=== PATIENT | female | born 1955 | race Caucasian/White ===

== ENCOUNTER 2019-05-24 22:44 | Emergency (ER) | payer MEDICARE, MEDICAID, SELFPAY ==
[2019-05-24 22:47] VITALS: BP 138/68; PULSE 66; RESP 20; TEMP 36.8; O2SAT 96
--- NOTE | 2019-05-24 23:45 | ED.WOUNDLAC ---
HPI - Wound/Laceration General Chief Complaint: Wound/Laceration Stated Complaint: tounge lac Time Seen by Provider: 05/24/19 23:35 Source: patient and RN notes reviewed Mode of arrival: EMS Limitations: no limitations History of Present Illness HPI narrative: Pt is a 64 y/o female who presents to the ED, via EMS, with c/o a laceration to the left side of her tongue. She states she was taking a bite of celery, when she accidentally bit the left side of her tongue. She reports the bleeding has not subsided since onset, even after trying to ice the laceration and other remedies. She reports she is currently on Xarelto and ASA which could be the cause of the constant bleeding. Pt states she has been bleeding for the past 6 hours. Pt denies pain anywhere else in her body. Onset (ago): hour(s) (6 hours ago) Location: other (left side of tongue) Place: home Context: accidental Associated symptoms: none Related Data Allergies Allergy/AdvReac Type Severity Reaction Status Date / Time green pepper Allergy Unknown Unknown Verified 05/24/19 22:50 Review of Systems Review of Systems: All systems reviewed & are unremarkable except as noted in HPI and below Constitutional: Constitutional: Denies other (pain anywhere else in her body) ENT: Reports other (laceration to the left side of her tongue) [facility] Past Medical History Medical History (Updated 05/25/19 @ 00:20 by Tommie Bettencourt MD) Anemia Angina at rest Anxiety Arthritis Asthma Atrial fibrillation Cataract CHF (congestive heart failure) Colitis COPD (chronic obstructive pulmonary disease) CVA (cerebral vascular accident) Degenerative disk disease Depression Diabetes DVT (deep venous thrombosis) Eczema Emphysema of lung Epistaxis Fibromyalgia Gall bladder disease GERD (gastroesophageal reflux disease) Hyperlipidemia Hypertension Mitral valve prolapse Osteoporosis Parkinson disease Peripheral neuropathy Peripheral vascular disease Pneumonia Psoriasis Pulmonary embolism Renal disease Restless leg syndrome Seizures Sleep apnea TIA (transient ischemic attack) UTI (urinary tract infection) Surgical History Surgical History (Updated 05/24/19 @ 23:59 by Nikky Fofana) H/O cardiac catheterization H/O dilation and curettage History of cholecystectomy History of right knee joint replacement History of tubal ligation Hx of tonsillectomy Family History Family History (Updated 11/18/15 @ 23:19 by DOCTOR UNKNOWN) Grandparent Family history of malignant neoplasm of breast, Onset Age: 72 Diabetes mellitus Father Family history of renal failure, Onset Age: 70 Cerebrovascular accident, Onset Age: 71 Family history of thoracic aortic aneurysm, Onset Age: 46 Patient's father is Sibling Family history of type 2 diabetes mellitus Mother Patient's mother is Other Family history of alcoholism Family history of arthritis Family history of blood dyscrasia Family history of seizure disorder Hypertension Social History Social History Smoking status: Never smoker Second hand tobacco smoke exposure: No Alcohol intake: never Gender identity (if verbalized by the patient): Female Exam Narrative: Exam Narrative: Constitutional: Elderly, obese, well-appearing. HENMT: Lips normal, moist mucous membranes. 1 cm laceration to the left side of her tongue with a small act of hemorrhage. Eyes: Conjunctive normal, PERRL Resp: Normal respiratory effect, clear to auscultation bilaterally. Cardio: Regular rate, rhythm, no murmurs. GI: Soft, non-tender, normal bowel sounds. Back/Spine/Pelvis: Full ROM Skin: Normal color, dry skin, warm Neuro: Oriented x 3, alert, normal speech Extremities: Full ROM Psych: Mental status grossly normal, normal affect. Course Vital Signs Vital signs: Vital Signs Temperature 36.8 C 05/24/19 22:47 Pulse Rate 66 05/24/19 22:47 Respiratory Rate 20 05/24/19 22:4
[2019-05-24 23:58] VITALS: BP 128/35; PULSE 69; RESP 18; O2SAT 99
[2019-05-25 00:34] VITALS: BP 135/85; PULSE 72; RESP 16; TEMP 36.6; O2SAT 98
[2019-05-25 02:07] VITALS: BP 120/89; PULSE 60; RESP 18; O2SAT 99
--- NOTE | 2019-05-25 02:59 | PC.NURSE ---
0034 - Called [facility] to transport patient. ETA [id number] - [facility] here.
== END 2019-05-25 03:03 ==
PROVIDERS: Emergency Provider Emergency Medicine; PCP Internal Medicine
DX: S01.512A Laceration without foreign body of oral cavity, initial encounter (principal); Z79.01 Long term (current) use of anticoagulants; Z79.82 Long term (current) use of aspirin; M19.90 Unspecified osteoarthritis, unspecified site; Z86.2 Personal history of diseases of the blood and blood-forming organs and certain disorders involving the immune mechanism; I48.91 Unspecified atrial fibrillation; I50.9 Heart failure, unspecified; J43.9 Emphysema, unspecified; Z86.73 Personal history of transient ischemic attack (TIA), and cerebral infarction without residual deficits; E11.9 Type 2 diabetes mellitus without complications; Z86.718 Personal history of other venous thrombosis and embolism; M79.7 Fibromyalgia; K21.9 Gastro-esophageal reflux disease without esophagitis; E78.5 Hyperlipidemia, unspecified; I11.0 Hypertensive heart disease with heart failure; I34.1 Nonrheumatic mitral (valve) prolapse; M81.0 Age-related osteoporosis without current pathological fracture; G20 Parkinson's disease; G62.9 Polyneuropathy, unspecified; I73.9 Peripheral vascular disease, unspecified; Z86.711 Personal history of pulmonary embolism; G25.81 Restless legs syndrome; N28.9 Disorder of kidney and ureter, unspecified; G47.30 Sleep apnea, unspecified; Z87.440 Personal history of urinary (tract) infections; X58.XXXA Exposure to other specified factors, initial encounter
CPT/HCPCS: 12011; 99282

== ENCOUNTER 2019-11-11 00:50 | Emergency (ER) | payer MEDICARE, MEDICAID, SELFPAY ==
[2019-11-11 00:52] VITALS: BP 152/64; PULSE 61; RESP 17; TEMP 36.2; O2SAT 98
--- NOTE | 2019-11-11 00:59 | ECG_ITS ---
Measurements Intervals [place] Rate: 55 P: -33 GA: 201 QRS: -34 QRSD: 149 T: 42 QT: 470 QTc: 451 Interpretive Statements SINUS BRADYCARDIA LEFT AXIS DEVIATION BORDERLINE AV CONDUCTION DELAY INTRAVENTRICULAR CONDUCTION DELAY DELAYED PRECORDIAL R/S TRANSITION LEFT VENTRICULAR HYPERTROPHY WITH ST-T CHANGE BASELINE ARTIFACT- I, II, III, AVR, AVL, AVF, V6 BORDERLINE ECG Electronically Signed On 11-11-2019 7:39:14 CDT by Ken Gonzalez D.O.
--- NOTE | 2019-11-11 01:01 | ED.DIZZY ---
HPI - Dizziness General Chief Complaint: Dizziness Stated Complaint: dizziness Time Seen by Provider: 11/11/19 00:59 History of Present Illness HPI Narrative: Intermittent dizziness since yesterday. She has had about 5 episodes and each one has lasted about 1 minute. Worse with laying on her right side. Seems to improve with being upright. No ear pain, tinnitus, muffled hearing. She says that she had vertigo years ago and this is different. Additionally she believes that she has a uti. Urinary frequency and pungent smell. Related Data Home Medications Medication Instructions Recorded Confirmed alprazolam 0.5 mg PO BID 11/11/19 aripiprazole 15 mg PO DAILY 11/11/19 aspirin 81 mg PO DAILY 11/11/19 budesonide-formoterol [Symbicort] 2 puff INHALATION Q12H 11/11/19 bumetanide 1 mg PO BID 11/11/19 buspirone 10 mg PO TID 11/11/19 calcium carbonate-vitamin D3 tablet PO 11/11/19 [Calcium 600 with Vitamin D3] carbidopa-levodopa 1 tablet PO TID 11/11/19 carvedilol 3.125 mg PO BID 11/11/19 cetirizine 10 mg PO DAILY 11/11/19 escitalopram oxalate 20 mg PO DAILY 11/11/19 fluticasone propionate [Allergy 1 spray INTRANASAL DAILY 11/11/19 Relief (fluticasone)] insulin glargine [Lantus Solostar 40 unit SUBCUT BID 11/11/19 U-100 Insulin] lovastatin 10 mg PO QPM 11/11/19 magnesium oxide 400 mg PO BID 11/11/19 metolazone 2.5 mg PO TID 11/11/19 nitrofurantoin monohyd/m-cryst 100 mg PO HS 11/11/19 [Macrobid] oxcarbazepine 600 mg PO BID 11/11/19 oxybutynin chloride 10 mg PO DAILY 11/11/19 spironolactone 25 mg PO DAILY 11/11/19 Allergies Allergy/AdvReac Type Severity Reaction Status Date / Time green pepper Allergy Unknown Unknown Verified 11/11/19 01:40 Review of Systems Review of Systems: All systems reviewed & are unremarkable except as noted in HPI and below Constitutional: Constitutional: Denies fever(s) Eyes: Eyes: Denies change in vision ENT: Reports dizziness and Denies sore throat Cardiovascular: Cardiovascular: Denies chest pain Respiratory: Respiratory: Denies dyspnea Gastrointestinal: Gastrointestinal: Denies abdominal pain and Denies nausea Genitourinary: Genitourinary: Denies hematuria, Reports nocturia and Denies dysuria Neurologic: Denies syncope [facility] Past Medical History Medical History Anemia Angina at rest Anxiety Arthritis Asthma Atrial fibrillation Cataract CHF (congestive heart failure) Colitis COPD (chronic obstructive pulmonary disease) CVA (cerebral vascular accident) Degenerative disk disease Depression Diabetes DVT (deep venous thrombosis) Eczema Emphysema of lung Epistaxis Fibromyalgia Gall bladder disease GERD (gastroesophageal reflux disease) Hyperlipidemia Hypertension Mitral valve prolapse Osteoporosis Parkinson disease Peripheral neuropathy Peripheral vascular disease Pneumonia Psoriasis Pulmonary embolism Renal disease Restless leg syndrome Seizures Sleep apnea TIA (transient ischemic attack) UTI (urinary tract infection) Surgical History Surgical History H/O cardiac catheterization H/O dilation and curettage History of cholecystectomy History of right knee joint replacement History of tubal ligation Hx of tonsillectomy Family History Family History Grandparent Family history of malignant neoplasm of breast, Onset Age: 72 Diabetes mellitus Father Family history of renal failure, Onset Age: 70 Cerebrovascular accident, Onset Age: 71 Family history of thoracic aortic aneurysm, Onset Age: 46 Patient's father is Sibling Family history of type 2 diabetes mellitus Mother Patient's mother is Other Family history of alcoholism Family history of arthritis Family history of blood dyscrasia Family history of seizure di
[2019-11-11 01:26] LABS: Blood Urea Nitrogen 37 mg/dL (7-17); Calcium 8.9 mg/dL (8.4-10.2); Carbon Dioxide 30 mmol/L (22-30); Chloride 88 mmol/L (98-107); Estimated Glomerular Filt Rate 45; Glucose 171 mg/dL (65-105); Potassium 4.1 mmol/L (3.4-5.0); Sodium 125 mmol/L (137-145)
[2019-11-11 01:35] LABS: Lactic Acid Reflex 0.7 mmol/L (0.7-2.1)
[2019-11-11] MEDS: MECLIZINE HCL 25 MG TABLET PO (01:35)
[2019-11-11 01:40] LABS: Add Urine Microscopic? YES; Appearance Urine Cloudy (Clear); Bacteria Urine Trace /hpf; Bilirubin Urine Negative (Negative); Blood Urine 1+ (Negative); Color Urine Yellow (Yellow); Glucose Urine UA Negative (Negative); Ketones Urine Negative (Negative); Leukocyte Esterase Ur 3+ LEU/UL (Negative); Nitrate Urine Positive (Negative); Protein Urine Negative (Negative); Specific Grav Ur 1.013 (1.001-1.035); Urobilinogen Urine Negative mg/dL (<2.0); WBC Urine 51-75 /hpf
[2019-11-11] MEDS: CEFDINIR 300 MG CAPSULE PO (02:18)
--- NOTE | 2019-11-11 02:40 | PC.NURSE ---
attempted to call [facility] twice to give updated on pt, unable to get ahold of nurse.
--- NOTE | 2019-11-11 02:44 | PC.NURSE ---
called [facility] to transport patient. ETA [phone] called [facility] to request transport. [facility] declined.
[2019-11-11 02:59] LABS: Basophils Absolute Auto 0.1 K/mm3 (0.0-0.1); Basophils Percent Auto 0.8 % (0.2-1.2); Eosinophils Absolute Auto 0.2 K/mm3 (0-0.3); Hematocrit 31.9 % (37.0-47.0); Hemoglobin 10.7 g/dL (12.0-15.0); Immature Granulocyte Absolute 0.06 K/mm3 (0.00-0.031); Immature Granulocyte Percent A 0.8 % (0-0.5); Lymphocytes Percent Auto 27.5 % (18.3-44.2); Mean Corpuscular HGB Conc 33.5 g/dl (32-36); Mean Corpuscular Hemoglobin 29.8 pg (26-34); Mean Corpuscular Volume 88.9 fl (80-100); Mean Platelet Volume 10.2 fl (7.4-10.4); Monocytes Absolute Auto 0.9 K/mm3 (0.1-0.6); Monocytes Percent Auto 12.6 % (2.6-8.5); Neutrophils Percent Auto 55.3 % (45.5-73.1); Platelet Count Result 232 k/mm3 (150-375); Red Blood Count 3.59 M/mm3 (4.2-5.4); Red Cell Distribution Width 14.1 % (11.5-14.5); White Blood Count 7.3 K/mm3 (4.5-10.0)
[2019-11-11 03:04] VITALS: BP 139/67; PULSE 57; RESP 16; O2SAT 98
--- NOTE | 2019-11-11 03:04 | PC.NURSE ---
updated pt and pt's on poc at this time. pt continues to rest on stretcher-denies any needs/concerns.
[2019-11-11 05:05] VITALS: BP 142/73; PULSE 49; RESP 18; O2SAT 99
--- NOTE | 2019-11-11 05:06 | PC.NURSE ---
pt continues to sleep on stretcher at this time, awaiting EMS.
--- NOTE | 2019-11-11 05:10 | PC.NURSE ---
called [facility] for ETA update. ETA [phone]
--- NOTE | 2019-11-11 05:57 | PC.NURSE ---
[facility] called to update ETA to [phone]
--- NOTE | 2019-11-11 06:39 | PC.NURSE ---
called [facility] for ETA update. ETA [phone]
[2019-11-11 06:52] VITALS: BP 128/66; PULSE 53; RESP 18; O2SAT 100
--- NOTE | 2019-11-11 06:55 | PC.NURSE ---
pt continues to sleep on stretcher at this time. awaiting transport, VS stable, RR even and unlabored.
--- NOTE | 2019-11-11 06:55 | PC.NURSE ---
called [facility] to request transport. [facility] declined.
--- NOTE | 2019-11-11 07:01 | PC.NURSE ---
called [facility] to request transport. [facility] declined
--- NOTE | 2019-11-11 07:08 | PC.NURSE ---
called [facility] to request transport. Declined. can try at 10am when second truck comes on.
[2019-11-11 09:39] VITALS: BP 128/72; PULSE 68; RESP 16; O2SAT 96
[2019-11-11 09:41] LABS: Glucose Point of Care 74 (65-105)
== END 2019-11-11 09:42 ==
PROVIDERS: Emergency Medicine; Emergency Provider Emergency Medicine; PCP Internal Medicine
DX: N30.00 Acute cystitis without hematuria (principal); D64.9 Anemia, unspecified; F41.9 Anxiety disorder, unspecified; M19.90 Unspecified osteoarthritis, unspecified site; J45.909 Unspecified asthma, uncomplicated; I48.91 Unspecified atrial fibrillation; I13.0 Hypertensive heart and chronic kidney disease with heart failure and stage 1 through stage 4 chronic kidney disease, or unspecified chronic kidney disease; E11.22 Type 2 diabetes mellitus with diabetic chronic kidney disease; N18.9 Chronic kidney disease, unspecified; I50.9 Heart failure, unspecified; Z79.4 Long term (current) use of insulin; J44.9 Chronic obstructive pulmonary disease, unspecified; Z86.73 Personal history of transient ischemic attack (TIA), and cerebral infarction without residual deficits; F32.9 Major depressive disorder, single episode, unspecified; M79.7 Fibromyalgia; K21.9 Gastro-esophageal reflux disease without esophagitis; E78.5 Hyperlipidemia, unspecified; G20 Parkinson's disease; G40.909 Epilepsy, unspecified, not intractable, without status epilepticus
CPT/HCPCS: 36415; 51701; 80048; 81001; 83605; 85025; 87077; 87086; 87088; 87186; 93005; 99283; A9270

== ENCOUNTER 2019-11-17 01:20 | Emergency (ER) | payer MEDICARE, MEDICAID, SELFPAY ==
--- NOTE | ~2019-11-17 | XR_ITS ---
XR chest 1V portable DATE: 11/17/2019 01:46 INDICATION: Shortness of breath TECHNIQUE: Portable AP chest on 11/17/2019 at 0141 hours COMPARISON: 11/18/2018 AP and lateral chest FINDINGS: Cardiomegaly. Mild pulmonary vascular congestion and redistribution are suggested. There is new asymmetric soft tissue density overlying the left suprahilar area; pulmonary mass lesion is not excluded. PA and lateral chest radiograph since recommended, with follow-up CT thorax if nece ssary. There is moderate elevation of the right leaf of the diaphragm and mild atelectasis at the right lung base. No pleural effusion. No pneumothorax. Surgical clips overlie the left and right upper quadrants of the abdomen. Diffuse osteopenia. Degenerative change and mild scoliosis of the thoracic spine. IMPRESSION: New asymmetric soft tissue density overlying left suprahilar area; recommend PA and later al chest radiographs, subsequent CT thorax if necessary Cardiomegaly, mild pulmonary vascular congestion suggesting mild congestive changes Chronic elevation of right leaf of the diaphragm and right mild basilar atelectasis Postoperative changes of left and right upper quadrants of the abdomen Dr. Rodriguez notified ER physician Dr. Bettencourt of the findings and recommendation for follow up chest radiograph and subsequent CT thorax if necessary on 11/17/2019 at 0650 hours. Reviewed, dictated and finalized at location [facility]. IMPRESSION: New asymmetric soft tissue density overlying left suprahilar area; recommend PA and lateral chest radiographs, subsequent CT thorax if necessary Cardiomegaly, mild pulmonary vascular congestion suggesting mild congestive carmelo nges Chronic elevation of right leaf of the diaphragm and right mild basilar atelect asis Postoperative changes of left and right upper quadrants of the abdomen Dr. Rodriguez notified ER physician Dr. Bettencourt of the findings and recommendatio n for follow up chest radiograph and subsequent CT thorax if necessary on 11/16 at 0650 hours.
--- NOTE | ~2019-11-17 | CT_ITS ---
EXAMINATION: CT chest wo con EXAM DATE: 11/17/2019 07:12 INDICATION: Abnormal chest x-ray. TECHNIQUE: Spiral CT of the chest without contrast. Axial, coronal and sagittal images were reviewe d. Coronal maximum intensity pixel images of chest reviewed. The dose-length product (DLP) for this examination was 905.09 mGy-cm. The exposure was tailored according to patient size (auto mA exposur e control), and iterative reconstruction (ASIR) was used as additional dose reduction technique. Comp arison is made to prior examination from 05/15/2013. Correlation was made with chest x-ray earlier [facility] e date. FINDINGS: There is pleural-based right middle lobe nodular opacity measuring about 1.3 cm, appearance most consistent with region of post infectious residua. There is additional pleural-based right midd le lobe 5 mm nodule. The main, central pulmonary arteries are dilated which can indicate elevated pulmonary arterial press ure, pulmonary arterial hypertension. This likely accounts for the left suprahilar density on x-ray. Some dense mitral annular calcifications. Heart is upper limits of normal in size. There are no pleural or pericardial effusions. Tracheobronchial tree is patent. There is no media stinal, hilar or axillary lymphadenopathy. There is no pneumothorax. There is mild coronary arter ial calcification, arterial sclerosis. Surgical changes at the gastroesophageal junction. Probable c holecystectomy. There is mild to moderate thoracic spondylosis without osteoblastic or osteolytic le sions identified. IMPRESSION: 1. Two right middle lobe nodules suspected most likely postinfectious; recommend 3 month follow-up l ow-dose chest CT. 2. Pulmonary arterial hypertension. Reviewed, dictated and finalized at location [facility]. IMPRESSION: 1. Two right middle lobe nodules suspected most likely postinfectious; recomme nd 3 month follow-up low-dose chest CT. 2. Pulmonary arterial hypertension.
[2019-11-17 01:21] VITALS: BP 140/65; PULSE 55; RESP 18; TEMP 37; O2SAT 95
--- NOTE | 2019-11-17 01:27 | ED.GENADULT ---
HPI - General Adult General Chief complaint: Headache Stated complaint: h/a, Time Seen by Provider: 11/17/19 01:21 History of Present Illness HPI narrative: She reports that she has had a migraine for the past week. This is associated with nausea. She tried acetaminophen and motrin without relief. Today they gave her a dose of imitrex, which help some. She also says that she has been feeling a bit more short of breath for the past several days. Related Data Home Medications Medication Instructions Recorded Confirmed alprazolam 0.5 mg PO BID 11/11/19 aripiprazole 15 mg PO DAILY 11/11/19 aspirin 81 mg PO DAILY 11/11/19 budesonide-formoterol [Symbicort] 2 puff INHALATION Q12H 11/11/19 bumetanide 1 mg PO BID 11/11/19 buspirone 10 mg PO TID 11/11/19 calcium carbonate-vitamin D3 tablet PO 11/11/19 [Calcium 600 with Vitamin D3] carbidopa-levodopa 1 tablet PO TID 11/11/19 carvedilol 3.125 mg PO BID 11/11/19 cetirizine 10 mg PO DAILY 11/11/19 escitalopram oxalate 20 mg PO DAILY 11/11/19 fluticasone propionate [Allergy 1 spray INTRANASAL DAILY 11/11/19 Relief (fluticasone)] insulin glargine [Lantus Solostar 40 unit SUBCUT BID 11/11/19 U-100 Insulin] lovastatin 10 mg PO QPM 11/11/19 magnesium oxide 400 mg PO BID 11/11/19 metolazone 2.5 mg PO TID 11/11/19 nitrofurantoin monohyd/m-cryst 100 mg PO HS 11/11/19 [Macrobid] oxcarbazepine 600 mg PO BID 11/11/19 oxybutynin chloride 10 mg PO DAILY 11/11/19 spironolactone 25 mg PO DAILY 11/11/19 Allergies Allergy/AdvReac Type Severity Reaction Status Date / Time green pepper Allergy Unknown Unknown Verified 11/11/19 01:40 Review of Systems Review of Systems: All systems reviewed & are unremarkable except as noted in HPI and below Constitutional: Constitutional: Denies fever(s) Cardiovascular: Cardiovascular: Denies chest pain Respiratory: Respiratory: Reports cough and Reports dyspnea Gastrointestinal: Gastrointestinal: Denies abdominal pain and Reports nausea Genitourinary: Genitourinary: Reports dysuria [facility] Social History Social History Smoking status: Never smoker Second hand tobacco smoke exposure: No Alcohol intake: never Gender identity (if verbalized by the patient): Female Exam Const: General: no acute distress and alert Nutritional Appearance: obese Orientation/consciousness: patient oriented x3 HENMT: Head: normal to inspection Neck: Neck: normal visual inspection and no lymphadenopathy Chest: Chest palpation & inspection: no tenderness Resp: Effort & Inspection: normal respiratory effort Auscultation: clear to auscultation bilaterally, no rales, no rhonchi and no wheezes Cardio: Jugular venous distension: no JVD Rate: regular rate Rhythm: regular rhythm Heart sounds: no murmurs GI: Inspection: non-distended GI Palp: Yes Soft to palpation and No Tenderness to palpation present (GI) Skin: General skin exam: normal color Neuro: General: patient oriented x3 and moves all extremities Speech: normal speech Psych: Appearance: well kempt Affect: normal affect Course Vital Signs Vital signs: Vital Signs Temperature 37.0 C 11/17/19 01:21 Pulse Rate 55 L 11/17/19 01:21 Respiratory Rate 18 11/17/19 01:21 Blood Pressure 140/65 11/17/19 01:21 Pulse Oximetry 95 11/17/19 01:21 Temperature 37.0 C 11/17/19 01:21 Pulse Rate 55 L 11/17/19 04:15 Respiratory Rate 18 11/17/19 04:15 Blood Pressure 130/46 L 11/17/19 04:15 Pulse Oximetry 97 11/17/19 04:15 Medical Decision Making Medical Records Medical records reviewed: Yes I reviewed the patient's medical records. Vital Signs Vital Signs: Vital Signs Temperature 37.0 C 11/17/19 01:21 Pulse Rate 55 L 11/17/19 01:21 Respiratory Rate 18 11/17/19 01:21 Blood Pressure 140/65 11/17/19 01:21 Pulse Oximetry 95 11/17/19 01:21 Temperature 37.0 C 11/17/19 0
--- NOTE | 2019-11-17 01:30 | ECG_ITS ---
Measurements Intervals [place] Rate: 50 P: 29 VT: 248 QRS: -33 QRSD: 144 T: 5 QT: 517 QTc: 472 Interpretive Statements SINUS BRADYCARDIA WITH FIRST DEGREE AV BLOCK LEFT AXIS DEVIATION INTRAVENTRICULAR CONDUCTION DELAY DELAYED PRECORDIAL R/S TRANSITION LEFT VENTRICULAR HYPERTROPHY WITH ST-T CHANGE BORDERLINE T WAVE ABNORMALITY- INFERIOR LEADS ABNORMAL ECG Electronically Signed On 11-17-2019 7:05:43 CDT by Ken Gonzalez D.O.
[2019-11-17] MEDS: SODIUM CHLORIDE 0.9% IV 1,000 ML 999 ML IV CONT (01:46)
[2019-11-17] MEDS: METOCLOPRAMIDE HCL INJ 10 MG/2 ML VIAL IV PUSH (01:47)
[2019-11-17] MEDS: KETOROLAC 30 MG/ML VIAL (*BKC) IV PUSH (01:47)
[2019-11-17] MEDS: diphenhydrAMINE HCl INJ 50 MG/ML VIAL 25 MG IV PUSH ×2 (01:47→04:37)
[2019-11-17 01:50] LABS: Basophils Absolute Auto 0.1 K/mm3 (0.0-0.1); Eosinophils Absolute Auto 0.2 K/mm3 (0-0.3); Eosinophils Percent Auto 3.4 % (0-4.4); Hematocrit 32.6 % (37.0-47.0); Hemoglobin 11.2 g/dL (12.0-15.0); Immature Granulocyte Absolute 0.04 K/mm3 (0.00-0.031); Immature Granulocyte Percent A 0.6 % (0-0.5); Lymphocytes Absolute Auto 1.79 K/mm3 (0.9-3.2); Lymphocytes Percent Auto 26.5 % (18.3-44.2); Mean Corpuscular HGB Conc 34.4 g/dl (32-36); Mean Corpuscular Hemoglobin 29.9 pg (26-34); Mean Corpuscular Volume 86.9 fl (80-100); Mean Platelet Volume 10.2 fl (7.4-10.4); Monocytes Absolute Auto 0.7 K/mm3 (0.1-0.6); Monocytes Percent Auto 10.4 % (2.6-8.5); Neutrophils Absolute Auto 3.9 K/mm3 (1.3-6.7); Neutrophils Percent Auto 58.1 % (45.5-73.1); Platelet Count Result 224 k/mm3 (150-375); Red Blood Count 3.75 M/mm3 (4.2-5.4); White Blood Count 6.8 K/mm3 (4.5-10.0)
[2019-11-17 02:11] LABS: Anion Gap 11.3 mmol/L (7-16); Blood Urea Nitrogen 37 mg/dL (7-17); Calcium 8.4 mg/dL (8.4-10.2); Carbon Dioxide 28 mmol/L (22-30); Chloride 87 mmol/L (98-107); Estimated Glomerular Filt Rate 41; Glucose 161 mg/dL (65-105); Potassium 4.3 mmol/L (3.4-5.0); Sodium 122 mmol/L (137-145)
[2019-11-17 04:15] VITALS: BP 130/46; PULSE 55; RESP 18; O2SAT 97
--- NOTE | 2019-11-17 04:23 | PC.NURSE ---
called [facility] to transport patient. ETA [phone]
--- NOTE | 2019-11-17 06:39 | PC.NURSE ---
called [facility] for ETA update. ETA [id number]
[2019-11-17 06:41] VITALS: BP 132/55; PULSE 51; RESP 16; O2SAT 98
[2019-11-17 09:16] VITALS: BP 136/78; PULSE 56; RESP 18; O2SAT 98
== END 2019-11-17 09:17 ==
PROVIDERS: Emergency Provider Emergency Medicine; PCP General Practice
DX: G43.909 Migraine, unspecified, not intractable, without status migrainosus (principal); R91.8 Other nonspecific abnormal finding of lung field; R00.1 Bradycardia, unspecified; I45.9 Conduction disorder, unspecified; I51.7 Cardiomegaly; R94.31 Abnormal electrocardiogram [ECG] [EKG]
CPT/HCPCS: 36415; 71045; 71250; 80048; 85025; 93005; 96361; 96365; 96375; 96376; 99284; J0131; J1200; J1885; J2765; J7030

== ENCOUNTER 2019-12-01 15:18 | Emergency (ER) | payer MEDICARE, MEDICAID, SELFPAY ==
--- NOTE | ~2019-12-01 | CT_ITS ---
EXAMINATION: CT brain wo con DATE: 12/01/2019 16:49 INDICATION: Headache TECHNIQUE: Computed tomography (CT) of the head was performed without intravenous contrast. The mA wa s adjusted according to patient size. Iterative reconstruction technique was employed. Exam dose: 68 1.00 mGy-cm total exam DLP. COMPARISON: None FINDINGS: No intracranial mass lesion or hemorrhage or intracranial mass lesion. No midline shift or mass effect. Bilateral carotid siphon internal carotid artery calcifications. There is nonspecific diminished att enuation of the cerebral white matter, likely due to chronic small vessel ischemic disease. There is moderate central and cortical cerebral atrophy. There is severe relatively high density likely chronic soft tissue opacification of the right maxilla ry sinus. The remaining paranasal sinuses and mastoid air cells are normally developed and aerated. No fracture or bone destruction of the cranial vault. IMPRESSION: Cerebral atherosclerosis and chronic small vessel ischemic changes of the cerebral white matter Chronic right maxillary prominent soft tissue thickening Reviewed, dictated and finalized at [facility]. Reviewed, dictated and finalized at location [facility].
[2019-12-01 15:24] VITALS: BP 140/61; PULSE 56; RESP 17; TEMP 36.5; O2SAT 96
--- NOTE | 2019-12-01 15:41 | ED.RECABL ---
HPI - Recheck/Abnormal Lab/Rx General Chief Complaint: Recheck/Abnormal Lab/Rx Stated Complaint: ABNORMAL LABS/PUGA Time Seen by Provider: 12/01/19 15:41 Source: patient Mode of arrival: wheelchair Limitations: no limitations History of Present Illness HPI narrative: Patient is a 64-year-old female well-known to our facility with a history of bipolar disorder, robina, obstructive sleep apnea, hypertension who presents for evaluation of headache pain and low sodium levels. Per EMS report, patient had low sodium levels drawn on outpatient lab testing and was sent here for assessment. Patient is currently only reporting a migraine headache which she has a history of. Pain is over the forehead without radiation to the neck, no eye pain. No vision changes, nausea or vomiting. Mild light photosensitivity. No thunderclap sensation to the headache. Patient with gradual onset a couple of days ago. No extremity weakness or numbness. Patient has been on Imitrex at her living facility without any improvement in her symptoms. Related Data Home Medications Medication Instructions Recorded Confirmed alprazolam 0.5 mg PO BID 11/11/19 aripiprazole 15 mg PO DAILY 11/11/19 aspirin 81 mg PO DAILY 11/11/19 budesonide-formoterol [Symbicort] 2 puff INHALATION Q12H 11/11/19 bumetanide 1 mg PO BID 11/11/19 buspirone 10 mg PO TID 11/11/19 calcium carbonate-vitamin D3 tablet PO 11/11/19 [Calcium 600 with Vitamin D3] carbidopa-levodopa 1 tablet PO TID 11/11/19 carvedilol 3.125 mg PO BID 11/11/19 cetirizine 10 mg PO DAILY 11/11/19 escitalopram oxalate 20 mg PO DAILY 11/11/19 fluticasone propionate [Allergy 1 spray INTRANASAL DAILY 11/11/19 Relief (fluticasone)] insulin glargine [Lantus Solostar 40 unit SUBCUT BID 11/11/19 U-100 Insulin] lovastatin 10 mg PO QPM 11/11/19 magnesium oxide 400 mg PO BID 11/11/19 metolazone 2.5 mg PO TID 11/11/19 nitrofurantoin monohyd/m-cryst 100 mg PO HS 11/11/19 [Macrobid] oxcarbazepine 600 mg PO BID 11/11/19 oxybutynin chloride 10 mg PO DAILY 11/11/19 spironolactone 25 mg PO DAILY 11/11/19 acetaminophen 325 mg PO ONCE PRN 12/01/19 albuterol sulfate 12/01/19 12/01/19 albuterol sulfate 1 inh INHALATION QID 12/01/19 bisacodyl 10 mg OK DAILY PRN 12/01/19 budesonide-formoterol [Symbicort] 2 puff INHALATION Q12H 12/01/19 cranberry 200 mg PO DAILY 12/01/19 ergocalciferol (vitamin D2) 1,250 mcg PO WEEKLY 12/01/19 [Vitamin D2] glucagon (human recombinant) 1 mg SUBCUT Q20M PRN 12/01/19 [GlucaGen HypoKit] hydrocodone-acetaminophen 1 tablet PO HS PRN 12/01/19 insulin lispro 12 unit SUBCUT DAILY 12/01/19 menthol [[place] Cough Drops] 7.6 mg MUCOUS MEMBRANE Q2-4H PRN 12/01/19 multivitamin 1 tablet PO DAILY 12/01/19 oxycodone-acetaminophen 1 tablet PO Q6H PRN 12/01/19 polyethylene glycol 3350 17 g PO DAILY 12/01/19 rivaroxaban [Xarelto] 20 mg PO DAILY 12/01/19 sennosides [senna] 8.6 mg PO BID 12/01/19 zolpidem mg 12/01/19 12/01/19 Allergies Allergy/AdvReac Type Severity Reaction Status Date / Time green pepper Allergy Unknown Unknown Verified 11/11/19 01:40 Review of Systems Review of Systems: Narrative: CONSTITUTIONAL: Denies fever CARDIOVASCULAR: Denies chest pain RESPIRATORY: Denies cough or dyspnea. GASTROINTESTINAL: Denies abdominal pain SKIN: Denies rash MUSCULOSKELETAL: Denies back pain NEUROLOGIC: Reports headache Psych: Reports current bipolar episode and manic episode, denies homicidal or suicidal ideation PMFSH Past Medical History Medical History Anemia Angina at rest Anxiety Arthritis Asthma Atrial fibrillation Cataract CHF (congestive heart failure) Colitis COPD (chronic obstructive pulmonary disease) CVA (cerebral vascular accident) Degenerative disk disease Depression Diabetes DVT (deep venous thrombosis) Eczema Emphysema of lung Epistaxis Fibromyalgia Gall bladder disease GERD (gastroesophage
[2019-12-01 16:14] LABS: Basophils Absolute Auto 0.1 K/mm3 (0.0-0.1); Basophils Percent Auto 1.3 % (0.2-1.2); Eosinophils Absolute Auto 0.2 K/mm3 (0-0.3); Eosinophils Percent Auto 2.6 % (0-4.4); Hematocrit 33.1 % (37.0-47.0); Hemoglobin 11.2 g/dL (12.0-15.0); Immature Granulocyte Absolute 0.05 K/mm3 (0.00-0.031); Immature Granulocyte Percent A 0.7 % (0-0.5); Lymphocytes Absolute Auto 1.64 K/mm3 (0.9-3.2); Lymphocytes Percent Auto 24.1 % (18.3-44.2); Mean Corpuscular HGB Conc 33.8 g/dl (32-36); Mean Corpuscular Hemoglobin 29.6 pg (26-34); Mean Corpuscular Volume 87.3 fl (80-100); Monocytes Absolute Auto 0.8 K/mm3 (0.1-0.6); Neutrophils Absolute Auto 4.1 K/mm3 (1.3-6.7); Neutrophils Percent Auto 60.3 % (45.5-73.1); Platelet Count Result 252 k/mm3 (150-375); Red Blood Count 3.79 M/mm3 (4.2-5.4); Red Cell Distribution Width 13.7 % (11.5-14.5); White Blood Count 6.8 K/mm3 (4.5-10.0)
[2019-12-01 16:24] LABS: Anion Gap 7 mmol/L (8-16); Blood Urea Nitrogen 40 mg/dL (7-17); Calcium 8.9 mg/dL (8.4-10.2); Carbon Dioxide 30 mmol/L (22-30); Chloride 84 mmol/L (98-107); Estimated CRCL calculation 61 ml/min; Estimated Glomerular Filt Rate 41; Glucose 104 mg/dL (65-105); Potassium 4.2 mmol/L (3.4-5.0); Sodium 121 mmol/L (137-145)
[2019-12-01] MEDS: SODIUM CHLORIDE 0.9% IV 500 ML 999 ML IV CONT (16:46)
[2019-12-01] MEDS: diphenhydrAMINE HCl INJ 50 MG/ML VIAL 25 MG IV PUSH (16:47)
[2019-12-01] MEDS: MAGNESIUM SULF 2 GM/WATER 50ML 2 GM/50 ML BAG IVPB (16:47)
[2019-12-01] MEDS: METOCLOPRAMIDE HCL INJ 10 MG/2 ML VIAL IV PUSH ×2 (16:48→21:01)
[2019-12-01 17:11] VITALS: BP 133/89; PULSE 61; RESP 18; O2SAT 97
[2019-12-01 18:41] VITALS: BP 112/95; PULSE 88; RESP 18; O2SAT 100
--- NOTE | 2019-12-01 18:47 | PC.NURSE ---
[facility] took report on patient, Maribel MONAE. Waiting on transport at this time. patient made aware.
[2019-12-01 20:14] VITALS: BP 149/86; PULSE 65; RESP 19; O2SAT 100
[2019-12-01 21:02] VITALS: BP 134/89; PULSE 66; RESP 19; TEMP 36.8; O2SAT 100
== END 2019-12-01 21:05 | disposition home or self-care (01) ==
PROVIDERS: Emergency Provider Emergency Medicine; PCP General Practice
DX: R51 Headache (principal); E87.1 Hypo-osmolality and hyponatremia; F31.9 Bipolar disorder, unspecified; G47.33 Obstructive sleep apnea (adult) (pediatric); Z79.82 Long term (current) use of aspirin; Z79.01 Long term (current) use of anticoagulants; Z79.4 Long term (current) use of insulin; D64.9 Anemia, unspecified; F41.9 Anxiety disorder, unspecified; M19.90 Unspecified osteoarthritis, unspecified site; I48.91 Unspecified atrial fibrillation; I11.0 Hypertensive heart disease with heart failure; I50.9 Heart failure, unspecified; E11.51 Type 2 diabetes mellitus with diabetic peripheral angiopathy without gangrene; J43.9 Emphysema, unspecified; M79.7 Fibromyalgia; K21.9 Gastro-esophageal reflux disease without esophagitis; E78.5 Hyperlipidemia, unspecified; G20 Parkinson's disease; I34.1 Nonrheumatic mitral (valve) prolapse; M81.0 Age-related osteoporosis without current pathological fracture; G25.81 Restless legs syndrome; N28.9 Disorder of kidney and ureter, unspecified; G47.30 Sleep apnea, unspecified; Z86.73 Personal history of transient ischemic attack (TIA), and cerebral infarction without residual deficits; Z86.711 Personal history of pulmonary embolism; Z87.440 Personal history of urinary (tract) infections; Z96.651 Presence of right artificial knee joint; I67.2 Cerebral atherosclerosis
CPT/HCPCS: 36415; 70450; 80048; 85025; 96365; 96375; 96376; 99284; J0131; J1100; J1200; J2765; J3475; J7040

== ENCOUNTER 2020-07-05 13:48 | Emergency (ER) | payer MEDICARE, MEDICAID, SELFPAY ==
--- NOTE | ~2020-07-05 | XR_ITS ---
EXAMINATION: XR chest 2V EXAM DATE: 07/05/2020 14:24 INDICATION: Acute onset midsternal chest pain. History high blood pressure. TECHNIQUE: Frontal and lateral projections of the chest obtained and reviewed. Comparison is made to prior examination from 11/17/2019. FINDINGS: The lungs are clear. There are no pleural effusions. Cardiac silhouette is prominent but magnified on this AP technique. There is no pneumothorax suspected. The bones and soft tissues are unremarkable. IMPRESSION: No acute cardiopulmonary findings. Reviewed, dictated and finalized at location [facility].
[2020-07-05 13:51] VITALS: BP 151/78; PULSE 62; RESP 19; TEMP 36.6; O2SAT 95
--- NOTE | 2020-07-05 13:51 | ECG_ITS ---
Measurements Intervals [place] Rate: 60 P: 22 WA: 210 QRS: -38 QRSD: 147 T: 66 QT: 441 QTc: 443 Interpretive Statements SINUS RHYTHM WITH FIRST DEGREE AV BLOCK LEFT AXIS DEVIATION INTRAVENTRICULAR CONDUCTION DELAY LEFT VENTRICULAR HYPERTROPHY WITH ST-T CHANGE POOR R WAVE PROGRESSION, ANTERIOR LEADS BASELINE ARTIFACT- I, II, III, AVR, AVL, AVF, V4-V6 ABNORMAL ECG Electronically Signed On 07-05-2020 15:28:36 CDT by Ken Gonzalez D.O.
--- NOTE | 2020-07-05 13:52 | ED.GENADULT ---
HPI - General Adult General Chief complaint: Chest Pain Stated complaint: chest pain/sob Time Seen by Provider: 07/05/20 13:52 Source: patient History of Present Illness HPI narrative: Patient is a 65 y/o female complaining of left sided chest pain starting 2 hours ago. She states that her pain is under left breast and sharp. She rates her pain as 8/10 initially, but 6/10 currently. Her pain radiates to her left shoulder. She was given Aspirin and Nitro by EMS, which help with her pain. She also has some SOB. Related Data Home Medications Medication Instructions Recorded Confirmed Calcium 600 with Vitamin D3 1 tablet PO BID 11/11/19 07/06/20 Lantus Solostar U-100 Insulin 40 unit SUBCUT BID 11/11/19 07/06/20 aripiprazole 15 mg PO DAILY 11/11/19 07/06/20 aspirin 81 mg PO DAILY 11/11/19 07/06/20 budesonide-formoterol [Symbicort] 2 puff INHALATION Q12H 11/11/19 07/06/20 bumetanide 1 mg PO BID 11/11/19 07/06/20 buspirone 10 mg PO TID 11/11/19 07/06/20 carbidopa-levodopa 1 tablet PO TID 11/11/19 07/06/20 carvedilol 3.125 mg PO BID 11/11/19 07/06/20 cetirizine 10 mg PO DAILY 11/11/19 07/06/20 escitalopram oxalate 20 mg PO DAILY 11/11/19 07/06/20 fluticasone propionate [Allergy 1 spray INTRANASAL DAILY 11/11/19 07/06/20 Relief (fluticasone)] lovastatin 10 mg PO QPM 11/11/19 07/06/20 magnesium oxide 400 mg PO BID 11/11/19 07/06/20 oxcarbazepine 600 mg PO BID 11/11/19 07/06/20 oxybutynin chloride 10 mg PO HS 11/11/19 07/06/20 spironolactone 25 mg PO DAILY 11/11/19 07/06/20 GlucaGen HypoKit 1 mg SUBCUT Q20M PRN 12/01/19 07/06/20 Jackson Cough Drops 9.1 mg MUCOUS MEMBRANE Q2-4H PRN 12/01/19 07/06/20 Xarelto 20 mg PO DAILY 12/01/19 07/06/20 acetaminophen 650 mg PO Q4H PRN 12/01/19 07/06/20 albuterol sulfate 2 puff INHALATION QID PRN 12/01/19 07/06/20 cranberry 400 mg PO BID 12/01/19 07/06/20 ergocalciferol (vitamin D2) 1,250 mcg PO WEEKLY 12/01/19 07/06/20 [Vitamin D2] multivitamin 1 tablet PO DAILY 12/01/19 07/06/20 polyethylene glycol 3350 17 g PO DAILY 12/01/19 07/06/20 senna 17.2 mg PO BID 12/01/19 07/06/20 Linzess 72 mcg PO DAILY 07/06/20 07/06/20 amitriptyline 25 mg PO HS 07/06/20 07/06/20 guaifenesin 600 mg PO BID 07/06/20 07/06/20 zolpidem 10 mg PO HS 07/06/20 07/06/20 Allergies Allergy/AdvReac Type Severity Reaction Status Date / Time green pepper Allergy Severe Stopped Verified 07/06/20 15:28 Breathing Review of Systems Constitutional: Constitutional: Denies chills, Denies fever(s), Denies headache(s) and Denies weakness Eyes: Eyes: Denies blurry vision ENT: Denies headache(s) and Denies neck pain Cardiovascular: Cardiovascular: Reports chest pain and Reports dyspnea Respiratory: Respiratory: Denies cough and Reports dyspnea Gastrointestinal: Gastrointestinal: Denies abdominal pain, Denies diarrhea, Denies nausea and Denies vomiting Genitourinary: Genitourinary: Denies hematuria and Denies dysuria Musculoskeletal: Musculoskeletal: Denies back pain and Denies neck pain Neurologic: Denies headache(s) and Denies weakness PMFSH Past Medical History Medical History Anemia Angina at rest Anxiety Arthritis Asthma Atrial fibrillation Cataract CHF (congestive heart failure) Colitis COPD (chronic obstructive pulmonary disease) CVA (cerebral vascular accident) Degenerative disk disease Depression Diabetes DVT (deep venous thrombosis) Eczema Emphysema of lung Epistaxis Fibromyalgia Gall bladder disease GERD (gastroesophageal reflux disease) Hyperlipidemia Hypertension Mitral valve prolapse Osteoporosis Parkinson disease Peripheral neuropathy Peripheral vascular disease Pneumonia Psoriasis Pulmonary embolism Renal disease Restless leg syndrome Seizures Sleep apnea TIA (transient ischemic attack) UTI (urinary tract infection) Surgical History Surgical History H/O cardiac catheterizati
[2020-07-05 13:55] VITALS: PULSE 61; O2SAT 95
[2020-07-05 14:27] LABS: Basophils Percent Auto 0.3 % (0.2-1.2); Eosinophils Absolute Auto 0.1 K/mm3 (0-0.3); Eosinophils Percent Auto 1.5 % (0-4.4); Hematocrit 37.9 % (37.0-47.0); Hemoglobin 12.5 g/dL (12.0-15.0); Immature Granulocyte Absolute 0.09 K/mm3 (0.00-0.031); Lymphocytes Absolute Auto 1.71 K/mm3 (0.9-3.2); Lymphocytes Percent Auto 18.2 % (18.3-44.2); Mean Corpuscular Hemoglobin 30.4 pg (26-34); Mean Corpuscular Volume 92.2 fl (80-100); Mean Platelet Volume 10.6 fl (7.4-10.4); Monocytes Absolute Auto 0.8 K/mm3 (0.1-0.6); Neutrophils Absolute Auto 6.6 K/mm3 (1.3-6.7); Platelet Count Result 225 k/mm3 (150-375); Red Blood Count 4.11 M/mm3 (4.2-5.4); Red Cell Distribution Width 12.8 % (11.5-14.5); White Blood Count 9.4 K/mm3 (4.5-10.0)
[2020-07-05 14:38] LABS: INR 1.2; Prothrombin Time 15.8 Seconds (11.1-14.7)
[2020-07-05 14:39] LABS: Partial Thromboplastin Time 37.1 SECONDS (22.3-36.8)
[2020-07-05 14:43] LABS: Potassium 4.6 mmol/L (3.4-5.0)
[2020-07-05 14:45] LABS: Anion Gap 4 mmol/L (8-16); Blood Urea Nitrogen 30 mg/dL (7-17); Calcium 9.6 mg/dL (8.4-10.2); Carbon Dioxide 32 mmol/L (22-30); Chloride 91 mmol/L (98-107); Estimated CRCL calculation 72 ml/min; Estimated Glomerular Filt Rate 50; Glucose 125 mg/dL (65-105); Sodium 127 mmol/L (137-145)
[2020-07-05 14:52] LABS: Troponin I < 0.012 ng/mL (0.000-0.034)
[2020-07-05 15:24] VITALS: BP 150/100; PULSE 60; RESP 20; O2SAT 98
[2020-07-05] MEDS: ONDANSETRON INJ 4 MG/2 ML VIAL (16:26)
[2020-07-05 16:27] LABS: Glucose Point of Care 112 (65-105)
--- NOTE | 2020-07-05 16:27 | PC.NURSE ---
medicated with zofran per md verbal order for med
[2020-07-05 17:37] LABS: Troponin I < 0.012 ng/mL (0.000-0.034)
[2020-07-05 18:16] LABS: D Dimer 0.44 ug/mL (<0.48)
[2020-07-05 18:23] VITALS: BP 150/80; PULSE 59; RESP 20; O2SAT 96
[2020-07-05 19:22] VITALS: BP 150/80; PULSE 59; RESP 20; O2SAT 96
--- NOTE | 2020-07-05 19:29 | PC.NURSE ---
phone report to [facility] home nurse yin
== END 2020-07-05 20:16 | disposition home or self-care (01) ==
PROVIDERS: Emergency Provider Emergency Medicine
DX: R07.9 Chest pain, unspecified (principal); I50.9 Heart failure, unspecified; E11.42 Type 2 diabetes mellitus with diabetic polyneuropathy; I48.91 Unspecified atrial fibrillation; Z86.73 Personal history of transient ischemic attack (TIA), and cerebral infarction without residual deficits; J43.9 Emphysema, unspecified; E78.5 Hyperlipidemia, unspecified; I11.0 Hypertensive heart disease with heart failure; M79.7 Fibromyalgia; K21.9 Gastro-esophageal reflux disease without esophagitis; I34.1 Nonrheumatic mitral (valve) prolapse; M81.0 Age-related osteoporosis without current pathological fracture; G20 Parkinson's disease; E11.51 Type 2 diabetes mellitus with diabetic peripheral angiopathy without gangrene; N28.9 Disorder of kidney and ureter, unspecified; G25.81 Restless legs syndrome; Z87.440 Personal history of urinary (tract) infections; Z86.711 Personal history of pulmonary embolism; Z86.718 Personal history of other venous thrombosis and embolism; Z79.4 Long term (current) use of insulin; Z79.01 Long term (current) use of anticoagulants; Z79.82 Long term (current) use of aspirin; Z96.651 Presence of right artificial knee joint; I44.0 Atrioventricular block, first degree; I45.9 Conduction disorder, unspecified; I51.7 Cardiomegaly
CPT/HCPCS: 36415; 71046; 80048; 82948; 84484; 85025; 85380; 85610; 85730; 93005; 96374; 99284; J2405

== ENCOUNTER 2020-07-06 10:26 | Observation (INO) | payer MEDICARE, MEDICAID, SELFPAY ==
[2020-07-06] VITALS (28 sets, daily range): BP systolic 127–181; BP diastolic 55–70; PULSE 56–68; RESP 12–20; TEMP 36.6–36.9; O2SAT 94–100
--- NOTE | ~2020-07-06 | CT_ITS ---
EXAMINATION: CTA chest PE protocol DATE: 07/06/2020 16:53 INDICATION: Chest pain, dyspnea. Lung nodule follow-up. TECHNIQUE: Computed tomography angiography (CTA) of the chest was performed with 100 mL Omnipaque-350 intravenous contrast timed to evaluate the pulmonary arteries. Coronal maximum intensity projection 3D-reconstructions were created by the technologist. Automated exposure control and iterative reconst ruction technique were employed. Exam dose: 912.81 mGy-cm total exam DLP. COMPARISON: 07/06/2020 AP and lateral chest 11/17/2019 CT chest FINDINGS: There is diagnostic contrast enhancement of the pulmonary arteries and no evidence of pulmo nary embolism. No thoracic aortic aneurysm of dissection. Mild nonspecific bilateral hilar and mediastinal, particularly subcarinal, lymph node prominence. Normal heart size. No pericardial or pleural effusion. Bilateral calcified pulmonary granulomas consistent with old pulmonary granulomatous disease. Calcifi cations of the subcarinal lymph nodes. Resolution of one of 2 middle lobe nodules described on 11/17/2019 CT examination. No pulmonary infiltrate or consolidation Small sliding hiatal hernia. Postoperative change of the stomach. Status post cholecystectomy. Normal morphology of the adrenal glands. Scoliosis and degenerative change of the thoracic spine. IMPRESSION: No evidence of pulmonary embolism Stable or resolved pulmonary nodule since 11/17/2019 Reviewed, dictated and finalized at [facility]. Reviewed, dictated and finalized at location A.
--- NOTE | ~2020-07-06 | CT_ITS ---
EXAMINATION: CT brain wo con DATE: 07/07/2020 17:14 INDICATION: Headache. Right sided paresis. TECHNIQUE: Computed tomography (CT) of the head was performed without intravenous contrast. The mA wa s adjusted according to patient size. Iterative reconstruction technique was employed. Exam dose: 68 1.00 mGy-cm total exam DLP. COMPARISON: 12/01/2019 CT brain FINDINGS: Bilateral internal carotid artery calcifications. There is nonspecific diminished attenuati on cerebral white matter, likely due to chronic small vessel ischemic changes. No intracranial mass lesion or hemorrhage or recent cerebrovascular accident is evident. No midline s hift or mass effect effect. No subdural or epidural hematoma. No fracture or bone destruction of the cranial vault. There is very prominent soft tissue thickening of the right maxillary sinus. The included paranasal s inuses are otherwise unremarkable. Normal development and aeration of the mastoid air cells. IMPRESSION: Cerebral atherosclerosis and chronic small vessel ischemic changes of the cerebral white matter Prominent soft tissue thickening of the right maxillary sinus Reviewed, dictated and finalized at [facility]. Reviewed, dictated and finalized at location A.
--- NOTE | ~2020-07-06 | US_ITS ---
EXAMINATION: US venous doppler [facility] EXAM DATE: 07/06/2020 14:00 INDICATION: Left leg pain. TECHNIQUE: Multiple grayscale, color flow and Doppler images of the left lower extremity deep venous system were obtained and reviewed. Comparison is made to prior examination from 12/09/2014. FINDINGS: The left common femoral, femoral and profunda veins demonstrate normal color flow, respirat ory variation, augmentation and compressibility. Compressibility, color flow confirmed within the le ft popliteal, posterior tibial, peroneal, and greater saphenous veins. IMPRESSION: 1. No left lower extremity deep venous thrombosis. Reviewed, dictated and finalized at location A.
--- NOTE | ~2020-07-06 | XR_ITS ---
EXAMINATION: XR chest 2V DATE: 07/06/2020 10:49 INDICATION: Midline chest pain. TECHNIQUE: Frontal and lateral views of the chest were obtained. COMPARISON: Chest 2 views 07/05/2020, chest CT 11/17/2019 FINDINGS: Sensitivity is decreased by obesity. There are mild airspace opacities in right lower lung zone and left mid and lower lung zones. No pleural effusion or pneumothorax. The heart size is normal . There are surgical clips in the abdomen. IMPRESSION: 1. Mild airspace opacities in right lower lung zone and left mid and lower lung zones, consistent wit h atelectasis versus pneumonia. Reviewed, dictated and finalized at location A. IMPRESSION: 1. Mild airspace opacities in right lower lung zone and left mid and lower lung zones, consistent with atelectasis versus pneumonia.
--- NOTE | 2020-07-06 10:26 | ECG_ITS ---
Measurements Intervals [place] Rate: 58 P: 94 [place]: 247 QRS: -40 QRSD: 141 T: 60 QT: 479 QTc: 471 Interpretive Statements SINUS BRADYCARDIA WITH FIRST DEGREE AV BLOCK LEFT AXIS DEVIATION INTRAVENTRICULAR CONDUCTION DELAY POOR R WAVE PROGRESSION, ANTERIOR LEADS MINIMAL Q WAVES- HIGH LATERAL LEADS ABNORMAL ECG Electronically Signed On 07-06-2020 10:56:58 CDT by Ken Gonzalez D.O.
[2020-07-06 11:42] LABS: Basophils Percent Auto 0.5 % (0.2-1.2); Eosinophils Absolute Auto 0.2 K/mm3 (0-0.3); Eosinophils Percent Auto 2.1 % (0-4.4); Hematocrit 36.6 % (37.0-47.0); Hemoglobin 12.1 g/dL (12.0-15.0); Immature Granulocyte Absolute 0.05 K/mm3 (0.00-0.031); Immature Granulocyte Percent A 0.7 % (0-0.5); Lymphocytes Absolute Auto 1.48 K/mm3 (0.9-3.2); Lymphocytes Percent Auto 19.3 % (18.3-44.2); Mean Corpuscular HGB Conc 33.1 g/dl (32-36); Mean Corpuscular Hemoglobin 30.8 pg (26-34); Mean Corpuscular Volume 93.1 fl (80-100); Mean Platelet Volume 10.6 fl (7.4-10.4); Monocytes Absolute Auto 0.6 K/mm3 (0.1-0.6); Neutrophils Absolute Auto 5.3 K/mm3 (1.3-6.7); Neutrophils Percent Auto 69.4 % (45.5-73.1); Platelet Count Result 208 k/mm3 (150-375); Red Blood Count 3.93 M/mm3 (4.2-5.4); Red Cell Distribution Width 12.8 % (11.5-14.5); White Blood Count 7.7 K/mm3 (4.5-10.0)
[2020-07-06 11:52] LABS: INR 1.4; Prothrombin Time 17.6 Seconds (11.1-14.7)
[2020-07-06 11:54] LABS: Anion Gap 2 mmol/L (8-16); Blood Urea Nitrogen 31 mg/dL (7-17); Calcium 9.1 mg/dL (8.4-10.2); Carbon Dioxide 35 mmol/L (22-30); Chloride 91 mmol/L (98-107); Estimated CRCL calculation 62 ml/min; Estimated Glomerular Filt Rate 41; Glucose 138 mg/dL (65-105); Potassium 4.8 mmol/L (3.4-5.0); Sodium 128 mmol/L (137-145)
[2020-07-06 12:06] LABS: Troponin I < 0.012 ng/mL (0.000-0.034)
--- NOTE | 2020-07-06 15:03 | PC.NURSE ---
This patient, Maribel Alvarez, was admitted to IMU Room 207-01. Patient/family oriented to hospital policies and general routines including ID bracelet, bed and alarms, visiting hours, pain management, procedures, bathroom and other care routines, personal items, smoking policy, room service/diet, and visiting hours. Information on how to activate the Rapid Response Team has been discussed. Patient/Family are encouraged to report perceived risks to care and to ask questions if they do not understand what they are told or what they should do.
--- NOTE | 2020-07-06 15:17 | PM.IMHP ---
H&P: HPI History of Present Illness Date/Time: 07/06/20 15:17 Maribel is a 65 y/o female complaining of left sided chest pain starting this morning at her half-way. She stated that her pain is under left breast and sharp. She felt like the pain was stabbing and radiated down her left arm. She rated her pain as 8/10 initially, but 6/10 upon ED arrival. Her pain radiated to her left shoulder. She was given Aspirin and Nitro by EMS, which help with her pain. She also has some SOB. This is the 2nd recent occurrence where her left-sided chest pain was resolved with nitro and aspirin. Cellar Pumper Dr. Gonzalez was called by the ER provider and consulted. The patient has seen binder and wrapper packer Dr. Do in the past. The patient has history of a right leg amputation. The patient had an episode of cramping to her left calf, so the ER provider ordered DVT Dopplers of the left lower extremity, there was no evidence of DVTs with that ultrasound. At the time of my exam just now, the patient denies any pain to her left lower extremity. There is no redness or swelling noted to the left lower extremity. She has been receiving physical therapy sessions at her half-way. She denies nausea, vomiting, diarrhea, but states she does have chronic constipation issues. At the time of my exam just now, she denies any chest pain, arm pain or radiating pain, denies shortness of breath or dyspnea, denies any jaw or neck pain. She states that she is feeling much better. She states that she does not quite feel like herself yet, and feels that she should be breathing easier. She wants to leave her mask off as she feels like her COPD is acting up. I offered to give her nebulizer treatments which she refused, and stated that she would continue using her inhalers. We will keep the patient overnight for 24 hour cardiac monitoring, continue the telemetry monitoring and vital sign checks. Chief Complaint: Chest Pain, Dyspnea Review of Systems Review of Systems: All systems reviewed & are unremarkable except as noted in HPI and below Constitutional: Constitutional: Reports as per HPI, Denies chills, Denies excessive sweating, Reports fatigue, Denies headache(s), Denies increased appetite, Denies snoring and Denies weight gain Eyes: Eyes: Reports as per HPI, Denies exophthalmos, Denies diplopia, Denies floaters and Denies loss of peripheral vision ENT: Reports as per HPI, Reports Normal hearing present, Denies facial pain, Denies headache(s), Denies odynophagia and Denies tinnitus Cardiovascular: Cardiovascular: Reports as per HPI, Reports chest pain (Resolved at this time), Reports chest pain at rest, Denies syncope, Denies pedal edema, Reports claudication (Resolved at this time), Denies leg ulcers, Denies leg edema and Reports dyspnea (Improved and resolved) Comments: Reviewed the patient's threat monitoring analyst waveform, found to be in sinus with a regular rate and rhythm, heart rate in the 60s. Respiratory: Respiratory: Reports as per HPI, Denies chest congestion, Denies cough, Denies pain on inspiration, Denies pain with cough, Denies dyspnea, Denies snoring and Denies wheezing Gastrointestinal: Gastrointestinal: Reports as per HPI, Denies abdominal pain, Denies bloating, Denies change in bowel habits, Reports constipation (Chronic per patient), Denies fecal incontinence, Denies diarrhea, Denies nausea, Denies odynophagia and Denies vomiting Genitourinary: Genitourinary: Reports as per HPI Musculoskeletal: Musculoskeletal: Reports as per HPI Comments: Right lower extremity history of amputation Integumentary/Breasts: Skin/Breast: Reports as per HPI, Denies non-healing lesions and Denies erythema Neurologic: Reports as per HPI, Reports Normal hearing present and Denies headache(s) Psychiatric: Psychiatric: Reports as per HPI, Denies anxiety, Denies confusion and Denies irritability Endocrine: Endocrine: Reports as per HPI, Denies excessive sweating and Reports fatigue Hematol
[2020-07-06 15:31] LABS: Troponin I < 0.012 ng/mL (0.000-0.034)
[2020-07-06 16:33] LABS: Glucose Point of Care 114 (65-105)
--- NOTE | 2020-07-06 16:36 | PM.CNCAR ---
Assessment and Plan Assessment and plan (1) Atypical chest pain: Code(s): R07.89 - Other chest pain Status: Acute Assessment and Plan: atypical chest pain occurring at rest, worse with deep breathing, highly reproducible constant for greater than 24 hours with negative serial troponin, unchanged EKG without evidence of myocardial infarction not resolved with nitroglycerin as previously reported. Symptoms most likely musculoskeletal. However, patient has multiple risk factors for atherosclerotic disease. Given patient's body habitus 2 Day protocol would be advised if Lexiscan stress test were to be pursued but is not performed on an inpatient basis at this hospital. Therefore, I do not feel that a one-day protocol would provide enough sensitivity and specificity for adequate diagnostic purposes. Furthermore, given the absence of acute myocardial event and the unlikely cardiac nature of her symptoms continue with medical management per primary service. Continue troponin serial evaluations. Continue statin. Repeat CT chest per primary service. Furthermore, even if coronary angiography were to be pursued she would need to be off anticoagulation for least 48 hours. Continue telemetry. Discussed at length with the patient verbalized understanding and agreed with plan of care. Patient also describes symptoms highly suggestive of esophageal inflammation with globus sensation and acid reflux symptoms. PPI advised. discussed with primary service. Will monitor symptoms and if any further regression, new concerns further determination with regards to ischemic testing and or echocardiogram will be made at that time. For now continue observation and symptomatic management. Plan of care discussed with the patient and with the primary service. They verbalized understanding and agreed. (2) Uncontrolled hypertension: Code(s): I10 - Essential (primary) hypertension Status: Acute Assessment and Plan: Optimize medical therapy for adequate BP control. Monitor renal function. (3) History of CHF (congestive heart failure): Code(s): Z86.79 - Personal history of other diseases of the circulatory system Status: Acute Assessment and Plan: Patient appears to be compensated at this time. Continue home medical therapy in this regard. (4) Pulmonary nodule: Code(s): R91.1 - Solitary pulmonary nodule Status: Acute Assessment and Plan: repeat CT chest is recommended for follow-up. (5) COPD (chronic obstructive pulmonary disease): Code(s): J44.9 - Chronic obstructive pulmonary disease, unspecified Status: Acute Assessment and Plan: Management per primary service. (6) History of pulmonary embolism: Code(s): Z86.711 - Personal history of pulmonary embolism Status: Acute Assessment and Plan: Continue systemic anticoagulation. (7) Chronic anticoagulation: Code(s): Z79.01 - bed bug exterminator (current) use of anticoagulants Status: Acute Assessment and Plan: Continue Xarelto. (8) Diabetes: Code(s): E11.9 - Type 2 diabetes mellitus without complications Status: Acute Assessment and Plan: Per primary service. (9) Morbid obesity with BMI of 50.0-59.9, adult: Code(s): E66.01 - Morbid (severe) obesity due to excess calories; Z68.43 - Body mass index [BMI] 50.0-59.9, adult Status: Acute Assessment and Plan: Patient is essentially immobile. History of Present Illness History of Present Illness Consult date/time: Date of service:07/06/20 16:36 Cardiology consultation at the request of [facility] regarding complaints of chest pain. Requesting physician: Corrine Phelps NP Consult reason: chest pain Reason For Visit: chest pain Narrative: Patient is a pleasant yet morbidly obese 65-year-old female with a complicated pas
--- NOTE | 2020-07-06 17:31 | ED.CHESTPAIN ---
HPI - Chest Pain General Chief Complaint: Chest Pain Stated Complaint: CP Time Seen by Provider: 07/06/20 10:43 Source: patient Mode of arrival: EMS Limitations: no limitations History of Present Illness HPI narrative: Patient presents to the emergency department with chief complaint of left-sided chest pain that is under her breast and is sharp in nature. Patient was in the emergency department yesterday for the same pain however yesterday it radiated down her left arm she denies it doing so today. Patient states that her precision dyer is Dr. Do however she has not seen him in over a year and a half. Patient states she was given nitro and aspirin and it relieved her chest pain. She reports her only symptom now is a headache from the nitroglycerin. Patient states that she is concerned that she is having any problem with her heart. Patient denies being short of breath. Patient denies pain worsening with inspiration. Patient denies fever, chills, nausea, vomiting, diarrhea. Patient is a right [id number] amputate. Patient denies any pain to her left leg. Yesterday's patient's troponins were negative and she was discharged back to custodial facility. Patient states today when she experienced the chest pain she was also very drowsy according to staff. Patient is now not drowsy. Related Data Home Medications Medication Instructions Recorded Confirmed aripiprazole 15 mg PO DAILY 11/11/19 07/06/20 aspirin 81 mg PO DAILY 11/11/19 07/06/20 budesonide-formoterol [Symbicort] 2 puff INHALATION Q12H 11/11/19 07/06/20 bumetanide 1 mg PO BID 11/11/19 07/06/20 buspirone 10 mg PO TID 11/11/19 07/06/20 calcium carbonate-vitamin D3 1 tablet PO BID 11/11/19 07/06/20 [Calcium 600 with Vitamin D3] carbidopa-levodopa 1 tablet PO TID 11/11/19 07/06/20 carvedilol 3.125 mg PO BID 11/11/19 07/06/20 cetirizine 10 mg PO DAILY 11/11/19 07/06/20 escitalopram oxalate 20 mg PO DAILY 11/11/19 07/06/20 fluticasone propionate [Allergy 1 spray INTRANASAL DAILY 11/11/19 07/06/20 Relief (fluticasone)] insulin glargine [Lantus Solostar 40 unit SUBCUT BID 11/11/19 07/06/20 U-100 Insulin] lovastatin 10 mg PO QPM 11/11/19 07/06/20 magnesium oxide 400 mg PO BID 11/11/19 07/06/20 oxcarbazepine 600 mg PO BID 11/11/19 07/06/20 oxybutynin chloride 10 mg PO HS 11/11/19 07/06/20 spironolactone 25 mg PO DAILY 11/11/19 07/06/20 acetaminophen 650 mg PO Q4H PRN 12/01/19 07/06/20 albuterol sulfate 2 puff INHALATION QID PRN 12/01/19 07/06/20 cranberry 400 mg PO BID 12/01/19 07/06/20 ergocalciferol (vitamin D2) 1,250 mcg PO WEEKLY 12/01/19 07/06/20 [Vitamin D2] glucagon (human recombinant) 1 mg SUBCUT Q20M PRN 12/01/19 07/06/20 [GlucaGen HypoKit] menthol [Bruner Cough Drops] 9.1 mg MUCOUS MEMBRANE Q2-4H PRN 12/01/19 07/06/20 multivitamin 1 tablet PO DAILY 12/01/19 07/06/20 polyethylene glycol 3350 17 g PO DAILY 12/01/19 07/06/20 rivaroxaban [Xarelto] 20 mg PO DAILY 12/01/19 07/06/20 sennosides [senna] 17.2 mg PO BID 12/01/19 07/06/20 amitriptyline 25 mg PO HS 07/06/20 07/06/20 guaifenesin 600 mg PO BID 07/06/20 07/06/20 linaclotide [Linzess] 72 mcg PO DAILY 07/06/20 07/06/20 zolpidem 10 mg PO HS 07/06/20 07/06/20 Allergies Allergy/AdvReac Type Severity Reaction Status Date / Time green pepper Allergy Severe Stopped Verified 07/06/20 15:28 Breathing Review of Systems Review of Systems: Narrative: CONSTITUTIONAL: Denies fever, chills, or sweats. EYES: Denies visual changes, redness, or discharge. ENT: Denies rhinorrhea, congestion, sore throat, or otalgia. CARDIOVASCULAR: Sharp left-sided chest pain, denies palpitations, or edema. RESPIRATORY: Denies cough or dyspnea. GASTROINTESTINAL: Denies abdominal pain, nausea, vomiting, or diarrhea. GENITOURINARY: Denies dysuria or hematuria. SKIN: Denies rash or itching. MUSCULOSKELETAL: Denies back pain, joint pain, or myalgia. NEUROLOGIC: Denies headache, numbness, dizziness, or weakness. PSYCHIATRIC: Denies an
[2020-07-06] MEDS: busPIRone HCL 10 MG TABLET PO (17:45)
[2020-07-06] MEDS: RIVAROXABAN 20 MG TABLET PO (17:45)
[2020-07-06] MEDS: carvediloL 3.125 MG TABLET PO (17:45)
[2020-07-06] MEDS: LOVASTATIN 10 MG TABLET PO (17:45)
[2020-07-06] MEDS: BUMETANIDE 1 MG TABLET PO (17:45)
[2020-07-06] MEDS: CARBIDOPA/LEVODOPA 25/100 MG TABLET 1 TABLET PO (17:45)
[2020-07-06] MEDS: MAGNESIUM OXIDE 400 MG TABLET PO (17:46)
[2020-07-06] MEDS: SENNOSIDES 8.6 MG TABLET 17.2 MG PO (17:46)
[2020-07-06] MEDS: OXcarbazepine 300 MG TABLET 600 MG PO (17:46)
[2020-07-06] MEDS: INSULIN GLARGINE (*BKC) 100 UNITS/ML 40 UNITS SUB-Q (17:46)
[2020-07-06 18:01] LABS: Troponin I 0.012 ng/mL (0.000-0.034)
[2020-07-06] MEDS: PANTOPRAZOLE 40 MG TABLET PO (20:36)
[2020-07-06] MEDS: ALBUTEROL SULFATE (*SP) AEROSOL 1 PUFF 2 PUFF INHALATION (20:36)
[2020-07-06] MEDS: ZOLPIDEM TARTRATE (*CRX) 5 MG TABLET 10 MG PO (20:36)
[2020-07-06] MEDS: AMITRIPTYLINE HCL 25 MG TABLET PO (20:37)
[2020-07-06] MEDS: guaiFENesin 12 HR 600 MG TABCR PO (20:37)
[2020-07-06 21:07] LABS: Glucose Point of Care 161 (65-105)
[2020-07-06] MEDS: TOLNAFTATE 1% POWDER 45 GM BTL 1 APPLIC TOPICAL (23:16)
[2020-07-07] VITALS (17 sets, daily range): BP systolic 94–167; BP diastolic 48–83; PULSE 60–85; RESP 12–22; TEMP 36.3–37.2; O2SAT 90–98
[2020-07-07] MEDS: ALPRAZolam (*CRX) 0.5 MG TABLET PO ×2 (00:05→14:08)
[2020-07-07 05:28] LABS: Basophils Percent Auto 0.5 % (0.2-1.2); Eosinophils Absolute Auto 0.2 K/mm3 (0-0.3); Hematocrit 34.6 % (37.0-47.0); Hemoglobin 11.7 g/dL (12.0-15.0); Immature Granulocyte Absolute 0.05 K/mm3 (0.00-0.031); Immature Granulocyte Percent A 0.6 % (0-0.5); Lymphocytes Absolute Auto 1.97 K/mm3 (0.9-3.2); Mean Corpuscular HGB Conc 33.8 g/dl (32-36); Mean Corpuscular Hemoglobin 30.5 pg (26-34); Mean Corpuscular Volume 90.1 fl (80-100); Monocytes Absolute Auto 0.8 K/mm3 (0.1-0.6); Neutrophils Absolute Auto 5.6 K/mm3 (1.3-6.7); Neutrophils Percent Auto 64.9 % (45.5-73.1); Platelet Count Result 215 k/mm3 (150-375); Red Blood Count 3.84 M/mm3 (4.2-5.4); Red Cell Distribution Width 12.7 % (11.5-14.5); White Blood Count 8.6 K/mm3 (4.5-10.0)
[2020-07-07 05:40] LABS: LDL Cholesterol Direct 58 mg/dL
[2020-07-07 05:52] LABS: Alanine Aminotransferase 8 U/L (4-35); Albumin Level 3.5 g/dL (3.5-5.1); Alkaline Phosphatase 189 U/L (38-126); Anion Gap 4 mmol/L (8-16); Aspartate Amino Transferase 30 U/L (14-36); Bilirubin,Total 0.5 mg/dL (0.2-1.3); Blood Urea Nitrogen 31 mg/dL (7-17); Calcium 9.2 mg/dL (8.4-10.2); Carbon Dioxide 32 mmol/L (22-30); Chloride 94 mmol/L (98-107); Cholesterol 116 mg/dL (0-200); Estimated CRCL calculation 66 ml/min; Estimated Glomerular Filt Rate 45; Glucose 78 mg/dL (65-105); HDL Direct 40 mg/dL; Magnesium 1.6 mg/dL (1.6-2.3); Phosphorus 3.2 mg/dL (2.5-4.5); Potassium 4.1 mmol/L (3.4-5.0); Sodium 130 mmol/L (137-145); Triglycerides 68 mg/dL (<150)
--- NOTE | 2020-07-07 07:00 | ECG_ITS ---
Measurements Intervals [place] Rate: 67 P: 27 [place]: 221 QRS: -31 QRSD: 138 T: 45 QT: 431 QTc: 456 Interpretive Statements SINUS RHYTHM WITH FIRST DEGREE AV BLOCK LEFT AXIS DEVIATION INTRAVENTRICULAR CONDUCTION DELAY LEFT VENTRICULAR HYPERTROPHY AND ST-T CHANGE BORDERLINE R WAVE PROGRESSION, ANTERIOR LEADS BASELINE ARTIFACT- I, AVR, AVL ABNORMAL ECG Electronically Signed On 07-07-2020 10:02:30 CDT by Ken Gonzalez D.O.
[2020-07-07 08:24] LABS: Glucose Point of Care 89 (65-105)
[2020-07-07] MEDS: busPIRone HCL 10 MG TABLET PO ×3 (08:43→17:51)
[2020-07-07] MEDS: guaiFENesin 12 HR 600 MG TABCR PO ×2 (08:43→21:37)
[2020-07-07] MEDS: MAGNESIUM OXIDE 400 MG TABLET PO ×2 (08:43→17:52)
[2020-07-07] MEDS: PANTOPRAZOLE 40 MG TABLET PO ×2 (08:43→21:37)
[2020-07-07] MEDS: ESCITALOPRAM OXALATE 10 MG TABLET 20 MG PO (08:43)
[2020-07-07] MEDS: carvediloL 3.125 MG TABLET PO ×2 (08:43→17:52)
[2020-07-07] MEDS: CARBIDOPA/LEVODOPA 25/100 MG TABLET 1 TABLET PO ×3 (08:43→17:51)
[2020-07-07] MEDS: MULTIVITAMINS THERAPEUTIC TAB (*BKC) 1 TABLET PO (08:43)
[2020-07-07] MEDS: ARIPiprazole 5 MG TABLET 15 MG PO (08:44)
[2020-07-07] MEDS: BUMETANIDE 1 MG TABLET PO ×2 (08:44→17:51)
[2020-07-07] MEDS: SENNOSIDES 8.6 MG TABLET 17.2 MG PO ×2 (08:44→17:54)
[2020-07-07] MEDS: SPIRONOLACTONE 25 MG TABLET PO (08:44)
[2020-07-07] MEDS: ALBUTEROL SULFATE (*SP) AEROSOL 1 PUFF 2 PUFF INHALATION ×4 (08:44→20:20)
[2020-07-07] MEDS: OXcarbazepine 300 MG TABLET 600 MG PO ×2 (08:44→17:53)
[2020-07-07] MEDS: LORATADINE 10 MG TABLET PO (08:44)
[2020-07-07] MEDS: polyethylene glycoL 3350 17 GM POWD.PACK PO (08:44)
[2020-07-07] MEDS: ERGOCALCIFEROL 50,000 UNIT CAPSULE 50000 UNITS PO (08:45)
[2020-07-07] MEDS: TOLNAFTATE 1% POWDER 45 GM BTL 1 APPLIC TOPICAL ×2 (08:45→20:20)
[2020-07-07] MEDS: FLUTICASONE PROPIONATE 0.05% NA SPR 16 GM BTL (*BKC) 1 SPRAY NASAL (08:45)
[2020-07-07] MEDS: ASPIRIN 81 MG CHEWABLE TABLET PO (08:47)
[2020-07-07] MEDS: INSULIN GLARGINE (*BKC) 100 UNITS/ML 40 UNITS SUB-Q (08:48)
[2020-07-07 11:59] LABS: Glucose Point of Care 233 (65-105)
[2020-07-07] MEDS: INSULIN ASPART (*BKC) 100 UNITS/ML SUB-Q (13:13)
--- NOTE | 2020-07-07 16:28 | PM.IMPN ---
Progress Note: A&P Assessment and Plan (1) Right sided weakness: Code(s): R53.1 - Weakness Status: Acute Assessment and Plan: Patient reporting some right-sided weakness, abnormal finger to nose during examination. Normal pronator drift. May have some slight tongue deviation to the right. Will get a stat CT brain to rule out any underlying hemorrhagic stroke. Then will order an MRI brain if CT is negative for further evaluation. Patient states her symptoms began around lunchtime, which is 5 hours from noon so we are most likely outside of the window for treatment with tPA if found to have an acute stroke. Neurochecks q.4 Consider neurology consultation with any concerns or abnormal imaging (2) Altered mental status: Code(s): R41.82 - Altered mental status, unspecified Status: Acute Assessment and Plan: Could be from over-sedation with benzodiazepine versus hypercapnia from decreased respiratory drive and hypoventilation syndrome from morbid obesity Will get stat ABG Will order CT brain stat If CT brain normal will check MRI due to some right-sided weakness Continue monitoring neuro checks q.4. Hold sedating medications like benzodiazepines and narcotics. (3) Chest pain of unknown etiology: Code(s): R07.9 - Chest pain, unspecified Status: Acute Assessment and Plan: Cardiology evaluated the patient and due to her negative serial troponins, unchanged EKG without any acute evidence of myocardial infarction and based on her examination with symptoms being substernal could be associated with GERD versus musculoskeletal in origin. Cardiology states she does have multiple risk factors for atherosclerotic disease given patient's body habitus and other underlying medical conditions. They recommend her following up as an outpatient for further ischemic workup. Telemetry shows sinus bradycardia with few PVCs and PACs. One episode of what appears to be junctional rhythm for 2 beats, then resolved. No acute arrhythmia noted. Appreciate cardiology's input and recommendations. She is on a PPI twice daily currently, will give medications as needed for musculoskeletal issues. Continue daily aspirin and Xarelto as well as Coreg for blood pressure control TSH is normal and lipid panel is within normal limits. Continue monitoring. (4) Dyspnea, paroxysmal nocturnal: Code(s): R06.00 - Dyspnea, unspecified Status: Acute Assessment and Plan: May be related to chest pain, COPD, CHF, rule out PE, pulmonary Nodule or infection related, or physical restrictions due to morbid obesity vs sleep apnea from hypoventilation syndrome Chest x-ray on arrival showed mild airspace opacity and right lower lung zone and left mid and lower lung zones consistent with atelectasis versus pneumonia. CTA chest showed no evidence of PE. Stable or resolving pulmonary nodule since 11/17/2019. No signs of acute consolidation or infiltration. Will continue her home inhalers for COPD, does not appear to have COPD exacerbation at this time. No wheezing. Does not appear to be in any CHF exacerbation at this time during examination or from chest x-ray on arrival. Patient reports having some shortness of breath at this time, she is also falling asleep during examination after having Xanax. Worried about over sedation causing hypoventilation. She most likely has underlying SUSAN or OPC hypoventilation syndrome. Will get a stat ABG at this time. Last set of vitals showed whole oxygenation 97% on room air. Respiratory rate of 12. Continue monitoring patient's oxygenation and respiratory status. (5) Diabetes: Code(s): E11.9 - Type 2 diabetes mellitus without complications Status: Acute Assessment and Plan:
[2020-07-07 16:56] LABS: Alveolar/Arterial O2 Gradient 12.3 mmHg; Carboxyhemoglobin 0.3 % THb (0-2.0); Fractional Inspired Oxygen 21 %; Methemoglobin ABG 0.5 %THb (0-1.5); Oxygen Content ABG 16.7 %vol (16.0-22.0); Oxygen Saturation ABG 96.4 % (95.0-100.0); Oxyhemoglobin 94.9 % THb (90.0-100.0); PCO2 ABG 45.6 mmHg (35.0-45.0); PO2 ABG 82.8 mmHg (80.0-100.0); PO2 FiO2 Ratio Arterial Blood 3.94 %; Reduced Hemoglobin 4.3 %THb (0-5.0); Total Hemoglobin 12.5 g/dL (12.0-18.0); pH ABG 7.436 (7.350-7.450)
[2020-07-07 16:57] LABS: Device ROOM AIR; Modified Allen's Test Pass; Site Drawn LEFT RADIAL
[2020-07-07 17:02] LABS: SARS-CoV-2 RNA PCR Positive
[2020-07-07 17:15] LABS: Glucose Point of Care 166 (65-105)
--- NOTE | 2020-07-07 17:33 | PC.NURSE ---
AMERICO Iverson notified of patient testing positive for Covid. Pt was swabbed for intermediate placement. Pt is asymptomatic. Americo Iverson will notify Dr. Manuel and inform the nurse on if the patient needs to be isolated or reswabbed, etc.
--- NOTE | 2020-07-07 17:46 | PC.NURSE ---
Rocio Iverson returned call to nurse. Per Dr. Manuel patient should be on isolation. No need for treatment or re-swab. Will initiate treatment if patient become symptomatic
[2020-07-07] MEDS: RIVAROXABAN 20 MG TABLET PO (17:53)
[2020-07-07] MEDS: INSULIN GLARGINE (*BKC) 100 UNITS/ML 30 UNITS SUB-Q (17:54)
[2020-07-07] MEDS: LOVASTATIN 10 MG TABLET PO (17:54)
[2020-07-07] MEDS: ZOLPIDEM TARTRATE (*CRX) 5 MG TABLET 10 MG PO (20:17)
[2020-07-07 20:33] LABS: Glucose Point of Care 304 (65-105)
[2020-07-07] MEDS: AMITRIPTYLINE HCL 25 MG TABLET PO (21:37)
[2020-07-07] MEDS: BUDESONIDE/FORMOTEROL (*SP) 160-4.5 MCG 6 GM INH 2 PUFF INHALATION (21:37)
[2020-07-08] VITALS (14 sets, daily range): BP systolic 159–199; BP diastolic 75–96; PULSE 59–75; RESP 20–22; TEMP 36.5–36.6; O2SAT 98–99
[2020-07-08 06:30] LABS: Basophils Absolute Auto 0.1 K/mm3 (0.0-0.1); Basophils Percent Auto 0.5 % (0.2-1.2); Eosinophils Absolute Auto 0.3 K/mm3 (0-0.3); Eosinophils Percent Auto 2.5 % (0-4.4); Immature Granulocyte Absolute 0.06 K/mm3 (0.00-0.031); Immature Granulocyte Percent A 0.6 % (0-0.5); Lymphocytes Absolute Auto 2.02 K/mm3 (0.9-3.2); Mean Corpuscular HGB Conc 34.3 g/dl (32-36); Mean Corpuscular Hemoglobin 30.8 pg (26-34); Mean Platelet Volume 10.7 fl (7.4-10.4); Monocytes Percent Auto 9.9 % (2.6-8.5); Neutrophils Absolute Auto 6.7 K/mm3 (1.3-6.7); Neutrophils Percent Auto 66.5 % (45.5-73.1); Platelet Count Result 215 k/mm3 (150-375); Red Blood Count 3.89 M/mm3 (4.2-5.4); Red Cell Distribution Width 12.7 % (11.5-14.5); White Blood Count 10.1 K/mm3 (4.5-10.0)
[2020-07-08 06:44] LABS: Anion Gap 2 mmol/L (8-16); Blood Urea Nitrogen 26 mg/dL (7-17); Calcium 9.2 mg/dL (8.4-10.2); Carbon Dioxide 31 mmol/L (22-30); Chloride 95 mmol/L (98-107); Estimated CRCL calculation 66 ml/min; Estimated Glomerular Filt Rate 45; Glucose 97 mg/dL (65-105); Magnesium 1.4 mg/dL (1.6-2.3); Sodium 128 mmol/L (137-145)
[2020-07-08 08:10] LABS: Glucose Point of Care 93 (65-105)
[2020-07-08] MEDS: BUDESONIDE/FORMOTEROL (*SP) 160-4.5 MCG 6 GM INH 2 PUFF INHALATION (08:41)
[2020-07-08] MEDS: ALBUTEROL SULFATE (*SP) INHALER 2 PUFF INHALATION ×3 (08:41→17:45)
[2020-07-08] MEDS: polyethylene glycoL 3350 17 GM POWD.PACK PO (08:43)
[2020-07-08] MEDS: FLUTICASONE PROPIONATE 0.05% NA SPR 16 GM BTL (*BKC) 1 SPRAY NASAL (08:43)
[2020-07-08] MEDS: OXcarbazepine 300 MG TABLET 600 MG PO ×2 (08:43→17:47)
[2020-07-08] MEDS: ARIPiprazole 5 MG TABLET 15 MG PO (08:43)
[2020-07-08] MEDS: guaiFENesin 12 HR 600 MG TABCR PO (08:44)
[2020-07-08] MEDS: CARBIDOPA/LEVODOPA 25/100 MG TABLET 1 TABLET PO ×3 (08:44→17:46)
[2020-07-08] MEDS: BUMETANIDE 1 MG TABLET PO ×2 (08:44→17:46)
[2020-07-08] MEDS: SPIRONOLACTONE 25 MG TABLET PO (08:44)
[2020-07-08] MEDS: LORATADINE 10 MG TABLET PO (08:44)
[2020-07-08] MEDS: busPIRone HCL 10 MG TABLET PO ×3 (08:44→17:46)
[2020-07-08] MEDS: MAGNESIUM OXIDE 400 MG TABLET PO ×2 (08:44→17:47)
[2020-07-08] MEDS: ESCITALOPRAM OXALATE 10 MG TABLET 20 MG PO (08:44)
[2020-07-08] MEDS: MULTIVITAMINS THERAPEUTIC TAB (*BKC) 1 TABLET PO (08:44)
[2020-07-08] MEDS: SENNOSIDES 8.6 MG TABLET 17.2 MG PO (08:45)
[2020-07-08] MEDS: INSULIN GLARGINE (*BKC) 100 UNITS/ML 30 UNITS SUB-Q ×2 (08:45→17:50)
[2020-07-08] MEDS: TOLNAFTATE 1% POWDER 45 GM BTL 1 APPLIC TOPICAL (08:45)
[2020-07-08] MEDS: carvediloL 3.125 MG TABLET PO ×2 (08:45→17:46)
[2020-07-08] MEDS: ASPIRIN 81 MG CHEWABLE TABLET PO (08:58)
[2020-07-08] MEDS: ACETAMINOPHEN 325 MG TABLET 650 MG PO ×3 (08:58→17:45)
[2020-07-08] MEDS: PANTOPRAZOLE 40 MG TABLET PO (09:01)
--- NOTE | 2020-07-08 10:07 | PM.PNCARD ---
Progress Note: A&P Additional Plan 65-year-old patient with: Atypical chest pain history no objective evidence of acute coronary syndrome. Because of the patient's morbid obesity and DNR status I do not recommend pursuing an ischemia evaluation since the results would highly unlikely be normal and we would not pursue them with angiography in this setting. Cardiology will sign off disposition per the primary team thank you Santana Baldwin MD [facility] Subjective Date/time seen: Date of service: 07/08/20 10:07 Interval history: 65-year-old woman with: Atypical chest pain history seen yesterday by my partner. Patient is morbidly obese and DNR. Exam Narrative: Exam Narrative: General: pleasant yet morbidly obese female sitting upright in bed, Well developed, alert and oriented x3 but seems confused at times about specific details. No apparent distress, comfortable, pleasant, and cooperative. Head: atraumatic, normocephalic Eyes: EOM intact, sclerae anicteric, conjunctivae unremarkable Ears/Nose: external inspection of ears and nose were grossly normal Mouth/Throat: oral mucosa pink and moist Neck: supple, normal range of motion, no jugular venous distention or carotid bruits, thyroid nonpalpable, trachea midline. Cardiac: Regular rate and rhythm, normal S1-S2, early II-III/ systolic murmur LUSB, clicks, gallops, or rubs. Lungs: diminished breath sounds diffusely no rales, wheezes, or rhonchi. Abdomen: morbidly obese, Soft, nontender, nondistended, positive bowel sounds throughout. unable to appreciate hepatosplenomegaly, no rebound guarding or rigidity noted. Abdominal aorta nonpalpable, no appreciable bruits. Extremities: right AKA 1+ edema left lower extremity, tenderness to palpation, noclubbing, and or cyanosis. Extremities warm and well perfused. Skin: Warm and dry without ecchymoses, rashes, and/or petechiae. Musculoskeletal: Muscle strength and tone intact throughout without obvious deformities with exception of right AKA. Highly reproducible point tenderness with guarding and withdrawal under left L breast at 5-6th rib just lateral to mid clavicular line; separate area of reproducible pain with guarding and slight withdrawal lower sternum mid line without obvious palpable deformities Vascular: Carotid upstrokes 2+ bilaterally, radial pulses 2+ bilaterally, DP on R absent due to amputation, 1+ L DP Neurologic: Cranial nerves 2-12 grossly intact, examination grossly nonfocal Pscyhiatric: Mood calm and appropriate. Const: General: confusion Orientation/consciousness: confusion Neuro: General: confusion Objective Data Vital Signs Vital Signs: Vital Signs - 24 hr 07/07/20 12:00 07/07/20 14:00 07/07/20 16:00 Temperature 36.7 C 37.2 C Pulse Rate 62 60 60 Respiratory Rate 12 12 Blood Pressure 150/48 H 161/83 H Pulse Oximetry 97 95 07/07/20 17:52 07/07/20 18:00 07/07/20 20:00 Temperature 37.1 C Pulse Rate 66 67 66 Respiratory Rate 22 H Blood Pressure 135/77 Pulse Oximetry 96 07/07/20 22:00 07/07/20 22:43 07/07/20 23:32 Temperature 36.3 C L Pulse Rate 65 65 69 Respiratory Rate 20 Blood Pressure 149/58 H Pulse Oximetry 90 97 07/08/20 00:00 07/08/20 02:00 07/08/20 04:00 Temperature Pulse Rate 69 75 69 Respiratory Rate Blood Pressure Pulse Oximetry 07/08/20 06:00 07/08/20 06:14 07/08/20 08:00 Temperature 36.6 C 36.6 C Pulse Rate 70 63 62 Respiratory Rate 20 22 H Blood Pressure 164/81 H 199/94 H Pulse Oximetry 99 98 07/08/20 08:45 07/08/20 08:52 Temperature Pulse Rate 60 Respiratory Rate Blood Pressure 159/75 H Pulse Oximetry Intake/Output Intake/Output: Intake & Output 07/05/20 07/06/20 07/07/20 07/08/20 23:59 23:59 23:59 23:59 Intake Total 580 1070 Balance 580 1070 Meds/Results Medications: Active Medications Generic Name Dose Route Start Last Admin
[2020-07-08] MEDS: MAGNESIUM SULFATE 3GM/D5W100ML 3 GM/100 ML BAG IVPB (10:24)
[2020-07-08 10:52] LABS: CRP 2.3 mg/dL (<1.0); Lactate Dehydrogenase 428 U/L (313-618)
--- NOTE | 2020-07-08 11:15 | P.PNIM_ITS ---
Progress Note: A&P Assessment and Plan (1) Right sided weakness: Code(s): R53.1 - Weakness Status: Acute Assessment and Plan: Patient reporting some right-sided weakness, abnormal finger to nose during examination. Normal pronator drift. May have some slight tongue deviation to the right. Will get a stat CT brain to rule out any underlying hemorrhagic stroke. Then will order an MRI brain if CT is negative for further evaluation. Patient states her symptoms began around lunchtime, which is 5 hours from noon so we are most likely outside of the window for treatment with tPA if found to have an acute stroke. * Neurochecks q.4 * Consider neurology consultation with any concerns or abnormal imaging (2) Altered mental status: Code(s): R41.82 - Altered mental status, unspecified Status: Acute Assessment and Plan: Could be from over-sedation with benzodiazepine versus hypercapnia from decreased respiratory drive and hypoventilation syndrome from morbid obesity * Will get stat ABG * Will order CT brain stat * If CT brain normal will check MRI due to some right-sided weakness Continue monitoring neuro checks q.4. Hold sedating medications like benzodiazepines and narcotics. (3) Chest pain of unknown etiology: Code(s): R07.9 - Chest pain, unspecified Status: Acute Assessment and Plan: Cardiology evaluated the patient and due to her negative serial troponins, unchanged EKG without any acute evidence of myocardial infarction and based on her examination with symptoms being substernal could be associated with GERD versus musculoskeletal in origin. Cardiology states she does have multiple risk factors for atherosclerotic disease given patient's body habitus and other underlying medical conditions. They recommend her following up as an outpatient for further ischemic workup. * Telemetry shows sinus bradycardia with few PVCs and PACs. One episode of what appears to be junctional rhythm for 2 beats, then resolved. No acute arrhythmia noted. * Appreciate cardiology's input and recommendations. * She is on a PPI twice daily currently, will give medications as needed for musculoskeletal issues. * Continue daily aspirin and Xarelto as well as Coreg for blood pressure control * TSH is normal and lipid panel is within normal limits. Continue monitoring. (4) Dyspnea, paroxysmal nocturnal: Code(s): R06.00 - Dyspnea, unspecified Status: Acute Assessment and Plan: May be related to chest pain, COPD, CHF, rule out PE, pulmonary Nodule or infection related, or physical restrictions due to morbid obesity vs sleep apnea from hypoventilation syndrome * Chest x-ray on arrival showed mild airspace opacity and right lower lung zone and left mid and lower lung zones consistent with atelectasis versus pneumonia. * CTA chest showed no evidence of PE. Stable or resolving pulmonary nodule since 11/17/2019. No signs of acute consolidation or infiltration. * Will continue her home inhalers for COPD, does not appear to have COPD exacerbation at this time. No wheezing. * Does not appear to be in any CHF exacerbation at this time during examination or from chest x-ray on arrival. * Patient reports having some shortness of breath at this time, she is also falling asleep during examination after having Xanax. Worried about over sedation causing hypoventilation. She most likely has underlying SUSAN or OPC hypoventilation syndrome. Will get a stat ABG at this time. * Last set of v
[2020-07-08 11:47] LABS: Glucose Point of Care 228 (65-105)
[2020-07-08] MEDS: INSULIN ASPART (*BKC) 100 UNITS/ML SUB-Q ×2 (12:40→17:50)
--- NOTE | 2020-07-08 15:59 | PM.DS ---
DS: Admitting Diagnosis Admitting Diagnosis Admitting Diagnosis: Chest pain DS: Discharge Diagnosis Discharge Diagnosis (1) Right sided weakness: Code(s): R53.1 - Weakness Status: Acute Assessment and Plan: 07/07/20: Patient reporting some right-sided weakness, abnormal finger to nose during examination. Normal pronator drift. May have some slight tongue deviation to the right. CT brain showed Cerebral atherosclerosis and chronic small vessel ischemic changes of the cerebral white matter. Prominent soft tissue thickening of the right maxillary sinus. MRI brain could not be ordered due to patient unable to stand up and ambulate to machine. 07/08/20: Patient is much more awake and alert today. She states she always takes a nap in the afternoon and is tired at this time. She does not have any weakness, memory issues, numbness, tingling, headache, trouble with speech or swallowing. She states she feels like she is at her baseline does not have any concerns at this time. Neuro examination was normal after having to wake and arouse the patient. She feels comfortable being discharged back to her retirement at this time to continue monitoring her symptoms and chest pain issues which is most likely due to some GERD. (2) Altered mental status: Code(s): R41.82 - Altered mental status, unspecified Status: Acute Assessment and Plan: Could be from over-sedation with benzodiazepine versus hypercapnia from decreased respiratory drive and hypoventilation syndrome from morbid obesity ABG showed slightly elevated pCO2 which could be chronic for her, elevated HC03. Normal pH and not hypoxic on room air. CT brain showed no acute abnormality. She reports feeling at her baseline at this time. I recommend monitoring her mental status at her retirement in the amount of benzos and narcotics she receives. (3) Chest pain of unknown etiology: Code(s): R07.9 - Chest pain, unspecified Status: Acute Assessment and Plan: Cardiology evaluated the patient and due to her negative serial troponins, unchanged EKG without any acute evidence of myocardial infarction and based on her examination with symptoms being substernal could be associated with GERD versus musculoskeletal in origin. Cardiology states she does have multiple risk factors for atherosclerotic disease given patient's body habitus and other underlying medical conditions. They recommend her following up as an outpatient for further ischemic workup. Telemetry shows sinus bradycardia with few PVCs and PACs. One episode of what appears to be junctional rhythm for 2 beats, then resolved. No acute arrhythmia noted. Appreciate cardiology's input and recommendations. She is on a PPI twice daily currently, will give medications as needed for musculoskeletal issues. Continue daily aspirin and Xarelto as well as Coreg for blood pressure control TSH is normal and lipid panel is within normal limits. Cardiology feels comfortable with her discharge at this time. (4) Dyspnea, paroxysmal nocturnal: Code(s): R06.00 - Dyspnea, unspecified Status: Acute Assessment and Plan: May be related to chest pain, COPD, CHF, rule out PE, pulmonary Nodule or infection related, or physical restrictions due to morbid obesity vs sleep apnea from hypoventilation syndrome Chest x-ray on arrival showed mild airspace opacity and right lower lung zone and left mid and lower lung zones consistent with atelectasis versus pneumonia. CTA chest showed no evidence of PE. Stable or resolving pulmonary nodule since 11/17/2019. No signs of acute consolidation or infiltration. Will continue her home inhalers for COPD, does not appear to have COPD exacerbation at this time. No wheezing. Does not appear to be in any CHF exacerbation at t
[2020-07-08 17:29] LABS: Glucose Point of Care 202 (65-105)
[2020-07-08] MEDS: LOVASTATIN 10 MG TABLET PO (17:47)
[2020-07-08] MEDS: RIVAROXABAN 20 MG TABLET PO (17:48)
--- NOTE | 2020-07-08 18:42 | PC.NURSE ---
Report called to LETHA Wise @ [facility] @ [phone]. Waiting ambulance for transfer
== END 2020-07-08 19:46 ==
LOC: ANHED 11:12 → ANHIMU 14:05
PROVIDERS: Nurse Practitioner; Admitting Provider Internal Medicine; Emergency Provider Emergency Medicine; PCP Family Medicine; Visit Provider Physician Assistant
DX: U07.1 COVID-19 (principal); R07.89 Other chest pain; I13.0 Hypertensive heart and chronic kidney disease with heart failure and stage 1 through stage 4 chronic kidney disease, or unspecified chronic kidney disease; I50.9 Heart failure, unspecified; E66.01 Morbid (severe) obesity due to excess calories; E11.22 Type 2 diabetes mellitus with diabetic chronic kidney disease; I48.91 Unspecified atrial fibrillation; J44.9 Chronic obstructive pulmonary disease, unspecified; M79.605 Pain in left leg; N18.9 Chronic kidney disease, unspecified; R53.1 Weakness; R06.00 Dyspnea, unspecified; R41.82 Altered mental status, unspecified; R91.8 Other nonspecific abnormal finding of lung field; Z86.73 Personal history of transient ischemic attack (TIA), and cerebral infarction without residual deficits; Z68.43 Body mass index [BMI] 50.0-59.9, adult; Z79.4 Long term (current) use of insulin; Z79.01 Long term (current) use of anticoagulants; Z89.611 Acquired absence of right leg above knee; Z66 Do not resuscitate
CPT/HCPCS: 36415; 36600; 70450; 71046; 71275; 80048; 80053; 80061; 82375; 82805; 82948; 83036; 83050; 83615; 83735; 84100; 84443; 84484; 85025; 85610; 85730; 86140; 93005; 93971; 94640; 94762; 96365; 97161; 97165; 99285; A9270; C9803; G0378; J1815; J3475; Q9967; U0003; U0005

== ENCOUNTER 2020-07-13 09:26 | Emergency (ER) | payer MEDICARE, MEDICAID, SELFPAY ==
--- NOTE | ~2020-07-13 | XR_ITS ---
EXAMINATION: XR chest 1V portable 07/13/2020 10:11 INDICATION: Weakness and dyspnea. PROCEDURE: AP portable chest COMPARISON: Comparison to multiple prior studies sequentially, with oldest reviewed study dated 11/18. FINDINGS: The lungs are clear. The cardiomediastinal silhouette is within normal limits. There are no pleural effusions. There is no pneumothorax suspected. IMPRESSION: 1: NO ACUTE CARDIOPULMONARY DISEASE. Reviewed, dictated and finalized at location A.
--- NOTE | 2020-07-13 09:39 | ECG_ITS ---
Measurements Intervals Gordon Rate: 58 P: -19 ME: 171 QRS: -26 QRSD: 142 T: 139 QT: 432 QTc: 426 Interpretive Statements SINUS BRADYCARDIA INTRAVENTRICULAR CONDUCTION DELAY LEFT VENTRICULAR HYPERTROPHY WITH ST-T CHANGE POOR R WAVE PROGRESSION, ANTERIOR LEADS CONSIDER HIGH LATERAL INFARCT, AGE INDETERMINATE BASELINE WANDER- V2, V4-V5 ABNORMAL ECG Electronically Signed On 07-13-2020 9:50:17 CDT by Ken Gonzalez D.O.
[2020-07-13 09:43] LABS: Glucose Point of Care 174 (65-105)
[2020-07-13 09:51] LABS: Basophils Absolute Auto 0.1 K/mm3 (0.0-0.1); Basophils Percent Auto 0.8 % (0.2-1.2); Eosinophils Absolute Auto 0.2 K/mm3 (0-0.3); Eosinophils Percent Auto 2.5 % (0-4.4); Hematocrit 38.6 % (37.0-47.0); Hemoglobin 12.9 g/dL (12.0-15.0); Immature Granulocyte Absolute 0.05 K/mm3 (0.00-0.031); Immature Granulocyte Percent A 0.6 % (0-0.5); Lymphocytes Absolute Auto 1.84 K/mm3 (0.9-3.2); Lymphocytes Percent Auto 20.3 % (18.3-44.2); Mean Corpuscular HGB Conc 33.4 g/dl (32-36); Mean Corpuscular Hemoglobin 30.4 pg (26-34); Mean Corpuscular Volume 90.8 fl (80-100); Mean Platelet Volume 10.6 fl (7.4-10.4); Monocytes Absolute Auto 0.8 K/mm3 (0.1-0.6); Monocytes Percent Auto 8.3 % (2.6-8.5); Neutrophils Absolute Auto 6.1 K/mm3 (1.3-6.7); Neutrophils Percent Auto 67.5 % (45.5-73.1); Platelet Count Result 264 k/mm3 (150-375); Red Blood Count 4.25 M/mm3 (4.2-5.4); Red Cell Distribution Width 12.7 % (11.5-14.5); White Blood Count 9.1 K/mm3 (4.5-10.0)
[2020-07-13 09:56] VITALS: BP 156/81; PULSE 66; RESP 19; TEMP 36.7; O2SAT 100
[2020-07-13 10:04] VITALS: PULSE 58
--- NOTE | 2020-07-13 10:05 | ED.GENADULT ---
HPI - General Adult General Chief complaint: Weakness Stated complaint: HEADACHE/COVID+ Time Seen by Provider: 07/13/20 09:52 History of Present Illness HPI narrative: Patient is a 65-year-old female with numerous medical conditions including CHF, COPD, hypertension, hyperlipidemia who [facility] with complaints of feeling lethargic and weak. Reports that she was diagnosed with the COVID-19 virus 1 week ago, her Covid symptom is a frontal headache that has been fairly constant since onset and says the Tylenol does help. When she woke up this morning she was feeling weak and lethargic prompting her to come to the emergency room for evaluation. She denies any shortness of breath to me, does admit to some nausea without any vomiting. Denies any other acute symptoms or concerns. Review of medical records shows the patient was admitted to the hospital 7 days ago for chest pain, work-up showed that she had pneumonia. Otherwise cardiac work-up was normal, CTA chest PE and lower extremity Doppler was normal. On 07/07/20 while in the hospital the patient had some right-sided weakness, head CT was unremarkable, symptoms resolved, MRI was unable to be done. Related Data Home Medications Medication Instructions Recorded Confirmed Calcium 600 with Vitamin D3 1 tablet PO BID 11/11/19 07/06/20 Lantus Solostar U-100 Insulin 40 unit SUBCUT BID 11/11/19 07/06/20 aripiprazole 15 mg PO DAILY 11/11/19 07/06/20 aspirin 81 mg PO DAILY 11/11/19 07/06/20 budesonide-formoterol [Symbicort] 2 puff INHALATION Q12H 11/11/19 07/06/20 bumetanide 1 mg PO BID 11/11/19 07/06/20 buspirone 10 mg PO TID 11/11/19 07/06/20 carbidopa-levodopa 1 tablet PO TID 11/11/19 07/06/20 carvedilol 3.125 mg PO BID 11/11/19 07/06/20 cetirizine 10 mg PO DAILY 11/11/19 07/06/20 escitalopram oxalate 20 mg PO DAILY 11/11/19 07/06/20 fluticasone propionate [Allergy 1 spray INTRANASAL DAILY 11/11/19 07/06/20 Relief (fluticasone)] lovastatin 10 mg PO QPM 11/11/19 07/06/20 magnesium oxide 400 mg PO BID 11/11/19 07/06/20 oxcarbazepine 600 mg PO BID 11/11/19 07/06/20 oxybutynin chloride 10 mg PO HS 11/11/19 07/06/20 spironolactone 25 mg PO DAILY 11/11/19 07/06/20 GlucaGen HypoKit 1 mg SUBCUT Q20M PRN 12/01/19 07/06/20 Westfir Cough Drops 9.1 mg MUCOUS MEMBRANE Q2-4H PRN 12/01/19 07/06/20 Xarelto 20 mg PO DAILY 12/01/19 07/06/20 acetaminophen 650 mg PO Q4H PRN 12/01/19 07/06/20 albuterol sulfate 2 puff INHALATION QID PRN 12/01/19 07/06/20 cranberry 400 mg PO BID 12/01/19 07/06/20 ergocalciferol (vitamin D2) 1,250 mcg PO WEEKLY 12/01/19 07/06/20 [Vitamin D2] multivitamin 1 tablet PO DAILY 12/01/19 07/06/20 polyethylene glycol 3350 17 g PO DAILY 12/01/19 07/06/20 senna 17.2 mg PO BID 12/01/19 07/06/20 Linzess 72 mcg PO DAILY 07/06/20 07/06/20 amitriptyline 25 mg PO HS 07/06/20 07/06/20 guaifenesin 600 mg PO BID 07/06/20 07/06/20 Allergies Allergy/AdvReac Type Severity Reaction Status Date / Time green pepper Allergy Severe Stopped Verified 07/06/20 15:28 Breathing Review of Systems Review of Systems: All systems reviewed & are unremarkable except as noted in HPI and below PMFSH Past Medical History Medical History Anemia Angina at rest Anxiety Arthritis Asthma Atrial fibrillation Cataract CHF (congestive heart failure) Colitis COPD (chronic obstructive pulmonary disease) CVA (cerebral vascular accident) Degenerative disk disease Depression Diabetes DVT (deep venous thrombosis) Eczema Emphysema of lung Epistaxis Fibromyalgia Gall bladder disease GERD (gastroesophageal reflux disease) Hyperlipidemia Hypertension Mitral valve prolapse Osteoporosis Parkinson disease Peripheral neuropathy Peripheral vascular disease Pneumonia Psoriasis Pulmonary embolism Renal disease Restless leg syndrome Seizures Sleep apnea TIA (transient ischemic attack) UTI (urinary tract infection) Surgi
[2020-07-13 10:06] LABS: Alanine Aminotransferase 12 U/L (4-35); Albumin Level 3.8 g/dL (3.5-5.1); Alkaline Phosphatase 196 U/L (38-126); Anion Gap 3 mmol/L (8-16); Aspartate Amino Transferase 29 U/L (14-36); Bilirubin,Total 0.4 mg/dL (0.2-1.3); Blood Urea Nitrogen 30 mg/dL (7-17); Calcium 9.1 mg/dL (8.4-10.2); Carbon Dioxide 33 mmol/L (22-30); Chloride 90 mmol/L (98-107); Estimated CRCL calculation 72 ml/min; Estimated Glomerular Filt Rate 50; Glucose 169 mg/dL (65-105); Sodium 126 mmol/L (137-145)
[2020-07-13 10:11] LABS: Add Urine Microscopic? YES; Appearance Urine Cloudy (Clear); Bacteria Urine Trace /hpf; Bilirubin Urine Negative (Negative); Blood Urine Negative (Negative); Color Urine Yellow (Yellow); Glucose Urine UA Negative (Negative); Ketones Urine Negative (Negative); Leukocyte Esterase Ur 2+ LEU/UL (Negative); Nitrate Urine Positive (Negative); Protein Urine 2+ mg/dL (Negative); Urobilinogen Urine Negative mg/dL (<2.0)
[2020-07-13 10:52] VITALS: BP 176/99; PULSE 59; RESP 20; O2SAT 98
[2020-07-13 11:15] VITALS: BP 144/82; PULSE 59; RESP 16; O2SAT 100
[2020-07-13] MEDS: ONDANSETRON INJ 4 MG/2 ML VIAL IV PUSH (11:15)
[2020-07-13] MEDS: ACETAMINOPHEN 500 MG TABLET 1000 MG PO (11:15)
[2020-07-13 12:55] VITALS: BP 168/66; PULSE 72; RESP 16; O2SAT 97
[2020-07-13 15:03] VITALS: BP 134/88; PULSE 64; RESP 16; O2SAT 95
--- NOTE | 2020-07-13 15:48 | PC.NURSE ---
Added for wrong pt.
== END 2020-07-13 16:01 ==
PROVIDERS: Emergency Provider Emergency Medicine; PCP Family Medicine
DX: U07.1 COVID-19 (principal); R53.1 Weakness; N30.00 Acute cystitis without hematuria
CPT/HCPCS: 36415; 51701; 71045; 80053; 81001; 82948; 85025; 87086; 93005; 96365; 96375; 99284; A9270; J0696; J2405

== ENCOUNTER 2020-08-05 15:32 | Emergency (ER) | payer MEDICARE, MEDICAID, SELFPAY ==
--- NOTE | ~2020-08-05 | CT_ITS ---
EXAMINATION: CT abdomen pelvis w con DATE: 08/05/2020 16:41 INDICATION: Pyelonephritis. TECHNIQUE: Computed tomography (CT) of the abdomen and pelvis was performed with 100 mL Omnipaque 350 intravenous contrast. Automated exposure control and iterative reconstruction technique were employe d. The dose-length product was 1708.47 mGy-cm. COMPARISON: CT abdomen and pelvis 11/18/2018 FINDINGS: The visualized portions of the lung bases demonstrate mild atelectasis and scarring. A calc ified right lung nodule and calcified right hilar and mediastinal lymph nodes are consistent with old granulomatous disease. There is a 5 mm nodule in left lower lobe without change, likely benign. No p leural effusion. The heart size is normal. No pericardial effusion. There are coronary artery calcifi cations. The liver is normal. There are changes of cholecystectomy. The spleen is normal. There are s urgical changes of the stomach. The pancreas and adrenal glands are normal. There is cortical thinnin g of the kidneys. There is a 1.5 cm cyst in left kidney. There are no dilated loops of bowel. The luis endix is normal. There are no pathologically enlarged lymph nodes. There is no free intraperitoneal f luid. There is moderate thoracic spondylosis and severe lumbar spondylosis. There are chronic bilater al L5 pars defects. There is 3 mm anterolisthesis of L5 on S1. IMPRESSION: 1. Mild atrophy of the kidneys. Reviewed, dictated and finalized at location A.
[2020-08-05 15:04] VITALS: BP 169/99; PULSE 65; RESP 14; TEMP 36.8; O2SAT 95
--- NOTE | 2020-08-05 15:12 | ED.BACK ---
HPI - Back Pain/Injury General Chief Complaint: Back Pain/Injury Stated Complaint: Lower back pain History of Present Illness HPI Narrative: 65 yo female w/ h/o of low back pain, recurrent UTI, MRSA presents to the ED for MRSA kidney infection. It is unclear why she believes that she has this. She reports that she had urine collected a few dyas ago and was told that she had a kidney infection. She does report increased low back pain. No fever, nausea, vomiting. I discussed the patient with Dr. Angel. He believes that she is only here because he declined to increase her chronic pain medication dose. He is not aware of any recent MRSA positive cultures or any reason to believe that she has pyelonephritis. Related Data Home Medications Medication Instructions Recorded Confirmed Calcium 600 with Vitamin D3 1 tablet PO BID 11/11/19 07/06/20 Lantus Solostar U-100 Insulin 40 unit SUBCUT BID 11/11/19 07/06/20 aripiprazole 15 mg PO DAILY 11/11/19 07/06/20 aspirin 81 mg PO DAILY 11/11/19 07/06/20 budesonide-formoterol [Symbicort] 2 puff INHALATION Q12H 11/11/19 07/06/20 bumetanide 1 mg PO BID 11/11/19 07/06/20 buspirone 10 mg PO TID 11/11/19 07/06/20 carbidopa-levodopa 1 tablet PO TID 11/11/19 07/06/20 carvedilol 3.125 mg PO BID 11/11/19 07/06/20 cetirizine 10 mg PO DAILY 11/11/19 07/06/20 escitalopram oxalate 20 mg PO DAILY 11/11/19 07/06/20 fluticasone propionate [Allergy 1 spray INTRANASAL DAILY 11/11/19 07/06/20 Relief (fluticasone)] lovastatin 10 mg PO QPM 11/11/19 07/06/20 magnesium oxide 400 mg PO BID 11/11/19 07/06/20 oxcarbazepine 600 mg PO BID 11/11/19 07/06/20 oxybutynin chloride 10 mg PO HS 11/11/19 07/06/20 spironolactone 25 mg PO DAILY 11/11/19 07/06/20 GlucaGen HypoKit 1 mg SUBCUT Q20M PRN 12/01/19 07/06/20 [place] Cough Drops 9.1 mg MUCOUS MEMBRANE Q2-4H PRN 12/01/19 07/06/20 Xarelto 20 mg PO DAILY 12/01/19 07/06/20 acetaminophen 650 mg PO Q4H PRN 12/01/19 07/06/20 albuterol sulfate 2 puff INHALATION QID PRN 12/01/19 07/06/20 cranberry 400 mg PO BID 12/01/19 07/06/20 ergocalciferol (vitamin D2) 1,250 mcg PO WEEKLY 12/01/19 07/06/20 [Vitamin D2] multivitamin 1 tablet PO DAILY 12/01/19 07/06/20 polyethylene glycol 3350 17 g PO DAILY 12/01/19 07/06/20 senna 17.2 mg PO BID 12/01/19 07/06/20 Linzess 72 mcg PO DAILY 07/06/20 07/06/20 amitriptyline 25 mg PO HS 07/06/20 07/06/20 guaifenesin 600 mg PO BID 07/06/20 07/06/20 Allergies Allergy/AdvReac Type Severity Reaction Status Date / Time green pepper Allergy Severe Stopped Verified 07/06/20 15:28 Breathing Review of Systems Review of Systems: All systems reviewed & are unremarkable except as noted in HPI and below Constitutional: Constitutional: Denies chills and Denies fever(s) Eyes: Eyes: Reports no additional eye complaints ENT: Reports system reviewed and no additional complaints, except as documented Cardiovascular: Cardiovascular: Denies chest pain Respiratory: Respiratory: Denies dyspnea Gastrointestinal: Gastrointestinal: Reports nausea Genitourinary: Genitourinary: Reports nocturia and Reports dysuria Musculoskeletal: Musculoskeletal: Reports back pain Neurologic: Reports system reviewed and no additional complaints, except as documented [facility] Past Medical History Medical History Anemia Angina at rest Anxiety Arthritis Asthma Atrial fibrillation Cataract CHF (congestive heart failure) Colitis COPD (chronic obstructive pulmonary disease) CVA (cerebral vascular accident) Degenerative disk disease Depression Diabetes DVT (deep venous thrombosis) Eczema Emphysema of lung Epistaxis Fibromyalgia Gall bladder disease GERD (gastroesophageal reflux disease) Hyperlipidemia Hypertension Mitral valve prolapse Osteoporosis Parkinson disease Peripheral neuropathy Peripheral vascular disease Pneumonia Psoriasis Pulmonary embolism Renal disease Restless leg syndrome Seizures Sle
[2020-08-05 16:05] LABS: Basophils Absolute Auto 0.1 K/mm3 (0.0-0.1); Eosinophils Absolute Auto 0.3 K/mm3 (0-0.3); Eosinophils Percent Auto 3.4 % (0-4.4); Hematocrit 35.9 % (37.0-47.0); Hemoglobin 12.1 g/dL (12.0-15.0); Immature Granulocyte Absolute 0.04 K/mm3 (0.00-0.031); Immature Granulocyte Percent A 0.6 % (0-0.5); Lymphocytes Absolute Auto 2.01 K/mm3 (0.9-3.2); Lymphocytes Percent Auto 27.7 % (18.3-44.2); Mean Corpuscular HGB Conc 33.7 g/dl (32-36); Mean Corpuscular Hemoglobin 29.9 pg (26-34); Mean Corpuscular Volume 88.6 fl (80-100); Mean Platelet Volume 10.2 fl (7.4-10.4); Monocytes Absolute Auto 0.6 K/mm3 (0.1-0.6); Monocytes Percent Auto 8.7 % (2.6-8.5); Neutrophils Absolute Auto 4.3 K/mm3 (1.3-6.7); Neutrophils Percent Auto 58.6 % (45.5-73.1); Platelet Count Result 240 k/mm3 (150-375); Red Blood Count 4.05 M/mm3 (4.2-5.4); Red Cell Distribution Width 12.8 % (11.5-14.5); White Blood Count 7.3 K/mm3 (4.5-10.0)
[2020-08-05 16:11] LABS: Add Urine Microscopic? YES; Appearance Urine Cloudy (Clear); Bacteria Urine Trace /hpf; Bilirubin Urine Negative (Negative); Blood Urine 1+ (Negative); Color Urine Yellow (Yellow); Glucose Urine UA 1+ mg/dL (Negative); Ketones Urine Negative (Negative); Leukocyte Esterase Ur 3+ LEU/UL (Negative); Mucus Urine Rare /lpf; Nitrate Urine Negative (Negative); Protein Urine 2+ mg/dL (Negative); Specific Grav Ur 1.014 (1.001-1.035); Urobilinogen Urine Negative mg/dL (<2.0); WBC Clumps Urine Present /HPF; WBC Urine >75 /hpf
[2020-08-05 16:14] LABS: Alanine Aminotransferase 8 U/L (4-35); Albumin Level 3.6 g/dL (3.5-5.1); Alkaline Phosphatase 174 U/L (38-126); Anion Gap 5 mmol/L (8-16); Aspartate Amino Transferase 28 U/L (14-36); Bilirubin,Total 0.2 mg/dL (0.2-1.3); Blood Urea Nitrogen 22 mg/dL (7-17); Calcium 8.8 mg/dL (8.4-10.2); Carbon Dioxide 27 mmol/L (22-30); Chloride 90 mmol/L (98-107); Estimated CRCL calculation 67 ml/min; Estimated Glomerular Filt Rate 45; Glucose 237 mg/dL (65-105); Lipase 44 U/L (23-300); Potassium 4.5 mmol/L (3.4-5.0); Sodium 122 mmol/L (137-145)
[2020-08-05 16:15] LABS: INR 1.3; Lactic Acid Reflex 1.3 mmol/L (0.7-2.1); Prothrombin Time 16.8 Seconds (11.1-14.7)
[2020-08-05 16:16] LABS: Partial Thromboplastin Time 34.5 SECONDS (22.3-36.8)
[2020-08-05 17:11] VITALS: PULSE 65; RESP 18; O2SAT 95
--- NOTE | 2020-08-05 17:50 | PC.NURSE ---
Chelita at [facility] contacted regarding patient's medications per Chelita patient is currently on 500mg tetracycline started on 08/02 for next seven days.
[2020-08-05] MEDS: CIPROFLOXACIN 500 MG TAB PO (18:09)
[2020-08-05] MEDS: oxyCODONE/ACETAMINOPHEN (*CRX) 5-325 MG TABLET 1 TABLET PO (18:09)
--- NOTE | 2020-08-05 18:09 | PC.NURSE ---
Addendum entered by Tala Foster 08/05/20 20:58: [facility] ARRIVED AT 2045 FOR RETURN TRANSPORT. Original Note: [facility] accepted return to [facility] [id number] Trip #[id number]
--- NOTE | 2020-08-05 18:16 | PC.NURSE ---
Patient medicated and cleaned of incontinence.
--- NOTE | 2020-08-05 18:26 | PC.NURSE ---
patient placed on bed alarm at this time.
--- NOTE | 2020-08-05 19:12 | PC.NURSE ---
Report called to [facility] Ruben Miller regarding patients return.
[2020-08-05 20:19] LABS: Glucose Point of Care 180 (65-105)
[2020-08-05 20:20] VITALS: BP 158/81; PULSE 57; RESP 18; O2SAT 97
== END 2020-08-05 21:00 ==
PROVIDERS: Emergency Provider Emergency Medicine; PCP Family Medicine
DX: N30.01 Acute cystitis with hematuria (principal); M54.5 Low back pain; D64.9 Anemia, unspecified; I48.91 Unspecified atrial fibrillation; I50.9 Heart failure, unspecified; I11.0 Hypertensive heart disease with heart failure; J43.9 Emphysema, unspecified; E11.42 Type 2 diabetes mellitus with diabetic polyneuropathy; E11.51 Type 2 diabetes mellitus with diabetic peripheral angiopathy without gangrene; K21.9 Gastro-esophageal reflux disease without esophagitis; I34.1 Nonrheumatic mitral (valve) prolapse; G20 Parkinson's disease; E78.5 Hyperlipidemia, unspecified; M19.90 Unspecified osteoarthritis, unspecified site; M79.7 Fibromyalgia; M81.0 Age-related osteoporosis without current pathological fracture; G25.81 Restless legs syndrome; G47.30 Sleep apnea, unspecified; Z86.718 Personal history of other venous thrombosis and embolism; Z86.73 Personal history of transient ischemic attack (TIA), and cerebral infarction without residual deficits; Z79.82 Long term (current) use of aspirin; Z79.01 Long term (current) use of anticoagulants; Z86.711 Personal history of pulmonary embolism; Z87.440 Personal history of urinary (tract) infections; Z96.651 Presence of right artificial knee joint; N26.1 Atrophy of kidney (terminal); Z86.14 Personal history of Methicillin resistant Staphylococcus aureus infection
CPT/HCPCS: 36415; 51701; 74177; 80053; 81001; 82948; 83605; 83690; 85025; 85610; 85730; 87077; 87086; 87088; 87186; 99284; A9270; Q9967

== ENCOUNTER 2020-10-04 11:38 | Emergency (ER) | payer MEDICARE, MEDICAID, SELFPAY ==
[2020-10-04] VITALS (30 sets, daily range): BP systolic 122–172; BP diastolic 53–116; PULSE 47–59; RESP 12–24; TEMP 36.8; O2SAT 87–100
--- NOTE | ~2020-10-04 | CT_ITS ---
EXAMINATION: CT brain wo con EXAM DATE: 10/04/2020 13:05 INDICATION: Altered mental status. Lethargic. TECHNIQUE: Spiral CT of the head was performed without contrast. Axial, coronal and sagittal images were reviewed. The dose-length product (DLP) for this examination was 756.67 mGy-cm. The exposure w as tailored according to patient size, and iterative reconstruction (ASIR) was used as additional dos e reduction technique. Comparison is made to prior examination from 07/07/2020. FINDINGS: There is no acute intraparenchymal hemorrhage. No evidence of intraparenchymal brain mass lesion. No evidence of acute infarction. Please note that initial head CT has limited sensitivity f or small or acute infarctions. There is moderate periventricular and subcortical hypodensity, nonspec ific but probably related to small vessel ischemic disease. There is moderate prominence of the sul ci and ventricles related to cerebral atrophy. There is intracranial carotid arteriosclerosis. The re are no extra-axial collections. There is no mass effect or midline shift. The orbits are unremar kable. Completely opacified right maxillary sinus, and wall thickening indicating this is chronic. The visua lized sinuses and mastoid air cells are well aerated. IMPRESSION: 1. No acute intracranial findings. 2. Chronic age related findings. Reviewed, dictated and finalized at location B.
--- NOTE | 2020-10-04 11:50 | ECG_ITS ---
Measurements Intervals [place] Rate: 54 P: 45 MA: 255 QRS: -42 QRSD: 146 T: 56 QT: 477 QTc: 455 Interpretive Statements SINUS BRADYCARDIA WITH SINUS ARRHYTHMIA WITH FIRST DEGREE AV BLOCK LEFT AXIS DEVIATION INTRAVENTRICULAR CONDUCTION DELAY DELAYED PRECORDIAL R/S TRANSITION LEFT VENTRICULAR HYPERTROPHY WITH ST-T CHANGE MINIMAL Q WAVS- HIGH LATERAL LEADS BASELINE ARTIFACT- I, II, III, AVR, AVL, AVF, V1, V3-V6 ABNORMAL ECG Electronically Signed On 10-04-2020 17:04:28 CDT by Ken Gonzalez D.O.
--- NOTE | 2020-10-04 12:40 | ED.GENADULT ---
HPI - General Adult General Chief complaint: Weakness Stated complaint: Unspecified Time Seen by Provider: 10/04/20 11:46 Source: patient History of Present Illness HPI narrative: Patient is a 65 y/o female complaining of generalized weakness and feeling out of it. There is no known alleviating or exacerbating factor. Patient is a poor historian. She is not able to provide additional history. Related Data Home Medications Medication Instructions Recorded Confirmed Calcium 600 with Vitamin D3 1 tablet PO BID 11/11/19 07/06/20 Lantus Solostar U-100 Insulin 40 unit SUBCUT BID 11/11/19 07/06/20 aripiprazole 15 mg PO DAILY 11/11/19 07/06/20 aspirin 81 mg PO DAILY 11/11/19 07/06/20 buspirone 10 mg PO TID 11/11/19 07/06/20 carbidopa-levodopa 1 tablet PO TID 11/11/19 07/06/20 carvedilol 3.125 mg PO BID 11/11/19 07/06/20 cetirizine 10 mg PO DAILY 11/11/19 07/06/20 escitalopram oxalate 20 mg PO DAILY 11/11/19 07/06/20 fluticasone propionate [Allergy 1 spray INTRANASAL DAILY 11/11/19 07/06/20 Relief (fluticasone)] lovastatin 10 mg PO QPM 11/11/19 07/06/20 magnesium oxide 400 mg PO BID 11/11/19 07/06/20 oxcarbazepine 600 mg PO BID 11/11/19 07/06/20 oxybutynin chloride 10 mg PO HS 11/11/19 07/06/20 spironolactone 25 mg PO DAILY 11/11/19 07/06/20 GlucaGen HypoKit 1 mg SUBCUT Q20M PRN 12/01/19 07/06/20 [place] Cough Drops 9.1 mg MUCOUS MEMBRANE Q2-4H PRN 12/01/19 07/06/20 Xarelto 20 mg PO DAILY 12/01/19 07/06/20 acetaminophen 650 mg PO Q4H PRN 12/01/19 07/06/20 albuterol sulfate 2 puff INHALATION QID PRN 12/01/19 07/06/20 cranberry 400 mg PO BID 12/01/19 07/06/20 ergocalciferol (vitamin D2) 1,250 mcg PO WEEKLY 12/01/19 07/06/20 [Vitamin D2] multivitamin 1 tablet PO DAILY 12/01/19 07/06/20 senna 17.2 mg PO BID 12/01/19 07/06/20 Linzess 72 mcg PO DAILY 07/06/20 07/06/20 amitriptyline 25 mg PO HS 07/06/20 07/06/20 guaifenesin 600 mg PO BID 07/06/20 07/06/20 fluticasone furoate-vilanterol INHALATION 10/04/20 [Breo Ellipta] magnesium citrate [Citroma] 300 ml PO PRN PRN 10/04/20 nystatin [Nyamyc] TOPICAL 10/04/20 semaglutide [Ozempic] mg SUBCUT 10/04/20 Allergies Allergy/AdvReac Type Severity Reaction Status Date / Time green pepper Allergy Severe Stopped Verified 10/04/20 12:26 Breathing Review of Systems Review of Systems: ROS unobtainable: Yes unobtainable due to mental status [facility] Past Medical History Medical History Anemia Angina at rest Anxiety Arthritis Asthma Atrial fibrillation Cataract CHF (congestive heart failure) Colitis COPD (chronic obstructive pulmonary disease) CVA (cerebral vascular accident) Degenerative disk disease Depression Diabetes DVT (deep venous thrombosis) Eczema Emphysema of lung Epistaxis Fibromyalgia Gall bladder disease GERD (gastroesophageal reflux disease) Hyperlipidemia Hypertension Mitral valve prolapse Osteoporosis Parkinson disease Peripheral neuropathy Peripheral vascular disease Pneumonia Psoriasis Pulmonary embolism Renal disease Restless leg syndrome Seizures Sleep apnea TIA (transient ischemic attack) UTI (urinary tract infection) Surgical History Surgical History H/O cardiac catheterization H/O dilation and curettage History of cholecystectomy History of right knee joint replacement History of tubal ligation Hx of tonsillectomy Family History Family History Grandparent Family history of malignant neoplasm of breast, Onset Age: 72 Diabetes mellitus Father Family history of renal failure, Onset Age: 70 Cerebrovascular accident, Onset Age: 71 Family history of thoracic aortic aneurysm, Onset Age: 46 Patient's father is Sibling Family history of type 2 diabetes mellitus Mother Patient's mother is Other Family history of alcoholism Family history
[2020-10-04 12:54] LABS: Basophils Absolute Auto 0.1 K/mm3 (0.0-0.1); Basophils Percent Auto 0.6 % (0.2-1.2); Eosinophils Absolute Auto 0.2 K/mm3 (0-0.3); Eosinophils Percent Auto 2.7 % (0-4.4); Hematocrit 36.6 % (37.0-47.0); Hemoglobin 11.9 g/dL (12.0-15.0); Immature Granulocyte Absolute 0.05 K/mm3 (0.00-0.031); Immature Granulocyte Percent A 0.6 % (0-0.5); Lymphocytes Absolute Auto 1.71 K/mm3 (0.9-3.2); Mean Corpuscular HGB Conc 32.5 g/dl (32-36); Mean Corpuscular Hemoglobin 29.8 pg (26-34); Mean Corpuscular Volume 91.7 fl (80-100); Monocytes Absolute Auto 0.7 K/mm3 (0.1-0.6); Monocytes Percent Auto 9.3 % (2.6-8.5); Neutrophils Percent Auto 64.8 % (45.5-73.1); Platelet Count Result 248 k/mm3 (150-375); Red Blood Count 3.99 M/mm3 (4.2-5.4); Red Cell Distribution Width 13.5 % (11.5-14.5); White Blood Count 7.8 K/mm3 (4.5-10.0)
[2020-10-04 12:56] LABS: Add Urine Microscopic? YES; Appearance Urine Turbid (Clear); Bacteria Urine 3+ /hpf; Bilirubin Urine Negative (Negative); Blood Urine 1+ (Negative); Color Urine Yellow (Yellow); Glucose Urine UA Negative (Negative); Ketones Urine Negative (Negative); Leukocyte Esterase Ur 2+ LEU/UL (Negative); Mucus Urine Heavy /lpf; Nitrate Urine Negative (Negative); Protein Urine 3+ mg/dL (Negative); RBC Urine 21-50 /hpf (0-2); Specific Grav Ur 1.014 (1.001-1.035); Urobilinogen Urine Negative mg/dL (<2.0); WBC Clumps Urine Present /HPF; WBC Urine >75 /hpf
[2020-10-04 13:04] LABS: Albumin Level 3.3 g/dL (3.5-5.1); Alkaline Phosphatase 139 U/L (38-126); Anion Gap 5 mmol/L (8-16); Aspartate Amino Transferase 26 U/L (14-36); Bilirubin,Total 0.3 mg/dL (0.2-1.3); Blood Urea Nitrogen 17 mg/dL (7-17); Calcium 9.3 mg/dL (8.4-10.2); Carbon Dioxide 30 mmol/L (22-30); Chloride 96 mmol/L (98-107); Estimated Glomerular Filt Rate 45; Glucose 155 mg/dL (65-105); Potassium 4.4 mmol/L (3.4-5.0); Sodium 131 mmol/L (137-145)
[2020-10-04 13:41] LABS: Alanine Aminotransferase < 4 U/L (4-35)
--- NOTE | 2020-10-04 18:19 | PC.NURSE ---
This RN, ED charge nurse, and pt's primary RN have attempted to call nursing facility to give report. All calls eventually get disconnected and not able to reach facility staff to report that pt is returning by ambulance. [facility] approx. ETA 1830, and last hour has been spent attempting to contact staff at facility. Compliance department of [employer] called by this RN, and report filed notifying parent company that facility cannot be contacted by phone d/t wrong number listed on internet, yellow pages, and pt's face sheet from said facility. Compliance line manufacturer's service representative took this RN's complaint, and attempted to contact facility herself without success. Report # [id number]. Facility is currently named [facility] (ADDRESS: [address], [place], [place]) but used to be called [facility]. Phone number listed (DOES NOT WORK) [phone].
== END 2020-10-04 18:48 ==
PROVIDERS: Emergency Provider Emergency Medicine; PCP Family Medicine
DX: N39.0 Urinary tract infection, site not specified (principal); R53.1 Weakness; R41.82 Altered mental status, unspecified; I48.91 Unspecified atrial fibrillation; E78.5 Hyperlipidemia, unspecified; I10 Essential (primary) hypertension; J43.9 Emphysema, unspecified; M79.7 Fibromyalgia; K21.9 Gastro-esophageal reflux disease without esophagitis; M81.0 Age-related osteoporosis without current pathological fracture; G20 Parkinson's disease; E11.42 Type 2 diabetes mellitus with diabetic polyneuropathy; E11.51 Type 2 diabetes mellitus with diabetic peripheral angiopathy without gangrene; Z86.73 Personal history of transient ischemic attack (TIA), and cerebral infarction without residual deficits; Z79.01 Long term (current) use of anticoagulants; Z79.82 Long term (current) use of aspirin; Z79.4 Long term (current) use of insulin; G47.30 Sleep apnea, unspecified; G25.81 Restless legs syndrome; Z96.651 Presence of right artificial knee joint
CPT/HCPCS: 36415; 51701; 70450; 80053; 81001; 85025; 87077; 87086; 87088; 87186; 93005; 96365; 99284; J0696

== ENCOUNTER 2020-11-12 19:32 | Inpatient (IN) | payer MEDICARE, MEDICAID, SELFPAY ==
[2020-11-12] VITALS (20 sets, daily range): BP systolic 131–152; BP diastolic 71–105; PULSE 56–63; RESP 12–19; TEMP 36.7; O2SAT 94–98
--- NOTE | ~2020-11-12 | XR_ITS ---
EXAMINATION: XR chest 1V portable EXAM DATE: 11/12/2020 20:31 INDICATION: Confusion TECHNIQUE: Portable AP frontal chest x-ray was obtained. Comparison is made to prior examination from 07/13/2020. FINDINGS: Small amount of right basilar reticulonodular airspace disease, nonspecific pneumonitis. Po ssible developing pneumonia. No pneumothorax or pleural effusion. Cardiomediastinal silhouette is nor mal. Surgical clips over the upper abdomen. IMPRESSION: 1. Small amount of right basilar pneumonitis, possibly developing pneumonia. Reviewed, dictated and finalized at location A.
--- NOTE | ~2020-11-12 | CT_ITS ---
EXAMINATION: CT brain wo con EXAM DATE: 11/12/2020 20:21 INDICATION: Confusion. TECHNIQUE: Spiral CT of the head was performed without contrast. Axial, coronal and sagittal images were reviewed. The dose-length product (DLP) for this examination was 681.00 mGy-cm. The exposure w as tailored according to patient size, and iterative reconstruction (ASIR) was used as additional dos e reduction technique. Comparison is made to prior examination from 10/04/2020. FINDINGS: There is no acute intraparenchymal hemorrhage. No evidence of intraparenchymal brain mass lesion. No evidence of acute infarction. Please note that initial head CT has limited sensitivity f or small or acute infarctions. There is moderate periventricular and subcortical hypodensity, nonspe cific but probably related to small vessel ischemic disease. There is moderate prominence of the rader lci and ventricles related to cerebral atrophy. There is intracranial carotid arteriosclerosis. Th ere are no extra-axial collections. There is no mass effect or midline shift. The orbits are unrema rkable. Soft tissue is unremarkable. Chronic opacified right maxillary sinus. IMPRESSION: 1. No acute intracranial findings. 2. Chronic age related findings. Reviewed, dictated and finalized at location A.
--- NOTE | ~2020-11-12 | CT_ITS ---
EXAMINATION: CT abdomen pelvis wo con EXAM DATE: 11/12/2020 20:21 INDICATION: Abdominal pain. Confusion. TECHNIQUE: Spiral CT of the abdomen and pelvis was performed without contrast. Axial, coronal and sag ittal images were reviewed. The dose-length product (DLP) for this examination was 1404.09 mGy-cm. The exposure was tailored according to patient size (auto mA exposure control), and iterative reconst ruction (ASIR) was used as additional dose reduction technique. Comparison is made to prior examinati on from 08/05/2020. FINDINGS: There is some gas in the bladder. Has there been any recent instrumentation? Also tiny amou nt of gas anterior to the bladder, of uncertain etiology but probably not clinically significant. The re is no nephrolithiasis or hydronephrosis. The uterus is unremarkable. The liver, spleen, adrena l glands and pancreas are unremarkable. There are cholecystectomy clips. There is no retroperitonea l or pelvic lymphadenopathy. The appendix is normal. Surgical clips at the gastroesophageal junction. There is expected amount o f colonic stool. No free intraperitoneal gas. The heart is normal in size. There are no pericard ial or pleural effusions. Small amount of right middle lobe reticulonodular airspace disease, nonspe cific pneumonitis. There are no osteoblastic or osteolytic lesions identified. Dense mitral annular calcifications. Chronic bilateral L5 spondylolysis. IMPRESSION: 1. Bladder gas and small amount of gas just anterior to the bladder. Has been recent instrumentation ? Consider correlation with urinalysis. 2. Small amount of right middle lobe reticulonodular opacity, nonspecific pneumonitis. Reviewed, dictated and finalized at location A. IMPRESSION: 1. Bladder gas and small amount of gas just anterior to the bladder. Has been recent instrumentation? Consider correlation with urinalysis. 2. Small amount of right middle lobe reticulonodular opacity, nonspecific pneu monitis.
--- NOTE | 2020-11-12 19:39 | ECG_ITS ---
Measurements Intervals [place] Rate: 56 P: 33 ME: 227 QRS: -47 QRSD: 150 T: 85 QT: 450 QTc: 434 Interpretive Statements SINUS BRADYCARDIA WITH FIRST DEGREE AV BLOCK INTRAVENTRICULAR CONDUCTION DELAY POOR R WAVE PROGRESSION, ANTERIOR LEADS LEFT VENTRICULAR HYPERTROPHY WITH ST-T CHANGE BASELINE ARTIFACT- I, II, III, AVR, AVL, V3-V6 ABNORMAL ECG Electronically Signed On 11-13-2020 6:36:55 CDT by Ken Gonzalez D.O.
[2020-11-12 20:01] LABS: Basophils Absolute Auto 0.1 K/mm3 (0.0-0.1); Eosinophils Absolute Auto 0.3 K/mm3 (0-0.3); Eosinophils Percent Auto 4.4 % (0-4.4); Hematocrit 36.8 % (37.0-47.0); Hemoglobin 11.7 g/dL (12.0-15.0); Immature Granulocyte Absolute 0.03 K/mm3 (0.00-0.031); Immature Granulocyte Percent A 0.4 % (0-0.5); Lymphocytes Absolute Auto 2.33 K/mm3 (0.9-3.2); Lymphocytes Percent Auto 33.2 % (18.3-44.2); Mean Corpuscular HGB Conc 31.8 g/dl (32-36); Mean Corpuscular Hemoglobin 29.2 pg (26-34); Mean Corpuscular Volume 91.8 fl (80-100); Mean Platelet Volume 10.1 fl (7.4-10.4); Monocytes Absolute Auto 0.8 K/mm3 (0.1-0.6); Monocytes Percent Auto 11.7 % (2.6-8.5); Neutrophils Absolute Auto 3.5 K/mm3 (1.3-6.7); Neutrophils Percent Auto 49.3 % (45.5-73.1); Platelet Count Result 263 k/mm3 (150-375); Red Blood Count 4.01 M/mm3 (4.2-5.4); Red Cell Distribution Width 13.7 % (11.5-14.5)
--- NOTE | 2020-11-12 20:08 | ED.AMS ---
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 Patient normally oriented to her name and the place. Currently complaining of chest pain and abdominal pain. Patient telling me that she feels something wrong with her, driveS her crazy. Related Data Home Medications Medication Instructions Recorded Confirmed Calcium 600 with Vitamin D3 1 tablet PO BID 11/11/19 07/06/20 Lantus Solostar U-100 Insulin 40 unit SUBCUT BID 11/11/19 07/06/20 aripiprazole 15 mg PO DAILY 11/11/19 07/06/20 aspirin 81 mg PO DAILY 11/11/19 07/06/20 buspirone 10 mg PO TID 11/11/19 07/06/20 carbidopa-levodopa 1 tablet PO TID 11/11/19 07/06/20 carvedilol 3.125 mg PO BID 11/11/19 07/06/20 cetirizine 10 mg PO DAILY 11/11/19 07/06/20 escitalopram oxalate 20 mg PO DAILY 11/11/19 07/06/20 fluticasone propionate [Allergy 1 spray INTRANASAL DAILY 11/11/19 07/06/20 Relief (fluticasone)] lovastatin 10 mg PO QPM 11/11/19 07/06/20 magnesium oxide 400 mg PO BID 11/11/19 07/06/20 oxcarbazepine 600 mg PO BID 11/11/19 07/06/20 oxybutynin chloride 10 mg PO HS 11/11/19 07/06/20 spironolactone 25 mg PO DAILY 11/11/19 07/06/20 GlucaGen HypoKit 1 mg SUBCUT Q20M PRN 12/01/19 07/06/20 [place] Cough Drops 9.1 mg MUCOUS MEMBRANE Q2-4H PRN 12/01/19 07/06/20 Xarelto 20 mg PO DAILY 12/01/19 07/06/20 acetaminophen 650 mg PO Q4H PRN 12/01/19 07/06/20 albuterol sulfate 2 puff INHALATION QID PRN 12/01/19 07/06/20 cranberry 400 mg PO BID 12/01/19 07/06/20 ergocalciferol (vitamin D2) 1,250 mcg PO WEEKLY 12/01/19 07/06/20 [Vitamin D2] multivitamin 1 tablet PO DAILY 12/01/19 07/06/20 senna 17.2 mg PO BID 12/01/19 07/06/20 Linzess 72 mcg PO DAILY 07/06/20 07/06/20 amitriptyline 25 mg PO HS 07/06/20 07/06/20 guaifenesin 600 mg PO BID 07/06/20 07/06/20 fluticasone furoate-vilanterol INHALATION 10/04/20 [Breo Ellipta] magnesium citrate [Citroma] 300 ml PO PRN PRN 10/04/20 nystatin [Nyamyc] TOPICAL 10/04/20 semaglutide [Ozempic] mg SUBCUT 10/04/20 Allergies Allergy/AdvReac Type Severity Reaction Status Date / Time green pepper Allergy Severe Stopped Verified 10/04/20 12:26 Breathing Review of Systems Review of Systems: ROS unobtainable: Yes unobtainable due to medical condition PMF[facility] Past Medical History Medical History Anemia Angina at rest Anxiety Arthritis Asthma Atrial fibrillation Cataract CHF (congestive heart failure) Colitis COPD (chronic obstructive pulmonary disease) CVA (cerebral vascular accident) Degenerative disk disease Depression Diabetes DVT (deep venous thrombosis) Eczema Emphysema of lung Epistaxis Fibromyalgia Gall bladder disease GERD (gastroesophageal reflux disease) Hyperlipidemia Hypertension Mitral valve prolapse Osteoporosis Parkinson disease Peripheral neuropathy Peripheral vascular disease Pneumonia Psoriasis Pulmonary embolism Renal disease Restless leg syndrome Seizures Sleep apnea TIA (transient ischemic attack) UTI (urinary tract infection) Surgical History Surgical History H/O cardiac catheterization H/O dilation and curettage History of cholecystectomy History of right knee joint replacement History of tubal ligation Hx of tonsillectomy Family History Family History Grandparent Family history of malignant neoplasm of breast, Onset Age: 72 Diabetes mellitus Father Family history of renal failure, Onset Age: 70 Cerebrovascular accident, Onset Age: 71 Family history o
[2020-11-12 20:11] LABS: Alanine Aminotransferase 8 U/L (4-35); Albumin Level 3.3 g/dL (3.5-5.1); Alkaline Phosphatase 176 U/L (38-126); Anion Gap 7 mmol/L (8-16); Aspartate Amino Transferase 35 U/L (14-36); Bilirubin,Total 0.4 mg/dL (0.2-1.3); Blood Urea Nitrogen 26 mg/dL (7-17); Calcium 9.6 mg/dL (8.4-10.2); Carbon Dioxide 27 mmol/L (22-30); Chloride 97 mmol/L (98-107); Estimated Glomerular Filt Rate 38; Glucose 175 mg/dL (65-110); Potassium 4.6 mmol/L (3.4-5.0); Sodium 131 mmol/L (137-145)
[2020-11-12 20:20] LABS: Lipase 50 U/L (23-300)
[2020-11-12 20:27] LABS: INR 1.6; Prothrombin Time 19.1 Seconds (11.1-14.7)
[2020-11-12 20:28] LABS: Partial Thromboplastin Time 36.6 SECONDS (22.3-36.8)
[2020-11-12 20:38] LABS: Troponin I 0.044 ng/mL (0.000-0.034)
[2020-11-12 21:42] LABS: NT Pro B Type Natriuretic Pept 1180 pg/mL (5-100)
[2020-11-12 21:47] LABS: Add Urine Microscopic? YES; Appearance Urine Turbid (Clear); Bacteria Urine 4+ /hpf; Bilirubin Urine Negative (Negative); Blood Urine 3+ (Negative); Color Urine Red (Yellow); Glucose Urine UA Negative (Negative); Ketones Urine Trace mg/dL (Negative); Leukocyte Esterase Ur 2+ LEU/UL (Negative); Nitrate Urine Negative (Negative); Protein Urine 3+ mg/dL (Negative); RBC Urine >75 /hpf (0-2); Specific Grav Ur 1.019 (1.001-1.035); Urobilinogen Urine Negative mg/dL (<2.0); WBC Urine >75 /hpf
[2020-11-12 21:54] LABS: Barbiturate Screen Urine Negative (Negative); Benzodiazepines Screen Urine Positive (Negative)
[2020-11-12 22:01] LABS: Amphetamine Screen Urine Negative (Negative); Cannabinoid Screen Urine Negative (Negative); Cocaine Screen Urine Negative (Negative); Methadone Screen Urine Negative (Negative); Phencyclidine Screen Urine Negative (Negative)
[2020-11-12 22:18] LABS: Opiate Screen Urine Negative (Negative)
--- NOTE | 2020-11-12 22:44 | PC.NURSE ---
ct scan tech drawing blood cultures at this time.
--- NOTE | 2020-11-12 23:10 | ECG_ITS ---
Measurements Intervals [place] Rate: 61 P: 187 NM: 121 QRS: -43 QRSD: 149 T: 106 QT: 418 QTc: 421 Interpretive Statements SINUS OR ECTOPIC ATRIAL RHYTHM ATRIAL PREMATURE COMPLEX LEFT AXIS DEVIATION INTRAVENTRICULAR CONDUCTION DELAY LEFT VENTRICULAR HYPERTROPHY WITH ST-T CHANGE POOR R WAVE PROGRESSION, ANTERIOR LEADS BASELINE ARTIFACT- I, II, III, AVR, AVL, AVF, V3 ABNORMAL ECG Electronically Signed On 11-16-2020 8:30:40 CDT by Ken Gonzalez D.O.
[2020-11-12 23:25] LABS: Troponin I 0.041 ng/mL (0.000-0.034)
[2020-11-13] VITALS (21 sets, daily range): BP systolic 132–176; BP diastolic 63–95; PULSE 59–93; RESP 13–20; TEMP 36.1–37; O2SAT 91–100; BMI 54.3
--- NOTE | 2020-11-13 02:16 | PC.NURSE ---
This patient, Maribel Alvarez, was admitted to IMU Room 206-02. Patient oriented to hospital policies and general routines including ID bracelet, bed and alarms, visiting hours, pain management, procedures, bathroom and other care routines, personal items, smoking policy, room service/diet, and visiting hours. Patient/Family are encouraged to report perceived risks to care and to ask questions if they do not understand what they are told or what they should do.
[2020-11-13 02:48] LABS: Troponin I 0.043 ng/mL (0.000-0.034)
[2020-11-13 05:06] LABS: Anion Gap 5 mmol/L (8-16); Blood Urea Nitrogen 26 mg/dL (7-17); Calcium 9.6 mg/dL (8.4-10.2); Carbon Dioxide 27 mmol/L (22-30); Chloride 101 mmol/L (98-107); Estimated Glomerular Filt Rate 41; Glucose 181 mg/dL (65-110); Potassium 4.7 mmol/L (3.4-5.0); Sodium 133 mmol/L (137-145)
[2020-11-13] MEDS: SODIUM CHLORIDE 0.9% IV 1,000 ML 125 ML IV CONT ×2 (05:49→15:43)
--- NOTE | 2020-11-13 06:00 | ECG_ITS ---
Measurements Intervals [place] [address] Rate: 60 P: -18 [place]: 175 QRS: -38 QRSD: 137 T: 108 QT: 404 QTc: 404 Interpretive Statements SINUS RHYTHM LEFT AXIS DEVIATION INTRAVENTRICULAR CONDUCTION DELAY LEFT VENTRICULAR HYPERTROPHY AND ST-T CHANGE POOR R WAVE PROGRESSION, ANTERIOR LEADS BORDERLINE T WAVE ABNORMALITY- ANTERIOR LEADS BASELINE ARTIFACT- I, II, III, AVR, AVL, AVF, V1-V2 BORDERLINE ECG Electronically Signed On 11-13-2020 16:16:17 CDT by Ken Gonzalez D.O.
--- NOTE | 2020-11-13 08:15 | PM.IMHP ---
H&P: HPI History of Present Illness Date/Time: 11/13/20 08:15 Chief Complaint: ALTERED MENTAL STATUS Narrative: THIS IS A 65-YEAR-OLD FEMALE WITH PAST MEDICAL HISTORY SIGNIFICANT FOR MORBID OBESITY, RIGHT AKA, TYPE 2 DIABETES MELLITUS, PARKINSON'S, PERIPHERAL DIABETIC NEUROPATHY. PATIENT RESIDES AT NURSING SHE WAS BROUGHT TO THE EMERGENCY ROOM DUE TO STAFF CONCERNS FOR PATIENT BEEN CONFUSED. PATIENT IS UNABLE TO GIVE ANY HISTORY SHE KNOWS THAT SHE IS IN THE HOSPITAL BUT DOES NOT KNOW WHY SHE IS IN THE HOSPITAL CAN'T GIVE ANY HISTORY. PRELIMINARY WORKUP IS SIGNIFICANT FOR URINALYSIS WITH SIGNIFICANT WBCS. TROPONINS WERE SLIGHTLY ELEVATED BASIC METABOLIC PROFILE SIGNIFICANT FOR MILD HYPONATREMIA AND CREATININE SLIGHTLY ELEVATED WELL. CHEST X-RAY WITH BIBASAL INFILTRATES. Review of Systems Review of Systems: Narrative: I GUESS, I DO NOT KNOW WHY AM HERE, I CAN'T TELL, I AM CONFUSED ROS unobtainable: Yes unobtainable due to mental status ( CONFUSED) [facility] Past Medical History Medical History Anemia Angina at rest Anxiety Arthritis Asthma Atrial fibrillation Cataract CHF (congestive heart failure) Colitis COPD (chronic obstructive pulmonary disease) CVA (cerebral vascular accident) Degenerative disk disease Depression Diabetes DVT (deep venous thrombosis) Eczema Emphysema of lung Epistaxis Fibromyalgia Gall bladder disease GERD (gastroesophageal reflux disease) Hyperlipidemia Hypertension Mitral valve prolapse Osteoporosis Parkinson disease Peripheral neuropathy Peripheral vascular disease Pneumonia Psoriasis Pulmonary embolism Renal disease Restless leg syndrome Seizures Sleep apnea TIA (transient ischemic attack) UTI (urinary tract infection) Surgical History Surgical History H/O cardiac catheterization H/O dilation and curettage History of cholecystectomy History of right knee joint replacement History of tubal ligation Hx of tonsillectomy Family History Family History Grandparent Family history of malignant neoplasm of breast, Onset Age: 72 Diabetes mellitus Father Family history of renal failure, Onset Age: 70 Cerebrovascular accident, Onset Age: 71 Family history of thoracic aortic aneurysm, Onset Age: 46 Patient's father is Sibling Family history of type 2 diabetes mellitus Mother Patient's mother is Other Family history of alcoholism Family history of arthritis Family history of blood dyscrasia Family history of seizure disorder Hypertension Social History Social History Smoking status: Unknown if ever smoked Second hand tobacco smoke exposure: No Alcohol intake: unknown Substance use: unknown Gender identity (if verbalized by the patient): Female Spiritual care concerns: No Meds Home Medications and Allergies Home Medications Medication Instructions Recorded Confirmed Type Calcium 600 with Vitamin D3 1 tablet PO BID 11/11/19 11/13/20 History Lantus Solostar U-100 Insulin 30 unit SUBCUT BID 11/11/19 11/13/20 History aripiprazole 15 mg PO DAILY 11/11/19 11/13/20 History aspirin 81 mg PO DAILY 11/11/19 11/13/20 History buspirone 10 mg PO TID 11/11/19 11/13/20 History carbidopa-levodopa 1 tablet PO TID 11/11/19 11/13/20 History carvedilol 3.125 mg PO BID 11/11/19 11/13/20 History cetirizine 10 mg PO DAILY 11/11/19 11/13/20 History escitalopram oxalate 20 mg PO DAILY 11/11/19 11/13/20 History fluticasone propionate [Allergy 1 spray INTRANASAL DAILY 11/11/19 11/13/20 History Relief (fluticasone)] lovastatin 10 mg PO QPM 11/11/19 11/13/20 History magnesium oxide 400 mg PO BID 11/11/19 11/13/20 History oxcarbazepine 600 mg PO BID 11/11/19 11/13/20 History oxybutynin chloride 10 mg PO HS 11/11/19 11/13/20 History
[2020-11-13] MEDS: ASPIRIN 81 MG CHEWABLE TABLET PO (09:41)
[2020-11-13] MEDS: ARIPiprazole 5 MG TABLET 15 MG PO (09:41)
[2020-11-13] MEDS: CARBIDOPA/LEVODOPA 25/100 MG TABLET 1 TABLET PO ×3 (09:42→16:24)
[2020-11-13] MEDS: busPIRone HCL 10 MG TABLET PO ×3 (09:42→16:25)
[2020-11-13] MEDS: guaiFENesin 12 HR 600 MG TABCR PO ×2 (09:43→21:35)
[2020-11-13] MEDS: ESCITALOPRAM OXALATE 10 MG TABLET 20 MG PO (09:43)
[2020-11-13] MEDS: carvediloL 3.125 MG TABLET PO ×2 (09:43→16:27)
[2020-11-13] MEDS: FLUTICASONE PROPIONATE 0.05% NA SPR 16 GM BTL (*BKC) 1 SPRAY NASAL (09:44)
[2020-11-13] MEDS: MAGNESIUM OXIDE 400 MG TABLET PO ×2 (09:45→16:26)
[2020-11-13] MEDS: LORATADINE 10 MG TABLET PO (09:45)
[2020-11-13] MEDS: MULTIVITAMINS THERAPEUTIC TAB (*BKC) 1 TABLET PO (09:45)
[2020-11-13] MEDS: SPIRONOLACTONE 25 MG TABLET PO (09:46)
[2020-11-13] MEDS: PANTOPRAZOLE 40 MG TABLET PO (09:46)
[2020-11-13] MEDS: polyethylene glycoL 3350 17 GM POWD.PACK PO (09:46)
[2020-11-13] MEDS: OXcarbazepine 300 MG TABLET 600 MG PO ×2 (09:46→21:34)
[2020-11-13] MEDS: SENNOSIDES 8.6 MG TABLET 17.2 MG PO ×2 (09:46→16:25)
[2020-11-13] MEDS: TOLNAFTATE 1% POWDER 45 GM BTL 1 APPLIC TOPICAL ×2 (09:47→21:35)
[2020-11-13] MEDS: INSULIN GLARGINE (*BKC) 100 UNITS/ML 30 UNITS SUB-Q ×2 (09:49→21:36)
[2020-11-13 09:52] LABS: Glucose Point of Care 228 mg/dl (65-105)
[2020-11-13 12:23] LABS: Glucose Point of Care 184 mg/dl (65-105)
[2020-11-13] MEDS: LOVASTATIN 10 MG TABLET PO (16:26)
[2020-11-13] MEDS: RIVAROXABAN 20 MG TABLET PO (16:26)
[2020-11-13 16:45] LABS: Glucose Point of Care 172 mg/dl (65-105)
[2020-11-13 20:11] LABS: Glucose Point of Care 151 mg/dl (65-105)
[2020-11-13] MEDS: AMITRIPTYLINE HCL 25 MG TABLET PO (21:35)
[2020-11-14] VITALS (18 sets, daily range): BP systolic 110–153; BP diastolic 67–98; PULSE 58–110; RESP 15–19; TEMP 36.4–36.8; O2SAT 95–100; BMI 54.1
--- NOTE | 2020-11-14 | ECHO_ITS ---
Patient Info Name: Maribel Alvarez Age: 65 years : 1955 Gender: Female Ht: 66 in Wt: 335 lbs BSA: 2.75 m2 HR: 61 bpm BP: 110 / 68 mmHg Heart Rhythm: Sinus Rhythm Exam Date: 11/14/2020 7:58 AM Exam Location: [facility] Patient Status: Inpatient Admit Date: 11/13/2020 Staff Ordering Physician: Gerhard Newman MD Formula Room Worker: Eren Bell, YUNG, RT Attending Provider: Opal Rea DO Referring Physician: Paty ANAYA; Exam Type: CA echo dop color flow w con Study Info Indications I50.9 - Heart failure, unspecified Complete two-dimensional, color flow and Doppler transthoracic echocardiogram is performed with contrast to opacify the left ventricle and to improve the deliniation of the left ventricle endocardial borders. Summary 1. Definity contrast injected to improve visualization. 2. There is mild concentric increased left ventricular wall thickness. 3. Left ventricular systolic function is normal, estimated at 50-55%. 4. Mild mitral and aortic valve insufficiency. 5. Calcified mitral valve annulus. Left Ventricle Left ventricular chamber dimension is normal. Left ventricular systolic function is normal, estimated at 50-55%. There is mild concentric increased left ventricular wall thickness. The left ventricular diastolic function is grade I diastolic dysfunction. Definity contrast injected to improve visualization. Right Ventricle Right ventricular chamber dimension is normal. Left Atria Left atrial chamber dimension is normal. Right Atria Right atrial chamber dimension is normal. Aortic Valve The aortic valve is normal. There is trace aortic valve regurgitation. Pulmonic Valve The pulmonic valve is normal. Mitral Valve The mitral valve has normal leaflets. There is mild mitral valve regurgitation. The mitral valve annulus is mildly calcified. Tricuspid Valve The tricuspid valve leaflets are normal. There is trace tricuspid valve regurgitation. Pericardium/Pleural The pericardium appears normal. Aorta The aortic root size at the sinus of Valsalva is normal. Left Ventricular Outflow Tract Name Value Normal LVOT 2D LVOT Diameter 1.98 cm LVOT Doppler LVOT Peak Gradient 5 mmHg LVOT Mean Gradient 2 mmHg LVOT VTI 23.53 cm LVOT VTI/AV VTI Ratio 0.68 LVOT Stroke Volume 72.40 ml LVOT CO 4.86 l/min LVOT CI 1.77 L/min/m2 Mitral Valve Name Value Normal MV Doppler MV Peak Gradient 142 mmHg MV Mean Gradient 91 mmHg MV Decel Tate 509.08 cm/s2 MV PHT 0 s MV Area (PHT)
[2020-11-14] MEDS: SODIUM CHLORIDE 0.9% IV 1,000 ML 125 ML IV CONT (00:52)
--- NOTE | 2020-11-14 08:13 | PM.IMPN ---
Progress Note: A&P Assessment and Plan (1) UTI (urinary tract infection): Qualifiers: Hematuria presence: without hematuria Urinary tract infection type: site unspecified Qualified Code(s): N39.0 - Urinary tract infection, site not specified Code(s): N39.0 - Urinary tract infection, site not specified Status: Acute Assessment and Plan: She has history of urine tract infection in the past and grew E coli resistant to Rocephin and Morganella morganii. Currently on imipenem. Follow cultures and sensitivity. (2) Acute alteration in mental status: Code(s): R41.82 - Altered mental status, unspecified Status: Acute Assessment and Plan: Likely secondary to urinary tract infection. Continue supportive care. CT head at the time of presentation was negative. Continue Abilify. Delete precaution. Will hold amitriptyline for now to see if her mental status improved. (3) Elevated troponin: Code(s): R77.8 - Other specified abnormalities of plasma proteins Status: Acute Assessment and Plan: Minimal troponin leak. Likely demand ischemia. Echo is pending telemetry with no acute myocardial event. Continue her cardiac regimen including Coreg, Aspirin, statin and Xarelto. (4) Chronic renal failure: Code(s): N18.9 - Chronic kidney disease, unspecified Status: Acute Assessment and Plan: Continue to monitor. Renal parameters are at her baseline. (5) COPD (chronic obstructive pulmonary disease): Code(s): J44.9 - Chronic obstructive pulmonary disease, unspecified Status: Acute Assessment and Plan: Does not seem to be in exacerbation. Continue home regimen. Continue bronchodilator with the DuoNebs on as needed basis. (6) Right above-knee amputee: Code(s): Z89.611 - Acquired absence of right leg above knee Status: Acute Assessment and Plan: Fall precaution will be maintained. (7) Diabetes: Code(s): E11.9 - Type 2 diabetes mellitus without complications Status: Acute Assessment and Plan: continue her home regimen With glargine. Insulin sliding scale. Continue to monitor Accu-Cheks. (8) Anxiety: Code(s): F41.9 - Anxiety disorder, unspecified Status: Acute Assessment and Plan: Continue her home regimen. Subjective Date/time seen: 11/14/20 08:13 she was confused at the time of my evaluation. She denied have any significant symptoms of cough shortness of breath chest pain nausea vomiting abdominal pain bowel or bladder symptoms. Review of Systems Review of Systems: ROS unobtainable: Yes unobtainable due to mental status ( CONFUSED) Exam Narrative: Exam Narrative: General awake and alertx1 CVS S1-S2 respiratory no wheezing or crepitation heard abdomen soft and nontender extremity right AKA [employer] alert oriented X1 Neuro: Motor exam (neuro): Tremors during motor activity present (HANDS) Objective Data Vital Signs Vital Signs: Vital Signs - 24 hr 11/13/20 09:43 11/13/20 10:00 11/13/20 11:48 Temperature 37.0 C Pulse Rate 77 93 62 Respiratory Rate 18 Blood Pressure 159/80 H Pulse Oximetry 93 11/13/20 12:00 11/13/20 14:00 11/13/20 16:00 Temperature 36.7 C Pulse Rate 63 64 62 Respiratory Rate 18 Blood Pressure 176/89 H Pulse Oximetry 98 11/13/20 16:27 11/13/20 18:00 11/13/20 19:45 Temperature 36.5 C Pulse Rate 64 62 64 Respiratory Rate 20 Blood Pressure 155/82 H Pulse Oximetry 100 11/13/20 20:00 11/13/20 22:00 11/13/20 23:33 Temperature Pulse Rate 65 61 74 Respiratory Rate 16 Blood Pressure Pulse Oximetry 100 11/13/20 23:55 11/14/20 00:00 11/14/20 02:00 Temperature 36.5 C Pulse Rate 59 L 61 60 Respiratory Rate 20 Blood Pressure 151/80 H Pulse Oximetry 97 97 11/14/20 04:00 11/14/20
[2020-11-14 08:15] LABS: Glucose Point of Care 122 mg/dl (65-105)
[2020-11-14] MEDS: PERFLUTREN LIPID MICROSPHERES 1.5 ML VIAL DILUTED TO 10 ML TOTAL VOLUME IV PUSH (08:45)
[2020-11-14] MEDS: ASPIRIN 81 MG CHEWABLE TABLET PO (08:53)
[2020-11-14] MEDS: polyethylene glycoL 3350 17 GM POWD.PACK PO (08:53)
[2020-11-14] MEDS: carvediloL 3.125 MG TABLET PO ×2 (08:53→17:40)
[2020-11-14] MEDS: busPIRone HCL 10 MG TABLET PO ×3 (08:53→17:40)
[2020-11-14] MEDS: PANTOPRAZOLE 40 MG TABLET PO (08:53)
[2020-11-14] MEDS: SPIRONOLACTONE 25 MG TABLET PO (08:53)
[2020-11-14] MEDS: guaiFENesin 12 HR 600 MG TABCR PO (08:53)
[2020-11-14] MEDS: ARIPiprazole 5 MG TABLET 15 MG PO (08:53)
[2020-11-14] MEDS: FLUTICASONE PROPIONATE 0.05% NA SPR 16 GM BTL (*BKC) 1 SPRAY NASAL (08:54)
[2020-11-14] MEDS: ERGOCALCIFEROL 50,000 UNIT CAPSULE 50000 UNITS BY MOUTH (08:54)
[2020-11-14] MEDS: OXcarbazepine 300 MG TABLET 600 MG PO (08:54)
[2020-11-14] MEDS: SENNOSIDES 8.6 MG TABLET 17.2 MG PO ×2 (08:54→17:40)
[2020-11-14] MEDS: LORATADINE 10 MG TABLET PO (08:54)
[2020-11-14] MEDS: MULTIVITAMINS THERAPEUTIC TAB (*BKC) 1 TABLET PO (08:54)
[2020-11-14] MEDS: MAGNESIUM OXIDE 400 MG TABLET PO ×2 (08:54→17:40)
[2020-11-14] MEDS: CARBIDOPA/LEVODOPA 25/100 MG TABLET 1 TABLET PO ×3 (08:54→17:40)
[2020-11-14] MEDS: ESCITALOPRAM OXALATE 10 MG TABLET 20 MG PO (08:54)
[2020-11-14] MEDS: INSULIN GLARGINE (*BKC) 100 UNITS/ML 30 UNITS SUB-Q ×2 (08:55→21:18)
[2020-11-14] MEDS: INSULIN ASPART (*BKC) 100 UNITS/ML 8 UNITS SUB-Q ×2 (08:55→17:39)
[2020-11-14] MEDS: TOLNAFTATE 1% POWDER 45 GM BTL 1 APPLIC TOPICAL ×2 (08:55→20:13)
[2020-11-14 11:52] LABS: Glucose Point of Care 96 mg/dl (65-105)
[2020-11-14 15:52] LABS: Glucose Point of Care 255 mg/dl (65-105)
[2020-11-14] MEDS: RIVAROXABAN 20 MG TABLET PO (17:41)
[2020-11-14] MEDS: LOVASTATIN 10 MG TABLET PO (17:41)
[2020-11-14 21:00] LABS: Glucose Point of Care 181 mg/dl (65-105)
[2020-11-15] VITALS (11 sets, daily range): BP systolic 155–201; BP diastolic 68–116; PULSE 59–100; RESP 12–20; TEMP 36.5–36.9; O2SAT 95–99
[2020-11-15 05:56] LABS: Basophils Absolute Auto 0.1 K/mm3 (0.0-0.1); Basophils Percent Auto 0.9 % (0.2-1.2); Eosinophils Absolute Auto 0.2 K/mm3 (0-0.3); Eosinophils Percent Auto 1.9 % (0-4.4); Hematocrit 34.6 % (37.0-47.0); Hemoglobin 11.1 g/dL (12.0-15.0); Immature Granulocyte Absolute 0.04 K/mm3 (0.00-0.031); Immature Granulocyte Percent A 0.5 % (0-0.5); Lymphocytes Absolute Auto 2.47 K/mm3 (0.9-3.2); Mean Corpuscular HGB Conc 32.1 g/dl (32-36); Mean Corpuscular Hemoglobin 28.7 pg (26-34); Mean Corpuscular Volume 89.4 fl (80-100); Monocytes Absolute Auto 0.8 K/mm3 (0.1-0.6); Monocytes Percent Auto 10.6 % (2.6-8.5); Neutrophils Absolute Auto 4.4 K/mm3 (1.3-6.7); Neutrophils Percent Auto 55.1 % (45.5-73.1); Platelet Count Result 253 k/mm3 (150-375); Red Blood Count 3.87 M/mm3 (4.2-5.4); Red Cell Distribution Width 13.2 % (11.5-14.5)
[2020-11-15 06:36] LABS: Anion Gap 4 mmol/L (8-16); Blood Urea Nitrogen 13 mg/dL (7-17); Calcium 9.6 mg/dL (8.4-10.2); Carbon Dioxide 28 mmol/L (22-30); Chloride 102 mmol/L (98-107); Estimated CRCL calculation 76 ml/min; Estimated Glomerular Filt Rate 55; Glucose 140 mg/dL (65-110); Magnesium 1.5 mg/dL (1.6-2.3); Phosphorus 3.1 mg/dL (2.5-4.5); Sodium 134 mmol/L (137-145)
[2020-11-15 08:09] LABS: Glucose Point of Care 139 mg/dl (65-105)
[2020-11-15] MEDS: ARIPiprazole 5 MG TABLET 15 MG PO (09:55)
[2020-11-15] MEDS: polyethylene glycoL 3350 17 GM POWD.PACK PO (09:55)
[2020-11-15] MEDS: FLUTICASONE PROPIONATE 0.05% NA SPR 16 GM BTL (*BKC) 1 SPRAY NASAL (09:55)
[2020-11-15] MEDS: busPIRone HCL 10 MG TABLET PO ×3 (09:56→16:26)
[2020-11-15] MEDS: CARBIDOPA/LEVODOPA 25/100 MG TABLET 1 TABLET PO ×3 (09:56→16:27)
[2020-11-15] MEDS: carvediloL 3.125 MG TABLET PO (09:56)
[2020-11-15] MEDS: ASPIRIN 81 MG CHEWABLE TABLET PO (09:56)
[2020-11-15] MEDS: LORATADINE 10 MG TABLET PO (09:57)
[2020-11-15] MEDS: guaiFENesin 12 HR 600 MG TABCR PO ×2 (09:57→20:11)
[2020-11-15] MEDS: ESCITALOPRAM OXALATE 10 MG TABLET 20 MG PO (09:57)
[2020-11-15] MEDS: SPIRONOLACTONE 25 MG TABLET PO (09:58)
[2020-11-15] MEDS: MULTIVITAMINS THERAPEUTIC TAB (*BKC) 1 TABLET PO (09:58)
[2020-11-15] MEDS: OXcarbazepine 300 MG TABLET 600 MG PO ×2 (09:58→20:13)
[2020-11-15] MEDS: MAGNESIUM OXIDE 400 MG TABLET PO ×2 (09:58→16:27)
[2020-11-15] MEDS: SENNOSIDES 8.6 MG TABLET 17.2 MG PO ×2 (09:58→16:27)
[2020-11-15] MEDS: PANTOPRAZOLE 40 MG TABLET PO (09:58)
[2020-11-15] MEDS: INSULIN GLARGINE (*BKC) 100 UNITS/ML 30 UNITS SUB-Q ×2 (10:40→20:15)
[2020-11-15] MEDS: TOLNAFTATE 1% POWDER 45 GM BTL 1 APPLIC TOPICAL ×2 (10:41→21:00)
[2020-11-15 12:38] LABS: Glucose Point of Care 129 mg/dl (65-105)
[2020-11-15] MEDS: MAGNESIUM SULF 4 GM/WATER100ML 4 GM/100 ML BAG IVPB (12:49)
--- NOTE | 2020-11-15 14:30 | PM.IMPN ---
Progress Note: A&P Assessment and Plan (1) UTI (urinary tract infection): Qualifiers: Hematuria presence: without hematuria Urinary tract infection type: site unspecified Qualified Code(s): N39.0 - Urinary tract infection, site not specified Code(s): N39.0 - Urinary tract infection, site not specified Status: Acute Assessment and Plan: She has history of urinary tract infection in the past and grew E coli resistant to Rocephin and Morganella morganii. Currently on imipenem. Urine culture is growing E coli. Sensitivities are pending. (2) Acute alteration in mental status: Code(s): R41.82 - Altered mental status, unspecified Status: Acute Assessment and Plan: Likely secondary to urinary tract infection. Continue supportive care. CT head at the time of presentation was negative. Continue Abilify. Delirium precautions. Will hold amitriptyline for now to see if her mental status improved. (3) Elevated troponin: Code(s): R77.8 - Other specified abnormalities of plasma proteins Status: Acute Assessment and Plan: Minimal troponin leak. Likely demand ischemia. Echo is pending telemetry with no acute myocardial event And arrhythmia. Continue her cardiac regimen including Coreg, Aspirin, statin and Xarelto. her blood pressure seems to be uncontrolled and seems to be the case during prior admissions as well. I will increase the dose off Coreg to 6.125 mg twice a day. I will start her lisinopril 5 mg once a day. Titrate antihypertensive medication as Needed. (4) Chronic renal failure: Code(s): N18.9 - Chronic kidney disease, unspecified Status: Acute Assessment and Plan: Continue to monitor. Renal parameters are at her baseline. (5) COPD (chronic obstructive pulmonary disease): Code(s): J44.9 - Chronic obstructive pulmonary disease, unspecified Status: Acute Assessment and Plan: Does not seem to be in Acute exacerbation. Continue home regimen. Continue bronchodilator with the DuoNebs on as needed basis. (6) Right above-knee amputee: Code(s): Z89.611 - Acquired absence of right leg above knee Status: Acute Assessment and Plan: Fall precaution will be maintained. PT OT has been consulted. (7) Diabetes: Code(s): E11.9 - Type 2 diabetes mellitus without complications Status: Acute Assessment and Plan: continue her home regimen With glargine. Insulin sliding scale. Continue to monitor Accu-Cheks. (8) Anxiety: Code(s): F41.9 - Anxiety disorder, unspecified Status: Acute Assessment and Plan: Continue her home regimen. Subjective Date/time seen: 11/15/20 14:30 Her blood pressure today was noticed to be elevated. She is on Coreg 3.125 mg twice a day. When I looked back her blood blood pressure during this and prior admission to the hospital, most of her readings has been noticed to be elevated. Her mental status improving but still confused. She alert oriented x2 today. She is slow to answer questions. She is feeling much better otherwise and denied have any significant symptoms like chest pain shortness of breath nausea vomiting. She did mention to have some headache which is relieved with Tylenol. Magnesium was low today. It was repleted. 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
--- NOTE | 2020-11-15 14:31 | PC.NURSE ---
This patient, Maribel Alvarez, was transferred to [331-2] on 11/15/20 at 1431. Personal belongings sent with patient. Report given to [Opal MONAE]. Appropriate documentation sent with patient.
[2020-11-15] MEDS: lisinopriL 5 MG TABLET PO (16:26)
--- NOTE | 2020-11-15 16:37 | PC.NURSE ---
Pt transfer received from IMU to room 331. Patient oriented to the room 11/15/20 1442.
[2020-11-15] MEDS: LOVASTATIN 10 MG TABLET PO (17:29)
[2020-11-15] MEDS: RIVAROXABAN 20 MG TABLET PO (17:29)
[2020-11-15] MEDS: INSULIN ASPART (*BKC) 100 UNITS/ML 8 UNITS SUB-Q (17:35)
[2020-11-15 17:37] LABS: Glucose Point of Care 252 mg/dl (65-105)
[2020-11-15 22:00] LABS: Glucose Point of Care 235 mg/dl (65-105)
[2020-11-15] MEDS: carvediloL 6.25 MG TABLET PO (23:39)
[2020-11-16] VITALS (7 sets, daily range): BP systolic 154–168; BP diastolic 68–82; PULSE 56–85; RESP 18–20; TEMP 36.5–37.2; O2SAT 94–100
[2020-11-16 06:58] LABS: Anion Gap 8 mmol/L (8-16); Blood Urea Nitrogen 11 mg/dL (7-17); Calcium 9.6 mg/dL (8.4-10.2); Carbon Dioxide 25 mmol/L (22-30); Chloride 99 mmol/L (98-107); Estimated CRCL calculation 106 ml/min; Estimated Glomerular Filt Rate > 60; Glucose 116 mg/dL (65-110); Magnesium 1.6 mg/dL (1.6-2.3); Potassium 4.5 mmol/L (3.4-5.0); Sodium 132 mmol/L (137-145)
[2020-11-16] MEDS: INSULIN GLARGINE (*BKC) 100 UNITS/ML 30 UNITS SUB-Q ×2 (08:45→21:15)
[2020-11-16] MEDS: FLUTICASONE PROPIONATE 0.05% NA SPR 16 GM BTL (*BKC) 1 SPRAY NASAL (09:13)
[2020-11-16] MEDS: MAGNESIUM SULF 2 GM/WATER 50ML 2 GM/50 ML BAG IVPB (09:13)
[2020-11-16] MEDS: busPIRone HCL 10 MG TABLET PO ×3 (09:15→16:52)
[2020-11-16] MEDS: MULTIVITAMINS THERAPEUTIC TAB (*BKC) 1 TABLET PO (09:16)
[2020-11-16] MEDS: SENNOSIDES 8.6 MG TABLET 17.2 MG PO (09:16)
[2020-11-16] MEDS: PANTOPRAZOLE 40 MG TABLET PO (09:16)
[2020-11-16] MEDS: guaiFENesin 12 HR 600 MG TABCR PO ×2 (09:16→21:15)
[2020-11-16] MEDS: polyethylene glycoL 3350 17 GM POWD.PACK PO (09:16)
[2020-11-16] MEDS: ASPIRIN 81 MG CHEWABLE TABLET PO (09:17)
[2020-11-16] MEDS: CARBIDOPA/LEVODOPA 25/100 MG TABLET 1 TABLET PO ×3 (09:17→16:52)
[2020-11-16] MEDS: LORATADINE 10 MG TABLET PO (09:17)
[2020-11-16] MEDS: SPIRONOLACTONE 25 MG TABLET PO (09:17)
[2020-11-16] MEDS: ARIPiprazole 5 MG TABLET 15 MG PO (09:17)
[2020-11-16] MEDS: ESCITALOPRAM OXALATE 10 MG TABLET 20 MG PO (09:18)
[2020-11-16] MEDS: OXcarbazepine 300 MG TABLET 600 MG PO ×2 (09:19→21:13)
[2020-11-16] MEDS: TOLNAFTATE 1% POWDER 45 GM BTL 1 APPLIC TOPICAL ×2 (09:20→21:15)
[2020-11-16] MEDS: carvediloL 6.25 MG TABLET PO ×2 (10:19→21:14)
[2020-11-16] MEDS: lisinopriL 10 MG TABLET PO (10:20)
--- NOTE | 2020-11-16 11:10 | PCNFU ---
Nutrition Follow-Up Complete: Inadequate oral intake related to multiple medical issues as evidenced by average intake of 25% of meals since admission. Goal: Patient will consume 50% of meals/supplements or greater. Patient is progressing towards goal. We will continue current goal. Pt current nutrition is Heart Healthy with Ensure Compact BID. Last recorded weight is 157 kg, up from 152 kg. Bowel Motility:+BM reported 11/16 Labs Reviewed:Na 132,Glu 116 Meds Noted:Buspar,Elavil,Coreg,Senokot,Lovastatin,Zarelto,Mucinex,Drisdol, Protonix. Additional Notes: Patient seen today for nutrition follow up. Somewhat confused today. Patient is currently on a heart healthy diet, eating bites of toast today for breakfast and drank all of her ensure compact. Overall intake has been about 50% of trays. Patient would like to rotate her ensure compact drinks, diet office is aware of preference. Agree with diet orders. Monitoring: Follow up every 5 days.
[2020-11-16 12:41] LABS: Glucose Point of Care 217 mg/dl (65-105)
[2020-11-16] MEDS: INSULIN ASPART (*BKC) 100 UNITS/ML 8 UNITS SUB-Q ×2 (13:15→16:55)
[2020-11-16] MEDS: LOVASTATIN 10 MG TABLET PO (16:52)
[2020-11-16] MEDS: RIVAROXABAN 20 MG TABLET PO (16:52)
[2020-11-16 16:56] LABS: Glucose Point of Care 160 mg/dl (65-105)
--- NOTE | 2020-11-16 19:54 | PM.IMPN ---
Progress Note: A&P Assessment and Plan (1) UTI (urinary tract infection): Qualifiers: Hematuria presence: without hematuria Urinary tract infection type: site unspecified Qualified Code(s): N39.0 - Urinary tract infection, site not specified Code(s): N39.0 - Urinary tract infection, site not specified Status: Acute Assessment and Plan: She has history of urinary tract infection in the past and grew E coli resistant to Rocephin and Morganella morganii. Currently on imipenem. Urine culture is mixed apurva (2) Acute alteration in mental status: Code(s): R41.82 - Altered mental status, unspecified Status: Acute Assessment and Plan: Likely secondary to urinary tract infection. Continue supportive care. CT head at the time of presentation was negative. Continue Abilify. Delirium precautions. Will hold amitriptyline for now to see if her mental status improved. (3) Elevated troponin: Code(s): R77.8 - Other specified abnormalities of plasma proteins Status: Acute Assessment and Plan: Minimal troponin leak. Likely demand ischemia. Echo Summary 1. Definity contrast injected to improve visualization. 2. There is mild concentric increased left ventricular wall thickness. 3. Left ventricular systolic function is normal, estimated at 50-55%. 4. Mild mitral and aortic valve insufficiency. 5. Calcified mitral valve annulus. telemetry with no acute myocardial event And arrhythmia. Continue her cardiac regimen including Coreg, Aspirin, statin and Xarelto. her blood pressure seems to be uncontrolled and seems to be the case during prior admissions as well. Coreg to 6.125 mg twice a day. lisinopril 10 mg once a day. Titrate antihypertensive medication as Needed. (4) Chronic renal failure: Code(s): N18.9 - Chronic kidney disease, unspecified Status: Acute Assessment and Plan: Continue to monitor. Renal parameters are at her baseline. (5) COPD (chronic obstructive pulmonary disease): Code(s): J44.9 - Chronic obstructive pulmonary disease, unspecified Status: Acute Assessment and Plan: Does not seem to be in Acute exacerbation. Continue home regimen. DuoNebs on as needed basis. (6) Right above-knee amputee: Code(s): Z89.611 - Acquired absence of right leg above knee Status: Acute Assessment and Plan: Fall precaution will be maintained. PT OT has been consulted. (7) Diabetes: Code(s): E11.9 - Type 2 diabetes mellitus without complications Status: Acute Assessment and Plan: continue her home regimen With glargine. Insulin sliding scale. Continue to monitor Accu-Cheks. (8) Anxiety: Code(s): F41.9 - Anxiety disorder, unspecified Status: Acute Assessment and Plan: Continue her home regimen. Subjective Date/time seen: 11/16/20 15:54 patient seen lying in bed has no complaints is intermittently confused but is cooperative to interview. Exam Narrative: GEN: NAD, AAOx2, cooperative Morbidly obese HEENT: NCAT, MMM, EOMI Neck: no JVD Heart: S1S2 RRR Lungs: CTA B/l Abd: soft, NT, ND, bowel sounds normoactive , globose Ext: moves all, no cyanosis, no clubbing, BKA Neuro: slow cognition, moves all extremities Psych: unable to assess Objective Data Vital Signs Vital Signs: Vital Signs - 24 hr 11/15/20 21:40 11/15/20 23:39 11/16/20 05:51 Temperature 97.7 F 97.7 F Pulse Rate 59 L 60 56 L Respiratory Rate 20 20 Blood Pressure 162/84 H 168/82 H Pulse Oximetry 95 98 11/16/20 08:58 11/16/20 10:19 11/16/20 14:00 Temperature 99.0 F Pulse Rate 85 66 64 Respiratory Rate 20 18 Blood Pressure 165/78 H Pulse Oximetry 94 100 Intake/Output Intake/Output: Intake & Output 11/13/20 11/14/20 11/15/20 11/16/20 23:59 23:59 23:59 23:59 Intake
[2020-11-16 20:59] LABS: Glucose Point of Care 189 mg/dl (65-105)
[2020-11-16] MEDS: NIFEdipine 30 MG TAB.ER.24 PO (21:14)
[2020-11-17 06:00] VITALS: BP 139/75; PULSE 59; RESP 20; TEMP 36.3; O2SAT 100
[2020-11-17 08:21] LABS: Glucose Point of Care 83 mg/dl (65-105)
[2020-11-17] MEDS: ARIPiprazole 5 MG TABLET 15 MG PO (08:59)
[2020-11-17] MEDS: ASPIRIN 81 MG CHEWABLE TABLET PO (08:59)
[2020-11-17] MEDS: busPIRone HCL 10 MG TABLET PO ×3 (08:59→17:13)
[2020-11-17 09:00] VITALS: PULSE 59
[2020-11-17] MEDS: CARBIDOPA/LEVODOPA 25/100 MG TABLET 1 TABLET PO ×3 (09:00→17:13)
[2020-11-17] MEDS: ESCITALOPRAM OXALATE 10 MG TABLET 20 MG PO (09:00)
[2020-11-17] MEDS: carvediloL 6.25 MG TABLET PO ×2 (09:00→20:32)
[2020-11-17] MEDS: lisinopriL 10 MG TABLET PO (09:01)
[2020-11-17] MEDS: guaiFENesin 12 HR 600 MG TABCR PO ×2 (09:01→20:33)
[2020-11-17] MEDS: FLUTICASONE PROPIONATE 0.05% NA SPR 16 GM BTL (*BKC) 1 SPRAY NASAL (09:01)
[2020-11-17] MEDS: LORATADINE 10 MG TABLET PO (09:01)
[2020-11-17] MEDS: PANTOPRAZOLE 40 MG TABLET PO (09:02)
[2020-11-17] MEDS: MULTIVITAMINS THERAPEUTIC TAB (*BKC) 1 TABLET PO (09:02)
[2020-11-17] MEDS: SPIRONOLACTONE 25 MG TABLET PO (09:03)
[2020-11-17] MEDS: OXcarbazepine 300 MG TABLET 600 MG PO ×2 (09:04→20:33)
[2020-11-17] MEDS: ERGOCALCIFEROL 50,000 UNIT CAPSULE 50000 UNITS BY MOUTH (09:04)
[2020-11-17] MEDS: INSULIN GLARGINE (*BKC) 100 UNITS/ML 30 UNITS SUB-Q (09:09)
[2020-11-17] MEDS: TOLNAFTATE 1% POWDER 45 GM BTL 1 APPLIC TOPICAL ×2 (09:12→20:33)
[2020-11-17] MEDS: NIFEdipine 30 MG TAB.ER.24 PO (10:00)
[2020-11-17 12:23] LABS: Glucose Point of Care 277 mg/dl (65-105)
[2020-11-17] MEDS: INSULIN ASPART (*BKC) 100 UNITS/ML 8 UNITS SUB-Q ×2 (12:50→17:26)
[2020-11-17 14:00] VITALS: BP 141/82; PULSE 69; RESP 18; TEMP 37.2; O2SAT 96
--- NOTE | 2020-11-17 15:17 | PM.DS ---
DS: Admitting Diagnosis Admitting Diagnosis Assessment and plan (1) UTI (urinary tract infection): Qualifiers: Hematuria presence: without hematuria Urinary tract infection type: site unspecified Qualified Code(s): N39.0 - Urinary tract infection, site not specified Code(s): N39.0 - Urinary tract infection, site not specified Status: Acute Assessment and Plan: PATIENT WITH URINARY TRACT INFECTION IN THE PAST PRIOR URINALYSIS CULTURE SIGNIFICANT FOR MORGANELLA MORGANII AND E COLI RESISTANT TO ROCEPHIN ROCEPHIN HAS BEEN DISCONTINUED AND IMIPENEM HAS BEEN STARTED (2) Acute alteration in mental status: Code(s): R41.82 - Altered mental status, unspecified Status: Acute Assessment and Plan: LIKELY SECONDARY TO URINARY TRACT INFECTION SUPPORTIVE CARE CT HEAD REVIEWED (3) Elevated troponin: Code(s): R77.8 - Other specified abnormalities of plasma proteins Status: Acute Assessment and Plan: NONISCHEMIC MYOCARDIAL INJURY ECHOCARDIOGRAM HAS BEEN ORDERED CURRENTLY ON TELEMETRY CONTINUE TO MONITOR (4) Chronic renal failure: Code(s): N18.9 - Chronic kidney disease, unspecified Status: Acute Assessment and Plan: CONTINUE TO MONITOR BUN AND CREATININE AT PATIENT'S BASELINE (5) COPD (chronic obstructive pulmonary disease): Code(s): J44.9 - Chronic obstructive pulmonary disease, unspecified Status: Acute Assessment and Plan: DOES NOT APPEAR TO BE EXACERBATED NOT ACTIVELY WHEEZING CONTINUE BREATHING TREATMENTS (6) Right above-knee amputee: Code(s): Z89.611 - Acquired absence of right leg above knee Status: Acute DS: Discharge Diagnosis Discharge Diagnosis (1) Right above-knee amputee: Code(s): Z89.611 - Acquired absence of right leg above knee Status: Acute (2) UTI (urinary tract infection): Qualifiers: Hematuria presence: without hematuria Urinary tract infection type: site unspecified Qualified Code(s): N39.0 - Urinary tract infection, site not specified Code(s): N39.0 - Urinary tract infection, site not specified Status: Acute (3) Weakness: Code(s): R53.1 - Weakness Status: Acute (4) Acute alteration in mental status: Code(s): R41.82 - Altered mental status, unspecified Status: Acute (5) Hypomagnesemia: Code(s): E83.42 - Hypomagnesemia Status: Acute (6) Altered mental status: Code(s): R41.82 - Altered mental status, unspecified Status: Acute (7) Chronic renal failure: Code(s): N18.9 - Chronic kidney disease, unspecified Status: Acute (8) Chronic anticoagulation: Code(s): Z79.01 - intermediate card tender (current) use of anticoagulants Status: Acute (9) Uncontrolled hypertension: Code(s): I10 - Essential (primary) hypertension Status: Acute (10) Morbid obesity with BMI of 50.0-59.9, adult: Code(s): E66.01 - Morbid (severe) obesity due to excess calories; Z68.43 - Body mass index [BMI] 50.0-59.9, adult Status: Acute (11) History of CHF (congestive heart failure): Code(s): Z86.79 - Personal history of other diseases of the circulatory system Status: Acute (12) Diabetes: Code(s): E11.9 - Type 2 diabetes mellitus without complications Status: Acute (13) COPD (chronic obstructive pulmonary disease): Code(s): J44.9 - Chronic obstructive pulmonary disease, unspecified Status: Acute (14) Acute on chronic renal failure: Code(s): N17.9 - Acute kidney failure, unspecified; N18.9 - Chronic kidney disease, unspecified Status: Acute (15) Atypical chest pain: Code(s): R07.89 - Other chest pain Status: Acute DS: Summary Hospital Course Reason for hospitalization: AMS UTI Hospital Course: 65-year-old female admitted from a local half-way to the hospital with altered mental status associated w UTI. Patient
--- NOTE | 2020-11-17 16:21 | PC.NURSE ---
Report called to Billie at [facility] [place].
[2020-11-17 17:15] LABS: Glucose Point of Care 224 mg/dl (65-105)
[2020-11-17] MEDS: RIVAROXABAN 20 MG TABLET PO (17:30)
[2020-11-17] MEDS: LOVASTATIN 10 MG TABLET PO (17:30)
[2020-11-17 20:32] VITALS: PULSE 65
[2020-11-17 21:12] LABS: Glucose Point of Care 134 mg/dl (65-105)
[2020-11-17 22:00] VITALS: BP 153/79; PULSE 65; RESP 20; TEMP 36.8; O2SAT 96
== END 2020-11-17 22:50 | DRG 690 ==
LOC: ANHED 23:00 → ANHIMU 23:29 → ANH3MEDSUR 11-17 15:16 → ANHIMU 11-21 13:30
PROVIDERS: Internal Medicine Critical Care Medicine; Admitting Provider Internal Medicine; Emergency Provider Emergency Medicine; PCP Family Medicine; Visit Provider Hospitalist
DX: N39.0 Urinary tract infection, site not specified (principal); Z68.43 Body mass index [BMI] 50.0-59.9, adult; I13.0 Hypertensive heart and chronic kidney disease with heart failure and stage 1 through stage 4 chronic kidney disease, or unspecified chronic kidney disease; I48.20 Chronic atrial fibrillation, unspecified; I24.8 Other forms of acute ischemic heart disease; E11.22 Type 2 diabetes mellitus with diabetic chronic kidney disease; N18.9 Chronic kidney disease, unspecified; I50.9 Heart failure, unspecified; E83.42 Hypomagnesemia; E66.01 Morbid (severe) obesity due to excess calories; D64.9 Anemia, unspecified; F41.9 Anxiety disorder, unspecified; F32.9 Major depressive disorder, single episode, unspecified; M19.90 Unspecified osteoarthritis, unspecified site; E78.5 Hyperlipidemia, unspecified; G20 Parkinson's disease; M81.0 Age-related osteoporosis without current pathological fracture; G47.30 Sleep apnea, unspecified; L40.9 Psoriasis, unspecified; G25.81 Restless legs syndrome; E11.42 Type 2 diabetes mellitus with diabetic polyneuropathy; J43.9 Emphysema, unspecified; M79.7 Fibromyalgia; L30.9 Dermatitis, unspecified; I73.9 Peripheral vascular disease, unspecified; Z79.01 Long term (current) use of anticoagulants; Z89.611 Acquired absence of right leg above knee; Z86.718 Personal history of other venous thrombosis and embolism; Z86.711 Personal history of pulmonary embolism; Z86.73 Personal history of transient ischemic attack (TIA), and cerebral infarction without residual deficits; Z90.49 Acquired absence of other specified parts of digestive tract
CPT/HCPCS: 36415; 51701; 70450; 71045; 74176; 80048; 80053; 80307; 81001; 82948; 83690; 83735; 83880; 84100; 84484; 85025; 85380; 85610; 85730; 87040; 87086; 87088; 93005; 93306; 94640; 96365; 96367; 97161; 99285; A9270; C8929; G0378; J0696; J0743; J1815; J3475; J7030; Q9957

== ENCOUNTER 2020-11-24 22:09 | Inpatient (IN) | payer MEDICARE, MEDICAID, SELFPAY ==
--- NOTE | ~2020-11-24 | CT_ITS ---
EXAMINATION: CT brain wo con DATE: 11/24/2020 23:15 INDICATION: Confusion. Altered mental status. TECHNIQUE: Computed tomography (CT) of the head was performed without intravenous contrast. The mA wa s adjusted according to patient size. Iterative reconstruction technique was employed. The dose-lengt h product was 681.00 mGy-cm. COMPARISON: Head CT 11/12/2020 FINDINGS: There are scattered areas of low attenuation in the cerebral white matter. There is no intr acranial hemorrhage, acute infarction, or abnormal intracranial mass lesion. The ventricles are ivon l in size. Right maxillary sinus is small. There is a near complete opacification of right maxillary sinus with thickening and sclerosis of the sinus cagle, consistent with chronic sinusitis. The orbits are normal. The mastoid air cells are normal. IMPRESSION: 1. Stable extensive nonspecific cerebral white matter disease, which likely represents chronic small vessel ischemic disease. 2. Chronic sinusitis. Reviewed, dictated and finalized at location A. IMPRESSION: 1. Stable extensive nonspecific cerebral white matter disease, which likely rep resents chronic small vessel ischemic disease. 2. Chronic sinusitis.
--- NOTE | ~2020-11-24 | NM_ITS ---
EXAMINATION: NM renal flow and function DATE: 12/07/2020 14:18 INDICATION: Acute kidney injury. TECHNIQUE: A 0.5 mCi Tc-99m MAG3 was administered IV. The patient was scanned in the supine position . A posterior abdominal radionuclide angiogram was obtained. A subsequent time course of static image s of the kidneys, ureters, and bladder was obtained. COMPARISON: CT abdomen and pelvis 12/02/2020 FINDINGS: The posterior abdominal radionuclide angiogram and sequential static images show normal siz e, position, and morphology of the kidneys. Peak renal parenchymal uptake was 8 min in right kidney a nd 6 min in left kidney (normal peak 3-5 minutes). The relative early renal uptake was 45% on the ri ght and 55% on the left (<40% is abnormal). No abnormalities of the ureters or bladder are seen. T1/2 for clearance of activity from the right kidney and proximal collecting system was >>20 minutes. T1/2 for clearance of activity from the left kidney and proximal collecting system was >>20 minutes. IMPRESSION: 1. Symmetric kidney function. 2. Delayed uptake and clearance of radiotracer from the kidneys, consistent with decreased kidney fu nction. Reviewed, dictated and finalized at location B. IMPRESSION: 1. Symmetric kidney function. 2. Delayed uptake and clearance of radiotracer from the kidneys, consistent wi th decreased kidney function.
--- NOTE | ~2020-11-24 | US_ITS ---
EXAMINATION: US renal BI DATE: 12/04/2020 15:38 INDICATION: Acute renal insufficiency TECHNIQUE: Multiple ultrasound grayscale images of the kidneys were obtained. COMPARISON: None. FINDINGS: The right kidney measures 10.2 x 5.5 x 5.3 cm. The left kidney measures 10.4 x 5.5 x 5.5 cm. The kidn eys demonstrate normal echogenicity. There is no hydronephrosis in either kidney. No stones identifi ed. The bladder is visualized likely due to combination of decompressed state a Martel catheter report edly in place as well as shadowing bowel gas. IMPRESSION: 1. Normal kidneys without hydronephrosis. Reviewed, dictated and finalized at location A.
--- NOTE | ~2020-11-24 | CT_ITS ---
EXAMINATION: CT chest abdomen pelvis w con DATE: 12/02/2020 11:46 INDICATION: Bacteremia. TECHNIQUE: Computed tomography (CT) of the chest, abdomen, and pelvis was performed with 100 mL Omnip aque 350 intravenous contrast. Automated exposure control and iterative reconstruction technique were employed. The dose-length product was 1954.75 mGy-cm. COMPARISON: CT abdomen and pelvis 11/12/2020, chest CT 07/06/2020, CT abdomen and pelvis 11/18/2018 FINDINGS: CHEST CT: There is mild scarring in paraspinal right lower lobe. There is smooth septal thickening in the lungs , consistent with mild pulmonary edema. There are peripheral airspace opacities in the lateral segmen t right middle lobe. A calcified right lung nodule is consistent with old granulomatous disease. Ther e is a chronic 6 mm nodule in left lower lobe, likely benign. There is a chronic 6 mm nodule at left major fissure, likely benign. There are trace pleural effusions. There is left atrial enlargement of the heart. No pericardial effusion. There is chronic mild mediastinal lymphadenopathy, likely reactiv e. There is moderate thoracic spondylosis. ABDOMEN/PELVIS CT: The liver is normal. There are changes of cholecystectomy. There are surgical changes of the stomach. The spleen is normal. There is a 15 mm cystic lesion in the tail of pancreas. The adrenal glands are normal. There is cortical thinning of the kidneys. There are no dilated loops of bowel. The appendix is normal. There are no pathologically enlarged lymph nodes. There is no free intraperitoneal fluid. There is moderate lumbar spondylosis. There are chronic bilateral L5 pars defects. IMPRESSION: 1. Mild pulmonary edema and trace pleural effusions. 2. Worsened mild peripheral airspace opacities in lateral segment right middle lobe, consistent with atelectasis versus pneumonia. 3. 15 mm cystic lesion in the tail of the pancreas, stable from 11/18/2018. The differential diagnosis includes pseudocyst, intraductal papillary mucinous neoplasm (IPMN), mucinous cystic neoplasm (MCN), serous cystadenoma, and neuroendocrine tumor. Consider abdomen MRI without and with contrast in one year. Reviewed, dictated and finalized at location A. IMPRESSION: 1. Mild pulmonary edema and trace pleural effusions. 2. Worsened mild peripheral airspace opacities in lateral segment right middle lobe, consistent with atelectasis versus pneumonia. 3. 15 mm cystic lesion in the tail of the pancreas, stable from 11/18/2018. The differential diagnosis includes pseudocyst, intraductal papillary mucinous neop lasm (IPMN), mucinous cystic neoplasm (MCN), serous cystadenoma, and neuroendoc rine tumor. Consider abdomen MRI without and with contrast in one year.
--- NOTE | ~2020-11-24 | XR_ITS ---
EXAMINATION: XR chest 1V portable DATE: 11/24/2020 22:43 INDICATION: Altered mental status. TECHNIQUE: A single frontal view of the chest was obtained. COMPARISON: Chest single view 11/12/2020, CT abdomen and pelvis 11/12/2020 FINDINGS: There is mild atelectasis in right lower lung zone. No pleural effusion or pneumothorax. Th e heart size is normal. There are surgical clips in the abdomen. IMPRESSION: 1. Mild atelectasis in right lower lung zone. Reviewed, dictated and finalized at location A.
[2020-11-24 22:13] VITALS: PULSE 51; RESP 20; TEMP 36.3; O2SAT 98
--- NOTE | 2020-11-24 22:17 | ED.FEMALEGU ---
HPI - Female Genitourinary General Chief complaint: Urogenital-Female Stated complaint: UTI SYMPTOMS Time Seen by Provider: 11/24/20 22:17 Source: patient, family and EMS Mode of arrival: EMS Limitations: altered mental status and dementia History of Present Illness HPI Narrative: Patient is a 65-year-old female with a past medical history of morbid obesity, right elwil-ghd-skll amputation, type 2 diabetes, Parkinson's disease, peripheral diabetic neuropathy, recurrent urinary tract infections, who presents to the emergency department for evaluation of altered mental status. Pt also noted to have hematuria on straight cath at [facility]. Patient was recently seen and admitted to this facility for similar, diagnosed with a urinary tract infection, but based on chart review, culture ended up being negative however patient did complete treatment with imipenem. Patient has been at the halfway, noted to have increased confusion, alert and oriented to person and place which is decreased from her baseline. Patient currently is oriented for person and place to me, is unable to provide any other history. Family is at bedside, states that she has been unwell since [place] Covid several months ago. Patient denies any current chest pain or shortness of breath otherwise history is quite limited due to her altered mentation and patient is unable to reliably provide symptom history. No fever per EMS. Vital signs are stable. She is mildly bradycardic. Per chart review, patient with CT A/P on 11/12, which was negative for nephrolithiasis. Related Data Home Medications Medication Instructions Recorded Confirmed Calcium 600 with Vitamin D3 1 tablet PO BID 11/11/19 11/13/20 Lantus Solostar U-100 Insulin 30 unit SUBCUT BID 11/11/19 11/13/20 aripiprazole 15 mg PO DAILY 11/11/19 11/13/20 aspirin 81 mg PO DAILY 11/11/19 11/13/20 buspirone 10 mg PO TID 11/11/19 11/13/20 carbidopa-levodopa 1 tablet PO TID 11/11/19 11/13/20 carvedilol 3.125 mg PO BID 11/11/19 11/13/20 cetirizine 10 mg PO DAILY 11/11/19 11/13/20 escitalopram oxalate 20 mg PO DAILY 11/11/19 11/13/20 fluticasone propionate [Allergy 1 spray INTRANASAL DAILY 11/11/19 11/13/20 Relief (fluticasone)] lovastatin 10 mg PO QPM 11/11/19 11/13/20 magnesium oxide 400 mg PO BID 11/11/19 11/13/20 oxcarbazepine 600 mg PO BID 11/11/19 11/13/20 oxybutynin chloride 10 mg PO HS 11/11/19 11/13/20 spironolactone 25 mg PO DAILY 11/11/19 11/13/20 GlucaGen HypoKit 1 mg SUBCUT Q20M PRN 12/01/19 11/13/20 [place] Cough Drops 9.1 mg MUCOUS MEMBRANE Q2-4H PRN 12/01/19 11/13/20 Xarelto 20 mg PO DAILY 12/01/19 11/13/20 acetaminophen 650 mg PO Q6H PRN 12/01/19 11/13/20 albuterol sulfate 2 puff INHALATION Q4H PRN 12/01/19 11/13/20 cranberry 400 mg PO BID 12/01/19 11/13/20 ergocalciferol (vitamin D2) See Rx Instructions .ROUTE .COMPLEX 12/01/19 11/13/20 [Vitamin D2] multivitamin 1 tablet PO DAILY 12/01/19 11/13/20 senna 17.2 mg PO BID 12/01/19 11/13/20 Linzess 72 mcg PO DAILY 07/06/20 11/13/20 amitriptyline 25 mg PO HS 07/06/20 11/13/20 guaifenesin 600 mg PO BID 07/06/20 11/13/20 Breo Ellipta 1 inh INHALATION DAILY 10/04/20 11/13/20 Ozempic 0.25 mg SUBCUT WEEKLY 10/04/20 11/13/20 magnesium citrate [Citroma] 296 ml PO PRN PRN 10/04/20 11/13/20 nystatin [Nyamyc] 1 applic TOPICAL BID PRN 10/04/20 11/13/20 pantoprazole 40 mg PO DAILY 11/13/20 11/13/20 polyethylene glycol 3350 [Miralax] 17 g PO DAILY 11/13/20 11/13/20 Allergies Allergy/AdvReac Type Severity Reaction Status Date / Time green pepper Allergy Severe Stopped Verified 11/24/20 22:29 Breathing pepper (genus Capsicum) Allergy Severe Stopped Verified 11/24/20 22:29 Breathing Review of Systems Review of Systems: ROS unobtainable: Yes unobtainable due to mental status PMFSH Past Medical History Medical History Anemia Angina at rest Anxiety Arthritis Asthma Atrial fibrillation Cataract CHF (con
--- NOTE | 2020-11-24 22:33 | ECG_ITS ---
Measurements Intervals [place] Rate: 43 P: 94 HI: 215 QRS: -41 QRSD: 144 T: 29 QT: 505 QTc: 432 Interpretive Statements SINUS BRADYCARDIA WITH SINUS ARRHYTHMIA LEFT AXIS DEVIATION INTRAVENTRICULAR CONDUCTION DELAY LEFT VENTRICULAR HYPERTROPHY WITH ST-T CHANGE POOR R WAVE PROGRESSION, ANTERIOR LEADS BASELINE ARTIFACT- I, II, AVR, AVF, V1-V3 ABNORMAL ECG Electronically Signed On 11-25-2020 6:29:38 CDT by Ken Gonzalez D.O.
[2020-11-24] MEDS: SODIUM CHLORIDE 0.9% IV 1,000 ML 999 ML IV CONT (22:49)
[2020-11-24 23:01] LABS: Alveolar/Arterial O2 Gradient 15.8 mmHg; Fractional Inspired Oxygen 21 %; HCO3 ABG 26.2 mEq/l (22.0-26.0); Oxygen Content ABG 16.5 %vol (16.0-22.0); Oxygen Saturation ABG 96.8 % (95.0-100.0); PCO2 ABG 39.9 mmHg (35.0-45.0); PO2 ABG 86.2 mmHg (80.0-100.0); Total Hemoglobin 12.3 g/dL (12.0-18.0); pH ABG 7.436 (7.350-7.450)
[2020-11-24 23:02] LABS: Device ROOM AIR; Modified Allen's Test Pass; Site Drawn LEFT RADIAL
[2020-11-25] VITALS (13 sets, daily range): BP systolic 134–146; BP diastolic 71–89; PULSE 58–66; RESP 18–20; TEMP 36.6–36.7; O2SAT 95–99; BMI 54.3
[2020-11-25 00:03] LABS: Alanine Aminotransferase 7 U/L (4-35); Albumin Level 3.1 g/dL (3.5-5.1); Alkaline Phosphatase 166 U/L (38-126); Anion Gap 4 mmol/L (8-16); Aspartate Amino Transferase 32 U/L (14-36); Basophils Absolute Auto 0.1 K/mm3 (0.0-0.1); Basophils Percent Auto 0.9 % (0.2-1.2); Bilirubin,Total 0.2 mg/dL (0.2-1.3); Blood Urea Nitrogen 23 mg/dL (7-17); Calcium 9.4 mg/dL (8.4-10.2); Carbon Dioxide 28 mmol/L (22-30); Chloride 95 mmol/L (98-107); Eosinophils Absolute Auto 0.3 K/mm3 (0-0.3); Eosinophils Percent Auto 3.3 % (0-4.4); Estimated CRCL calculation 66 ml/min; Estimated Glomerular Filt Rate 45; Glucose 166 mg/dL (65-110); Hematocrit 38.1 % (37.0-47.0); Hemoglobin 11.1 g/dL (12.0-15.0); Immature Granulocyte Absolute 0.04 K/mm3 (0.00-0.031); Immature Granulocyte Percent A 0.5 % (0-0.5); Lymphocytes Absolute Auto 2.24 K/mm3 (0.9-3.2); Lymphocytes Percent Auto 29.3 % (18.3-44.2); Mean Corpuscular HGB Conc 29.1 g/dl (32-36); Mean Corpuscular Hemoglobin 28.7 pg (26-34); Mean Corpuscular Volume 98.4 fl (80-100); Mean Platelet Volume 10.9 fl (7.4-10.4); Monocytes Absolute Auto 0.7 K/mm3 (0.1-0.6); Monocytes Percent Auto 9.4 % (2.6-8.5); Neutrophils Absolute Auto 4.3 K/mm3 (1.3-6.7); Neutrophils Percent Auto 56.6 % (45.5-73.1); Platelet Count Result 232 k/mm3 (150-375); Potassium 4.6 mmol/L (3.4-5.0); Red Blood Count 3.87 M/mm3 (4.2-5.4); Red Cell Distribution Width 13.5 % (11.5-14.5); Sodium 127 mmol/L (137-145); White Blood Count 7.6 K/mm3 (4.5-10.0)
[2020-11-25 00:04] LABS: Ammonia < 9 umol/L (9-30)
[2020-11-25 00:09] LABS: Partial Thromboplastin Time 43.9 SECONDS (22.3-36.8); Prothrombin Time 22.1 Seconds (11.1-14.7)
[2020-11-25 00:15] LABS: Troponin I < 0.012 ng/mL (0.000-0.034)
[2020-11-25 01:20] LABS: Add Urine Microscopic? YES; Appearance Urine Turbid (Clear); Bacteria Urine 2+ /hpf; Bilirubin Urine Negative (Negative); Blood Urine 3+ (Negative); Color Urine Red (Yellow); Glucose Urine UA Negative (Negative); Ketones Urine Negative (Negative); Leukocyte Esterase Ur 1+ LEU/UL (Negative); Nitrate Urine Negative (Negative); Protein Urine 3+ mg/dL (Negative); RBC Urine >75 /hpf (0-2); Specific Grav Ur 1.022 (1.001-1.035); Urobilinogen Urine Negative mg/dL (<2.0); WBC Clumps Urine Present /HPF; WBC Urine >75 /hpf
--- NOTE | 2020-11-25 02:55 | PM.IMHP ---
H&P: HPI History of Present Illness Date/Time: 11/25/20 02:55 Chief Complaint: ALTERED MENTAL STATUS Narrative: THIS IS A 65-YEAR-OLD FEMALE WITH PAST MEDICAL HISTORY SIGNIFICANT FOR MORBID OBESITY, RIGHT AKA, COPD, PARKINSON'S DISEASE, PERIPHERAL VASCULAR DISEASE, CONGESTIVE HEART FAILURE, TYPE 2 DIABETES MELLITUS INSULIN DEPENDENT, HYPERTENSION, GERD. PATIENT LIVES AT A [facility]ARE HOME FACILITY SHE WAS BROUGHT IN TODAY TO OUR EMERGENCY ROOM DUE TO STAFF CONCERNS WITH PATIENT'S ALTERED MENTAL STATUS. PRELIMINARY WORKUP IN THE EMERGENCY ROOM WAS SIGNIFICANT FOR A SLIGHTLY LOW SODIUM, URINE ANALYSIS WITH SIGNIFICANT WBC'S, CBC WITHIN NORMAL LIMITS, BUN AND CREATININE AT PATIENT'S BASELINE. A CHEST X-RAY SHOWED ATELECTASIS AND A CT OF THE HEAD WAS SIGNIFICANT FOR EXTENSIVE WHITE MATTER DISEASE. PATIENT WAS UNABLE TO GIVE ANY HISTORY WHEN ASKED IF SHE KNOWS WHERE SHE ANSWERED THE NAME OF THE [facility]ARE HOME FACILITY WHERE SHE IS CURRENTLY RESIDING AT. DECISION HAS BEEN MADE TO PLACE THE PATIENT IN OBSERVATION. Review of Systems Review of Systems: ROS unobtainable: Yes unobtainable due to mental status ( CONFUSED) [facility] Past Medical History Medical History Anemia Angina at rest Anxiety Arthritis Asthma Atrial fibrillation Cataract CHF (congestive heart failure) Colitis COPD (chronic obstructive pulmonary disease) CVA (cerebral vascular accident) Degenerative disk disease Depression Diabetes DVT (deep venous thrombosis) Eczema Emphysema of lung Epistaxis Fibromyalgia Gall bladder disease GERD (gastroesophageal reflux disease) Hyperlipidemia Hypertension Mitral valve prolapse Osteoporosis Parkinson disease Peripheral neuropathy Peripheral vascular disease Pneumonia Psoriasis Pulmonary embolism Renal disease Restless leg syndrome Seizures Sleep apnea TIA (transient ischemic attack) UTI (urinary tract infection) Surgical History Surgical History H/O cardiac catheterization H/O dilation and curettage History of cholecystectomy History of right knee joint replacement History of tubal ligation Hx of tonsillectomy Family History Family History Grandparent Family history of malignant neoplasm of breast, Onset Age: 72 Diabetes mellitus Father Family history of renal failure, Onset Age: 70 Cerebrovascular accident, Onset Age: 71 Family history of thoracic aortic aneurysm, Onset Age: 46 Patient's father is Sibling Family history of type 2 diabetes mellitus Mother Patient's mother is Other Family history of alcoholism Family history of arthritis Family history of blood dyscrasia Family history of seizure disorder Hypertension Social History Social History Smoking status: Unknown if ever smoked Second hand tobacco smoke exposure: No Alcohol intake: unknown Substance use: unknown Gender identity (if verbalized by the patient): Female Spiritual care concerns: No Meds Home Medications and Allergies Home Medications Medication Instructions Recorded Confirmed Type Calcium 600 with Vitamin D3 1 tablet PO BID 11/11/19 11/13/20 History Lantus Solostar U-100 Insulin 30 unit SUBCUT BID 11/11/19 11/13/20 History aripiprazole 15 mg PO DAILY 11/11/19 11/13/20 History aspirin 81 mg PO DAILY 11/11/19 11/13/20 History buspirone 10 mg PO TID 11/11/19 11/13/20 History carbidopa-levodopa 1 tablet PO TID 11/11/19 11/13/20 History carvedilol 3.125 mg PO BID 11/11/19 11/13/20 History cetirizine 10 mg PO DAILY 11/11/19 11/13/20 History escitalopram oxalate 20 mg PO DAILY 11/11/19 11/13/20 History fluticasone propionate [Allergy 1 spray INTRANASAL DAILY 11/11/19 11/13/20 History Relief (fluticasone)] lovastatin 10 mg PO QPM 11/11/19 11/13/20 History mag
--- NOTE | 2020-11-25 03:16 | ADMGEN ---
This patient, Maribel Alvarez, was admitted to Medical Room 249-01. Patient/family oriented to hospital policies and general routines including ID bracelet, bed and alarms, visiting hours, pain management, procedures, bathroom and other care routines, personal items, smoking policy, room service/diet, and visiting hours. Information on how to activate the Rapid Response Team has been discussed. Patient/Family are encouraged to report perceived risks to care and to ask questions if they do not understand what they are told or what they should do.
[2020-11-25] MEDS: SODIUM CHLORIDE 0.9% IV 1,000 ML 125 ML IV CONT ×3 (03:25→20:30)
[2020-11-25] MEDS: CARBIDOPA/LEVODOPA 25/100 MG TABLET 1 TABLET PO ×3 (08:57→18:23)
[2020-11-25] MEDS: ASPIRIN 81 MG CHEWABLE TABLET PO (08:57)
[2020-11-25] MEDS: ARIPiprazole 5 MG TABLET 15 MG PO (08:58)
[2020-11-25] MEDS: busPIRone HCL 10 MG TABLET PO ×3 (08:58→18:20)
[2020-11-25] MEDS: ESCITALOPRAM OXALATE 10 MG TABLET 20 MG PO (08:59)
[2020-11-25] MEDS: carvediloL 3.125 MG TABLET PO ×2 (08:59→20:35)
[2020-11-25] MEDS: lisinopriL 10 MG TABLET PO (09:00)
[2020-11-25] MEDS: MAGNESIUM OXIDE 400 MG TABLET PO ×2 (09:00→18:21)
[2020-11-25] MEDS: FLUTICASONE PROPIONATE 0.05% NA SPR 16 GM BTL (*BKC) 1 SPRAY NASAL (09:00)
[2020-11-25] MEDS: LORATADINE 10 MG TABLET PO (09:00)
[2020-11-25] MEDS: PANTOPRAZOLE 40 MG TABLET PO (09:01)
[2020-11-25] MEDS: OXcarbazepine 300 MG TABLET 600 MG PO ×2 (09:01→18:22)
[2020-11-25] MEDS: MULTIVITAMINS THERAPEUTIC TAB (*BKC) 1 TABLET PO (09:01)
[2020-11-25] MEDS: polyethylene glycoL 3350 17 GM POWD.PACK PO (09:01)
[2020-11-25] MEDS: NIFEdipine 30 MG TAB.ER.24 PO (09:02)
[2020-11-25] MEDS: SPIRONOLACTONE 25 MG TABLET PO (09:02)
[2020-11-25] MEDS: SENNOSIDES 8.6 MG TABLET 17.2 MG PO ×2 (09:02→18:22)
[2020-11-25 09:10] LABS: Glucose Point of Care 111 mg/dl (65-105)
[2020-11-25] MEDS: INSULIN GLARGINE (*BKC) 100 UNITS/ML 30 UNITS SUB-Q ×2 (09:13→18:54)
[2020-11-25 13:07] LABS: Glucose Point of Care 98 mg/dl (65-105)
--- NOTE | 2020-11-25 13:16 | PM.IMPN ---
Progress Note: A&P Assessment and Plan (1) Acute alteration in mental status: Code(s): R41.82 - Altered mental status, unspecified Status: Acute Assessment and Plan: LIKELY SECONDARY TO POLYPHARMACY WILL HOLD BENZODIAZEPINES AND OPIATES SUPPORTIVE CARE (2) Dehydration: Code(s): E86.0 - Dehydration Status: Acute Assessment and Plan: GENTLE HYDRATION (3) Symptomatic bradycardia: Code(s): R00.1 - Bradycardia, unspecified Status: Acute Assessment and Plan: COULD BE SECONDARY TO BETA BLOCKADE WILL CONTINUE TO MONITOR HEART RATE IS IN THE 50S TO LOW 60S / Today patient little more awake seen [facility] unable to provide day or year, patient denies any complaint abdominal pain nausea or vomiting, denies any dysuria frequency of urination, patient does not have any fever unlikely acute encephalopathy secondary to infectious, most likely secondary to polypharmacy, benzodiazepine and opiate are on hold, will continue to monitor the patient will have a PT OT evaluate the and further recommendation to follow (4) UTI (urinary tract infection): Qualifiers: Hematuria presence: without hematuria Urinary tract infection type: site unspecified Qualified Code(s): N39.0 - Urinary tract infection, site not specified Code(s): N39.0 - Urinary tract infection, site not specified Status: Acute Assessment and Plan: PATIENT WITH NEGATIVE CULTURES JUST RECENT LIKELY TO BE ASYMPTOMATIC BACTERIURIA CONTINUE TO MONITOR (5) Chronic renal failure: Code(s): N18.9 - Chronic kidney disease, unspecified Status: Acute Assessment and Plan: BUN AND CREATININE WITH PATIENT'S BASELINE (6) COPD (chronic obstructive pulmonary disease): Code(s): J44.9 - Chronic obstructive pulmonary disease, unspecified Status: Acute Assessment and Plan: NOT ACTIVELY WHEEZING STABLE CONTINUE TO MONITOR CONTINUE HOME MEDS (7) Chronic hyponatremia: Code(s): E87.1 - Hypo-osmolality and hyponatremia Status: Acute Assessment and Plan: PATIENT IS ON DIURETICS, SPIRONOLACTONE NS 0.9 NORMAL SALINE RUNNING CONTINUE TO MONITOR (8) Right above-knee amputee: Code(s): Z89.611 - Acquired absence of right leg above knee Status: Acute Assessment and Plan: FALL PRECAUTIONS (9) Morbid obesity with BMI of 50.0-59.9, adult: Code(s): E66.01 - Morbid (severe) obesity due to excess calories; Z68.43 - Body mass index [BMI] 50.0-59.9, adult Status: Acute Assessment and Plan: DIABETIC CARB CONSISTENT DIET Subjective Date/time seen: 11/25/20 13:16 Chief Complaint: ALTERED MENTAL STATUS Narrative: THIS IS A 65-YEAR-OLD FEMALE WITH PAST MEDICAL HISTORY SIGNIFICANT FOR MORBID OBESITY, RIGHT AKA, COPD, PARKINSON'S DISEASE, PERIPHERAL VASCULAR DISEASE, CONGESTIVE HEART FAILURE, TYPE 2 DIABETES MELLITUS INSULIN DEPENDENT, HYPERTENSION, GERD. PATIENT LIVES AT A [facility] SHE WAS BROUGHT IN TODAY TO OUR EMERGENCY ROOM DUE TO STAFF CONCERNS WITH PATIENT'S ALTERED MENTAL STATUS. PRELIMINARY WORKUP IN THE EMERGENCY ROOM WAS SIGNIFICANT FOR A SLIGHTLY LOW SODIUM, URINE ANALYSIS WITH SIGNIFICANT WBC'S, CBC WITHIN NORMAL LIMITS, BUN AND CREATININE AT PATIENT'S BASELINE. A CHEST X-RAY SHOWED ATELECTASIS AND A CT OF THE HEAD WAS SIGNIFICANT FOR EXTENSIVE WHITE MATTER DISEASE. PATIENT WAS UNABLE TO GIVE ANY HISTORY WHEN ASKED IF SHE KNOWS WHERE SHE ANSWERED THE NAME OF THE [facility] WHERE SHE IS CURRENTLY RESIDING AT. DECISION HAS BEEN MADE TO PLACE THE PATIENT IN OBSERVATION. 11/25 Today patient little more awake seen [facility] unable to provide day or year, patient denies any complaint abdominal pain nausea or vomiting, denies any dysuria frequency of urination, patient does not have any fever unlikely acute encephalopathy secondary to infectious, most likely sec
[2020-11-25 18:02] LABS: Glucose Point of Care 131 mg/dl (65-105)
[2020-11-25] MEDS: RIVAROXABAN 20 MG TABLET PO (18:22)
[2020-11-25] MEDS: LOVASTATIN 10 MG TABLET PO (18:23)
[2020-11-25 20:28] LABS: Glucose Point of Care 139 mg/dl (65-105)
[2020-11-26] VITALS (12 sets, daily range): BP systolic 145–150; BP diastolic 62–79; PULSE 55–67; RESP 14–20; TEMP 36.3–36.6; O2SAT 95–99
[2020-11-26 08:01] LABS: Glucose Point of Care 118 mg/dl (65-105)
[2020-11-26] MEDS: FLUTICASONE PROPIONATE 0.05% NA SPR 16 GM BTL (*BKC) 1 SPRAY NASAL (08:13)
[2020-11-26] MEDS: CARBIDOPA/LEVODOPA 25/100 MG TABLET 1 TABLET PO ×3 (08:13→18:14)
[2020-11-26] MEDS: carvediloL 3.125 MG TABLET PO ×2 (08:14→20:51)
[2020-11-26] MEDS: PANTOPRAZOLE 40 MG TABLET PO (08:14)
[2020-11-26] MEDS: SPIRONOLACTONE 25 MG TABLET PO (08:15)
[2020-11-26] MEDS: ESCITALOPRAM OXALATE 10 MG TABLET 20 MG PO (08:15)
[2020-11-26] MEDS: SENNOSIDES 8.6 MG TABLET 17.2 MG PO ×2 (08:16→18:13)
[2020-11-26] MEDS: OXcarbazepine 300 MG TABLET 600 MG PO ×2 (08:16→18:14)
[2020-11-26] MEDS: LORATADINE 10 MG TABLET PO (08:16)
[2020-11-26] MEDS: MAGNESIUM OXIDE 400 MG TABLET PO ×2 (08:16→18:15)
[2020-11-26] MEDS: lisinopriL 10 MG TABLET PO (08:16)
[2020-11-26] MEDS: ARIPiprazole 5 MG TABLET 15 MG PO (08:16)
[2020-11-26] MEDS: NIFEdipine 30 MG TAB.ER.24 PO (08:16)
[2020-11-26] MEDS: busPIRone HCL 10 MG TABLET PO ×3 (08:17→18:16)
[2020-11-26] MEDS: ASPIRIN 81 MG CHEWABLE TABLET PO (08:17)
[2020-11-26] MEDS: polyethylene glycoL 3350 17 GM POWD.PACK PO (08:17)
[2020-11-26] MEDS: SODIUM CHLORIDE 0.9% IV 1,000 ML 125 ML IV CONT ×2 (10:32→18:25)
[2020-11-26 13:30] LABS: Glucose Point of Care 93 mg/dl (65-105)
--- NOTE | 2020-11-26 13:49 | PM.IMPN ---
Progress Note: A&P Assessment and Plan (1) Acute alteration in mental status: Code(s): R41.82 - Altered mental status, unspecified Status: Acute Assessment and Plan: LIKELY SECONDARY TO POLYPHARMACY WILL HOLD BENZODIAZEPINES AND OPIATES SUPPORTIVE CARE (2) Dehydration: Code(s): E86.0 - Dehydration Status: Acute Assessment and Plan: GENTLE HYDRATION (3) Symptomatic bradycardia: Code(s): R00.1 - Bradycardia, unspecified Status: Acute Assessment and Plan: COULD BE SECONDARY TO BETA BLOCKADE WILL CONTINUE TO MONITOR HEART RATE IS IN THE 50S TO LOW 60S (4) UTI (urinary tract infection): Qualifiers: Hematuria presence: without hematuria Urinary tract infection type: site unspecified Qualified Code(s): N39.0 - Urinary tract infection, site not specified Code(s): N39.0 - Urinary tract infection, site not specified Status: Acute Assessment and Plan: Given hx of hematuria and AMS and culture POSITIVE for e coli, will treat (5) Chronic renal failure: Qualifiers: Chronic kidney disease stage: unspecified stage Qualified Code(s): N18.9 - Chronic kidney disease, unspecified Code(s): N18.9 - Chronic kidney disease, unspecified Status: Acute Assessment and Plan: 11/24 creatinine 1.2 F/u lab (6) COPD (chronic obstructive pulmonary disease): Qualifiers: COPD type: unspecified COPD Qualified Code(s): J44.9 - Chronic obstructive pulmonary disease, unspecified Code(s): J44.9 - Chronic obstructive pulmonary disease, unspecified Status: Acute Assessment and Plan: NOT ACTIVELY WHEEZING STABLE CONTINUE TO MONITOR CONTINUE HOME MEDS (7) Chronic hyponatremia: Code(s): E87.1 - Hypo-osmolality and hyponatremia Status: Acute Assessment and Plan: 11/26: As she is eating, stop IV NS f/u lab (8) Right above-knee amputee: Code(s): Z89.611 - Acquired absence of right leg above knee Status: Acute Assessment and Plan: FALL PRECAUTIONS (9) Morbid obesity with BMI of 50.0-59.9, adult: Code(s): E66.01 - Morbid (severe) obesity due to excess calories; Z68.43 - Body mass index [BMI] 50.0-59.9, adult Status: Acute Assessment and Plan: DIABETIC CARB CONSISTENT DIET Subjective Date/time seen: 11/26/20 13:49 Interval history: Admitted 11/25 with AMS and found to have UTI. 11/26 visit: Tolerating diet. Feels better. Denied pain. Notes hematuria. No other bleeding. Review of Systems Review of Systems: All systems reviewed & are unremarkable except as noted in HPI and below Exam Narrative: GENERAL: Morbidly obese elderly female in NAD. HEENT: PERRL, sclerae nonicteric, pharyngeal mucosa pink and intact NECK: No JVD CHEST: Clear to auscultation. Normal effort. HEART: NL S1/S2, regular, no murmur ABDOMEN: BS+, soft, nontender, no mass, no bruits EXTREMITIES: No cyanosis, edema, or clubbing NEUROLOGIC: CN intact and symmetric to inspection. MUSCULOSKELETAL: Tone and strength symmetric. PSYCH: Alert. Oriented to person, place, but though year was 2000 and did not know month Objective Data Vital Signs Vital Signs: Vital Signs - 24 hr 11/25/20 14:00 11/25/20 16:00 11/25/20 20:00 Temperature 98.0 F Pulse Rate 60 65 66 Respiratory Rate 18 Blood Pressure 138/82 Pulse Oximetry 98 11/25/20 20:35 11/25/20 21:19 11/26/20 00:00 Temperature 98.1 F Pulse Rate 64 63 67 Respiratory Rate 20 Blood Pressure 134/71 Pulse Oximetry 96 11/26/20 04:00 11/26/20 05:43 11/26/20 08:00 Temperature 97.4 F L Pulse Rate 60 58 L 60 Respiratory Rate 18 Blood Pressure 150/62 H Pulse Oximetry 98 11/26/20 08:14 11/26/20 12:00 Temperature Pulse Rate 58 L 58 L Respiratory Rate Blood Pressure Pulse Oximetry Intake/Output Intake/Output: Intake & Output 11/23/20 11/24/20 11/25/20
[2020-11-26 15:27] LABS: Anion Gap 5 mmol/L (8-16); Blood Urea Nitrogen 12 mg/dL (7-17); Calcium 8.9 mg/dL (8.4-10.2); Carbon Dioxide 26 mmol/L (22-30); Chloride 95 mmol/L (98-107); Estimated CRCL calculation 95 ml/min; Estimated Glomerular Filt Rate > 60; Glucose 146 mg/dL (65-110); Potassium 4.1 mmol/L (3.4-5.0); Sodium 126 mmol/L (137-145)
[2020-11-26 17:54] LABS: Glucose Point of Care 147 mg/dl (65-105)
[2020-11-26] MEDS: RIVAROXABAN 20 MG TABLET PO (18:17)
[2020-11-26] MEDS: LOVASTATIN 10 MG TABLET PO (18:19)
[2020-11-26] MEDS: ACETAMINOPHEN 325 MG TABLET 650 MG PO (18:24)
[2020-11-27] VITALS (13 sets, daily range): BP systolic 132–151; BP diastolic 77–97; PULSE 55–70; RESP 16–21; TEMP 36.1–36.2; O2SAT 97–100
[2020-11-27 07:05] LABS: Hematocrit 34.7 % (37.0-47.0); Hemoglobin 11.1 g/dL (12.0-15.0); Mean Corpuscular Hemoglobin 29.3 pg (26-34); Mean Corpuscular Volume 91.6 fl (80-100); Mean Platelet Volume 11.3 fl (7.4-10.4); Platelet Count Result 219 k/mm3 (150-375); Red Blood Count 3.79 M/mm3 (4.2-5.4); Red Cell Distribution Width 13.5 % (11.5-14.5); White Blood Count 6.8 K/mm3 (4.5-10.0)
[2020-11-27 07:22] LABS: Anion Gap 7 mmol/L (8-16); Blood Urea Nitrogen 10 mg/dL (7-17); Calcium 8.8 mg/dL (8.4-10.2); Carbon Dioxide 24 mmol/L (22-30); Chloride 94 mmol/L (98-107); Estimated CRCL calculation 107 ml/min; Estimated Glomerular Filt Rate > 60; Glucose 128 mg/dL (65-110); Potassium 4.1 mmol/L (3.4-5.0); Sodium 125 mmol/L (137-145)
[2020-11-27] MEDS: FLUTICASONE PROPIONATE 0.05% NA SPR 16 GM BTL (*BKC) 1 SPRAY NASAL (09:40)
[2020-11-27] MEDS: SODIUM CHLORIDE 0.9% IV 1,000 ML 125 ML IV CONT ×2 (09:41→23:56)
[2020-11-27] MEDS: MAGNESIUM OXIDE 400 MG TABLET PO ×2 (09:42→17:29)
[2020-11-27] MEDS: CARBIDOPA/LEVODOPA 25/100 MG TABLET 1 TABLET PO ×3 (09:42→17:27)
[2020-11-27] MEDS: LORATADINE 10 MG TABLET PO (09:42)
[2020-11-27] MEDS: busPIRone HCL 10 MG TABLET PO ×3 (09:43→17:28)
[2020-11-27] MEDS: NIFEdipine 30 MG TAB.ER.24 PO (09:43)
[2020-11-27] MEDS: ESCITALOPRAM OXALATE 10 MG TABLET 20 MG PO (09:44)
[2020-11-27] MEDS: MULTIVITAMINS THERAPEUTIC TAB (*BKC) 1 TABLET PO (09:44)
[2020-11-27] MEDS: PANTOPRAZOLE 40 MG TABLET PO (09:44)
[2020-11-27] MEDS: carvediloL 3.125 MG TABLET PO ×2 (09:45→20:03)
[2020-11-27] MEDS: ASPIRIN 81 MG CHEWABLE TABLET PO (09:45)
[2020-11-27] MEDS: SENNOSIDES 8.6 MG TABLET 17.2 MG PO ×2 (09:45→17:29)
[2020-11-27] MEDS: lisinopriL 10 MG TABLET PO (09:47)
[2020-11-27] MEDS: OXcarbazepine 300 MG TABLET 600 MG PO ×2 (09:48→17:27)
[2020-11-27 10:20] LABS: Glucose Point of Care 134 mg/dl (65-105)
--- NOTE | 2020-11-27 11:17 | PM.IMPN ---
Progress Note: A&P Assessment and Plan (1) Acute alteration in mental status: Code(s): R41.82 - Altered mental status, unspecified Status: Acute Assessment and Plan: LIKELY SECONDARY TO POLYPHARMACY and UTI WILL HOLD BENZODIAZEPINES AND OPIATES SUPPORTIVE CARE (2) Dehydration: Code(s): E86.0 - Dehydration Status: Acute Assessment and Plan: GENTLE HYDRATION (3) Symptomatic bradycardia: Code(s): R00.1 - Bradycardia, unspecified Status: Acute Assessment and Plan: COULD BE SECONDARY TO BETA BLOCKADE WILL CONTINUE TO MONITOR HEART RATE IS IN THE 50S TO LOW 60S (4) UTI (urinary tract infection): Qualifiers: Hematuria presence: without hematuria Urinary tract infection type: site unspecified Qualified Code(s): N39.0 - Urinary tract infection, site not specified Code(s): N39.0 - Urinary tract infection, site not specified Status: Acute Assessment and Plan: Urine with ESBL and blood culture prelim + Zosyn started 11/26: day 2 (5) Chronic renal failure: Qualifiers: Chronic kidney disease stage: unspecified stage Qualified Code(s): N18.9 - Chronic kidney disease, unspecified Code(s): N18.9 - Chronic kidney disease, unspecified Status: Acute Assessment and Plan: 11/24 creatinine 1.2 F/u lab (6) COPD (chronic obstructive pulmonary disease): Qualifiers: COPD type: unspecified COPD Qualified Code(s): J44.9 - Chronic obstructive pulmonary disease, unspecified Code(s): J44.9 - Chronic obstructive pulmonary disease, unspecified Status: Acute Assessment and Plan: NOT ACTIVELY WHEEZING STABLE CONTINUE TO MONITOR CONTINUE HOME MEDS (7) Chronic hyponatremia: Code(s): E87.1 - Hypo-osmolality and hyponatremia Status: Acute Assessment and Plan: 11/26: Na 127. As she is eating, stopped IV NS 11/27: Na 125. HOLD Abilify. FENA ordered. Fluid restriction. NaCl 500mg bid. f/u lab (8) Right above-knee amputee: Code(s): Z89.611 - Acquired absence of right leg above knee Status: Acute Assessment and Plan: FALL PRECAUTIONS (9) Morbid obesity with BMI of 50.0-59.9, adult: Code(s): E66.01 - Morbid (severe) obesity due to excess calories; Z68.43 - Body mass index [BMI] 50.0-59.9, adult Status: Acute Assessment and Plan: DIABETIC CARB CONSISTENT DIET Subjective Date/time seen: 11/27/20 11:17 Interval history: Admitted 11/25 with AMS and found to have UTI. 11/27 visit: Tolerating diet. Denied pain. Denied bleeding. Review of Systems Review of Systems: All systems reviewed & are unremarkable except as noted in HPI and below Exam Narrative: GENERAL: Morbidly obese elderly female in NAD. HEENT: PERRL, sclerae nonicteric, pharyngeal mucosa pink and intact NECK: No JVD CHEST: Clear to auscultation. Normal effort. HEART: NL S1/S2, regular, no murmur ABDOMEN: BS+, soft, nontender, no mass, no bruits EXTREMITIES: No cyanosis, edema, or clubbing NEUROLOGIC: CN intact and symmetric to inspection. MUSCULOSKELETAL: Tone and strength symmetric. PSYCH: Alert. Oriented to person, place Objective Data Vital Signs Vital Signs: Vital Signs - 24 hr 11/26/20 12:00 11/26/20 14:55 11/26/20 16:00 Temperature 97.8 F Pulse Rate 58 L 58 L 55 L Respiratory Rate 14 Blood Pressure 148/74 H Pulse Oximetry 99 11/26/20 20:00 11/26/20 20:51 11/26/20 22:00 Temperature 97.7 F Pulse Rate 60 62 56 L Respiratory Rate 20 Blood Pressure 145/79 H Pulse Oximetry 99 11/26/20 22:19 11/27/20 00:00 11/27/20 04:00 Temperature Pulse Rate 60 55 L 55 L Respiratory Rate 20 Blood Pressure Pulse Oximetry 95 11/27/20 06:00 11/27/20 09:45 Temperature 97.2 F L Pulse Rate 56 L 57 L Respiratory Rate 21 H Blood Pressure 150/77 H Pulse Oximetry 100 Intake/Output Intake/Output: Intake & Output
[2020-11-27 16:34] LABS: Glucose Point of Care 195 mg/dl (65-105)
[2020-11-27 17:16] LABS: Sodium 124 mmol/L (137-145)
[2020-11-27] MEDS: RIVAROXABAN 20 MG TABLET PO (17:29)
[2020-11-27] MEDS: SODIUM CHLORIDE 500 MG TABLET PO (17:30)
[2020-11-27] MEDS: LOVASTATIN 10 MG TABLET PO (17:30)
[2020-11-27] MEDS: ACETAMINOPHEN 325 MG TABLET 650 MG PO (18:11)
[2020-11-27 21:02] LABS: Glucose Point of Care 237 mg/dl (65-105)
[2020-11-27 23:12] LABS: Sodium Urine Random 101 meq/L
[2020-11-28 05:54] VITALS: BP 157/69; PULSE 64; RESP 16; TEMP 36.7; O2SAT 99
[2020-11-28 08:10] LABS: Estimated CRCL calculation 95 ml/min; Estimated Glomerular Filt Rate > 60
[2020-11-28 08:21] VITALS: O2SAT 95
[2020-11-28 08:46] LABS: Vancomycin Trough 29.4 ug/mL (10.0-20.0)
[2020-11-28 08:52] LABS: Glucose Point of Care 187 mg/dl (65-105)
[2020-11-28] MEDS: SODIUM CHLORIDE 0.9% IV 1,000 ML 125 ML IV CONT ×2 (09:32→17:49)
[2020-11-28] MEDS: SENNOSIDES 8.6 MG TABLET 17.2 MG PO ×2 (09:35→17:32)
[2020-11-28] MEDS: ESCITALOPRAM OXALATE 10 MG TABLET 20 MG PO (09:35)
[2020-11-28] MEDS: FLUTICASONE PROPIONATE 0.05% NA SPR 16 GM BTL (*BKC) 1 SPRAY NASAL (09:36)
[2020-11-28] MEDS: busPIRone HCL 10 MG TABLET PO ×3 (09:37→17:33)
[2020-11-28] MEDS: ACETAMINOPHEN 325 MG TABLET 650 MG PO (09:37)
[2020-11-28] MEDS: polyethylene glycoL 3350 17 GM POWD.PACK PO (09:37)
[2020-11-28] MEDS: SODIUM CHLORIDE 500 MG TABLET PO ×2 (09:37→17:34)
[2020-11-28] MEDS: MAGNESIUM OXIDE 400 MG TABLET PO ×2 (09:37→17:33)
[2020-11-28 09:38] VITALS: PULSE 62
[2020-11-28] MEDS: LORATADINE 10 MG TABLET PO (09:38)
[2020-11-28] MEDS: carvediloL 3.125 MG TABLET PO ×2 (09:38→20:24)
[2020-11-28] MEDS: NIFEdipine 30 MG TAB.ER.24 PO (09:38)
[2020-11-28] MEDS: ERGOCALCIFEROL 50,000 UNIT CAPSULE 50000 UNITS PO (09:38)
[2020-11-28] MEDS: lisinopriL 10 MG TABLET PO (09:38)
[2020-11-28] MEDS: MULTIVITAMINS THERAPEUTIC TAB (*BKC) 1 TABLET PO (09:38)
[2020-11-28] MEDS: PANTOPRAZOLE 40 MG TABLET PO (09:38)
[2020-11-28] MEDS: CARBIDOPA/LEVODOPA 25/100 MG TABLET 1 TABLET PO ×3 (09:38→17:32)
[2020-11-28] MEDS: OXcarbazepine 300 MG TABLET 600 MG PO ×2 (09:40→17:33)
[2020-11-28] MEDS: ASPIRIN 81 MG CHEWABLE TABLET PO (09:50)
[2020-11-28 12:10] LABS: Glucose Point of Care 250 mg/dl (65-105)
--- NOTE | 2020-11-28 13:01 | PM.IMPN ---
Progress Note: A&P Assessment and Plan (1) Acute alteration in mental status: Code(s): R41.82 - Altered mental status, unspecified Status: Acute Assessment and Plan: LIKELY SECONDARY TO POLYPHARMACY and UTI WILL HOLD BENZODIAZEPINES AND OPIATES SUPPORTIVE CARE 11/28/20 13:01 11/25 patient little more awake seen [facility] unable to provide day or year, patient denies any complaint abdominal pain nausea or vomiting, denies any dysuria frequency of urination, patient does not have any fever unlikely acute encephalopathy secondary to infectious, most likely secondary to polypharmacy, benzodiazepine and opiate are on hold, will continue to monitor the patient will have a PT OT evaluate the and further recommendation to follow 11/28 patient with acute mental status change most likely secondary to polypharmacy benzodiazepine and opiates on home, today patient is more awake, does complaint of dysuria and frequency of urine her urine is growing E coli ESBL, resistant ceftriaxone and levofloxacin, patient is being treated with Zosyn day 4, will need IV antibiotic total of 4/7 days, will culture is growing 1 bottle coagulase negative staphylococci suspect contamination,patient currently on vancomycin will continue and further recommendation to follow (2) Dehydration: Code(s): E86.0 - Dehydration Status: Acute Assessment and Plan: GENTLE HYDRATION (3) Symptomatic bradycardia: Code(s): R00.1 - Bradycardia, unspecified Status: Acute Assessment and Plan: COULD BE SECONDARY TO BETA BLOCKADE WILL CONTINUE TO MONITOR HEART RATE IS IN THE 50S TO LOW 60S (4) UTI (urinary tract infection): Qualifiers: Hematuria presence: without hematuria Urinary tract infection type: site unspecified Qualified Code(s): N39.0 - Urinary tract infection, site not specified Code(s): N39.0 - Urinary tract infection, site not specified Status: Acute Assessment and Plan: Urine with ESBL and blood culture prelim + Zosyn started 11/26: day 2 (5) Chronic renal failure: Qualifiers: Chronic kidney disease stage: unspecified stage Qualified Code(s): N18.9 - Chronic kidney disease, unspecified Code(s): N18.9 - Chronic kidney disease, unspecified Status: Acute Assessment and Plan: 11/24 creatinine 1.2 F/u lab (6) COPD (chronic obstructive pulmonary disease): Qualifiers: COPD type: unspecified COPD Qualified Code(s): J44.9 - Chronic obstructive pulmonary disease, unspecified Code(s): J44.9 - Chronic obstructive pulmonary disease, unspecified Status: Acute Assessment and Plan: NOT ACTIVELY WHEEZING STABLE CONTINUE TO MONITOR CONTINUE HOME MEDS (7) Chronic hyponatremia: Code(s): E87.1 - Hypo-osmolality and hyponatremia Status: Acute Assessment and Plan: 11/26: Na 127. As she is eating, stopped IV NS 11/27: Na 125. HOLD Abilify. FENA ordered. Fluid restriction. NaCl 500mg bid. f/u lab (8) Right above-knee amputee: Code(s): Z89.611 - Acquired absence of right leg above knee Status: Acute Assessment and Plan: FALL PRECAUTIONS (9) Morbid obesity with BMI of 50.0-59.9, adult: Code(s): E66.01 - Morbid (severe) obesity due to excess calories; Z68.43 - Body mass index [BMI] 50.0-59.9, adult Status: Acute Assessment and Plan: DIABETIC CARB CONSISTENT DIET Subjective Date/time seen: 11/28/20 13:01 11/25 patient little more awake seen [facility] unable to provide day or year, patient denies any complaint abdominal pain nausea or vomiting, denies any dysuria frequency of urination, patient does not have any fever unlikely acute encephalopathy secondary to infectious, most likely secondary to polypharmacy, benzodiazepine and opiate are on hold, will continue to monitor the patient will have a PT OT evaluate the and further recommendatio
[2020-11-28 14:00] VITALS: BP 145/79; PULSE 58; RESP 18; TEMP 36.3; O2SAT 100
[2020-11-28 16:58] LABS: Glucose Point of Care 213 mg/dl (65-105)
[2020-11-28] MEDS: RIVAROXABAN 20 MG TABLET PO (17:34)
[2020-11-28] MEDS: LOVASTATIN 10 MG TABLET PO (17:34)
[2020-11-28 20:24] VITALS: PULSE 60
[2020-11-28 21:10] LABS: Glucose Point of Care 260 mg/dl (65-105)
[2020-11-28 21:44] VITALS: BP 142/52; PULSE 77; RESP 18; TEMP 36.4; O2SAT 92
[2020-11-29] MEDS: SODIUM CHLORIDE 0.9% IV 1,000 ML 125 ML IV CONT ×2 (03:00→12:47)
[2020-11-29 05:44] VITALS: BP 151/72; PULSE 72; RESP 20; TEMP 36.2; O2SAT 99
[2020-11-29 06:12] LABS: Albumin Level 2.8 g/dL (3.5-5.1); Anion Gap 5 mmol/L (8-16); Blood Urea Nitrogen 10 mg/dL (7-17); Calcium 8.9 mg/dL (8.4-10.2); Carbon Dioxide 23 mmol/L (22-30); Chloride 101 mmol/L (98-107); Estimated CRCL calculation 85 ml/min; Estimated Glomerular Filt Rate > 60; Glucose 260 mg/dL (65-110); Phosphorus 2.8 mg/dL (2.5-4.5); Potassium 3.8 mmol/L (3.4-5.0); Sodium 129 mmol/L (137-145)
[2020-11-29 06:53] LABS: Vancomycin Trough 17.3 ug/mL (10.0-20.0)
[2020-11-29 06:56] LABS: Hematocrit 32.6 % (37.0-47.0); Hemoglobin 10.7 g/dL (12.0-15.0); Mean Corpuscular HGB Conc 32.8 g/dl (32-36); Mean Corpuscular Volume 88.3 fl (80-100); Mean Platelet Volume 11.4 fl (7.4-10.4); Platelet Count Result 266 k/mm3 (150-375); Red Blood Count 3.69 M/mm3 (4.2-5.4); Red Cell Distribution Width 13.4 % (11.5-14.5); White Blood Count 8.8 K/mm3 (4.5-10.0)
[2020-11-29 08:07] LABS: Glucose Point of Care 251 mg/dl (65-105)
[2020-11-29] MEDS: ASPIRIN 81 MG CHEWABLE TABLET PO (09:55)
[2020-11-29 09:56] VITALS: PULSE 72
[2020-11-29] MEDS: busPIRone HCL 10 MG TABLET PO ×3 (09:56→17:27)
[2020-11-29] MEDS: carvediloL 3.125 MG TABLET PO ×2 (09:56→20:27)
[2020-11-29] MEDS: CARBIDOPA/LEVODOPA 25/100 MG TABLET 1 TABLET PO ×3 (09:56→17:27)
[2020-11-29] MEDS: FLUTICASONE PROPIONATE 0.05% NA SPR 16 GM BTL (*BKC) 1 SPRAY NASAL (09:58)
[2020-11-29] MEDS: ESCITALOPRAM OXALATE 10 MG TABLET 20 MG PO (09:58)
[2020-11-29] MEDS: lisinopriL 10 MG TABLET PO (09:58)
[2020-11-29] MEDS: MAGNESIUM OXIDE 400 MG TABLET PO ×2 (09:59→17:28)
[2020-11-29] MEDS: NIFEdipine 30 MG TAB.ER.24 PO (09:59)
[2020-11-29] MEDS: LORATADINE 10 MG TABLET PO (09:59)
[2020-11-29] MEDS: MULTIVITAMINS THERAPEUTIC TAB (*BKC) 1 TABLET PO (09:59)
[2020-11-29] MEDS: SENNOSIDES 8.6 MG TABLET 17.2 MG PO ×2 (10:00→17:43)
[2020-11-29] MEDS: OXcarbazepine 300 MG TABLET 600 MG PO ×2 (10:00→17:28)
[2020-11-29] MEDS: PANTOPRAZOLE 40 MG TABLET PO (10:00)
[2020-11-29] MEDS: SODIUM CHLORIDE 500 MG TABLET PO ×2 (10:00→17:43)
[2020-11-29] MEDS: INSULIN GLARGINE (*BKC) 100 UNITS/ML 30 UNITS SUB-Q ×2 (10:15→18:53)
--- NOTE | 2020-11-29 10:41 | PM.IMPN ---
Progress Note: A&P Assessment and Plan (1) Acute alteration in mental status: Code(s): R41.82 - Altered mental status, unspecified Status: Acute Assessment and Plan: LIKELY SECONDARY TO POLYPHARMACY and UTI WILL HOLD BENZODIAZEPINES AND OPIATES SUPPORTIVE CARE 11/28/20 13:01 11/25 patient little more awake seen [facility] unable to provide day or year, patient denies any complaint abdominal pain nausea or vomiting, denies any dysuria frequency of urination, patient does not have any fever unlikely acute encephalopathy secondary to infectious, most likely secondary to polypharmacy, benzodiazepine and opiate are on hold, will continue to monitor the patient will have a PT OT evaluate the and further recommendation to follow 11/28 patient with acute mental status change most likely secondary to polypharmacy benzodiazepine and opiates on home, today patient is more awake, does complaint of dysuria and frequency of urine her urine is growing E coli ESBL, resistant ceftriaxone and levofloxacin, patient is being treated with Zosyn day 4, will need IV antibiotic total of 4/7 days, will culture is growing 1 bottle coagulase negative staphylococci suspect contamination,patient currently on vancomycin will continue and further recommendation to follow 11/29 likely due to polypharmacy benzodiazepine and opiates on home also has UTI E coli ESBL being treated with Zosyn day 5. Blood culture with coag-negative Staphylococcus repeat blood culture 11/26 has been negative maintains on IV vancomycin. will decrease her fluid. WBC count is normal mild anemia which is stable remains on rivaroxaban for history of atrial fibrillation. So sodium level is 129 which has improved from 05/15 on 11/27/2020. Acute encephalopathy Bacteremia with cons E coli ESBL UTI Polypharmacy Atrial fibrillation on rivaroxaban Chronic anemia Hyponatremia History of stroke Diabetes mellitus type 2 on insulin COPD Congestive heart failure Hypertension Hyperlipidemia GERD Mitral valve prolapse Parkinson's disease Peripheral neuropathy Peripheral vascular disease Status post right AKA half-way resident Nonambulatory status DVT prophylaxis on rivaroxaban I will plan to continue vancomycin and Zosyn for now since known bacteremia will continue on Zosyn for 7 days course. Also continues to improve with this therapy so will not alter antibiotic therapy as ordered (2) Dehydration: Code(s): E86.0 - Dehydration Status: Acute Assessment and Plan: GENTLE HYDRATION (3) Symptomatic bradycardia: Code(s): R00.1 - Bradycardia, unspecified Status: Acute Assessment and Plan: COULD BE SECONDARY TO BETA BLOCKADE WILL CONTINUE TO MONITOR HEART RATE IS IN THE 50S TO LOW 60S (4) UTI (urinary tract infection): Qualifiers: Hematuria presence: without hematuria Urinary tract infection type: site unspecified Qualified Code(s): N39.0 - Urinary tract infection, site not specified Code(s): N39.0 - Urinary tract infection, site not specified Status: Acute Assessment and Plan: Urine with ESBL and blood culture prelim + Zosyn started 11/26: day 2 (5) Chronic renal failure: Qualifiers: Chronic kidney disease stage: unspecified stage Qualified Code(s): N18.9 - Chronic kidney disease, unspecified Code(s): N18.9 - Chronic kidney disease, unspecified Status: Acute Assessment and Plan: 11/24 creatinine 1.2 F/u lab (6) COPD (chronic obstructive pulmonary disease): Qualifiers: COPD type: unspecified COPD Qualified Code(s): J44.9 - Chronic obstructive pulmonary disease, unspecified Code(s): J44.9 - Chronic obstructive pulmonary disease, unspecified Status: Acute Assessment and Plan: NOT ACTIVELY WHEEZING STABLE CONTINUE TO MONITOR CONTINUE HOME MEDS (7) Chronic hyponatremia: Code(s): E87.1 - H
[2020-11-29 13:23] LABS: Glucose Point of Care 222 mg/dl (65-105)
[2020-11-29 14:00] VITALS: BP 152/72; PULSE 63; RESP 18; TEMP 36.1; O2SAT 99
[2020-11-29 17:00] LABS: Glucose Point of Care 234 mg/dl (65-105)
[2020-11-29] MEDS: RIVAROXABAN 20 MG TABLET PO (17:43)
[2020-11-29] MEDS: LOVASTATIN 10 MG TABLET PO (18:53)
[2020-11-29 20:27] VITALS: PULSE 60
[2020-11-29 21:32] LABS: Glucose Point of Care 214 mg/dl (65-105)
[2020-11-29 21:56] VITALS: BP 156/79; PULSE 71; RESP 20; TEMP 36.4; O2SAT 96
[2020-11-30] MEDS: TOLNAFTATE 1% POWDER 45 GM BTL 1 APPLIC TOPICAL (03:15)
[2020-11-30 06:00] VITALS: BP 155/79; PULSE 66; RESP 20; TEMP 36.9; O2SAT 97
[2020-11-30 06:02] LABS: Hematocrit 32.8 % (37.0-47.0); Hemoglobin 10.5 g/dL (12.0-15.0); Mean Corpuscular Hemoglobin 28.9 pg (26-34); Mean Corpuscular Volume 90.4 fl (80-100); Mean Platelet Volume 10.7 fl (7.4-10.4); Platelet Count Result 257 k/mm3 (150-375); Red Blood Count 3.63 M/mm3 (4.2-5.4); Red Cell Distribution Width 13.8 % (11.5-14.5); White Blood Count 8.9 K/mm3 (4.5-10.0)
[2020-11-30 06:19] LABS: Albumin Level 2.6 g/dL (3.5-5.1); Anion Gap 7 mmol/L (8-16); Blood Urea Nitrogen 8 mg/dL (7-17); Calcium 8.7 mg/dL (8.4-10.2); Carbon Dioxide 23 mmol/L (22-30); Chloride 98 mmol/L (98-107); Estimated CRCL calculation 77 ml/min; Estimated Glomerular Filt Rate 55; Glucose 129 mg/dL (65-110); Phosphorus 3.3 mg/dL (2.5-4.5); Potassium 3.6 mmol/L (3.4-5.0); Sodium 128 mmol/L (137-145)
--- NOTE | 2020-11-30 08:10 | PM.IMPN ---
Progress Note: A&P Assessment and Plan (1) Acute alteration in mental status: Code(s): R41.82 - Altered mental status, unspecified Status: Acute Assessment and Plan: LIKELY SECONDARY TO POLYPHARMACY and UTI WILL HOLD BENZODIAZEPINES AND OPIATES SUPPORTIVE CARE 11/28/20 13:01 11/25 patient little more awake seen [facility] unable to provide day or year, patient denies any complaint abdominal pain nausea or vomiting, denies any dysuria frequency of urination, patient does not have any fever unlikely acute encephalopathy secondary to infectious, most likely secondary to polypharmacy, benzodiazepine and opiate are on hold, will continue to monitor the patient will have a PT OT evaluate the and further recommendation to follow 11/28 patient with acute mental status change most likely secondary to polypharmacy benzodiazepine and opiates on home, today patient is more awake, does complaint of dysuria and frequency of urine her urine is growing E coli ESBL, resistant ceftriaxone and levofloxacin, patient is being treated with Zosyn day 4, will need IV antibiotic total of 4/7 days, will culture is growing 1 bottle coagulase negative staphylococci suspect contamination,patient currently on vancomycin will continue and further recommendation to follow 11/29 likely due to polypharmacy benzodiazepine and opiates on home also has UTI E coli ESBL being treated with Zosyn day 5. Blood culture with coag-negative Staphylococcus repeat blood culture 11/26 has been negative maintains on IV vancomycin. will decrease her fluid. WBC count is normal mild anemia which is stable remains on rivaroxaban for history of atrial fibrillation. So sodium level is 129 which has improved from 05/15 on 11/27/2020. I will plan to continue vancomycin and Zosyn for now since known bacteremia will continue on Zosyn for 7 days course. Also continues to improve with this therapy so will not alter antibiotic therapy as ordered 11/30/2020 patient doing okay she still is confused and having a difficult time expressing hersel. Review of medical records; no MRI has been performed will order that today. Patient ESBL E coli cystitis Zosyn per literature review is of appropriate choice however carbapenem is more reliable will do urinalysis with reflex to ensure that patient is improving with current medical therapy. Possible DC back to facility in 24-48 hours Acute encephalopathy Bacteremia with cons E coli ESBL UTI Polypharmacy Atrial fibrillation on rivaroxaban Chronic anemia Hyponatremia History of stroke Diabetes mellitus type 2 on insulin COPD Congestive heart failure Hypertension Hyperlipidemia GERD Mitral valve prolapse Parkinson's disease Peripheral neuropathy Peripheral vascular disease Status post right AKA group home resident Nonambulatory status DVT prophylaxis on rivaroxaban (2) Dehydration: Code(s): E86.0 - Dehydration Status: Acute Assessment and Plan: GENTLE HYDRATION (3) Symptomatic bradycardia: Code(s): R00.1 - Bradycardia, unspecified Status: Acute Assessment and Plan: COULD BE SECONDARY TO BETA BLOCKADE WILL CONTINUE TO MONITOR HEART RATE IS IN THE 50S TO LOW 60S (4) UTI (urinary tract infection): Qualifiers: Hematuria presence: without hematuria Urinary tract infection type: site unspecified Qualified Code(s): N39.0 - Urinary tract infection, site not specified Code(s): N39.0 - Urinary tract infection, site not specified Status: Acute Assessment and Plan: Urine with ESBL and blood culture prelim + Zosyn started 11/26: day 2 (5) Chronic renal failure: Qualifiers: Chronic kidney disease stage: unspecified stage Qualified Code(s): N18.9 - Chronic kidney disease, unspecified Code(s): N18.9 - Chronic kidney disease, unspecified Status: Acute Assessment and Plan: 11/24 creatinine 1.2 -> creatini
[2020-11-30 08:20] LABS: Glucose Point of Care 150 mg/dl (65-105)
[2020-11-30] MEDS: FLUTICASONE PROPIONATE 0.05% NA SPR 16 GM BTL (*BKC) 1 SPRAY NASAL (08:45)
[2020-11-30] MEDS: LORATADINE 10 MG TABLET PO (08:47)
[2020-11-30] MEDS: ASPIRIN 81 MG CHEWABLE TABLET PO (08:47)
[2020-11-30] MEDS: CARBIDOPA/LEVODOPA 25/100 MG TABLET 1 TABLET PO ×3 (08:47→17:22)
[2020-11-30] MEDS: NIFEdipine 30 MG TAB.ER.24 PO (08:47)
[2020-11-30] MEDS: polyethylene glycoL 3350 17 GM POWD.PACK PO (08:47)
[2020-11-30 08:48] VITALS: PULSE 66
[2020-11-30] MEDS: ESCITALOPRAM OXALATE 10 MG TABLET 20 MG PO (08:48)
[2020-11-30] MEDS: carvediloL 3.125 MG TABLET PO ×2 (08:48→20:46)
[2020-11-30] MEDS: MAGNESIUM OXIDE 400 MG TABLET PO ×2 (08:48→17:21)
[2020-11-30] MEDS: busPIRone HCL 10 MG TABLET PO ×3 (08:48→17:21)
[2020-11-30] MEDS: PANTOPRAZOLE 40 MG TABLET PO (08:48)
[2020-11-30] MEDS: MULTIVITAMINS THERAPEUTIC TAB (*BKC) 1 TABLET PO (08:48)
[2020-11-30] MEDS: SENNOSIDES 8.6 MG TABLET 17.2 MG PO (08:48)
[2020-11-30] MEDS: SODIUM CHLORIDE 500 MG TABLET PO ×2 (08:49→17:22)
[2020-11-30] MEDS: OXcarbazepine 300 MG TABLET 600 MG PO ×2 (08:53→17:21)
[2020-11-30] MEDS: INSULIN GLARGINE (*BKC) 100 UNITS/ML 30 UNITS SUB-Q ×2 (09:01→17:20)
[2020-11-30] MEDS: lisinopriL 20 MG TABLET PO (09:46)
[2020-11-30 10:36] VITALS: O2SAT 97
[2020-11-30 11:45] LABS: Add Urine Microscopic? YES; Appearance Urine Cloudy (Clear); Bilirubin Urine Negative (Negative); Blood Urine 3+ (Negative); Color Urine Amber (Yellow); Glucose Urine UA 1+ mg/dL (Negative); Ketones Urine Negative (Negative); Leukocyte Esterase Ur 3+ LEU/UL (Negative); Nitrate Urine Negative (Negative); Protein Urine 2+ mg/dL (Negative); RBC Urine >75 /hpf (0-2); Specific Grav Ur 1.012 (1.001-1.035); Urobilinogen Urine Negative mg/dL (<2.0); WBC Urine >75 /hpf
[2020-11-30 13:38] LABS: Glucose Point of Care 242 mg/dl (65-105)
[2020-11-30 14:00] VITALS: BP 158/84; PULSE 66; RESP 20; TEMP 37; O2SAT 100
[2020-11-30] MEDS: INSULIN ASPART (*BKC) 100 UNITS/ML SUB-Q (14:17)
[2020-11-30] MEDS: RIVAROXABAN 20 MG TABLET PO (17:22)
[2020-11-30] MEDS: LOVASTATIN 10 MG TABLET PO (17:22)
[2020-11-30 19:27] LABS: Glucose Point of Care 155 mg/dl (65-105)
[2020-11-30 20:46] VITALS: PULSE 64
[2020-11-30] MEDS: ACETAMINOPHEN 325 MG TABLET 650 MG PO (20:47)
[2020-11-30 22:00] VITALS: BP 165/86; PULSE 64; RESP 20; TEMP 36.8; O2SAT 99
[2020-11-30 23:24] LABS: Glucose Point of Care 168 mg/dl (65-105)
[2020-12-01] MEDS: TOLNAFTATE 1% POWDER 45 GM BTL 1 APPLIC TOPICAL (00:33)
[2020-12-01 05:40] LABS: Basophils Absolute Auto 0.1 K/mm3 (0.0-0.1); Basophils Percent Auto 0.8 % (0.2-1.2); Eosinophils Absolute Auto 0.4 K/mm3 (0-0.3); Eosinophils Percent Auto 4.1 % (0-4.4); Hematocrit 32.3 % (37.0-47.0); Hemoglobin 10.4 g/dL (12.0-15.0); Immature Granulocyte Absolute 0.05 K/mm3 (0.00-0.031); Immature Granulocyte Percent A 0.5 % (0-0.5); Lymphocytes Absolute Auto 2.11 K/mm3 (0.9-3.2); Lymphocytes Percent Auto 19.7 % (18.3-44.2); Mean Corpuscular HGB Conc 32.2 g/dl (32-36); Mean Corpuscular Hemoglobin 29.1 pg (26-34); Mean Corpuscular Volume 90.2 fl (80-100); Mean Platelet Volume 10.2 fl (7.4-10.4); Monocytes Absolute Auto 1.1 K/mm3 (0.1-0.6); Monocytes Percent Auto 10.6 % (2.6-8.5); Neutrophils Absolute Auto 6.9 K/mm3 (1.3-6.7); Neutrophils Percent Auto 64.3 % (45.5-73.1); Platelet Count Result 268 k/mm3 (150-375); Red Blood Count 3.58 M/mm3 (4.2-5.4); Red Cell Distribution Width 13.5 % (11.5-14.5); White Blood Count 10.7 K/mm3 (4.5-10.0)
[2020-12-01 05:51] LABS: Ammonia < 9 umol/L (9-30)
[2020-12-01 06:00] VITALS: BP 155/90; PULSE 59; RESP 20; TEMP 36.3; O2SAT 98
[2020-12-01 06:13] LABS: Albumin Level 2.8 g/dL (3.5-5.1); Anion Gap 6 mmol/L (8-16); Blood Urea Nitrogen 7 mg/dL (7-17); Carbon Dioxide 25 mmol/L (22-30); Chloride 99 mmol/L (98-107); Estimated CRCL calculation 77 ml/min; Estimated Glomerular Filt Rate 55; Glucose 59 mg/dL (65-110); Phosphorus 3.1 mg/dL (2.5-4.5); Potassium 3.2 mmol/L (3.4-5.0); Sodium 130 mmol/L (137-145)
--- NOTE | 2020-12-01 06:41 | PC.NURSE ---
Patient was given apple juice in place of glucose IV for critical glucose of 59. Will recheck blood sugar shortly
[2020-12-01 07:46] LABS: Glucose Point of Care 94 mg/dl (65-105)
[2020-12-01 08:29] VITALS: PULSE 60
[2020-12-01] MEDS: FLUTICASONE PROPIONATE 0.05% NA SPR 16 GM BTL (*BKC) 1 SPRAY NASAL (08:29)
[2020-12-01] MEDS: carvediloL 3.125 MG TABLET PO ×2 (08:29→20:43)
[2020-12-01] MEDS: MAGNESIUM OXIDE 400 MG TABLET PO ×2 (08:31→17:18)
[2020-12-01] MEDS: ASPIRIN 81 MG CHEWABLE TABLET PO (08:31)
[2020-12-01] MEDS: ESCITALOPRAM OXALATE 10 MG TABLET 20 MG PO (08:31)
[2020-12-01] MEDS: PANTOPRAZOLE 40 MG TABLET PO (08:31)
[2020-12-01] MEDS: NIFEdipine 30 MG TAB.ER.24 PO ×2 (08:31→20:43)
[2020-12-01] MEDS: busPIRone HCL 10 MG TABLET PO ×3 (08:31→17:18)
[2020-12-01] MEDS: ERGOCALCIFEROL 50,000 UNIT CAPSULE 50000 UNITS PO (08:31)
[2020-12-01] MEDS: OXcarbazepine 300 MG TABLET 600 MG PO ×2 (08:31→17:17)
[2020-12-01] MEDS: LORATADINE 10 MG TABLET PO (08:31)
[2020-12-01] MEDS: MULTIVITAMINS THERAPEUTIC TAB (*BKC) 1 TABLET PO (08:31)
[2020-12-01] MEDS: SODIUM CHLORIDE 500 MG TABLET PO ×2 (08:32→17:18)
[2020-12-01] MEDS: CARBIDOPA/LEVODOPA 25/100 MG TABLET 1 TABLET PO ×3 (08:32→17:17)
[2020-12-01] MEDS: lisinopriL 20 MG TABLET PO (08:32)
[2020-12-01] MEDS: INSULIN GLARGINE (*BKC) 100 UNITS/ML 30 UNITS SUB-Q (09:29)
[2020-12-01] MEDS: ERTAPENEM 1 GM/NS 50 ML 1 GM/50 ML BAG IVPB (09:38)
--- NOTE | 2020-12-01 09:38 | PM.IMPN ---
Progress Note: A&P Assessment and Plan (1) Acute alteration in mental status: Code(s): R41.82 - Altered mental status, unspecified Status: Acute Assessment and Plan: LIKELY SECONDARY TO POLYPHARMACY and UTI WILL HOLD BENZODIAZEPINES AND OPIATES SUPPORTIVE CARE 11/28/20 13:01 11/25 patient little more awake seen [facility] unable to provide day or year, patient denies any complaint abdominal pain nausea or vomiting, denies any dysuria frequency of urination, patient does not have any fever unlikely acute encephalopathy secondary to infectious, most likely secondary to polypharmacy, benzodiazepine and opiate are on hold, will continue to monitor the patient will have a PT OT evaluate the and further recommendation to follow 11/28 patient with acute mental status change most likely secondary to polypharmacy benzodiazepine and opiates on home, today patient is more awake, does complaint of dysuria and frequency of urine her urine is growing E coli ESBL, resistant ceftriaxone and levofloxacin, patient is being treated with Zosyn day 4, will need IV antibiotic total of 4/7 days, will culture is growing 1 bottle coagulase negative staphylococci suspect contamination,patient currently on vancomycin will continue and further recommendation to follow 11/29 likely due to polypharmacy benzodiazepine and opiates on home also has UTI E coli ESBL being treated with Zosyn day 5. Blood culture with coag-negative Staphylococcus repeat blood culture 11/26 has been negative maintains on IV vancomycin. will decrease her fluid. WBC count is normal mild anemia which is stable remains on rivaroxaban for history of atrial fibrillation. So sodium level is 129 which has improved from 05/15 on 11/27/2020. I will plan to continue vancomycin and Zosyn for now since known bacteremia will continue on Zosyn for 7 days course. Also continues to improve with this therapy so will not alter antibiotic therapy as ordered 11/30/2020 patient doing okay she still is confused and having a difficult time expressing hersel. Review of medical records; no MRI has been performed will order that today. Patient ESBL E coli cystitis Zosyn per literature review is of appropriate choice however carbapenem is more reliable will do urinalysis with reflex to ensure that patient is improving with current medical therapy. Possible DC back to facility in 24-48 hours 12/01/20 patient looking better today however her UA still is with 3+ leukocyte esterase, and greater than 75hpf both rbc's and . wbc's. Given the recurrence of her UTI and type of bacteria she is currently infected with will give 3 days of ertapenem in addition to the Zosyn it has been ordered. Anticipate discharge back to care home facility in 72 hours. Per previous doctor patient had positive blood culture results and has been treated with vancomycin. I will continue this treatment until her discharge. Two bacteria growing from blood cultures could very easily be contaminant from skin apurva. However, in rare cases they do come from Pulmonary and intra-abdominal abscesses, therefore, I will do a CT to make sure there is nothing going on prior to her discharge. She has had frequent readmissions with altered mental status improves of hospitalization and then again declines and returns rapidly to the ER. This could be from partially treated UTI however further investigation seems prudent. Patient with ongoing hyponatremia salt tablet dosing has been increased and she remains on fluid restriction. Acute encephalopathy Bacteremia with cons E coli ESBL UTI Polypharmacy Atrial fibrillation on rivaroxaban Chronic anemia Hyponatremia History of stroke Diabetes mellitus type 2 on insulin COPD Congestive heart failure Hypertension Hyperlipidemia GERD Mitral valve prolapse Parkinson's disease Peripheral neuropathy Peripheral vascular disease Status post right [facility] resident [facility]
--- NOTE | 2020-12-01 10:32 | P.CDI_ITS ---
CDI Query Clarification Request -Acute encephalopathy, likely due to polypharmacy and UTI has been documented Please further specify type of encephalopathy: * Metabolic * Toxic * Hypertensive * Hepatic * Anoxic * Other * Unable to determine <Maribel Jain RN - Last Filed: 12/01/20 10:35> Acute Metabolic encephalopathy <Jamila Darden MD - Last Filed: 12/01/20 18:04>
[2020-12-01 12:47] LABS: Glucose Point of Care 165 mg/dl (65-105)
[2020-12-01 13:45] VITALS: BP 156/94; PULSE 61; RESP 16; TEMP 36.8; O2SAT 100
[2020-12-01] MEDS: RIVAROXABAN 20 MG TABLET PO (17:18)
[2020-12-01] MEDS: LOVASTATIN 10 MG TABLET PO (17:18)
[2020-12-01 18:44] LABS: Glucose Point of Care 188 mg/dl (65-105)
[2020-12-01 20:43] VITALS: PULSE 66
[2020-12-01] MEDS: INSULIN GLARGINE (*BKC) 100 UNITS/ML 20 UNITS SUB-Q (20:43)
[2020-12-01 21:16] LABS: Glucose Point of Care 282 mg/dl (65-105)
[2020-12-01 22:00] VITALS: BP 161/69; PULSE 63; RESP 18; TEMP 36.9; O2SAT 97
[2020-12-02 05:54] LABS: Hemoglobin 10.5 g/dL (12.0-15.0); Mean Corpuscular HGB Conc 31.8 g/dl (32-36); Mean Corpuscular Hemoglobin 29.1 pg (26-34); Mean Corpuscular Volume 91.4 fl (80-100); Mean Platelet Volume 10.7 fl (7.4-10.4); Platelet Count Result 236 k/mm3 (150-375); Red Blood Count 3.61 M/mm3 (4.2-5.4); Red Cell Distribution Width 13.6 % (11.5-14.5); White Blood Count 9.9 K/mm3 (4.5-10.0)
[2020-12-02 05:58] LABS: Albumin Level 2.9 g/dL (3.5-5.1); Anion Gap 5 mmol/L (8-16); Blood Urea Nitrogen 9 mg/dL (7-17); Carbon Dioxide 24 mmol/L (22-30); Chloride 102 mmol/L (98-107); Estimated CRCL calculation 60 ml/min; Estimated Glomerular Filt Rate 41; Glucose 111 mg/dL (65-110); Phosphorus 3.9 mg/dL (2.5-4.5); Potassium 3.3 mmol/L (3.4-5.0); Sodium 131 mmol/L (137-145)
[2020-12-02 06:00] VITALS: BP 152/74; PULSE 69; RESP 20; TEMP 37; O2SAT 99
[2020-12-02 08:21] LABS: Glucose Point of Care 97 mg/dl (65-105)
--- NOTE | 2020-12-02 09:58 | PM.IMPN ---
Progress Note: A&P Assessment and Plan (1) Acute alteration in mental status: Code(s): R41.82 - Altered mental status, unspecified Status: Acute Assessment and Plan: LIKELY SECONDARY TO POLYPHARMACY and UTI WILL HOLD BENZODIAZEPINES AND OPIATES SUPPORTIVE CARE 11/28/20 13:01 11/25 patient little more awake seen [facility] unable to provide day or year, patient denies any complaint abdominal pain nausea or vomiting, denies any dysuria frequency of urination, patient does not have any fever unlikely acute encephalopathy secondary to infectious, most likely secondary to polypharmacy, benzodiazepine and opiate are on hold, will continue to monitor the patient will have a PT OT evaluate the and further recommendation to follow 11/28 patient with acute mental status change most likely secondary to polypharmacy benzodiazepine and opiates on home, today patient is more awake, does complaint of dysuria and frequency of urine her urine is growing E coli ESBL, resistant ceftriaxone and levofloxacin, patient is being treated with Zosyn day 4, will need IV antibiotic total of 4/7 days, will culture is growing 1 bottle coagulase negative staphylococci suspect contamination,patient currently on vancomycin will continue and further recommendation to follow 11/29 likely due to polypharmacy benzodiazepine and opiates on home also has UTI E coli ESBL being treated with Zosyn day 5. Blood culture with coag-negative Staphylococcus repeat blood culture 11/26 has been negative maintains on IV vancomycin. will decrease her fluid. WBC count is normal mild anemia which is stable remains on rivaroxaban for history of atrial fibrillation. So sodium level is 129 which has improved from 05/15 on 11/27/2020. I will plan to continue vancomycin and Zosyn for now since known bacteremia will continue on Zosyn for 7 days course. Also continues to improve with this therapy so will not alter antibiotic therapy as ordered 11/30/2020 patient doing okay she still is confused and having a difficult time expressing hersel. Review of medical records; no MRI has been performed will order that today. Patient ESBL E coli cystitis Zosyn per literature review is of appropriate choice however carbapenem is more reliable will do urinalysis with reflex to ensure that patient is improving with current medical therapy. Possible DC back to facility in 24-48 hours 12/01/20 patient looking better today however her UA still is with 3+ leukocyte esterase, and greater than 75hpf both rbc's and . wbc's. Given the recurrence of her UTI and type of bacteria she is currently infected with will give 3 days of ertapenem in addition to the Zosyn it has been ordered. [facility] Per previous doctor patient had positive blood culture results and has been treated with vancomycin. I will continue this treatment until her discharge. Two bacteria growing from blood cultures could very easily be contaminant from skin apurva. However, in rare cases they do come from Pulmonary and intra-abdominal abscesses, therefore, I will do a CT to make sure there is nothing going on prior to her discharge. She has had frequent readmissions with altered mental status improves of hospitalization and then again declines and returns rapidly to the ER. This could be from partially treated UTI however further investigation seems prudent. Patient with ongoing hyponatremia salt tablet dosing has been increased and she remains on fluid restriction. 12/02/20 Patient with mild VALENTINA on JUAN-inhibitor and vancomycin. Elevated blood pressures nifedipine increased yesterday. Juan inhibitor has been placed on hold carvedilol increased. Potassium repleted. Blood glucose at goal. Patient on carbapenem repeat urine cultures no growth to date. Anticipate discharge back to her facility tomorrow after 3rd dose of ertapenem. Consult placed to Case Management to make them aware of
--- NOTE | 2020-12-02 11:36 | PCNWS ---
Weekly nutritional screen. Patient is tolerating current diet with adequate intake. No weight loss reported. No nutritional needs at this time.
[2020-12-02 12:19] LABS: Glucose Point of Care 126 mg/dl (65-105)
[2020-12-02 13:55] VITALS: PULSE 69
[2020-12-02] MEDS: carvediloL 6.25 MG TABLET PO ×2 (13:55→21:26)
[2020-12-02] MEDS: MULTIVITAMINS THERAPEUTIC TAB (*BKC) 1 TABLET PO (13:55)
[2020-12-02] MEDS: CARBIDOPA/LEVODOPA 25/100 MG TABLET 1 TABLET PO ×3 (13:55→21:26)
[2020-12-02] MEDS: PANTOPRAZOLE 40 MG TABLET PO (13:56)
[2020-12-02] MEDS: ESCITALOPRAM OXALATE 10 MG TABLET 20 MG PO (13:56)
[2020-12-02] MEDS: OXcarbazepine 300 MG TABLET 600 MG PO ×2 (13:56→18:10)
[2020-12-02] MEDS: NIFEdipine 30 MG TAB.ER.24 PO ×2 (13:56→21:26)
[2020-12-02] MEDS: LORATADINE 10 MG TABLET PO (13:58)
[2020-12-02] MEDS: busPIRone HCL 10 MG TABLET PO ×3 (13:58→21:25)
[2020-12-02] MEDS: MAGNESIUM OXIDE 400 MG TABLET PO ×2 (13:58→18:10)
[2020-12-02] MEDS: FLUTICASONE PROPIONATE 0.05% NA SPR 16 GM BTL (*BKC) 1 SPRAY NASAL (13:59)
[2020-12-02] MEDS: ERTAPENEM 1 GM/NS 50 ML 1 GM/50 ML BAG IVPB (13:59)
[2020-12-02 14:00] VITALS: BP 162/74; PULSE 67; RESP 18; TEMP 36.9; O2SAT 100
[2020-12-02] MEDS: POTASSIUM CHLORIDE 20 MEQ PACKET (FOR LIQUID) 40 MEQ PO (14:10)
[2020-12-02] MEDS: SODIUM CHLORIDE 0.9% IV 250 ML 50 ML IV CONT (14:11)
[2020-12-02] MEDS: INSULIN GLARGINE (*BKC) 100 UNITS/ML 30 UNITS SUB-Q (14:19)
[2020-12-02] MEDS: ASPIRIN 81 MG CHEWABLE TABLET PO (15:09)
[2020-12-02 17:38] LABS: Glucose Point of Care 155 mg/dl (65-105)
[2020-12-02] MEDS: RIVAROXABAN 20 MG TABLET PO (18:10)
[2020-12-02] MEDS: LOVASTATIN 10 MG TABLET PO (18:11)
[2020-12-02] MEDS: INSULIN GLARGINE (*BKC) 100 UNITS/ML 20 UNITS SUB-Q (20:27)
[2020-12-02 20:57] LABS: Glucose Point of Care 188 mg/dl (65-105)
[2020-12-02 21:26] VITALS: PULSE 76
[2020-12-02] MEDS: SODIUM CHLORIDE 500 MG TABLET 1000 MG PO (21:26)
[2020-12-02 21:41] VITALS: BP 152/82; PULSE 65; RESP 16; TEMP 36.1; O2SAT 94
[2020-12-02 22:27] VITALS: PULSE 68; O2SAT 96
[2020-12-03 05:45] LABS: Hematocrit 32.2 % (37.0-47.0); Hemoglobin 10.2 g/dL (12.0-15.0); Mean Corpuscular HGB Conc 31.7 g/dl (32-36); Mean Corpuscular Hemoglobin 28.9 pg (26-34); Mean Corpuscular Volume 91.2 fl (80-100); Mean Platelet Volume 10.4 fl (7.4-10.4); Platelet Count Result 256 k/mm3 (150-375); Red Blood Count 3.53 M/mm3 (4.2-5.4); Red Cell Distribution Width 13.8 % (11.5-14.5)
[2020-12-03 05:46] VITALS: BP 166/63; PULSE 64; RESP 16; TEMP 36.5; O2SAT 95
[2020-12-03 06:32] LABS: Albumin Level 2.9 g/dL (3.5-5.1); Anion Gap 4 mmol/L (8-16); Blood Urea Nitrogen 12 mg/dL (7-17); Calcium 9.1 mg/dL (8.4-10.2); Carbon Dioxide 27 mmol/L (22-30); Chloride 100 mmol/L (98-107); Estimated CRCL calculation 40 ml/min; Estimated Glomerular Filt Rate 25; Glucose 101 mg/dL (65-110); Potassium 3.7 mmol/L (3.4-5.0); Sodium 131 mmol/L (137-145)
[2020-12-03] MEDS: INSULIN GLARGINE (*BKC) 100 UNITS/ML 30 UNITS SUB-Q (08:42)
[2020-12-03] MEDS: ACETAMINOPHEN 325 MG TABLET 650 MG PO ×2 (08:49→15:24)
[2020-12-03] MEDS: NIFEdipine 30 MG TAB.ER.24 PO (08:49)
[2020-12-03] MEDS: MULTIVITAMINS THERAPEUTIC TAB (*BKC) 1 TABLET PO (08:49)
[2020-12-03 08:50] VITALS: PULSE 64
[2020-12-03] MEDS: MAGNESIUM OXIDE 400 MG TABLET PO ×2 (08:50→17:09)
[2020-12-03] MEDS: busPIRone HCL 10 MG TABLET PO ×3 (08:50→17:08)
[2020-12-03] MEDS: PANTOPRAZOLE 40 MG TABLET PO (08:50)
[2020-12-03] MEDS: carvediloL 6.25 MG TABLET PO ×2 (08:50→20:37)
[2020-12-03] MEDS: SODIUM CHLORIDE 500 MG TABLET 1000 MG PO ×2 (08:50→17:10)
[2020-12-03] MEDS: ESCITALOPRAM OXALATE 10 MG TABLET 20 MG PO (08:51)
[2020-12-03] MEDS: LORATADINE 10 MG TABLET PO (08:51)
[2020-12-03] MEDS: FLUTICASONE PROPIONATE 0.05% NA SPR 16 GM BTL (*BKC) 1 SPRAY NASAL (08:51)
[2020-12-03] MEDS: ASPIRIN 81 MG CHEWABLE TABLET PO (08:51)
[2020-12-03] MEDS: OXcarbazepine 300 MG TABLET 600 MG PO ×2 (08:51→17:09)
[2020-12-03] MEDS: CARBIDOPA/LEVODOPA 25/100 MG TABLET 1 TABLET PO ×3 (08:52→17:09)
[2020-12-03] MEDS: ERTAPENEM 1 GM/NS 50 ML 1 GM/50 ML BAG IVPB (08:52)
[2020-12-03 09:50] LABS: Glucose Point of Care 88 mg/dl (65-105)
--- NOTE | 2020-12-03 11:13 | P.PNIM_ITS ---
Progress Note: A&P Assessment and Plan (1) Acute alteration in mental status: Code(s): R41.82 - Altered mental status, unspecified Status: Acute Assessment and Plan: LIKELY SECONDARY TO POLYPHARMACY and UTI WILL HOLD BENZODIAZEPINES AND OPIATES SUPPORTIVE CARE 11/28/20 13:01 11/25 patient little more awake seen [facility] unable to provide day or year, patient denies any complaint abdominal pain nausea or vomiting, denies any dysuria frequency of urination, patient does not have any fever unlikely acute encephalopathy secondary to infectious, most likely secondary to polypharmacy, benzodiazepine and opiate are on hold, will continue to monitor the patient will have a PT OT evaluate the and further recommendation to follow 11/28 patient with acute mental status change most likely secondary to polypharmacy benzodiazepine and opiates on home, today patient is more awake, does complaint of dysuria and frequency of urine her urine is growing E coli ESBL, resistant ceftriaxone and levofloxacin, patient is being treated with Zosyn day 4, will need IV antibiotic total of 4/7 days, will culture is growing 1 bottle coagulase negative staphylococci suspect contamination,patient c urrently on vancomycin will continue and further recommendation to follow 11/29 likely due to polypharmacy benzodiazepine and opiates on home also has UTI E coli ESBL being treated with Zosyn day 5. Blood culture with coag-negative Staphylococcus repeat blood culture 11/26 has been negative maintains on IV vancomycin. will decrease her fluid. WBC count is normal mild anemia which is stable remains on rivaroxaban for history of atrial fibrillation. So sodium level is 129 which has improved from 05/15 on 11/27/2020. I will plan to continue vancomycin and Zosyn for now since known bacteremia will continue on Zosyn for 7 days course. Also continues to improve with this therapy so will not alter antibiotic therapy as ordered 11/30/2020 patient doing okay she still is confused and having a difficult time expressing hersel. Review of medical records; no MRI has been performed will order that today. Patient ESBL E coli cystitis Zosyn per literature review is of appropriate choice however carbapenem is more reliable will do urinalysis with reflex to ensure that patient is improving with current medical therapy. Possible DC back to facility in 24-48 hours 12/01/20 patient looking better today however her UA still is with 3+ leukocyte esterase, and greater than 75hpf both rbc's and . wbc's. Given the recurrence of her UTI and type of bacteria she is currently infected with will give 3 days of ertapenem in addition to the Zosyn it has been ordered. Anticipate discharge back to senior care facility in 72 hours. Per previous doctor patient had positive blood culture results and has been treated with vancomycin. I will continue this treatment until her discharge. Two bacteria growing from blood cultures could very easily be contaminant from skin apurva. However, in rare cases they do come from Pulmonary and intra-abdominal abscesses, therefore, I will do a CT to make sure there is nothing going on prior to her discharge. She has had frequent readmissions with altered mental status improves of hospitalization and then again declines and returns rapidly to the ER. This could be from partially treated UTI however further investigation seems prudent. Patient with ongoing hyponatremia salt tablet dosing has been increased and she remains on fluid restriction. 12/02/20 Patient with mild VALENTINA on JUAN-inhibitor and vancomycin. Elevated blood pressures nifedipine increased yesterday. Juan inhibitor has been placed on hold carvedilol increased. Potassium repleted. Blood
--- NOTE | 2020-12-03 11:45 | PM.CNNEP ---
Assessment and Plan Assessment and plan (1) VALENTINA (acute kidney injury): Code(s): N17.9 - Acute kidney failure, unspecified Status: Acute Assessment and Plan: multifactorial etiology: - SADI-I use in the setting of UTI - possible pre-renal factors - contrast exposure (CT scan) - vancomycin use (?) check urine electrolytes and urine eosinophils check renal ultrasound agree with holding SADI-I at this time trial of IVFs follow trend of repeat labs and UOP (2) Altered mental status: Code(s): R41.82 - Altered mental status, unspecified Status: Acute Assessment and Plan: due to polypharmacy and infection slow improvement noted follow mentation (3) UTI (urinary tract infection): Qualifiers: Hematuria presence: without hematuria Urinary tract infection type: site unspecified Qualified Code(s): N39.0 - Urinary tract infection, site not specified Code(s): N39.0 - Urinary tract infection, site not specified Status: Acute Assessment and Plan: ESBL E.coli by urine culture on antibiotics (4) Hypertension: Code(s): I10 - Essential (primary) hypertension Status: Chronic Assessment and Plan: has been fluctuating since admission reasonable control at this time (5) Diabetes: Code(s): E11.9 - Type 2 diabetes mellitus without complications Status: Chronic Assessment and Plan: follow accuchecks glycemic control Will continue to follow. History of Present Illness Reason for Consult Consult date: 12/03/20 Reason for consult: acute renal failure Chief Complaint Chief complaint: AMS, Bradycardia, Dehydration History of Present Illness Narrative: The patient is a 65-year-old female with extensive past medical history as outlined below who presented to [facility] Emergency room for altered mental status. The patient currently resides in a nursing facility and the staff there noted that the patient's mental status was not at her baseline. It is not entirely clear how long her mentation was off , but because of this change, she was sent into the ER for further evaluation. Workup and evaluation emergency room demonstrated the patient to be hemodynamically stable but routine blood test demonstrated several abnormalities including hyponatremia, and a urinalysis that was highly suggestive of a urinary tract infection. The patient's did not have any critical electrolyte abnormalities aside from the aforementioned low sodium level and her kidney function was well within normal limits. Chest x-ray was negative for any type of pneumonia or infiltrates and a CT scan of her head only demonstrated extensive white matter disease but no acute intracranial findings. The patient is normally alert oriented x3 and on exam in the ER she was only alert and oriented x2 (knew her name and knew where she was). appropriate cultures were obtained and she was subsequently admitted to the hospital for further evaluation and therapy. Since her admission, her mentation appears to have improved. it is suspected that her altered mental status is probably due to a combination of polypharmacy, complex urinary tract infection, and possible bacteremia based on testing today. She remains on antibiotic therapy at this time. However, it has also been noted that the last 24-48 hours her creatinine has been rising. Renal consultation was requested due to her acute kidney injury/acute renal failure. As mentioned above, on admission, her creatinine was well within normal limits. However yesterday, her creatinine domingo a little bit and domingo even further by labs in this morning to a creatinine of 2.0 mg/dL. Factors that may have played a role with this insult to her kidney are the fact that she was on an SADI-inhibitor, possible prerenal factors/poor oral intake, infection, and contrast exposure
[2020-12-03 12:12] LABS: Glucose Point of Care 220 mg/dl (65-105)
[2020-12-03] MEDS: INSULIN ASPART (*BKC) 100 UNITS/ML SUB-Q (12:17)
[2020-12-03] MEDS: NIFEdipine 30 MG TAB.ER.24 60 MG PO ×2 (12:20→20:38)
[2020-12-03] MEDS: SODIUM CHLORIDE 0.9% IV 1,000 ML 75 ML IV CONT (12:20)
--- NOTE | 2020-12-03 12:27 | PC.NURSE ---
call to pharm for missing afternoon meds
[2020-12-03 13:44] VITALS: BP 156/72; PULSE 58; RESP 20; TEMP 36.5; O2SAT 99
[2020-12-03 14:54] LABS: Creatinine Urine 88.6 mg/dL; Sodium Urine Random 53 meq/L
[2020-12-03 15:13] LABS: Total Protein Urine Random 262 mg/dL; Ur Ttl Prot Creatinine Ratio 2.96 mg/mg (0-0.20)
[2020-12-03 16:34] LABS: Glucose Point of Care 198 mg/dl (65-105)
[2020-12-03 16:36] LABS: Eosinophil Urine None Seen % (None Seen)
[2020-12-03] MEDS: RIVAROXABAN 20 MG TABLET PO (17:09)
[2020-12-03] MEDS: LOVASTATIN 10 MG TABLET PO (17:10)
[2020-12-03 17:43] LABS: Vancomycin Random 23.2 ug/mL (10-20)
[2020-12-03] MEDS: HYDROcodone/acetaminophen (*CRX) 5-325 MG TABLET 1 TAB PO (18:36)
[2020-12-03] MEDS: INSULIN GLARGINE (*BKC) 100 UNITS/ML 20 UNITS SUB-Q (20:14)
[2020-12-03 20:37] VITALS: PULSE 64
[2020-12-03 21:16] LABS: Glucose Point of Care 201 mg/dl (65-105)
[2020-12-03 22:00] VITALS: BP 137/69; PULSE 64; RESP 16; TEMP 36; O2SAT 93
[2020-12-04] MEDS: SODIUM CHLORIDE 0.9% IV 1,000 ML 75 ML IV CONT ×2 (01:17→14:46)
[2020-12-04 05:24] VITALS: BP 144/63; PULSE 57; RESP 16; TEMP 36; O2SAT 99
[2020-12-04 05:42] LABS: Basophils Absolute Auto 0.1 K/mm3 (0.0-0.1); Basophils Percent Auto 0.9 % (0.2-1.2); Eosinophils Absolute Auto 0.3 K/mm3 (0-0.3); Eosinophils Percent Auto 3.5 % (0-4.4); Hematocrit 32.8 % (37.0-47.0); Hemoglobin 10.1 g/dL (12.0-15.0); Immature Granulocyte Absolute 0.06 K/mm3 (0.00-0.031); Immature Granulocyte Percent A 0.6 % (0-0.5); Lymphocytes Absolute Auto 1.76 K/mm3 (0.9-3.2); Lymphocytes Percent Auto 18.6 % (18.3-44.2); Mean Corpuscular HGB Conc 30.8 g/dl (32-36); Mean Corpuscular Hemoglobin 28.9 pg (26-34); Mean Platelet Volume 10.6 fl (7.4-10.4); Monocytes Percent Auto 10.2 % (2.6-8.5); Neutrophils Absolute Auto 6.3 K/mm3 (1.3-6.7); Neutrophils Percent Auto 66.2 % (45.5-73.1); Platelet Count Result 245 k/mm3 (150-375); Red Blood Count 3.49 M/mm3 (4.2-5.4); White Blood Count 9.5 K/mm3 (4.5-10.0)
[2020-12-04 06:03] LABS: Albumin Level 2.8 g/dL (3.5-5.1); Anion Gap 11 mmol/L (8-16); Blood Urea Nitrogen 15 mg/dL (7-17); Calcium 8.5 mg/dL (8.4-10.2); Carbon Dioxide 20 mmol/L (22-30); Chloride 102 mmol/L (98-107); Estimated CRCL calculation 42 ml/min; Estimated Glomerular Filt Rate 26; Glucose 78 mg/dL (65-110); Magnesium 1.7 mg/dL (1.6-2.3); Phosphorus 4.5 mg/dL (2.5-4.5); Potassium 3.9 mmol/L (3.4-5.0); Sodium 133 mmol/L (137-145)
[2020-12-04] MEDS: HYDROcodone/acetaminophen (*CRX) 5-325 MG TABLET 1 TAB PO ×2 (07:39→21:19)
[2020-12-04 07:48] LABS: Glucose Point of Care 80 mg/dl (65-105)
[2020-12-04 08:00] VITALS: PULSE 57; RESP 16; O2SAT 99
[2020-12-04] MEDS: OXcarbazepine 300 MG TABLET 600 MG PO ×2 (09:34→17:22)
[2020-12-04] MEDS: NIFEdipine 30 MG TAB.ER.24 60 MG PO ×2 (09:34→21:04)
[2020-12-04 09:37] VITALS: PULSE 57
[2020-12-04] MEDS: MULTIVITAMINS THERAPEUTIC TAB (*BKC) 1 TABLET PO (09:37)
[2020-12-04] MEDS: MAGNESIUM OXIDE 400 MG TABLET PO ×2 (09:37→17:22)
[2020-12-04] MEDS: carvediloL 6.25 MG TABLET PO ×2 (09:37→21:04)
[2020-12-04] MEDS: ASPIRIN 81 MG CHEWABLE TABLET PO (09:37)
[2020-12-04] MEDS: CARBIDOPA/LEVODOPA 25/100 MG TABLET 1 TABLET PO ×3 (09:37→17:21)
[2020-12-04] MEDS: busPIRone HCL 10 MG TABLET PO ×3 (09:37→17:21)
[2020-12-04] MEDS: LORATADINE 10 MG TABLET PO (09:37)
[2020-12-04] MEDS: PANTOPRAZOLE 40 MG TABLET PO (09:38)
[2020-12-04] MEDS: ESCITALOPRAM OXALATE 10 MG TABLET 20 MG PO (09:38)
--- NOTE | 2020-12-04 09:41 | PM.PNNEP ---
Progress Note: A&P Assessment and Plan (1) VALENTINA (acute kidney injury): Code(s): N17.9 - Acute kidney failure, unspecified Status: Acute Assessment and Plan: improvement noted multifactorial etiology: - SADI-I use in the setting of UTI - possible pre-renal factors - contrast exposure (CT scan) - vancomycin use (?) urine electrolytes suggest some degree of prerenal azotemia renal ultrasound pending agree with holding SADI-I at this time gentle IVFs follow trend of repeat labs and UOP (2) Altered mental status: Code(s): R41.82 - Altered mental status, unspecified Status: Acute Assessment and Plan: due to polypharmacy and infection slow improvement noted follow mentation (3) UTI (urinary tract infection): Qualifiers: Hematuria presence: without hematuria Urinary tract infection type: site unspecified Qualified Code(s): N39.0 - Urinary tract infection, site not specified Code(s): N39.0 - Urinary tract infection, site not specified Status: Acute Assessment and Plan: ESBL E.coli by urine culture on antibiotics (4) Hypertension: Code(s): I10 - Essential (primary) hypertension Status: Chronic Assessment and Plan: has been fluctuating since admission reasonable control at this time (5) Diabetes: Code(s): E11.9 - Type 2 diabetes mellitus without complications Status: Chronic Assessment and Plan: follow accuchecks glycemic control Will continue to follow. Subjective Date/time seen: 12/04/20 09:41 No apparent distress noted at the time of my visit; mentation seems stable compared when I last saw her; renal function improved; no acute issues/events overnight or earlier this AM. Exam Narrative: General: WD/WN female in NAD Heart: normal S1 and S2; no rub Lungs: clear to auscultation Abdomen: soft, nontender, nondistended, positive bowel sounds Extremities: no cyanosis or clubbing; no edema Skin: warm and dry Objective Data Vital Signs Vital Signs: Vital Signs Temp Pulse Resp BP Pulse Ox 12/04/20 09:37 57 L 12/04/20 05:24 36.0 C L 57 L 16 144/63 H 99 12/03/20 22:00 36.0 C L 64 16 137/69 93 12/03/20 20:37 64 12/03/20 13:44 36.5 C 58 L 20 156/72 H 99 Intake/Output Intake/Output: Intake & Output 12/01/20 12/02/20 12/03/20 12/04/20 23:59 23:59 23:59 23:59 Intake Total 1810 972 010 7859 Output Total 500 Balance 1810 890 870 500 Meds/Results Medications: Active Medications Generic Name Dose Route Start Last Admin Trade Name Freq PRN Reason Stop Dose Admin Acetaminophen 650 mg 11/25/20 04:03 12/03/20 15:24 Acetaminophen 325 Mg Tablet PO 650 mg Q6H PRN Administration Pain (Scale Score 1-3) Hydrocodone Bitart/Acetaminophen 1 tab 12/03/20 17:28 12/04/20 07:39 Hydrocodone/Acetaminophen (*Crx) 5-325 Mg Tablet PO 1 tab Q8H PRN Administration Pain Rated 4-6 Albuterol 2 puff 11/25/20 04:03 Albuterol Sulfate (*Sp) Aerosol 1 Puff INHALATION Q4H PRN Shortness Of Breath Aspirin 81 mg 11/25/20 08:00 12/04/20 09:37 Aspirin 81 Mg Chewable Tablet PO 81 mg DAILY@0800 TRACI Administration Budesonide/Formoterol Fumarate 2 puff 11/25/20 08:00 12/03/20 22:44 Budesonide/Form 160-4.5 Mcg (*Sp) INHALATION 2 puff Q12HRT TRACI Administration Buspirone HCl 10 mg 11/25/20 09:00 12/04/20 09:37 Buspirone Hcl 10 Mg Tablet PO 10 mg TID TRACI Administration Calcium Carbonate 500 mg 11/25/20 09:00 12/04/20 09:37 Calcium/Vitamin D 500 Mg Tablet PO 12/25/20 09:01 500 mg BID TRACI Administration Carbidopa/Levodopa 1 tablet 11/25/20 08:00 12/04/20 09:37 Carbidopa/Levodopa 25/100 Mg Tablet PO 1 tablet TIDWM TRACI Administration Carvedilol 6.25 mg 12/02/20 09:00 12/04/20 09:37 Carvedilol 6.25 Mg Tablet
[2020-12-04] MEDS: SODIUM CHLORIDE 500 MG TABLET 1000 MG PO ×2 (09:43→17:23)
[2020-12-04] MEDS: INSULIN GLARGINE (*BKC) 100 UNITS/ML 30 UNITS SUB-Q (09:45)
[2020-12-04] MEDS: FLUTICASONE PROPIONATE 0.05% NA SPR 16 GM BTL (*BKC) 1 SPRAY NASAL (09:51)
[2020-12-04 11:55] LABS: Glucose Point of Care 143 mg/dl (65-105)
--- NOTE | 2020-12-04 13:35 | PC.NURSE ---
Dr Darden notified of pt viviane has dark red blood in tubing
[2020-12-04 14:00] VITALS: BP 153/70; PULSE 85; RESP 24; TEMP 36.9; O2SAT 92
[2020-12-04] MEDS: RIVAROXABAN 20 MG TABLET PO (17:23)
[2020-12-04] MEDS: LOVASTATIN 10 MG TABLET PO (17:23)
[2020-12-04 17:29] LABS: Add Urine Microscopic? YES; Appearance Urine Turbid (Clear); Bacteria Urine 1+ /hpf; Bilirubin Urine Negative (Negative); Blood Urine 3+ (Negative); Color Urine Red (Yellow); Glucose Urine UA 1+ mg/dL (Negative); Ketones Urine Trace mg/dL (Negative); Leukocyte Esterase Ur 1+ LEU/UL (NEGATIVE); Mucus Urine Few /lpf; Nitrate Urine Negative (Negative); Protein Urine 2+ mg/dL (Negative); RBC Urine >75 /hpf (0-2); Specific Grav Ur 1.023 (1.001-1.035); Urobilinogen Urine Negative mg/dL (<2.0); WBC Urine 21-30 /hpf (0-3)
[2020-12-04 19:01] LABS: Glucose Point of Care 155 mg/dl (65-105)
[2020-12-04] MEDS: TOLNAFTATE 1% POWDER 45 GM BTL 1 APPLIC TOPICAL (20:30)
[2020-12-04 21:04] VITALS: PULSE 64
[2020-12-04] MEDS: ERTAPENEM 1 GM/NS 50 ML 1 GM/50 ML BAG IVPB (21:11)
[2020-12-04] MEDS: INSULIN GLARGINE (*BKC) 100 UNITS/ML 20 UNITS SUB-Q (21:12)
[2020-12-04 21:50] LABS: Glucose Point of Care 154 mg/dl (65-105)
[2020-12-04 22:00] VITALS: BP 139/67; PULSE 64; RESP 16; TEMP 36.7; O2SAT 97
[2020-12-05 06:00] VITALS: BP 152/67; PULSE 59; RESP 16; TEMP 36.6; O2SAT 100
[2020-12-05 06:05] LABS: Hemoglobin 9.9 g/dL (12.0-15.0); Mean Corpuscular HGB Conc 30.9 g/dl (32-36); Mean Corpuscular Hemoglobin 28.9 pg (26-34); Mean Corpuscular Volume 93.6 fl (80-100); Mean Platelet Volume 10.2 fl (7.4-10.4); Platelet Count Result 269 k/mm3 (150-375); Red Blood Count 3.42 M/mm3 (4.2-5.4); White Blood Count 10.7 K/mm3 (4.5-10.0)
[2020-12-05] MEDS: SODIUM CHLORIDE 0.9% IV 1,000 ML 75 ML IV CONT ×2 (06:07→18:53)
[2020-12-05 06:38] LABS: Albumin Level 2.8 g/dL (3.5-5.1); Anion Gap 4 mmol/L (8-16); Blood Urea Nitrogen 19 mg/dL (7-17); Calcium 8.8 mg/dL (8.4-10.2); Carbon Dioxide 23 mmol/L (22-30); Chloride 108 mmol/L (98-107); Estimated CRCL calculation 35 ml/min; Estimated Glomerular Filt Rate 21; Glucose 51 mg/dL (65-110); Phosphorus 4.3 mg/dL (2.5-4.5); Potassium 3.8 mmol/L (3.4-5.0); Sodium 135 mmol/L (137-145)
[2020-12-05] MEDS: GLUCOSE ORAL GEL 15 GM OF GLUCSE IN 37.5 GM TUBE PO ×2 (06:46→07:01)
[2020-12-05 07:35] LABS: Glucose Point of Care 108 mg/dl (65-105)
[2020-12-05 07:35] LABS: Glucose Point of Care 64 mg/dl (65-105)
[2020-12-05 07:35] LABS: Glucose Point of Care 48 mg/dl (65-105)
[2020-12-05] MEDS: NIFEdipine 30 MG TAB.ER.24 60 MG PO ×2 (09:20→23:40)
[2020-12-05] MEDS: ASPIRIN 81 MG CHEWABLE TABLET PO (09:21)
[2020-12-05] MEDS: SODIUM CHLORIDE 500 MG TABLET 1000 MG PO (09:21)
[2020-12-05] MEDS: ERGOCALCIFEROL 50,000 UNIT CAPSULE 50000 UNITS PO (09:21)
[2020-12-05] MEDS: OXcarbazepine 300 MG TABLET 600 MG PO ×2 (09:21→17:28)
[2020-12-05] MEDS: carvediloL 6.25 MG TABLET PO ×2 (09:22→20:30)
[2020-12-05] MEDS: MULTIVITAMINS THERAPEUTIC TAB (*BKC) 1 TABLET PO (09:22)
[2020-12-05] MEDS: LORATADINE 10 MG TABLET PO (09:22)
[2020-12-05] MEDS: MAGNESIUM OXIDE 400 MG TABLET PO ×2 (09:22→17:27)
[2020-12-05] MEDS: busPIRone HCL 10 MG TABLET PO ×3 (09:22→17:27)
[2020-12-05] MEDS: PANTOPRAZOLE 40 MG TABLET PO (09:22)
[2020-12-05] MEDS: ESCITALOPRAM OXALATE 10 MG TABLET 20 MG PO (09:22)
[2020-12-05] MEDS: FLUTICASONE PROPIONATE 0.05% NA SPR 16 GM BTL (*BKC) 1 SPRAY NASAL (09:23)
[2020-12-05] MEDS: CARBIDOPA/LEVODOPA 25/100 MG TABLET 1 TABLET PO ×3 (09:23→17:26)
--- NOTE | 2020-12-05 10:33 | P.PNNP_ITS ---
Progress Note: A&P Assessment and Plan (1) VALENTINA (acute kidney injury): Code(s): N17.9 - Acute kidney failure, unspecified Status: Acute Assessment and Plan: * improvement noted * multifactorial etiology: - SADI-I use in the setting of UTI - possible pre-renal factors - contrast exposure (CT scan) - vancomycin use (?) * urine electrolytes suggest some degree of prerenal azotemia * renal ultrasound negative * creatinine is bouncing up and down. * continue IV fluids and antibiotics. * Check another renal panel in the morning (2) Altered mental status: Code(s): R41.82 - Altered mental status, unspecified Status: Acute Assessment and Plan: * due to polypharmacy and infection * slow improvement noted * follow mentation (3) UTI (urinary tract infection): Qualifiers: Hematuria presence: without hematuria Urinary tract infection type: site unspecified Qualified Code(s): N39.0 - Urinary tract infection, site not specified Code(s): N39.0 - Urinary tract infection, site not specified Status: Acute Assessment and Plan: * ESBL E.coli by urine culture * on her Dipentum (4) Hypertension: Code(s): I10 - Essential (primary) hypertension Status: Chronic Assessment and Plan: * has been fluctuating since admission * reasonable control at this time (5) Diabetes: Code(s): E11.9 - Type 2 diabetes mellitus without complications Status: Chronic Assessment and Plan: * follow accuchecks * glycemic control Subjective Date/time seen: 12/05/20 10:33 Interval history: Patient feels okay today. No chest pain or shortness of breath Exam Narrative: General: WD/WN female in NAD Heart: normal S1 and S2; no rub Lungs: clear to auscultation Abdomen: soft, nontender, nondistended, positive bowel sounds Extremities: no edema Skin: no rash Objective Data Vital Signs Vital Signs: Vital Signs - 24 hr 12/04/20 14:00 12/04/20 21:04 12/04/20 22:00 Temperature 36.9 C 36.7 C Pulse Rate 85 64 64 Respiratory Rate 24 H 16 Blood Pressure 153/70 H 139/67 Pulse Oximetry 92 97 12/05/20 06:00 Temperature 36.6 C Pulse Rate 59 L Respiratory Rate 16 Blood Pressure 152/67 H Pulse Oximetry 100 Intake/Output Intake/Output: Intake & Output 12/02/20 12/03/20 12/04/20 12/05/20 23:59 23:59 23:59 23:59 Intake Total 426 507 6181 1000 Output Total 950 250 Balance 361 727 2100 750 Meds/Results Medications: Active Medications Generic Name Dose Route Start Last Admin Trade Name Freq PRN Reason Stop Dose Admin Acetaminophen 650 mg 11/25/20 04:03 12/03/20 15:24 Acetaminophen 325 Mg Tablet PO 650 mg Q6H PRN Administration Pain (Scale Score 1-3) Hydrocodone Bitart/Acetaminophen 1 tab 12/03/20 17:28 12/04/20 21:19 Hydrocodone/Acetaminophen (*Crx) 5-325 Mg Tablet PO 1 tab Q8H PRN Administration Pain Rated 4-6 Albuterol 2 puff 11/25/20 04:03 Albuterol Sulfate (*Sp) Aerosol 1 Puff INHALATION Q4H PRN Shortness Of Breath
--- NOTE | 2020-12-05 10:33 | PM.PNNEP ---
Progress Note: A&P Assessment and Plan (1) VALENTINA (acute kidney injury): Code(s): N17.9 - Acute kidney failure, unspecified Status: Acute Assessment and Plan: improvement noted multifactorial etiology: - SADI-I use in the setting of UTI - possible pre-renal factors - contrast exposure (CT scan) - vancomycin use (?) urine electrolytes suggest some degree of prerenal azotemia renal ultrasound negative creatinine is bouncing up and down. continue IV fluids and antibiotics. Check another renal panel in the morning (2) Altered mental status: Code(s): R41.82 - Altered mental status, unspecified Status: Acute Assessment and Plan: due to polypharmacy and infection slow improvement noted follow mentation (3) UTI (urinary tract infection): Qualifiers: Hematuria presence: without hematuria Urinary tract infection type: site unspecified Qualified Code(s): N39.0 - Urinary tract infection, site not specified Code(s): N39.0 - Urinary tract infection, site not specified Status: Acute Assessment and Plan: ESBL E.coli by urine culture on her Dipentum (4) Hypertension: Code(s): I10 - Essential (primary) hypertension Status: Chronic Assessment and Plan: has been fluctuating since admission reasonable control at this time (5) Diabetes: Code(s): E11.9 - Type 2 diabetes mellitus without complications Status: Chronic Assessment and Plan: follow accuchecks glycemic control Subjective Date/time seen: 12/05/20 10:33 Interval history: Patient feels okay today. No chest pain or shortness of breath Exam Narrative: General: WD/WN female in NAD Heart: normal S1 and S2; no rub Lungs: clear to auscultation Abdomen: soft, nontender, nondistended, positive bowel sounds Extremities: no edema Skin: no rash Objective Data Vital Signs Vital Signs: Vital Signs - 24 hr 12/04/20 14:00 12/04/20 21:04 12/04/20 22:00 Temperature 36.9 C 36.7 C Pulse Rate 85 64 64 Respiratory Rate 24 H 16 Blood Pressure 153/70 H 139/67 Pulse Oximetry 92 97 12/05/20 06:00 Temperature 36.6 C Pulse Rate 59 L Respiratory Rate 16 Blood Pressure 152/67 H Pulse Oximetry 100 Intake/Output Intake/Output: Intake & Output 08/13/12/03/20 12/04/20 12/05/20 23:59 23:59 23:59 23:59 Intake Total 679 084 0008 1000 Output Total 950 250 Balance 889 050 4179 750 Meds/Results Medications: Active Medications Generic Name Dose Route Start Last Admin Trade Name Freq PRN Reason Stop Dose Admin Acetaminophen 650 mg 11/25/20 04:03 12/03/20 15:24 Acetaminophen 325 Mg Tablet PO 650 mg Q6H PRN Administration Pain (Scale Score 1-3) Hydrocodone Bitart/Acetaminophen 1 tab 12/03/20 17:28 12/04/20 21:19 Hydrocodone/Acetaminophen (*Crx) 5-325 Mg Tablet PO 1 tab Q8H PRN Administration Pain Rated 4-6 Albuterol 2 puff 11/25/20 04:03 Albuterol Sulfate (*Sp) Aerosol 1 Puff INHALATION Q4H PRN Shortness Of Breath Aspirin 81 mg 11/25/20 08:00 12/05/20 09:21 Aspirin 81 Mg Chewable Tablet PO 81 mg DAILY@0800 TRACI Administration Budesonide/Formoterol Fumarate 2 puff 11/25/20 08:00 12/04/20 22:03 Budesonide/Form 160-4.5 Mcg (*Sp) INHALATION 2 puff Q12HRT TRACI Administration Buspirone HCl 10 mg 11/25/20 09:00 12/05/20 09:22 Buspirone Hcl 10 Mg Tablet PO 10 mg TID TRACI Administration Calcium Carbonate 500 mg 11/25/20 09:00 12/05/20 09:21 Calcium/Vitamin D 500 Mg Tablet PO 12/25/20 09:01 500 mg BID TRACI Administration Carbidopa/Levodopa 1 tablet 11/25/20 08:00 12/05/20 09:23 Carbidopa/Levodopa 25/100 Mg Tablet PO 1 tablet TIDWM TRACI Administration Carvedilol 6.25 mg 12/02/20 09:00 12/05/20 09:22 Carvedilol 6.25 Mg Tablet PO 6.25 mg Q12HR TRACI A
[2020-12-05 13:00] LABS: Glucose Point of Care 218 mg/dl (65-105)
[2020-12-05] MEDS: INSULIN ASPART (*BKC) 100 UNITS/ML SUB-Q ×2 (13:35→17:24)
[2020-12-05 13:50] VITALS: BP 153/77; PULSE 55; RESP 20; TEMP 37.1; O2SAT 98
[2020-12-05 16:48] LABS: Glucose Point of Care 216 mg/dl (65-105)
--- NOTE | 2020-12-05 16:50 | P.PNIM_ITS ---
Progress Note: A&P Assessment and Plan (1) Acute alteration in mental status: Code(s): R41.82 - Altered mental status, unspecified Status: Acute Assessment and Plan: Resolved. [place] to be secondary to UTI and polypharmacy. * She has received treatment for UTI * Benzodiazepines on hold. No evidence of withdrawal symptoms. (2) [id number] kidney injury: Code(s): N17.9 - Acute kidney failure, unspecified; N18.9 - Chronic kidney disease, unspecified Status: Acute Assessment and Plan: Creatinine has been fluctuant. Up to 2.3 today * Appreciate nephrology consultation * Renal US 12/04/20 showed normal kidneys * Holding lisinopril. Vancomycin was discontinued as this may have played a role * Continue with gentle IV fluids (3) UTI (urinary tract infection): Qualifiers: Hematuria presence: without hematuria Urinary tract infection type: site unspecified Qualified Code(s): N39.0 - Urinary tract infection, site not specified Code(s): N39.0 - Urinary tract infection, site not specified Status: Acute Assessment and Plan: Urine culuture with ESBL on 11/25/20 * Initially started on Zosyn * Transitioned to Ertapenem; last dose 12/06/20 * Subsequent cultures negative * Hematuria noted in pan bag. Repeat UA with >75 RBC. Renal US negative as above. May be trauma from Pan, however will monitor closely and consider urology consult (4) COPD (chronic obstructive pulmonary disease): Qualifiers: COPD type: unspecified COPD Qualified Code(s): J44.9 - Chronic obstructive pulmonary disease, unspecified Code(s): J44.9 - Chronic obstructive pulmonary disease, unspecified Status: Acute Assessment and Plan: Not in acute exacerbation. * Continue home inhalers * Maintaining adequate oxygenation on room air (5) Chronic hyponatremia: Code(s): E87.1 - Hypo-osmolality and hyponatremia Status: Acute Assessment and Plan: Sodium 135 today. * Monitor BMP * Abilify on hold * Continue with fluid restriction. * Decrease sodium chloride tabs to 1000 mg daily. Previously 1000 b.i.d. (6) Uncontrolled hypertension: Code(s): I10 - Essential (primary) hypertension Status: Acute Assessment and Plan: Blood pressure reviewed and has been elevated in the 150s consistently. Last BP 153/77. * Continue nifedipine * Lisinopril on hold due to VALENTINA * Monitor BP trends (7) Diabetes: Code(s): E11.9 - Type 2 diabetes mellitus without complications Status: Chronic Assessment and Plan: Last A1c June 2020 was 6.0. She was hypoglycemic this morning at 51. * Lantus was scheduled b.i.d.. Will change this to once daily dosing at night. Lantus 40 q.h.s. * Sliding scale insulin * Continue with Accu-Cheks and hypoglycemic protocol * Check updated A1c Subjective Date/time seen: 12/05/20 16:50 Interval history: Date of service: 12/05/2020 Maribel Alvarez is a 65-year-old female with a history of atrial fibrillation on chronic anticoagulation, COPD, CHF, CVA, diabetes mellitus, hypertension, Parkinson's disease, chronic kidney disease, SUSAN, and several other comorbidities who is seen in follow-up for altered mental status and acute kidney injury. She is feeling well today and has no complaints. Denies nausea, vomiting, fever, or chills. She does endorse dysuria. No suprapubic pain, flank pain, or back pain. Denies abdominal pain. Continues to have hematur
--- NOTE | 2020-12-05 16:50 | PM.IMPN ---
Progress Note: A&P Assessment and Plan (1) Acute alteration in mental status: Code(s): R41.82 - Altered mental status, unspecified Status: Acute Assessment and Plan: Resolved. [place] to be secondary to UTI and polypharmacy. She has received treatment for UTI Benzodiazepines on hold. No evidence of withdrawal symptoms. (2) Pmzvm-zs-tqovcrf kidney injury: Code(s): N17.9 - Acute kidney failure, unspecified; N18.9 - Chronic kidney disease, unspecified Status: Acute Assessment and Plan: Creatinine has been fluctuant. Up to 2.3 today Appreciate nephrology consultation Renal US 12/04/20 showed normal kidneys Holding lisinopril. Vancomycin was discontinued as this may have played a role Continue with gentle IV fluids (3) UTI (urinary tract infection): Qualifiers: Hematuria presence: without hematuria Urinary tract infection type: site unspecified Qualified Code(s): N39.0 - Urinary tract infection, site not specified Code(s): N39.0 - Urinary tract infection, site not specified Status: Acute Assessment and Plan: Urine culuture with ESBL on 11/25/20 Initially started on Zosyn Transitioned to Ertapenem; last dose 12/06/20 Subsequent cultures negative Hematuria noted in pan bag. Repeat UA with >75 RBC. Renal US negative as above. May be trauma from Pan, however will monitor closely and consider urology consult (4) COPD (chronic obstructive pulmonary disease): Qualifiers: COPD type: unspecified COPD Qualified Code(s): J44.9 - Chronic obstructive pulmonary disease, unspecified Code(s): J44.9 - Chronic obstructive pulmonary disease, unspecified Status: Acute Assessment and Plan: Not in acute exacerbation. Continue home inhalers Maintaining adequate oxygenation on room air (5) Chronic hyponatremia: Code(s): E87.1 - Hypo-osmolality and hyponatremia Status: Acute Assessment and Plan: Sodium 135 today. Monitor BMP Abilify on hold Continue with fluid restriction. Decrease sodium chloride tabs to 1000 mg daily. Previously 1000 b.i.d. (6) Uncontrolled hypertension: Code(s): I10 - Essential (primary) hypertension Status: Acute Assessment and Plan: Blood pressure reviewed and has been elevated in the 150s consistently. Last BP 153/77. Continue nifedipine Lisinopril on hold due to VALENTINA Monitor BP trends (7) Diabetes: Code(s): E11.9 - Type 2 diabetes mellitus without complications Status: Chronic Assessment and Plan: Last A1c June 2020 was 6.0. She was hypoglycemic this morning at 51. Lantus was scheduled b.i.d.. Will change this to once daily dosing at night. Lantus 40 q.h.s. Sliding scale insulin Continue with Accu-Cheks and hypoglycemic protocol Check updated A1c Subjective Date/time seen: 12/05/20 16:50 Interval history: Date of service: 12/05/2020 Maribel Alvarez is a 65-year-old female with a history of atrial fibrillation on chronic anticoagulation, COPD, CHF, CVA, diabetes mellitus, hypertension, Parkinson's disease, chronic kidney disease, SUSAN, and several other comorbidities who is seen in follow-up for altered mental status and acute kidney injury. She is feeling well today and has no complaints. Denies nausea, vomiting, fever, or chills. She does endorse dysuria. No suprapubic pain, flank pain, or back pain. Denies abdominal pain. Continues to have hematuria. Appetite has been good. No shortness breath, cough, or chest pain. Denies dizziness or lightheadedness. She was able to get up with a Leroy lift today. She denies increased weakness. No fevers or chills. Review of Systems Review of Systems: All systems reviewed & are unremarkable except as noted in HPI and below Exam Narrative: Ms. Alvarez is an obese, well-appearing 65-year-old female who is lying supine in bed. She appears comfortable and i
[2020-12-05] MEDS: TOLNAFTATE 1% POWDER 45 GM BTL 1 APPLIC TOPICAL (17:25)
[2020-12-05] MEDS: RIVAROXABAN 20 MG TABLET PO (17:28)
[2020-12-05] MEDS: LOVASTATIN 10 MG TABLET PO (17:28)
[2020-12-05 20:30] VITALS: PULSE 62
[2020-12-05] MEDS: ERTAPENEM 1 GM/NS 50 ML 1 GM/50 ML BAG IVPB (20:31)
[2020-12-05] MEDS: INSULIN GLARGINE (*BKC) 100 UNITS/ML 40 UNITS SUB-Q (20:34)
[2020-12-05 20:40] LABS: Glucose Point of Care 216 mg/dl (65-105)
[2020-12-05 22:00] VITALS: BP 135/52; PULSE 63; RESP 18; TEMP 37.2; O2SAT 97
[2020-12-06] VITALS (7 sets, daily range): BP systolic 139–153; BP diastolic 66–70; PULSE 53–62; RESP 18–22; TEMP 36.5–37.1; O2SAT 92–100
[2020-12-06 05:42] LABS: Hematocrit 32.4 % (37.0-47.0); Hemoglobin 9.8 g/dL (12.0-15.0); Mean Corpuscular HGB Conc 30.2 g/dl (32-36); Mean Corpuscular Hemoglobin 29.2 pg (26-34); Mean Corpuscular Volume 96.4 fl (80-100); Mean Platelet Volume 11.1 fl (7.4-10.4); Platelet Count Result 241 k/mm3 (150-375); Red Blood Count 3.36 M/mm3 (4.2-5.4); Red Cell Distribution Width 14.1 % (11.5-14.5); White Blood Count 9.9 K/mm3 (4.5-10.0)
[2020-12-06 05:56] LABS: Albumin Level 2.5 g/dL (3.5-5.1); Anion Gap 5 mmol/L (8-16); Blood Urea Nitrogen 20 mg/dL (7-17); Calcium 8.5 mg/dL (8.4-10.2); Carbon Dioxide 25 mmol/L (22-30); Chloride 103 mmol/L (98-107); Estimated CRCL calculation 32 ml/min; Estimated Glomerular Filt Rate 19; Glucose 89 mg/dL (65-110); Phosphorus 4.3 mg/dL (2.5-4.5); Potassium 4.2 mmol/L (3.4-5.0); Sodium 133 mmol/L (137-145)
[2020-12-06 06:08] LABS: Hemoglobin A1C 6.2 % (<5.7)
--- NOTE | 2020-12-06 07:28 | PM.PNNEP ---
Progress Note: A&P Assessment and Plan (1) VALENTINA (acute kidney injury): Code(s): N17.9 - Acute kidney failure, unspecified Status: Acute Assessment and Plan: acute kidney injury multifactorial etiology: - SADI-I use in the setting of UTI - possible pre-renal factors - contrast exposure (CT scan) - vancomycin use (?) urine electrolytes suggest some degree of prerenal azotemia renal ultrasound negative the creatinine initially improved but now is worsening. She has no rash on her chest and arms to suggest a medication reaction. She has some blood in the urine so will check a CPK. continue IV fluids and antibiotics. Will repeat urine electrolytes. (2) Altered mental status: Code(s): R41.82 - Altered mental status, unspecified Status: Acute Assessment and Plan: This seems improved (3) UTI (urinary tract infection): Qualifiers: Hematuria presence: without hematuria Urinary tract infection type: site unspecified Qualified Code(s): N39.0 - Urinary tract infection, site not specified Code(s): N39.0 - Urinary tract infection, site not specified Status: Acute Assessment and Plan: ESBL E.coli by urine culture on ertapenem (4) Hypertension: Code(s): I10 - Essential (primary) hypertension Status: Chronic Assessment and Plan: has been fluctuating since admission reasonable control at this time (5) Diabetes: Code(s): E11.9 - Type 2 diabetes mellitus without complications Status: Chronic Assessment and Plan: follow accuchecks glycemic control Subjective Date/time seen: 12/06/20 07:28 Interval history: Patient feels okay today. No chest pain or shortness of breath She got up into a chair yesterday with a Leroy lift. She says this is a chronic issue for her Exam Narrative: General: WD/WN female in NAD Heart: normal S1 and S2; no rub or gallop Lungs: clear to auscultation Abdomen: soft, nontender, nondistended, positive bowel sounds Extremities: no edema Skin: no rash or subcu nodules Objective Data Vital Signs Vital Signs: Vital Signs - 24 hr 12/05/20 13:50 12/05/20 20:30 12/05/20 22:00 Temperature 37.1 C 37.2 C Pulse Rate 55 L 62 63 Respiratory Rate 20 18 Blood Pressure 153/77 H 135/52 L Pulse Oximetry 98 97 Intake/Output Intake/Output: Intake & Output 12/03/20 12/04/20 12/05/20 12/06/20 23:59 23:59 23:59 23:59 Intake Total 870 2650 3010 Output Total 950 450 Balance 870 1700 2560 Meds/Results Medications: Active Medications Generic Name Dose Route Start Last Admin Trade Name Freq PRN Reason Stop Dose Admin Acetaminophen 650 mg 11/25/20 04:03 12/03/20 15:24 Acetaminophen 325 Mg Tablet PO 650 mg Q6H PRN Administration Pain (Scale Score 1-3) Hydrocodone Bitart/Acetaminophen 1 tab 12/03/20 17:28 12/04/20 21:19 Hydrocodone/Acetaminophen (*Crx) 5-325 Mg Tablet PO 1 tab Q8H PRN Administration Pain Rated 4-6 Albuterol 2 puff 11/25/20 04:03 Albuterol Sulfate (*Sp) Aerosol 1 Puff INHALATION Q4H PRN Shortness Of Breath Aspirin 81 mg 11/25/20 08:00 12/05/20 09:21 Aspirin 81 Mg Chewable Tablet PO 81 mg DAILY@0800 TRACI Administration Budesonide/Formoterol Fumarate 2 puff 11/25/20 08:00 12/05/20 19:55 Budesonide/Form 160-4.5 Mcg (*Sp) INHALATION 2 puff Q12HRT TRACI Administration Buspirone HCl 10 mg 11/25/20 09:00 12/05/20 17:27 Buspirone Hcl 10 Mg Tablet PO 10 mg TID TRACI Administration Calcium Carbonate 500 mg 11/25/20 09:00 12/05/20 17:26 Calcium/Vitamin D 500 Mg Tablet PO 12/25/20 09:01 500 mg BID TRACI Administration Carbidopa/Levodopa 1 tablet 11/25/20 08:00 12/05/20 17:26 Carbidopa/Levodopa 25/100 Mg Tablet PO 1 tablet TIDWM TRACI Administration Carvedilol 6.25 mg
[2020-12-06 08:10] LABS: Glucose Point of Care 77 mg/dl (65-105)
[2020-12-06] MEDS: CARBIDOPA/LEVODOPA 25/100 MG TABLET 1 TABLET PO ×3 (08:59→16:41)
[2020-12-06] MEDS: busPIRone HCL 10 MG TABLET PO ×3 (08:59→16:41)
[2020-12-06] MEDS: ASPIRIN 81 MG CHEWABLE TABLET PO (08:59)
[2020-12-06] MEDS: ESCITALOPRAM OXALATE 10 MG TABLET 20 MG PO (09:00)
[2020-12-06] MEDS: FLUTICASONE PROPIONATE 0.05% NA SPR 16 GM BTL (*BKC) 1 SPRAY NASAL (09:00)
[2020-12-06] MEDS: carvediloL 6.25 MG TABLET PO ×2 (09:00→21:03)
[2020-12-06] MEDS: MAGNESIUM OXIDE 400 MG TABLET PO ×2 (09:00→16:43)
[2020-12-06] MEDS: LORATADINE 10 MG TABLET PO (09:00)
[2020-12-06] MEDS: PANTOPRAZOLE 40 MG TABLET PO (09:01)
[2020-12-06] MEDS: SODIUM CHLORIDE 1 GM TABLET PO (09:01)
[2020-12-06] MEDS: MULTIVITAMINS THERAPEUTIC TAB (*BKC) 1 TABLET PO (09:01)
[2020-12-06] MEDS: OXcarbazepine 300 MG TABLET 600 MG PO ×2 (09:01→16:41)
[2020-12-06] MEDS: NIFEdipine 30 MG TAB.ER.24 60 MG PO ×2 (09:01→21:02)
[2020-12-06 10:52] LABS: Total Protein Urine Random 70 mg/dL; Ur Ttl Prot Creatinine Ratio 1.23 mg/mg (0-0.20)
[2020-12-06 10:53] LABS: Creatine Kinase < 20 U/L (30-135)
[2020-12-06 11:11] LABS: Sodium Urine Random 97 meq/L
--- NOTE | 2020-12-06 11:31 | P.PNIM_ITS ---
Progress Note: A&P Assessment and Plan (1) Acute alteration in mental status: Code(s): R41.82 - Altered mental status, unspecified Status: Acute Assessment and Plan: Resolved. [place] to be secondary to UTI and polypharmacy. * She has received treatment for UTI * Benzodiazepines on hold. No evidence of withdrawal symptoms. (2) Zktbs-gy-kedthsm kidney injury: Code(s): N17.9 - Acute kidney failure, unspecified; N18.9 - Chronic kidney disease, unspecified Status: Acute Assessment and Plan: Baseline creatinine has been around 1.3. Creatinine has been rising and is up to 2.5 today * Appreciate nephrology consultation * Renal US 12/04/20 showed normal kidneys * Holding lisinopril. Vancomycin was discontinued as this may have caused kidney injury * Continue with gentle IV fluids * Check CK and urine electrolytes per nephrology recommendations (3) UTI (urinary tract infection): Qualifiers: Hematuria presence: without hematuria Urinary tract infection type: site unspecified Qualified Code(s): N39.0 - Urinary tract infection, site not specified Code(s): N39.0 - Urinary tract infection, site not specified Status: Acute Assessment and Plan: Urine culuture with ESBL on 11/25/20 * Initially started on Zosyn * Transitioned to Ertapenem; will complete today * Subsequent cultures collected on 11/30/20 negative * Hematuria noted in pan bag. Repeat UA with >75 RBC. Renal US negative as above. May be trauma from Pan and hematuria appears to be resolving today. * Continue with pan catheter which was initiated on 12/03 for accurate I&O. Plan to discontinue when okay with nephrology and proceed with voiding trial. (4) Chronic hyponatremia: Code(s): E87.1 - Hypo-osmolality and hyponatremia Status: Acute Assessment and Plan: Sodium 133 today. * Monitor BMP * Will hold escitalopram and abilfy * Continue with fluid restriction 1200 cc. * Continue with sodium chloride tabs 1000 mg daily (5) COPD (chronic obstructive pulmonary disease): Qualifiers: COPD type: unspecified COPD Qualified Code(s): J44.9 - Chronic obstructive pulmonary disease, unspecified Code(s): J44.9 - Chronic obstructive pulmonary disease, unspecified Status: Acute Assessment and Plan: Not in acute exacerbation. * Continue home inhalers * Maintaining adequate oxygenation on room air (6) Uncontrolled hypertension: Code(s): I10 - Essential (primary) hypertension Status: Acute Assessment and Plan: Blood pressure reviewed and has been elevated mostly in the 150s. Last BP 135/52. * Continue nifedipine * Lisinopril on hold due to [place] * Monitor BP trends (7) Diabetes: Code(s): E11.9 - Type 2 diabetes mellitus without complications Status: Chronic Assessment and Plan: A1c is 6.2. She had an episode of hypoglycemia on 12/05. * Decrease Lantus to 35 units qHS. Previously scheduled BID, this has been changed to once daily dosing * Sliding scale insulin * Continue with Accu-Cheks and hypoglycemic protocol * Ozempic on hold; nonformulary. Subjective Date/time seen: 12/06/20 11:31 Interval history: Date of service: 12/06/2020 Maribel Alvarez is a 65-year-old female with a history of atrial fibrillation on chronic anticoagulation, COPD, CHF, CVA, diabetes mellitus, hypertension, Parkinson's disease, chronic kidney disease, SUSAN, and several other comorbidities w
--- NOTE | 2020-12-06 11:31 | PM.IMPN ---
Progress Note: A&P Assessment and Plan (1) Acute alteration in mental status: Code(s): R41.82 - Altered mental status, unspecified Status: Acute Assessment and Plan: Resolved. [place] to be secondary to UTI and polypharmacy. She has received treatment for UTI Benzodiazepines on hold. No evidence of withdrawal symptoms. (2) Qxbst-yd-swaesfi kidney injury: Code(s): N17.9 - Acute kidney failure, unspecified; N18.9 - Chronic kidney disease, unspecified Status: Acute Assessment and Plan: Baseline creatinine has been around 1.3. Creatinine has been rising and is up to 2.5 today Appreciate nephrology consultation Renal US 12/04/20 showed normal kidneys Holding lisinopril. Vancomycin was discontinued as this may have caused kidney injury Continue with gentle IV fluids Check CK and urine electrolytes per nephrology recommendations (3) UTI (urinary tract infection): Qualifiers: Hematuria presence: without hematuria Urinary tract infection type: site unspecified Qualified Code(s): N39.0 - Urinary tract infection, site not specified Code(s): N39.0 - Urinary tract infection, site not specified Status: Acute Assessment and Plan: Urine culuture with ESBL on 11/25/20 Initially started on Zosyn Transitioned to Ertapenem; will complete today Subsequent cultures collected on 11/30/20 negative Hematuria noted in pan bag. Repeat UA with >75 RBC. Renal US negative as above. May be trauma from Pan and hematuria appears to be resolving today. Continue with pan catheter which was initiated on 12/03 for accurate I&O. Plan to discontinue when okay with nephrology and proceed with voiding trial. (4) Chronic hyponatremia: Code(s): E87.1 - Hypo-osmolality and hyponatremia Status: Acute Assessment and Plan: Sodium 133 today. Monitor BMP Will hold escitalopram and abilfy Continue with fluid restriction 1200 cc. Continue with sodium chloride tabs 1000 mg daily (5) COPD (chronic obstructive pulmonary disease): Qualifiers: COPD type: unspecified COPD Qualified Code(s): J44.9 - Chronic obstructive pulmonary disease, unspecified Code(s): J44.9 - Chronic obstructive pulmonary disease, unspecified Status: Acute Assessment and Plan: Not in acute exacerbation. Continue home inhalers Maintaining adequate oxygenation on room air (6) Uncontrolled hypertension: Code(s): I10 - Essential (primary) hypertension Status: Acute Assessment and Plan: Blood pressure reviewed and has been elevated mostly in the 150s. Last BP 135/52. Continue nifedipine Lisinopril on hold due to [place] Monitor BP trends (7) Diabetes: Code(s): E11.9 - Type 2 diabetes mellitus without complications Status: Chronic Assessment and Plan: A1c is 6.2. She had an episode of hypoglycemia on 12/05. Decrease Lantus to 35 units qHS. Previously scheduled BID, this has been changed to once daily dosing Sliding scale insulin Continue with Accu-Cheks and hypoglycemic protocol Ozempic on hold; nonformulary. Subjective Date/time seen: 12/06/20 11:31 Interval history: Date of service: 12/06/2020 Maribel Alvarez is a 65-year-old female with a history of atrial fibrillation on chronic anticoagulation, COPD, CHF, CVA, diabetes mellitus, hypertension, Parkinson's disease, chronic kidney disease, SUSAN, and several other comorbidities who is seen in follow-up for UTI and acute kidney injury. She is doing well today. She was feeling pretty tired this morning but is more awake now. She had a good breakfast. She denies abdominal pain. No nausea, vomiting, fever, or chills. She has been having regular bowel movements. No issues with her Pan catheter. Has not noticed any more blood in her catheter. No shortness breath, cough, or chest pain. Denies dizziness or lightheadedness. She does complain of
[2020-12-06] MEDS: TOLNAFTATE 1% POWDER 45 GM BTL 1 APPLIC TOPICAL ×2 (12:05→21:03)
[2020-12-06 12:06] LABS: Glucose Point of Care 119 mg/dl (65-105)
[2020-12-06] MEDS: SODIUM CHLORIDE 0.9% IV 1,000 ML 75 ML IV CONT (16:38)
[2020-12-06] MEDS: RIVAROXABAN 20 MG TABLET PO (16:42)
[2020-12-06] MEDS: LOVASTATIN 10 MG TABLET PO (16:42)
[2020-12-06 16:45] LABS: Glucose Point of Care 143 mg/dl (65-105)
[2020-12-06 19:05] LABS: Glucose Point of Care 153 mg/dl (65-105)
[2020-12-06] MEDS: INSULIN GLARGINE (*BKC) 100 UNITS/ML 35 UNITS SUB-Q (20:37)
[2020-12-06] MEDS: ERTAPENEM 1 GM/NS 50 ML 1 GM/50 ML BAG IVPB (21:03)
[2020-12-07] VITALS (9 sets, daily range): BP systolic 148–155; BP diastolic 71–97; PULSE 60–66; RESP 16–18; TEMP 36.4–36.7; O2SAT 93–100
[2020-12-07 05:35] LABS: Hemoglobin 9.7 g/dL (12.0-15.0); Mean Corpuscular HGB Conc 30.3 g/dl (32-36); Mean Corpuscular Hemoglobin 28.8 pg (26-34); Mean Platelet Volume 10.6 fl (7.4-10.4); Platelet Count Result 240 k/mm3 (150-375); Red Blood Count 3.37 M/mm3 (4.2-5.4); Red Cell Distribution Width 13.9 % (11.5-14.5); White Blood Count 9.4 K/mm3 (4.5-10.0)
[2020-12-07 06:21] LABS: Albumin Level 2.6 g/dL (3.5-5.1); Anion Gap 6 mmol/L (8-16); Blood Urea Nitrogen 22 mg/dL (7-17); Calcium 8.8 mg/dL (8.4-10.2); Carbon Dioxide 25 mmol/L (22-30); Chloride 108 mmol/L (98-107); Estimated CRCL calculation 33 ml/min; Estimated Glomerular Filt Rate 20; Glucose 64 mg/dL (65-110); Phosphorus 4.5 mg/dL (2.5-4.5); Potassium 4.5 mmol/L (3.4-5.0); Sodium 139 mmol/L (137-145)
--- NOTE | 2020-12-07 07:24 | P.PNNP_ITS ---
Progress Note: A&P Assessment and Plan (1) [place] (acute kidney injury): Code(s): N17.9 - Acute kidney failure, unspecified Status: Acute Assessment and Plan: * acute kidney injury * multifactorial etiology: - SADI-I use in the setting of UTI - possible pre-renal factors - contrast exposure (CT scan) - vancomycin use (?) * urine electrolytes suggest some degree of prerenal azotemia * renal ultrasound negative * the creatinine initially improved, then worsened, and now stabilized. * She has no rash on her chest and arms to suggest a medication reaction. * She has some blood in the urine but this CPK is normal. * Urine electrolytes are non pre renal. * Patient is not eating all that well. Only if it is tasty * continue IV fluids and antibiotics. (2) Altered mental status: Code(s): R41.82 - Altered mental status, unspecified Status: Acute Assessment and Plan: * This seems improved (3) UTI (urinary tract infection): Qualifiers: Hematuria presence: without hematuria Urinary tract infection type: site unspecified Qualified Code(s): N39.0 - Urinary tract infection, site not specified Code(s): N39.0 - Urinary tract infection, site not specified Status: Acute Assessment and Plan: * ESBL E.coli by urine culture * finish the aorta pen [place]. (4) Hypertension: Code(s): I10 - Essential (primary) hypertension Status: Chronic Assessment and Plan: * Blood pressure ranging between 130 and 155. * I do not over control this because of the acute kidney injury. (5) Diabetes: Code(s): E11.9 - Type 2 diabetes mellitus without complications Status: Chronic Assessment and Plan: * follow accuchecks * glycemic control Subjective Date/time seen: 12/07/20 07:24 Interval history: Patient feels okay today. No chest pain or shortness of breath She got up into a chair yesterday with a Leroy lift. She says this is a chronic issue for her. Exam Narrative: General: WD/WN female in NAD Heart: normal S1 and S2; no rub or gallop Lungs: clear Abdomen: soft, nontender, nondistended, positive bowel sounds Extremities: no edema or cyanosis Skin: no rash or subcu nodules Objective Data Vital Signs Vital Signs: Vital Signs - 24 hr 12/06/20 09:00 12/06/20 15:24 12/06/20 20:00 Temperature 36.5 C Pulse Rate 60 53 L 62 Respiratory Rate 22 H 18 Blood Pressure 151/66 H Pulse Oximetry 100 98 12/06/20 21:03 12/06/20 21:14 12/06/20 22:00 Temperature 36.7 C Pulse Rate 53 L 62 62 Respiratory Rate 18 Blood Pressure 153/70 H Pulse Oximetry 98 98 12/07/20 06:00 Temperature 36.7 C Pulse Rate 60 Respiratory Rate 18 Blood Pressure 155/73 H Pulse Oximetry 100 Intake/Output Intake/Output: Intake & Output 12/04/20 12/05/20 12/06/20 12/07/20 23:59 23:59 23:59 23:59 Intake Total 2650 3010 1600 100 Output Total 950 450 600 950 Balance 1700 2560 1000 -850 Meds/Results Medications: Active Medications Generic Name Dose Route Start Last Admin
--- NOTE | 2020-12-07 07:24 | PM.PNNEP ---
Progress Note: A&P Assessment and Plan (1) [place] (acute kidney injury): Code(s): N17.9 - Acute kidney failure, unspecified Status: Acute Assessment and Plan: acute kidney injury multifactorial etiology: - SADI-I use in the setting of UTI - possible pre-renal factors - contrast exposure (CT scan) - vancomycin use (?) urine electrolytes suggest some degree of prerenal azotemia renal ultrasound negative the creatinine initially improved, then worsened, and now stabilized. She has no rash on her chest and arms to suggest a medication reaction. She has some blood in the urine but this CPK is normal. Urine electrolytes are non pre renal. Patient is not eating all that well. Only if it is tasty continue IV fluids and antibiotics. (2) Altered mental status: Code(s): R41.82 - Altered mental status, unspecified Status: Acute Assessment and Plan: This seems improved (3) UTI (urinary tract infection): Qualifiers: Hematuria presence: without hematuria Urinary tract infection type: site unspecified Qualified Code(s): N39.0 - Urinary tract infection, site not specified Code(s): N39.0 - Urinary tract infection, site not specified Status: Acute Assessment and Plan: ESBL E.coli by urine culture finish the [facility]. (4) Hypertension: Code(s): I10 - Essential (primary) hypertension Status: Chronic Assessment and Plan: Blood pressure ranging between 130 and 155. I do not over control this because of the acute kidney injury. (5) Diabetes: Code(s): E11.9 - Type 2 diabetes mellitus without complications Status: Chronic Assessment and Plan: follow accuchecks glycemic control Subjective Date/time seen: 12/07/20 07:24 Interval history: Patient feels okay today. No chest pain or shortness of breath She got up into a chair yesterday with a Leroy lift. She says this is a chronic issue for her. Exam Narrative: General: WD/WN female in NAD Heart: normal S1 and S2; no rub or gallop Lungs: clear Abdomen: soft, nontender, nondistended, positive bowel sounds Extremities: no edema or cyanosis Skin: no rash or subcu nodules Objective Data Vital Signs Vital Signs: Vital Signs - 24 hr 12/06/20 09:00 12/06/20 15:24 12/06/20 20:00 Temperature 36.5 C Pulse Rate 60 53 L 62 Respiratory Rate 22 H 18 Blood Pressure 151/66 H Pulse Oximetry 100 98 12/06/20 21:03 12/06/20 21:14 12/06/20 22:00 Temperature 36.7 C Pulse Rate 53 L 62 62 Respiratory Rate 18 Blood Pressure 153/70 H Pulse Oximetry 98 98 12/07/20 06:00 Temperature 36.7 C Pulse Rate 60 Respiratory Rate 18 Blood Pressure 155/73 H Pulse Oximetry 100 Intake/Output Intake/Output: Intake & Output 12/04/20 12/05/20 12/06/20 12/07/20 23:59 23:59 23:59 23:59 Intake Total 2650 3010 1600 100 Output Total 950 450 600 950 Balance 1700 2560 1000 -850 Meds/Results Medications: Active Medications Generic Name Dose Route Start Last Admin Trade Name Freq PRN Reason Stop Dose Admin Acetaminophen 650 mg 11/25/20 04:03 12/03/20 15:24 Acetaminophen 325 Mg Tablet PO 650 mg Q6H PRN Administration Pain (Scale Score 1-3) Hydrocodone Bitart/Acetaminophen 1 tab 12/03/20 17:28 12/04/20 21:19 Hydrocodone/Acetaminophen (*Crx) 5-325 Mg Tablet PO 1 tab Q8H PRN Administration Pain Rated 4-6 Albuterol 2 puff 11/25/20 04:03 Albuterol Sulfate (*Sp) Aerosol 1 Puff INHALATION Q4H PRN Shortness Of Breath Aspirin 81 mg 11/25/20 08:00 12/06/20 08:59 Aspirin 81 Mg Chewable Tablet PO 81 mg DAILY@0800 TRACI Administration Budesonide/Formoterol Fumarate 2 puff 11/25/20 08:00 12/06/20 21:12 Budesonide/Form 160-4.5 Mcg (*Sp) INHALATION 2 puff Q12HRT TRACI Administration Bu
[2020-12-07 08:10] LABS: Glucose Point of Care 60 mg/dl (65-105)
--- NOTE | 2020-12-07 09:00 | PC.NURSE ---
Patients blood sugar at 0900 was 49. Patient awake, alert, no complaints. She refused the PRN glucose gel that was ordered per hypoglycemic protocol. Therefore, she was given applejuice. Pts blood sugar increased to 73. Will monitor and notify hospitalist.
[2020-12-07] MEDS: ASPIRIN 81 MG CHEWABLE TABLET PO (09:07)
[2020-12-07] MEDS: CARBIDOPA/LEVODOPA 25/100 MG TABLET 1 TABLET PO ×3 (09:07→17:20)
[2020-12-07] MEDS: carvediloL 6.25 MG TABLET PO ×2 (09:08→21:00)
[2020-12-07] MEDS: FLUTICASONE PROPIONATE 0.05% NA SPR 16 GM BTL (*BKC) 1 SPRAY NASAL (09:08)
[2020-12-07] MEDS: busPIRone HCL 10 MG TABLET PO ×3 (09:08→17:19)
[2020-12-07] MEDS: PANTOPRAZOLE 40 MG TABLET PO (09:09)
[2020-12-07] MEDS: MULTIVITAMINS THERAPEUTIC TAB (*BKC) 1 TABLET PO (09:09)
[2020-12-07] MEDS: MAGNESIUM OXIDE 400 MG TABLET PO ×2 (09:09→17:20)
[2020-12-07] MEDS: OXcarbazepine 300 MG TABLET 600 MG PO ×2 (09:09→17:19)
[2020-12-07] MEDS: NIFEdipine 30 MG TAB.ER.24 60 MG PO ×2 (09:09→20:59)
[2020-12-07 09:38] LABS: Glucose Point of Care 49 mg/dl (65-105)
[2020-12-07 09:38] LABS: Glucose Point of Care 73 mg/dl (65-105)
[2020-12-07] MEDS: LORATADINE 10 MG TABLET PO (10:58)
[2020-12-07] MEDS: TOLNAFTATE 1% POWDER 45 GM BTL 1 APPLIC TOPICAL ×2 (10:58→21:00)
[2020-12-07 11:58] LABS: Glucose Point of Care 97 mg/dl (65-105)
--- NOTE | 2020-12-07 13:03 | PC.NURSE ---
Patient to NM. IV saline locked.
[2020-12-07] MEDS: SODIUM CHLORIDE 0.9% IV 1,000 ML 75 ML IV CONT (14:46)
--- NOTE | 2020-12-07 16:29 | P.PNIM_ITS ---
Progress Note: A&P Assessment and Plan (1) Acute alteration in mental status: Code(s): R41.82 - Altered mental status, unspecified Status: Acute Assessment and Plan: Resolved. [place] to be secondary to UTI and polypharmacy. * She has received treatment for UTI * Benzodiazepines on hold. No evidence of withdrawal symptoms. (2) Npfpc-za-iywkspt kidney injury: Code(s): N17.9 - Acute kidney failure, unspecified; N18.9 - Chronic kidney disease, unspecified Status: Acute Assessment and Plan: Baseline creatinine has been around 1.3. Creatinine [place] up to 2.5 and remaining stable there. * Appreciate nephrology consultation * Renal US 12/04/20 showed normal kidneys * Holding lisinopril. Vancomycin was discontinued as this may have caused kidney injury * Continue gentle IV fluids. Monitor volume status. * Nuclear med renal scan performed today; awaiting results (3) UTI (urinary tract infection): Qualifiers: Hematuria presence: without hematuria Urinary tract infection type: site unspecified Qualified Code(s): N39.0 - Urinary tract infection, site not specified Code(s): N39.0 - Urinary tract infection, site not specified Status: Acute Assessment and Plan: Urine culuture with ESBL on 11/25/20 * Initially started on Zosyn * Transitioned to Ertapenem completed on 12/06/20. * Subsequent cultures collected on 11/30/20 negative * Previously noted of hematuria in Martel bag, which was likely due to trauma from Martel. Will discontinue Martel catheter today and proceed with voiding trial. (4) Chronic hyponatremia: Code(s): E87.1 - Hypo-osmolality and hyponatremia Status: Acute Assessment and Plan: Sodium 139 today. * Monitor BMP * Will hold escitalopram and abilfy * Continue with fluid restriction 1200 cc. * Sodium chloride tabs discontinued (5) COPD (chronic obstructive pulmonary disease): Qualifiers: COPD type: unspecified COPD Qualified Code(s): J44.9 - Chronic obst ructive pulmonary disease, unspecified Code(s): J44.9 - Chronic obstructive pulmonary disease, unspecified Status: Acute Assessment and Plan: Not in acute exacerbation. * Continue home inhalers * Maintaining adequate oxygenation on room air (6) Uncontrolled hypertension: Code(s): I10 - Essential (primary) hypertension Status: Acute Assessment and Plan: Blood pressure reviewed and has been elevated mostly in the 150s. Last BP 148/97 * Continue nifedipine * Lisinopril on hold due to VALENTINA * Monitor BP trends (7) Diabetes: Code(s): E11.9 - Type 2 diabetes mellitus without complications Status: Chronic Assessment and Plan: A1c is 6.2. She had an episode of hypoglycemia on 12/05 and again this morning at 49. * Will discontinue Lantus and see what her AM fasting glucose is tomorrow. * Continue with sliding scale insulin * Accu-Cheks and hypoglycemic protocol * Ozempic on hold; nonformulary. (8) Positive blood culture: Code(s): R78.81 - Bacteremia Status: Acute Assessment and Plan: On 11/25/2020, she had 1/2 blood cultures with coag-negative Staphylococcus and 2/2 blood cultures positive for pseudopropionibacterium.bacterium. * Based on clinical symptoms, likely a contaminant * She did complete 7 days of IV Zosyn, however for ESBL UTI * Subsequent blood cultures collected 11/26/20 were negative. Subjective
--- NOTE | 2020-12-07 16:29 | PM.IMPN ---
Progress Note: A&P Assessment and Plan (1) Acute alteration in mental status: Code(s): R41.82 - Altered mental status, unspecified Status: Acute Assessment and Plan: Resolved. [place] to be secondary to UTI and polypharmacy. She has received treatment for UTI Benzodiazepines on hold. No evidence of withdrawal symptoms. (2) Nbslx-hl-lgpkmld kidney injury: Code(s): N17.9 - Acute kidney failure, unspecified; N18.9 - Chronic kidney disease, unspecified Status: Acute Assessment and Plan: Baseline creatinine has been around 1.3. Creatinine [place] up to 2.5 and remaining stable there. Appreciate nephrology consultation Renal US 12/04/20 showed normal kidneys Holding lisinopril. Vancomycin was discontinued as this may have caused kidney injury Continue gentle IV fluids. Monitor volume status. Nuclear med renal scan performed today; awaiting results (3) UTI (urinary tract infection): Qualifiers: Hematuria presence: without hematuria Urinary tract infection type: site unspecified Qualified Code(s): N39.0 - Urinary tract infection, site not specified Code(s): N39.0 - Urinary tract infection, site not specified Status: Acute Assessment and Plan: Urine culuture with ESBL on 11/25/20 Initially started on Zosyn Transitioned to Ertapenem completed on 12/06/20. Subsequent cultures collected on 11/30/20 negative Previously noted of hematuria in Martel bag, which was likely due to trauma from Martel. Will discontinue Martel catheter today and proceed with voiding trial. (4) Chronic hyponatremia: Code(s): E87.1 - Hypo-osmolality and hyponatremia Status: Acute Assessment and Plan: Sodium 139 today. Monitor BMP Will hold escitalopram and abilfy Continue with fluid restriction 1200 cc. Sodium chloride tabs discontinued (5) COPD (chronic obstructive pulmonary disease): Qualifiers: COPD type: unspecified COPD Qualified Code(s): J44.9 - Chronic obstructive pulmonary disease, unspecified Code(s): J44.9 - Chronic obstructive pulmonary disease, unspecified Status: Acute Assessment and Plan: Not in acute exacerbation. Continue home inhalers Maintaining adequate oxygenation on room air (6) Uncontrolled hypertension: Code(s): I10 - Essential (primary) hypertension Status: Acute Assessment and Plan: Blood pressure reviewed and has been elevated mostly in the 150s. Last BP 148/97 Continue nifedipine Lisinopril on hold due to [place] Monitor BP trends (7) Diabetes: Code(s): E11.9 - Type 2 diabetes mellitus without complications Status: Chronic Assessment and Plan: A1c is 6.2. She had an episode of hypoglycemia on 12/05 and again this morning at 49. Will discontinue Lantus and see what her AM fasting glucose is tomorrow. Continue with sliding scale insulin Accu-Cheks and hypoglycemic protocol Ozempic on hold; nonformulary. (8) Positive blood culture: Code(s): R78.81 - Bacteremia Status: Acute Assessment and Plan: On 11/25/2020, she had 1/2 blood cultures with coag-negative Staphylococcus and 2/2 blood cultures positive for pseudopropionibacterium.bacterium. Based on clinical symptoms, likely a contaminant She did complete 7 days of IV Zosyn, however for ESBL UTI Subsequent blood cultures collected 11/26/20 were negative. Subjective Date/time seen: 12/07/20 16:29 Interval history: Date of service: 12/07/2020 Maribel Alvarez is a 65-year-old female with a history of atrial fibrillation on chronic anticoagulation, COPD, CHF, CVA, diabetes mellitus, hypertension, Parkinson's disease, chronic kidney disease, SUSAN, and several other comorbidities who is seen in follow-up for UTI and acute kidney injury. She is feeling well today. She has had some loose stools and reports approximately 3 episodes today. Denies nausea or vomi
[2020-12-07 16:59] LABS: Glucose Point of Care 126 mg/dl (65-105)
[2020-12-07] MEDS: RIVAROXABAN 20 MG TABLET PO (17:20)
[2020-12-07] MEDS: LOVASTATIN 10 MG TABLET PO (17:20)
[2020-12-07] MEDS: ACETAMINOPHEN 325 MG TABLET 650 MG PO (20:59)
[2020-12-07 21:21] LABS: Glucose Point of Care 137 mg/dl (65-105)
[2020-12-08 05:58] VITALS: BP 161/69; PULSE 64; RESP 16; TEMP 36.2; O2SAT 98
[2020-12-08 06:05] LABS: Hematocrit 32.6 % (37.0-47.0); Hemoglobin 10.1 g/dL (12.0-15.0); Mean Corpuscular Hemoglobin 28.6 pg (26-34); Mean Corpuscular Volume 92.4 fl (80-100); Mean Platelet Volume 10.5 fl (7.4-10.4); Platelet Count Result 232 k/mm3 (150-375); Red Blood Count 3.53 M/mm3 (4.2-5.4); Red Cell Distribution Width 13.6 % (11.5-14.5); White Blood Count 9.2 K/mm3 (4.5-10.0)
[2020-12-08 06:20] LABS: Albumin Level 2.8 g/dL (3.5-5.1); Anion Gap 6 mmol/L (8-16); Blood Urea Nitrogen 22 mg/dL (7-17); Carbon Dioxide 24 mmol/L (22-30); Chloride 107 mmol/L (98-107); Estimated CRCL calculation 35 ml/min; Estimated Glomerular Filt Rate 21; Glucose 127 mg/dL (65-110); Phosphorus 4.3 mg/dL (2.5-4.5); Potassium 4.3 mmol/L (3.4-5.0); Sodium 137 mmol/L (137-145)
--- NOTE | 2020-12-08 07:37 | P.PNNP_ITS ---
Progress Note: A&P Assessment and Plan (1) [place] (acute kidney injury): Code(s): N17.9 - Acute kidney failure, unspecified Status: Acute Assessment and Plan: * acute kidney injury * multifactorial etiology: - SADI-I use in the setting of UTI - possible pre-renal factors - contrast exposure (CT scan) - vancomycin use (?) * urine electrolytes suggest some degree of prerenal azotemia * renal ultrasound negative * the creatinine initially improved, then worsened, and now stabilized. * Renal scan shows uptake without excretion. * This is most likely ATN. This is related to the above issues and infection. * She is eating well she says. Will stop the IV fluids. (2) Altered mental status: Code(s): R41.82 - Altered mental status, unspecified Status: Acute Assessment and Plan: * This seems improved (3) UTI (urinary tract infection): Qualifiers: Hematuria presence: without hematuria Urinary tract infection type: site unspecified Qualified Code(s): N39.0 - Urinary tract infection, site not specified Code(s): N39.0 - Urinary tract infection, site not specified Status: Acute Assessment and Plan: * ESBL E.coli by urine culture * finish the (4) Hypertension: Code(s): I10 - Essential (primary) hypertension Status: Chronic Assessment and Plan: * Blood pressure ranging between 130 and 155. * I do not over control this because of the acute kidney injury. (5) Diabetes: Code(s): E11.9 - Type 2 diabetes mellitus without complications Status: Chronic Assessment and Plan: * follow accuchecks * glycemic control Subjective Date/time seen: 12/08/20 07:37 Interval history: Patient feels okay today. No chest pain or shortness of breath Slept well last night Exam Narrative: General: WD/WN female in NAD Heart: normal S1 and S2; no rub or gallop Lungs: clear bilaterally Abdomen: soft, nontender, nondistended, positive bowel sounds Extremities: no edema or cyanosis Skin: no rash or subcu nodules Objective Data Vital Signs Vital Signs: Vital Signs - 24 hr 12/07/20 08:36 12/07/20 09:08 12/07/20 14:00 Temperature 36.6 C Pulse Rate 63 60 61 Respiratory Rate 18 Blood Pressure 148/97 H Pulse Oximetry 93 100 12/07/20 20:00 12/07/20 20:55 12/07/20 20:57 Temperature Pulse Rate 65 62 66 Respiratory Rate 18 Blood Pressure Pulse Oximetry 96 96 12/07/20 21:00 12/07/20 22:00 12/08/20 05:58 Temperature 36.4 C L 36.2 C L Pulse Rate 65 65 64 Respiratory Rate 16 16 Blood Pressure 149/71 H 161/69 H Pulse Oximetry 96 98 Intake/Output Intake/Output: Intake & Output 12/05/20 12/06/20 12/07/20 12/08/20 23:59 23:59 23:59 23:59 Intake Total 3010 1600 1820 240 Output Total 791 015 7869 450 Balance 2560 1000 20 -210 Meds/Results Medications: Active Medications Generic Name Dose Route Start Last Admin Trade Name Freq PRN Reason Stop Dose Admin Acetaminophen 650 mg 11/25/20 04:03 12/07/20 20:59 Acetaminophen 325
--- NOTE | 2020-12-08 07:37 | PM.PNNEP ---
Progress Note: A&P Assessment and Plan (1) [place] (acute kidney injury): Code(s): N17.9 - Acute kidney failure, unspecified Status: Acute Assessment and Plan: acute kidney injury multifactorial etiology: - SADI-I use in the setting of UTI - possible pre-renal factors - contrast exposure (CT scan) - vancomycin use (?) urine electrolytes suggest some degree of prerenal azotemia renal ultrasound negative the creatinine initially improved, then worsened, and now stabilized. Renal scan shows uptake without excretion. This is most likely ATN. This is related to the above issues and infection. She is eating well she says. Will stop the IV fluids. (2) Altered mental status: Code(s): R41.82 - Altered mental status, unspecified Status: Acute Assessment and Plan: This seems improved (3) UTI (urinary tract infection): Qualifiers: Hematuria presence: without hematuria Urinary tract infection type: site unspecified Qualified Code(s): N39.0 - Urinary tract infection, site not specified Code(s): N39.0 - Urinary tract infection, site not specified Status: Acute Assessment and Plan: ESBL E.coli by urine culture finish the (4) Hypertension: Code(s): I10 - Essential (primary) hypertension Status: Chronic Assessment and Plan: Blood pressure ranging between 130 and 155. I do not over control this because of the acute kidney injury. (5) Diabetes: Code(s): E11.9 - Type 2 diabetes mellitus without complications Status: Chronic Assessment and Plan: follow accuchecks glycemic control Subjective Date/time seen: 12/08/20 07:37 Interval history: Patient feels okay today. No chest pain or shortness of breath Slept well last night Exam Narrative: General: WD/WN female in NAD Heart: normal S1 and S2; no rub or gallop Lungs: clear bilaterally Abdomen: soft, nontender, nondistended, positive bowel sounds Extremities: no edema or cyanosis Skin: no rash or subcu nodules Objective Data Vital Signs Vital Signs: Vital Signs - 24 hr 12/07/20 08:36 12/07/20 09:08 12/07/20 14:00 Temperature 36.6 C Pulse Rate 63 60 61 Respiratory Rate 18 Blood Pressure 148/97 H Pulse Oximetry 93 100 12/07/20 20:00 12/07/20 20:55 12/07/20 20:57 Temperature Pulse Rate 65 62 66 Respiratory Rate 18 Blood Pressure Pulse Oximetry 96 96 12/07/20 21:00 12/07/20 22:00 12/08/20 05:58 Temperature 36.4 C L 36.2 C L Pulse Rate 65 65 64 Respiratory Rate 16 16 Blood Pressure 149/71 H 161/69 H Pulse Oximetry 96 98 Intake/Output Intake/Output: Intake & Output 12/05/20 12/06/20 12/07/20 12/08/20 23:59 23:59 23:59 23:59 Intake Total 3010 1600 1820 240 Output Total 448 728 7188 450 Balance 2560 1000 20 -210 Meds/Results Medications: Active Medications Generic Name Dose Route Start Last Admin Trade Name Freq PRN Reason Stop Dose Admin Acetaminophen 650 mg 11/25/20 04:03 12/07/20 20:59 Acetaminophen 325 Mg Tablet PO 650 mg Q6H PRN Administration Pain (Scale Score 1-3) Hydrocodone Bitart/Acetaminophen 1 tab 12/03/20 17:28 12/04/20 21:19 Hydrocodone/Acetaminophen (*Crx) 5-325 Mg Tablet PO 1 tab Q8H PRN Administration Pain Rated 4-6 Albuterol 2 puff 11/25/20 04:03 Albuterol Sulfate (*Sp) Aerosol 1 Puff INHALATION Q4H PRN Shortness Of Breath Aspirin 81 mg 11/25/20 08:00 12/07/20 09:07 Aspirin 81 Mg Chewable Tablet PO 81 mg DAILY@0800 TRACI Administration Budesonide/Formoterol Fumarate 2 puff 11/25/20 08:00 12/07/20 20:53 Budesonide/Form 160-4.5 Mcg (*Sp) INHALATION 2 puff Q12HRT TRACI Administration Buspirone HCl 10 mg 11/25/20 09:00 12/07/20 17:19 Buspirone Hcl 10 Mg Tablet PO 10 mg TID TRACI Administration Calcium Carbonate
[2020-12-08 09:10] VITALS: PULSE 72
[2020-12-08] MEDS: OXcarbazepine 300 MG TABLET 600 MG PO ×2 (09:10→18:04)
[2020-12-08] MEDS: carvediloL 6.25 MG TABLET PO (09:10)
[2020-12-08] MEDS: MAGNESIUM OXIDE 400 MG TABLET PO ×2 (09:10→18:06)
[2020-12-08] MEDS: MULTIVITAMINS THERAPEUTIC TAB (*BKC) 1 TABLET PO (09:10)
[2020-12-08] MEDS: NIFEdipine 30 MG TAB.ER.24 60 MG PO (09:10)
[2020-12-08] MEDS: CARBIDOPA/LEVODOPA 25/100 MG TABLET 1 TABLET PO ×3 (09:11→18:04)
[2020-12-08] MEDS: PANTOPRAZOLE 40 MG TABLET PO (09:11)
[2020-12-08] MEDS: ERGOCALCIFEROL 50,000 UNIT CAPSULE 50000 UNITS PO (09:11)
[2020-12-08] MEDS: TOLNAFTATE 1% POWDER 45 GM BTL 1 APPLIC TOPICAL (09:11)
[2020-12-08] MEDS: busPIRone HCL 10 MG TABLET PO ×3 (09:11→18:05)
[2020-12-08] MEDS: ASPIRIN 81 MG CHEWABLE TABLET PO (09:11)
[2020-12-08] MEDS: LORATADINE 10 MG TABLET PO (09:11)
[2020-12-08] MEDS: FLUTICASONE PROPIONATE 0.05% NA SPR 16 GM BTL (*BKC) 1 SPRAY NASAL (09:12)
[2020-12-08 09:33] LABS: Glucose Point of Care 121 mg/dl (65-105)
[2020-12-08 12:05] LABS: Glucose Point of Care 194 mg/dl (65-105)
[2020-12-08 15:15] VITALS: BP 150/69; PULSE 61; RESP 20; TEMP 36.6; O2SAT 98
[2020-12-08 16:25] LABS: Glucose Point of Care 175 mg/dl (65-105)
[2020-12-08] MEDS: HYDROcodone/acetaminophen (*CRX) 5-325 MG TABLET 1 TAB PO (18:04)
[2020-12-08] MEDS: RIVAROXABAN 20 MG TABLET PO (18:06)
[2020-12-08] MEDS: LOVASTATIN 10 MG TABLET PO (18:07)
--- NOTE | 2020-12-09 07:32 | PM.DS ---
DS: Admitting Diagnosis Admitting Diagnosis Altered mental status DS: Discharge Diagnosis Discharge Diagnosis (1) Acute alteration in mental status: Code(s): R41.82 - Altered mental status, unspecified Status: Acute Assessment and Plan: Resolved. [place] to be secondary to UTI and polypharmacy. Mental status improved treatment UTI, and she was A&O x4 on evaluations. Benzodiazepine initially held and a continued as p.r.n. on discharge. Follow-up with PCP to review medication list consider weaned benzodiazepines and narcotics. (2) Blfff-ql-oxumvuj kidney injury: Code(s): N17.9 - Acute kidney failure, unspecified; N18.9 - Chronic kidney disease, unspecified Status: Acute Assessment and Plan: Baseline creatinine is around 1.3. She is established with leadership program associate, Dr. Ino Dunbar. Cause of chronic kidney injury unclear but likely due to hypertension and diabetes. Acute kidney injury cause likely multifactorial to include acute infection, use of SADI-inhibitor in setting of UTI, and vancomycin use. She was seen in consultation by Nephrology and renal function monitored closely. Renal ultrasound showed normal kidneys. She had a nuclear medicine renal scan which showed symmetric kidney function and some delayed uptake. [place] to be consistent with ATN. Lisinopril held. Repeat BMP in 1 week. I called her leadership program associate office to update them and scheduled a follow-up appointment for 12/28/2020. (3) UTI (urinary tract infection): Qualifiers: Hematuria presence: without hematuria Urinary tract infection type: site unspecified Qualified Code(s): N39.0 - Urinary tract infection, site not specified Code(s): N39.0 - Urinary tract infection, site not specified Status: Acute Assessment and Plan: Urine culuture with ESBL on 11/25/20. She was treated with IV Zosyn and also received 3 days of IV ertapenem. Subsequent urine cultures collected on 11/30/2020 were negative. (4) Chronic hyponatremia: Code(s): E87.1 - Hypo-osmolality and hyponatremia Status: Acute Assessment and Plan: Sodium levels monitored closely. Escitalopram and Abilify initially held but were resumed upon discharge. She did receive sodium chloride tabs which improved sodium. She will continue with a fluid restriction diet. Repeat BMP in 1 week and follow-up with her leadership program associate. (5) COPD (chronic obstructive pulmonary disease): Qualifiers: COPD type: unspecified COPD Qualified Code(s): J44.9 - Chronic obstructive pulmonary disease, unspecified Code(s): J44.9 - Chronic obstructive pulmonary disease, unspecified Status: Acute Assessment and Plan: Not in acute exacerbation. Maintain adequate oxygenation on room air. Continue her home inhalers. (6) Uncontrolled hypertension: Code(s): I10 - Essential (primary) hypertension Status: Acute Assessment and Plan: Blood pressure reviewed and which generally well controlled, sometimes slightly elevated. Mostly in the 150 systolic. Continue with home nifedipine. Lisinopril was held due to [place]. Resume when cleared by leadership program associate (7) Diabetes: Code(s): E11.9 - Type 2 diabetes mellitus without complications Status: Chronic Assessment and Plan: A1c is 6.2. She had several episodes of hypoglycemia. Lantus was discontinued given low a.m. fasting glucose and low A1c. Continue home Ozempic. Monitor glucose at nursing facility. (8) Positive blood culture: Code(s): R78.81 - Bacteremia Status: Acute Assessment and Plan: On 11/25/2020, she had 1/2 blood cultures with coag-negative Staphylococcus and 2/2 blood cultures positive for pseudopropionibacterium.bacterium. Based on clinical symptoms, likely a contaminant. She did complete 7 days of IV Zosyn, however for ESBL UTI. Subsequent blood cultures collected 11/26/20 were negative. DS: Summary
== END 2020-12-08 19:30 | DRG 689 ==
LOC: ANHED 11-25 01:53 → ANH2MED 11-25 02:09
PROVIDERS: Family Medicine; Hospitalist; Internal Medicine; Internal Medicine Nephrology; Admitting Provider Internal Medicine; Emergency Provider Emergency Medicine; PCP Family Medicine; Visit Provider Physician Assistant
DX: N39.0 Urinary tract infection, site not specified (principal); N17.0 Acute kidney failure with tubular necrosis; G93.41 Metabolic encephalopathy; Z68.43 Body mass index [BMI] 50.0-59.9, adult; I48.20 Chronic atrial fibrillation, unspecified; E87.1 Hypo-osmolality and hyponatremia; I13.0 Hypertensive heart and chronic kidney disease with heart failure and stage 1 through stage 4 chronic kidney disease, or unspecified chronic kidney disease; R78.81 Bacteremia; B96.20 Unspecified Escherichia coli [E. coli] as the cause of diseases classified elsewhere; I11.0 Hypertensive heart disease with heart failure; R41.82 Altered mental status, unspecified; T42.4X5A Adverse effect of benzodiazepines, initial encounter; T40.605A Adverse effect of unspecified narcotics, initial encounter; E66.01 Morbid (severe) obesity due to excess calories; G20 Parkinson's disease; F03.90 Unspecified dementia, unspecified severity, without behavioral disturbance, psychotic disturbance, mood disturbance, and anxiety; D64.9 Anemia, unspecified; M79.7 Fibromyalgia; M19.90 Unspecified osteoarthritis, unspecified site; L30.9 Dermatitis, unspecified; E11.42 Type 2 diabetes mellitus with diabetic polyneuropathy; E11.22 Type 2 diabetes mellitus with diabetic chronic kidney disease; N18.9 Chronic kidney disease, unspecified; G25.81 Restless legs syndrome; J43.9 Emphysema, unspecified; M81.0 Age-related osteoporosis without current pathological fracture; E86.0 Dehydration; G47.33 Obstructive sleep apnea (adult) (pediatric); R00.1 Bradycardia, unspecified; T46.6X5A Adverse effect of antihyperlipidemic and antiarteriosclerotic drugs, initial encounter; Z96.651 Presence of right artificial knee joint; Z86.711 Personal history of pulmonary embolism; Z90.49 Acquired absence of other specified parts of digestive tract; Z86.718 Personal history of other venous thrombosis and embolism; Z86.73 Personal history of transient ischemic attack (TIA), and cerebral infarction without residual deficits; Z89.611 Acquired absence of right leg above knee; I50.9 Heart failure, unspecified
CPT/HCPCS: 36415; 36600; 51701; 70450; 71045; 71260; 74177; 76775; 78707; 80048; 80053; 80069; 80202; 81001; 81050; 82140; 82436; 82533; 82550; 82565; 82570; 82805; 82948; 83036; 83605; 83735; 84156; 84295; 84300; 84443; 84484; 85025; 85027; 85610; 85730; 85999; 87040; 87076; 87077; 87086; 87088; 87186; 93005; 94640; 96360; 96361; 96365; 96366; 97162; 97165; 99285; A9270; A9562; G0378; J0743; J1335; J1815; J2543; J3370; J7030; J7050; Q9967

== ENCOUNTER 2020-12-11 14:36 | Inpatient (IN) | payer MEDICARE, MEDICAID, SELFPAY ==
[2020-12-11] VITALS (10 sets, daily range): BP systolic 115–185; BP diastolic 82–98; PULSE 58–73; RESP 16–23; TEMP 36.7–36.9; O2SAT 91–99; BMI 52.9
--- NOTE | ~2020-12-11 | XR_ITS ---
EXAMINATION: XR chest 1V portable DATE: 12/11/2020 15:50 INDICATION: Shortness of breath. TECHNIQUE: A single frontal view of the chest was obtained. COMPARISON: Chest single view 11/24/2020, chest CT 12/02/2020 FINDINGS: There are airspace opacities in all lung zones bilaterally with a perihilar predominance. T here is a diffuse interstitial pattern in the lungs. No pleural effusion or pneumothorax. Cardiomegal y is noted. There are surgical clips in the abdomen. IMPRESSION: 1. Worsened diffuse lung disease, consistent with moderate pulmonary edema or less likely pneumonia. 2. Cardiomegaly. Reviewed, dictated and finalized at location A. IMPRESSION: 1. Worsened diffuse lung disease, consistent with moderate pulmonary edema or l ess likely pneumonia. 2. Cardiomegaly.
--- NOTE | ~2020-12-11 | XR_ITS ---
EXAMINATION: XR chest 1V portable DATE: 12/13/2020 16:00 INDICATION: Shortness of breath. TECHNIQUE: A single frontal view of the chest was obtained. COMPARISON: Chest single view 12/11/2020 FINDINGS: There are airspace and interstitial opacities in all lung zones bilaterally with a perihila r predominance. No pleural effusion or pneumothorax. Cardiomegaly is noted. There are surgical clips in the upper abdomen. IMPRESSION: 1. Improved diffuse lung disease, consistent with mild pulmonary edema or less likely pneumonia. 2. Cardiomegaly. Reviewed, dictated and finalized at location A.
--- NOTE | ~2020-12-11 | CT_ITS ---
EXAMINATION: CT brain wo con DATE: 12/12/2020 14:27 INDICATION: Altered mental status. TECHNIQUE: Computed tomography (CT) of the head was performed without intravenous contrast. The mA wa s adjusted according to patient size. Iterative reconstruction technique was employed. The dose-lengt h product was 681.00 mGy-cm. COMPARISON: Head CT 11/24/2020 FINDINGS: Motion artifact is noted. There are scattered areas of low attenuation in the cerebral whit e matter. There is no intracranial hemorrhage, acute infarction, or abnormal intracranial mass lesion . The ventricles are normal in size. The orbits are normal. There is near complete opacification of r ight maxillary sinus with thickening and sclerosis of the sinus cagle, consistent with chronic sinusi tis. The mastoid air cells are normal. IMPRESSION: 1. Stable extensive nonspecific cerebral white matter disease, which likely represents chronic small vessel ischemic disease. 2. Chronic sinusitis. Reviewed, dictated and finalized at location A. IMPRESSION: 1. Stable extensive nonspecific cerebral white matter disease, which likely rep resents chronic small vessel ischemic disease. 2. Chronic sinusitis.
--- NOTE | 2020-12-11 15:31 | ECG_ITS ---
Measurements Intervals [place] Rate: 67 P: 47 IA: 231 QRS: -39 QRSD: 147 T: 66 QT: 427 QTc: 453 Interpretive Statements SINUS RHYTHM WITH SINUS ARRHYTHMIA WITH FIRST DEGREE AV BLOCK LEFT AXIS DEVIATION INTRAVENTRICULAR CONDUCTION DELAY DELAYED PRECORDIAL R/S TRANSITION LEFT VENTRICULAR HYPERTROPHY WITH ST-T CHANGE BASELINE ARTIFACT- I, II, III, AVR, AVL, AVF, V1-V6 ABNORMAL ECG Electronically Signed On 12-11-2020 20:08:17 CDT by Ken Gonzalez D.O.
--- NOTE | 2020-12-11 15:44 | ED.SOB ---
HPI - SOB/Dyspnea General Chief Complaint: Shortness of Breath/Dyspnea Stated Complaint: SOB Time Seen by Provider: 12/11/20 15:43 History of Present Illness HPI Narrative: 65 yo female w/ h/o COPD, CHF, a-fib, htn, CKD presents to the ED for SOB. On arrival here she is very drowsy. She is not complaining of anyhting, but breathing is labored. She was discharged from this hospital 2 days ago. That admission seems to have been for [place], UTI, altered mental status. History limited by mental status. Related Data Home Medications Medication Instructions Recorded Confirmed Calcium 600 with Vitamin D3 1 tablet PO BID 11/11/19 12/11/20 aripiprazole 15 mg PO DAILY 11/11/19 12/11/20 aspirin 81 mg PO DAILY 11/11/19 12/11/20 buspirone 10 mg PO TID 11/11/19 12/11/20 carbidopa-levodopa 1 tablet PO TID 11/11/19 12/11/20 carvedilol 3.125 mg PO BID 11/11/19 12/11/20 cetirizine 10 mg PO DAILY 11/11/19 12/11/20 escitalopram oxalate 20 mg PO DAILY 11/11/19 12/11/20 fluticasone propionate [Allergy 1 spray INTRANASAL DAILY 11/11/19 12/11/20 Relief (fluticasone)] lovastatin 10 mg PO QPM 11/11/19 12/11/20 magnesium oxide 400 mg PO BID 11/11/19 12/12/20 oxcarbazepine 600 mg PO BID 11/11/19 12/12/20 oxybutynin chloride 10 mg PO HS 11/11/19 12/12/20 spironolactone 25 mg PO DAILY 11/11/19 12/12/20 GlucaGen HypoKit 1 mg SUBCUT Q20M PRN 12/01/19 12/11/20 [place] Cough Drops 9.1 mg MUCOUS MEMBRANE Q2-4H PRN 12/01/19 12/11/20 Xarelto 20 mg PO DAILY 12/01/19 12/12/20 acetaminophen 650 mg PO Q6H PRN 12/01/19 12/11/20 albuterol sulfate 2 puff INHALATION Q4H PRN 12/01/19 12/11/20 cranberry 400 mg PO BID 12/01/19 12/11/20 ergocalciferol (vitamin D2) 1,250 mcg PO 2XW 12/01/19 12/11/20 [Vitamin D2] multivitamin 1 tablet PO DAILY 12/01/19 12/12/20 senna 17.2 mg PO BID 12/01/19 12/12/20 Linzess 72 mcg PO DAILY 07/06/20 12/11/20 amitriptyline 25 mg PO HS 07/06/20 12/11/20 guaifenesin 1,200 mg PO BID 07/06/20 12/11/20 Breo Ellipta 1 inh INHALATION DAILY 10/04/20 12/11/20 Ozempic 0.25 mg SUBCUT WEEKLY 10/04/20 12/12/20 magnesium citrate [Citroma] 296 ml PO PRN PRN 10/04/20 12/11/20 nystatin [Nyamyc] 1 applic TOPICAL BID PRN 10/04/20 12/12/20 pantoprazole 40 mg PO DAILY 11/13/20 12/12/20 polyethylene glycol 3350 [Miralax] 17 g PO DAILY 11/13/20 12/12/20 nifedipine 30 mg PO DAILY 11/25/20 12/12/20 ondansetron HCl [Zofran] 4 mg PO Q4H PRN 11/25/20 12/12/20 bisacodyl 10 mg RECTAL DAILY PRN 12/12/20 12/12/20 magnesium citrate 300 ml PO DAILY PRN 12/12/20 12/12/20 magnesium hydroxide 30 ml PO HS PRN 12/12/20 12/12/20 sodium phosphates [Fleet Enema] 197 ml RECTAL ONCE 12/12/20 12/12/20 Allergies Allergy/AdvReac Type Severity Reaction Status Date / Time green pepper Allergy Severe Stopped Verified 12/11/20 22:45 Breathing pepper (genus Capsicum) Allergy Severe Stopped Verified 12/11/20 22:45 Breathing Review of Systems Review of Systems: ROS unobtainable: Yes unobtainable due to mental status PMFSH Past Medical History Medical History Anemia Angina at rest Anxiety Arthritis Asthma Atrial fibrillation Cataract CHF (congestive heart failure) Colitis COPD (chronic obstructive pulmonary disease) CVA (cerebral vascular accident) Degenerative disk disease Depression Diabetes DVT (deep venous thrombosis) Eczema Emphysema of lung Epistaxis Fibromyalgia Gall bladder disease GERD (gastroesophageal reflux disease) Hyperlipidemia Hypertension Mitral valve prolapse Osteoporosis Parkinson disease Peripheral neuropathy Peripheral vascular disease Pneumonia Psoriasis Pulmonary embolism Renal disease Restless leg syndrome Seizures Sleep apnea TIA (transient ischemic attack) UTI (urinary tract infection) Surgical History Surgical History H/O cardiac catheterization H/O dilation and curettage History of cholecystectomy History of right knee hilaria
[2020-12-11 16:05] LABS: Basophils Absolute Auto 0.1 K/mm3 (0.0-0.1); Basophils Percent Auto 0.8 % (0.2-1.2); Eosinophils Absolute Auto 0.2 K/mm3 (0-0.3); Eosinophils Percent Auto 2.4 % (0-4.4); Hematocrit 31.7 % (37.0-47.0); Hemoglobin 10.1 g/dL (12.0-15.0); Immature Granulocyte Absolute 0.07 K/mm3 (0.00-0.031); Immature Granulocyte Percent A 0.7 % (0-0.5); Lymphocytes Absolute Auto 1.96 K/mm3 (0.9-3.2); Lymphocytes Percent Auto 19.6 % (18.3-44.2); Mean Corpuscular HGB Conc 31.9 g/dl (32-36); Mean Corpuscular Hemoglobin 28.9 pg (26-34); Mean Corpuscular Volume 90.8 fl (80-100); Monocytes Percent Auto 9.7 % (2.6-8.5); Neutrophils Absolute Auto 6.7 K/mm3 (1.3-6.7); Neutrophils Percent Auto 66.8 % (45.5-73.1); Platelet Count Result 262 k/mm3 (150-375); Red Blood Count 3.49 M/mm3 (4.2-5.4); Red Cell Distribution Width 13.6 % (11.5-14.5)
[2020-12-11 16:13] LABS: Anion Gap 7 mmol/L (8-16); Blood Urea Nitrogen 24 mg/dL (7-17); Calcium 9.3 mg/dL (8.4-10.2); Carbon Dioxide 27 mmol/L (22-30); Chloride 103 mmol/L (98-107); Estimated CRCL calculation 37 ml/min; Estimated Glomerular Filt Rate 22; Glucose 187 mg/dL (65-110); Potassium 4.3 mmol/L (3.4-5.0); Sodium 137 mmol/L (137-145)
[2020-12-11 16:20] LABS: Alveolar/Arterial O2 Gradient 39.7 mmHg; Base Excess ABG 1.6 mEq/l (+/-2.0); Device ROOM AIR; Fractional Inspired Oxygen 21 %; HCO3 ABG 26.5 mEq/l (22.0-26.0); Modified Allen's Test Pass; Oxygen Content ABG 13.1 %vol (16.0-22.0); Oxygen Saturation ABG 90.4 % (95.0-100.0); PCO2 ABG 43.1 mmHg (35.0-45.0); PO2 ABG 58.4 mmHg (80.0-100.0); PO2 FiO2 Ratio Arterial Blood 2.78 %; Site Drawn LEFT RADIAL; Total Hemoglobin 10.6 g/dL (12.0-18.0); pH ABG 7.407 (7.350-7.450)
[2020-12-11 16:35] LABS: Alanine Aminotransferase 7 U/L (4-35); Albumin Level 3.2 g/dL (3.5-5.1); Alkaline Phosphatase 231 U/L (38-126); Aspartate Amino Transferase 42 U/L (14-36); Bilirubin,Total 0.6 mg/dL (0.2-1.3)
[2020-12-11 16:44] LABS: NT Pro B Type Natriuretic Pept 18800 pg/mL (5-100)
[2020-12-11] MEDS: NITROGLYCERIN OINTMENT 1 INCH DOSE TRANSDERM (16:45)
[2020-12-11] MEDS: FUROSEMIDE INJ 40 MG/4 ML VIAL IV PUSH ×2 (16:50→22:00)
[2020-12-11] MEDS: LABETALOL HCL INJ 100 MG/20 ML VIAL 20 MG IV PUSH (18:28)
--- NOTE | 2020-12-11 19:40 | PM.IMHP ---
H&P: HPI History of Present Illness Date/Time: 12/11/20 19:40 Chief Complaint: Shortness of breath Narrative: This is a 65-year-old female with past medical history significant for morbid obesity, right AKA, COPD, congestive heart failure, Parkinson's disease. Patient has been just recently discharged from our facility where she was treated for acute dehydration and altered mental status. She was brought back today due to staff concerns at the long term where she lives at for patient's drowsiness and shortness of breath. At the time of my visit patient was awake and alert and answer all questions appropriately stated that she has some shortness of breath but no cough no sputum production she did not feel feverish, she did state that she has a rash in her growing and a skin fold areas in her abdomen. Denied any cough or sputum production. Preliminary workup was significant for chest x-ray with infiltrate likely to be pulmonary edema. Review of Systems Review of Systems: Shortness of breath Constitutional: Constitutional: Denies chills, Denies fever(s) and Denies malaise Eyes: Eyes: Denies change in vision ENT: Reports system reviewed and no additional complaints, except as documented Cardiovascular: Cardiovascular: Denies chest pain and Reports dyspnea Respiratory: Respiratory: Denies cough Gastrointestinal: Gastrointestinal: Denies abdominal pain, Denies diarrhea, Denies nausea and Denies vomiting Genitourinary: Genitourinary: Reports no additional female genitourinary complaints Musculoskeletal: Musculoskeletal: Reports no additional musculoskeletal complaints Integumentary/Breasts: Skin/Breast: Reports rash (Fungal) Neurologic: Reports system reviewed and no additional complaints, except as documented Psychiatric: Psychiatric: Reports no additional psychiatric complaints Endocrine: Endocrine: Reports no additional endocrine complaints Hematologic/Lymphatic: Hematologic/Lymphatic: Reports no additional hematologic/lymphatic complaints Allergic/Immunologic: Allergic/Immunologic: Reports no additional allergic/immunologic complaints [facility] Past Medical History Medical History (Updated 12/11/20 @ 23:17 by Gerhard Newman MD) Anemia Angina at rest Anxiety Arthritis Asthma Atrial fibrillation Cataract CHF (congestive heart failure) Colitis COPD (chronic obstructive pulmonary disease) CVA (cerebral vascular accident) Degenerative disk disease Depression Diabetes DVT (deep venous thrombosis) Eczema Emphysema of lung Epistaxis Fibromyalgia Gall bladder disease GERD (gastroesophageal reflux disease) Hyperlipidemia Hypertension Mitral valve prolapse Osteoporosis Parkinson disease Peripheral neuropathy Peripheral vascular disease Pneumonia Psoriasis Pulmonary embolism Renal disease Restless leg syndrome Seizures Sleep apnea TIA (transient ischemic attack) UTI (urinary tract infection) Surgical History Surgical History H/O cardiac catheterization H/O dilation and curettage History of cholecystectomy History of right knee joint replacement History of tubal ligation Hx of tonsillectomy Family History Family History Grandparent Family history of malignant neoplasm of breast, Onset Age: 72 Diabetes mellitus Father Family history of renal failure, Onset Age: 70 Cerebrovascular accident, Onset Age: 71 Family history of thoracic aortic aneurysm, Onset Age: 46 Patient's father is Sibling Family history of type 2 diabetes mellitus Mother Patient's mother is Other Family history of alcoholism Family history of arthritis Family history of blood dyscrasia Family history of seizure disorder Hypertension Social History Social History Smoking status: Never smoker Second hand t
--- NOTE | 2020-12-11 19:58 | ADMGEN ---
This patient, Maribel Alvarez, was admitted to [facility] Surg Room 307-01 at 1940. Patient/family oriented to hospital policies and general routines including ID bracelet, bed and alarms, visiting hours, pain management, procedures, bathroom and other care routines, personal items, smoking policy, room service/diet, and visiting hours. Information on how to activate the Rapid Response Team has been discussed. Patient/Family are encouraged to report perceived risks to care and to ask questions if they do not understand what they are told or what they should do.
[2020-12-11 20:19] LABS: Glucose Point of Care 221 mg/dl (65-105)
[2020-12-11 22:23] LABS: Add Urine Microscopic? YES; Appearance Urine Cloudy (Clear); Bacteria Urine Trace /hpf; Bilirubin Urine Negative (Negative); Blood Urine 3+ (Negative); Glucose Urine UA Negative (Negative); Ketones Urine Negative (Negative); Leukocyte Esterase Ur 1+ LEU/UL (Negative); Nitrate Urine Negative (Negative); Protein Urine 2+ mg/dL (Negative); RBC Urine >75 /hpf (0-2); Specific Grav Ur 1.008 (1.001-1.035); Urobilinogen Urine Negative mg/dL (<2.0); WBC Urine 31-50 /hpf
[2020-12-11 22:25] LABS: Color Urine Light Red (Yellow)
[2020-12-12] VITALS (11 sets, daily range): BP systolic 168–178; BP diastolic 73–117; PULSE 56–78; RESP 18–20; TEMP 36.9–37.3; O2SAT 90–96
[2020-12-12] MEDS: NITROGLYCERIN OINTMENT 1 INCH DOSE TRANSDERM ×2 (00:45→06:03)
[2020-12-12] MEDS: oxyCODONE/ACETAMINOPHEN (*CRX) 5-325 MG TABLET 1 TABLET PO (06:09)
[2020-12-12] MEDS: guaiFENesin 12 HR 600 MG TABCR 1200 MG PO ×2 (08:29→21:09)
[2020-12-12] MEDS: ARIPiprazole 5 MG TABLET 15 MG PO (08:29)
[2020-12-12] MEDS: ASPIRIN 81 MG CHEWABLE TABLET PO (08:29)
[2020-12-12] MEDS: LORATADINE 10 MG TABLET PO (08:29)
[2020-12-12] MEDS: OXcarbazepine 300 MG TABLET 600 MG PO ×2 (08:30→16:43)
[2020-12-12] MEDS: CARBIDOPA/LEVODOPA 25/100 MG TABLET 1 TABLET PO ×3 (08:30→16:42)
[2020-12-12] MEDS: ERGOCALCIFEROL 50,000 UNIT CAPSULE 50000 UNITS PO (08:30)
[2020-12-12] MEDS: MULTIVITAMINS THERAPEUTIC TAB (*BKC) 1 TABLET PO (08:31)
[2020-12-12] MEDS: PANTOPRAZOLE 40 MG TABLET PO (08:31)
[2020-12-12] MEDS: NIFEdipine 30 MG TAB.ER.24 PO (08:31)
[2020-12-12] MEDS: busPIRone HCL 10 MG TABLET PO ×3 (08:31→16:42)
[2020-12-12] MEDS: carvediloL 3.125 MG TABLET PO ×2 (08:31→21:09)
[2020-12-12] MEDS: ESCITALOPRAM OXALATE 10 MG TABLET 20 MG PO (08:31)
[2020-12-12] MEDS: SENNOSIDES 8.6 MG TABLET 17.2 MG PO ×2 (08:32→18:41)
[2020-12-12] MEDS: MAGNESIUM OXIDE 400 MG TABLET PO ×2 (08:32→16:43)
[2020-12-12] MEDS: SPIRONOLACTONE 25 MG TABLET PO (08:32)
[2020-12-12] MEDS: TOLNAFTATE 1% POWDER 45 GM BTL 1 APPLIC TOPICAL ×2 (08:35→21:10)
[2020-12-12] MEDS: FLUTICASONE PROPIONATE 0.05% NA SPR 16 GM BTL (*BKC) 1 SPRAY NASAL (08:35)
[2020-12-12] MEDS: polyethylene glycoL 3350 17 GM POWD.PACK PO (08:35)
[2020-12-12] MEDS: FUROSEMIDE INJ 40 MG/4 ML VIAL IV PUSH ×2 (08:36→21:10)
[2020-12-12 08:45] LABS: Glucose Point of Care 184 mg/dl (65-105)
--- NOTE | 2020-12-12 09:37 | PM.IMPN ---
Progress Note: A&P Assessment and Plan (1) Acute respiratory failure with hypoxia: Code(s): J96.01 - Acute respiratory failure with hypoxia Status: Acute Assessment and Plan: Resolved -likely due to edema and less likely pneumonia -patient has been afebrile with a normal white blood cell count and has improved with Lasix therapy -Continue to monitor -PE seems less likely as the patient is not tachycardic and is on Xarelto (2) Acute on chronic diastolic heart failure: Code(s): I50.33 - Acute on chronic diastolic (congestive) heart failure Status: Acute Assessment and Plan: Continue Lasix 40 mg b.i.d. but monitor kidney function -she has had 1400 out so far with symptoms improving -she also has untreated sleep apnea which needs to be addressed outpatient. She has not worn a CPAP in 20 years -last echo 10/2020 reviewed -BMP 1 month ago was 1,180 and now it is 18,800 worrisome for CHF. She has no chest pain or signs and symptoms of ACS -add low sodium diet -continue diuresis, consider cardiology consult or repeat echo if patient does not improve (3) Infiltrate of lung present on chest x-ray: Code(s): R91.8 - Other nonspecific abnormal finding of lung field Status: Acute Assessment and Plan: More in line with pulmonary edema with elevated BNP and clinical history (4) Altered mental status: Code(s): R41.82 - Altered mental status, unspecified Status: Acute Assessment and Plan: She was alert and oriented x4 for me but did take some time to answer questions -will obtain head CT since the patient is on Eliquis and is slightly delayed in answering my questions. She has no neurological deficits on exam (5) UTI (urinary tract infection): Qualifiers: Hematuria presence: without hematuria Urinary tract infection type: site unspecified Qualified Code(s): N39.0 - Urinary tract infection, site not specified Code(s): N39.0 - Urinary tract infection, site not specified Status: Acute Assessment and Plan: UA suspicious for UTI and she also has blood in her urine -she had a UTI earlier this month growing ESBL but was treated for such (6) COPD (chronic obstructive pulmonary disease): Qualifiers: COPD type: unspecified COPD Qualified Code(s): J44.9 - Chronic obstructive pulmonary disease, unspecified Code(s): J44.9 - Chronic obstructive pulmonary disease, unspecified Status: Acute Assessment and Plan: Chronic, no evidence of acute exacerbation (7) Morbid obesity with BMI of 50.0-59.9, adult: Code(s): E66.01 - Morbid (severe) obesity due to excess calories; Z68.43 - Body mass index [BMI] 50.0-59.9, adult Status: Acute Assessment and Plan: Lifestyle and diet modifications (8) SUSAN (obstructive sleep apnea): Code(s): G47.33 - Obstructive sleep apnea (adult) (pediatric) Status: Acute Assessment and Plan: Intolerance to CPAP -recommend following up outpatient for reassessment (9) Chronic kidney disease: Code(s): N18.9 - Chronic kidney disease, unspecified Status: Acute Assessment and Plan: Creatinine 2.2 which is elevated from her baseline but consistent with her values for the last month -will have to monitor closely on Lasix -consider nephrology consult if it worsens. They last saw her on December 08 and suggested it might be ATN. -renal scan showed symmetric kidney function with delayed uptake in clearance consistent with decreased kidney function -likely due to diabetes and hypertension (10) Uncontrolled hypertension: Code(s): I10 - Essential (primary) hypertension Status: Acute Assessment and Plan: Last glucose 168/72 -continue home carvedilol, nifedipine, spironolactone and now Lasix -she was given nitro patch in the ER, will discontinue this -will do p.r.n. hydralazine -hopefully
[2020-12-12 12:35] LABS: Glucose Point of Care 282 mg/dl (65-105)
[2020-12-12] MEDS: INSULIN ASPART (*BKC) 100 UNITS/ML SUB-Q ×2 (12:41→16:41)
[2020-12-12 16:33] LABS: Glucose Point of Care 291 mg/dl (65-105)
[2020-12-12] MEDS: RIVAROXABAN 20 MG TABLET PO (16:45)
[2020-12-12] MEDS: LOVASTATIN 10 MG TABLET PO (16:45)
[2020-12-12] MEDS: AMITRIPTYLINE HCL 25 MG TABLET PO (21:09)
[2020-12-12] MEDS: INSULIN GLARGINE (*BKC) 100 UNITS/ML SUB-Q (21:10)
[2020-12-12] MEDS: ZOLPIDEM TARTRATE (*CRX) 5 MG TABLET 10 MG PO (21:11)
[2020-12-13] VITALS (11 sets, daily range): BP systolic 136–179; BP diastolic 80–92; PULSE 58–87; RESP 14–29; TEMP 36.7–36.9; O2SAT 90–97
[2020-12-13 01:10] LABS: Glucose Point of Care 304 mg/dl (65-105)
[2020-12-13] MEDS: hydrALAZINE HCL 20 MG/ML VIAL 10 MG IV PUSH (06:13)
[2020-12-13 06:46] LABS: Hematocrit 28.7 % (37.0-47.0); Hemoglobin 9.1 g/dL (12.0-15.0); Mean Corpuscular HGB Conc 31.7 g/dl (32-36); Mean Corpuscular Hemoglobin 29.2 pg (26-34); Mean Platelet Volume 11.4 fl (7.4-10.4); Platelet Count Result 222 k/mm3 (150-375); Red Blood Count 3.12 M/mm3 (4.2-5.4); Red Cell Distribution Width 13.9 % (11.5-14.5); White Blood Count 12.1 K/mm3 (4.5-10.0)
[2020-12-13 07:11] LABS: Anion Gap 7 mmol/L (8-16); Blood Urea Nitrogen 27 mg/dL (7-17); Calcium 9.2 mg/dL (8.4-10.2); Carbon Dioxide 30 mmol/L (22-30); Chloride 93 mmol/L (98-107); Estimated CRCL calculation 32 ml/min; Estimated Glomerular Filt Rate 19; Glucose 282 mg/dL (65-110); Potassium 3.3 mmol/L (3.4-5.0); Sodium 130 mmol/L (137-145)
[2020-12-13] MEDS: ARIPiprazole 5 MG TABLET 15 MG PO (08:17)
[2020-12-13] MEDS: MULTIVITAMINS THERAPEUTIC TAB (*BKC) 1 TABLET PO (08:18)
[2020-12-13] MEDS: ESCITALOPRAM OXALATE 10 MG TABLET 20 MG PO (08:18)
[2020-12-13] MEDS: ASPIRIN 81 MG CHEWABLE TABLET PO (08:19)
[2020-12-13] MEDS: SPIRONOLACTONE 25 MG TABLET PO (08:19)
[2020-12-13] MEDS: PANTOPRAZOLE 40 MG TABLET PO (08:19)
[2020-12-13] MEDS: NIFEdipine 30 MG TAB.ER.24 PO (08:19)
[2020-12-13] MEDS: MAGNESIUM OXIDE 400 MG TABLET PO ×2 (08:19→17:29)
[2020-12-13] MEDS: busPIRone HCL 10 MG TABLET PO ×3 (08:20→17:26)
[2020-12-13] MEDS: CARBIDOPA/LEVODOPA 25/100 MG TABLET 1 TABLET PO ×3 (08:20→17:28)
[2020-12-13] MEDS: guaiFENesin 12 HR 600 MG TABCR 1200 MG PO ×2 (08:20→22:04)
[2020-12-13] MEDS: OXcarbazepine 300 MG TABLET 600 MG PO ×2 (08:20→17:26)
[2020-12-13] MEDS: LORATADINE 10 MG TABLET PO (08:20)
[2020-12-13] MEDS: FUROSEMIDE INJ 40 MG/4 ML VIAL IV PUSH (08:20)
[2020-12-13] MEDS: FLUTICASONE PROPIONATE 0.05% NA SPR 16 GM BTL (*BKC) 1 SPRAY NASAL (08:21)
[2020-12-13] MEDS: SENNOSIDES 8.6 MG TABLET 17.2 MG PO ×2 (08:22→17:28)
[2020-12-13] MEDS: TOLNAFTATE 1% POWDER 45 GM BTL 1 APPLIC TOPICAL ×2 (08:47→22:05)
[2020-12-13] MEDS: polyethylene glycoL 3350 17 GM POWD.PACK PO (08:47)
[2020-12-13 08:57] LABS: Glucose Point of Care 236 mg/dl (65-105)
[2020-12-13] MEDS: INSULIN ASPART (*BKC) 100 UNITS/ML SUB-Q ×3 (08:58→17:33)
--- NOTE | 2020-12-13 09:14 | PM.IMPN ---
Progress Note: A&P Assessment and Plan (1) Acute respiratory failure with hypoxia: Code(s): J96.01 - Acute respiratory failure with hypoxia Status: Acute Assessment and Plan: Resolved -likely due to edema and less likely pneumonia -patient has been afebrile with a normal white blood cell count at admission and has improved with Lasix therapy -related to untreated SUSAN and progressing CHF -Continue to monitor -PE seems less likely as the patient is not tachycardic and is on Xarelto, breathing without difficulty. (2) Acute on chronic diastolic heart failure: Code(s): I50.33 - Acute on chronic diastolic (congestive) heart failure Status: Acute Assessment and Plan: Continue Lasix 40 mg b.i.d. but monitor kidney function - had 1400 out so far with symptoms improving - creatinine jumped and lasix dosing reduced by Roll Tender. -she also has untreated sleep apnea which needs to be addressed outpatient. She has not worn a CPAP in 20 years. Significantly Exacerbating her CHF. -last echo 10/2020 reviewed -no chest pain or signs and symptoms of ACS -add low sodium diet -BNP 1180 on 11/12/2020 (baseline), on 12/11/2020 BNP 67016 at admission and exacerbation, after diuresis today BNP 83803 -continue slow/gentle diuresis, -appreciate cardiology consult (3) Infiltrate of lung present on chest x-ray: Code(s): R91.8 - Other nonspecific abnormal finding of lung field Status: Acute Assessment and Plan: More in line with pulmonary edema with elevated BNP and clinical history (4) Altered mental status: Code(s): R41.82 - Altered mental status, unspecified Status: Acute Assessment and Plan: She was alert and oriented x2-3 for me but did take some time to answer questions -head CT since the patient is on Eliquis and is slightly delayed in answering my questions- showed no acute concerns or changes. She has no neurological deficits on exam -WBC increased from 10.0 to 12.2 and combined with lethargy, could be unresolved UTI? repeated Urine culture TODAY - pending -Could be related to untreated SUSAN too. (5) UTI (urinary tract infection): Qualifiers: Hematuria presence: without hematuria Urinary tract infection type: site unspecified Qualified Code(s): N39.0 - Urinary tract infection, site not specified Code(s): N39.0 - Urinary tract infection, site not specified Status: Acute Assessment and Plan: UA suspicious for UTI and she also has blood in her urine -she had a UTI earlier this month growing ESBL but was treated for such - WBC increased from 10.0 to 12.2 and combined with lethargy, could be unresolved UTI? - repeated Urine culture TODAY - pending (6) COPD (chronic obstructive pulmonary disease): Qualifiers: COPD type: unspecified COPD Qualified Code(s): J44.9 - Chronic obstructive pulmonary disease, unspecified Code(s): J44.9 - Chronic obstructive pulmonary disease, unspecified Status: Acute Assessment and Plan: Chronic, no evidence of acute exacerbation (7) Morbid obesity with BMI of 50.0-59.9, adult: Code(s): E66.01 - Morbid (severe) obesity due to excess calories; Z68.43 - Body mass index [BMI] 50.0-59.9, adult Status: Acute Assessment and Plan: Lifestyle and diet modifications (8) SUSAN (obstructive sleep apnea): Code(s): G47.33 - Obstructive sleep apnea (adult) (pediatric) Status: Acute Assessment and Plan: Intolerance to CPAP at home trying BiPap here due to her daytime lethargy today. -strongly recommend following up outpatient for reassessment (9) Chronic kidney disease: Code(s): N18.9 - Chronic kidney disease, unspecified Status: Acute Assessment and Plan: Creatinine 2.2 yesterday, but pre-renal today elevated to 2.5 elevated from her baseline but consistent with her values for the last month -will have to klaudia
[2020-12-13] MEDS: hydrALAZINE 5 MG TABLET PO (09:32)
[2020-12-13 12:21] LABS: Glucose Point of Care 301 mg/dl (65-105)
[2020-12-13 13:21] LABS: NT Pro B Type Natriuretic Pept 12800 pg/mL (5-100)
--- NOTE | 2020-12-13 14:20 | PCOTNOTE ---
Attempted OT evaluation, per RN patient is drowsy this afternoon and to hold until morning for OT evaluation, will follow and attempt in AM.
--- NOTE | 2020-12-13 15:43 | PM.CNCAR ---
Assessment and Plan Assessment and plan (1) Acute on chronic diastolic heart failure: Code(s): I50.33 - Acute on chronic diastolic (congestive) heart failure Status: Acute Assessment and Plan: Acute on chronic. She is becoming increasingly prerenal in will reduce her furosemide IV 20 mg p.o. b.i.d.. Will also increase her carvedilol up to 6.25 mg p.o. b.i.d.. (2) Kehyt-pt-bbeaisa kidney injury: Code(s): N17.9 - Acute kidney failure, unspecified; N18.9 - Chronic kidney disease, unspecified Status: Acute Assessment and Plan: Reducing her furosemide (3) Hypertension: Code(s): I10 - Essential (primary) hypertension Status: Chronic Assessment and Plan: Increasing carvedilol as above (4) Chest pain: Qualifiers: Chest pain type: unspecified Qualified Code(s): R07.9 - Chest pain, unspecified Code(s): R07.9 - Chest pain, unspecified Status: Acute Assessment and Plan: This is musculoskeletal in etiology. (5) Hypokalemia: Code(s): E87.6 - Hypokalemia Status: Acute Assessment and Plan: Potassium chloride 40 mEq p.o. x1 (6) SUSAN (obstructive sleep apnea): Code(s): G47.33 - Obstructive sleep apnea (adult) (pediatric) Status: Acute Assessment and Plan: Will consult pulmonology. Will check an ABG because of her lethargy. Portable chest x-ray tomorrow for follow-up of her heart failure. PT OT eval and treat. History of Present Illness History of Present Illness Consult date/time: 12/13/20 15:43 Requesting physician: Corrine Phelps SUBSTATION OPERATOR CONVERSION Consult reason: chest pain and shortness of breath Reason For Visit: CHF Exacerbation Narrative: Date of service 12/13/2020 Requesting provider: Corrine Phelps Reason consultation chest pain, shortness breath History: Patient is a 65-year-old female who has morbid obesity, sleep apnea, or congestive heart failure, renal failure who came to the hospital because of worsening drowsiness and shortness of breath. Patient states that she has been progressively more short of breath lethargic and increased swelling in her left leg since last discharge. She has also had some paroxysmal nocturnal dyspnea but does not use CPAP. She is chest pain is reproducible by pushing on her chest radiates down left arm. She was started on IV diuretics and her BNP has improved as has her breathing but she still remains hypertensive and cardiology consultation is requested for all the above. Review of Systems Review of Systems: All systems reviewed & are unremarkable except as noted in HPI and below Constitutional: Constitutional: Reports weakness Eyes: Eyes: Denies blurry vision ENT: Reports Normal hearing present Cardiovascular: Cardiovascular: Reports chest pain and Reports leg edema Respiratory: Respiratory: Reports dyspnea Gastrointestinal: Gastrointestinal: Denies abdominal pain Genitourinary: Genitourinary: Denies flank pain Musculoskeletal: Musculoskeletal: Denies back pain and Denies neck pain Integumentary/Breasts: Skin/Breast: Denies dry skin Neurologic: Denies headache(s) Psychiatric: Psychiatric: Denies anxiety and Reports confusion Endocrine: Endocrine: Denies fatigue Hematologic/Lymphatic: Hematologic/Lymphatic: Denies easy bleeding Allergic/Immunologic: Allergic/Immunologic: Denies GI upset with certain foods PMFSH Past Medical History Medical History Anemia Angina at rest Anxiety Arthritis Asthma Atrial fibrillation Cataract CHF (congestive heart failure) Colitis COPD (chronic obstructive pulmonary disease) CVA (cerebral vascular accident) Degenerative disk disease Depression Diabetes DVT (deep venous thrombosis) Eczema Emphysema of lung Epistaxis Fibromyalgia Gall bladder disease GERD (gastroesophageal reflux disease) Hyperlipidemia Hypertension Mitral valve prolapse Osteoporosis Par
[2020-12-13 17:14] LABS: Glucose Point of Care 310 mg/dl (65-105)
[2020-12-13] MEDS: LOVASTATIN 10 MG TABLET PO (17:28)
[2020-12-13] MEDS: RIVAROXABAN 15 MG TABLET PO (17:33)
[2020-12-13] MEDS: FUROSEMIDE INJ 40 MG/4 ML VIAL 20 MG IV PUSH (22:04)
[2020-12-13] MEDS: carvediloL 6.25 MG TABLET PO (22:04)
[2020-12-13] MEDS: AMITRIPTYLINE HCL 25 MG TABLET PO (22:04)
[2020-12-13] MEDS: INSULIN GLARGINE (*BKC) 100 UNITS/ML SUB-Q (22:05)
[2020-12-13] MEDS: ZOLPIDEM TARTRATE (*CRX) 5 MG TABLET 10 MG PO (22:09)
[2020-12-13 23:04] LABS: Glucose Point of Care 281 mg/dl (65-105)
[2020-12-14] VITALS (12 sets, daily range): BP systolic 129–152; BP diastolic 73–78; PULSE 52–76; RESP 18–20; TEMP 36.4–37.4; O2SAT 93–100
[2020-12-14 06:11] LABS: Hemoglobin 8.9 g/dL (12.0-15.0); Mean Corpuscular HGB Conc 31.8 g/dl (32-36); Mean Corpuscular Hemoglobin 28.7 pg (26-34); Mean Corpuscular Volume 90.3 fl (80-100); Mean Platelet Volume 11.6 fl (7.4-10.4); Platelet Count Result 233 k/mm3 (150-375); Red Cell Distribution Width 13.6 % (11.5-14.5); White Blood Count 10.8 K/mm3 (4.5-10.0)
[2020-12-14 06:41] LABS: Anion Gap 4 mmol/L (8-16); Blood Urea Nitrogen 28 mg/dL (7-17); Carbon Dioxide 32 mmol/L (22-30); Chloride 92 mmol/L (98-107); Estimated CRCL calculation 35 ml/min; Estimated Glomerular Filt Rate 21; Glucose 255 mg/dL (65-110); Potassium 3.2 mmol/L (3.4-5.0); Sodium 128 mmol/L (137-145)
[2020-12-14 06:43] LABS: NT Pro B Type Natriuretic Pept 8820 pg/mL (5-100)
[2020-12-14 07:40] LABS: Base Excess ABG 6.4 mEq/l (+/-2.0); Fractional Inspired Oxygen 21 %; HCO3 ABG 31.1 mEq/l (22.0-26.0); Oxygen Content ABG 14.3 %vol (16.0-22.0); Oxygen Saturation ABG 92.5 % (95.0-100.0); Oxyhemoglobin 89.1 % THb (90.0-100.0); PCO2 ABG 45.4 mmHg (35.0-45.0); PO2 ABG 61.4 mmHg (80.0-100.0); PO2 FiO2 Ratio Arterial Blood 2.92 %; Total Hemoglobin 11.4 g/dL (12.0-18.0); pH ABG 7.454 (7.350-7.450)
[2020-12-14 07:41] LABS: Device OTHER DEVICE; Modified Allen's Test Pass; Site Drawn RIGHT RADIAL
[2020-12-14] MEDS: ASPIRIN 81 MG CHEWABLE TABLET PO (08:16)
[2020-12-14] MEDS: FLUTICASONE PROPIONATE 0.05% NA SPR 16 GM BTL (*BKC) 1 SPRAY NASAL (08:16)
[2020-12-14] MEDS: CARBIDOPA/LEVODOPA 25/100 MG TABLET 1 TABLET PO ×3 (08:16→16:36)
[2020-12-14] MEDS: busPIRone HCL 10 MG TABLET PO ×3 (08:16→16:35)
[2020-12-14] MEDS: OXcarbazepine 300 MG TABLET 600 MG PO ×2 (08:16→16:36)
[2020-12-14] MEDS: FUROSEMIDE INJ 40 MG/4 ML VIAL 20 MG IV PUSH (08:16)
[2020-12-14] MEDS: MAGNESIUM OXIDE 400 MG TABLET PO ×2 (08:17→16:37)
[2020-12-14] MEDS: ARIPiprazole 5 MG TABLET 15 MG PO (08:17)
[2020-12-14] MEDS: ESCITALOPRAM OXALATE 10 MG TABLET 20 MG PO (08:17)
[2020-12-14] MEDS: guaiFENesin 12 HR 600 MG TABCR 1200 MG PO ×2 (08:17→21:25)
[2020-12-14] MEDS: MULTIVITAMINS THERAPEUTIC TAB (*BKC) 1 TABLET PO (08:17)
[2020-12-14] MEDS: NIFEdipine 30 MG TAB.ER.24 PO (08:18)
[2020-12-14] MEDS: LORATADINE 10 MG TABLET PO (08:18)
[2020-12-14] MEDS: SENNOSIDES 8.6 MG TABLET 17.2 MG PO ×2 (08:18→16:39)
[2020-12-14] MEDS: SPIRONOLACTONE 25 MG TABLET PO (08:19)
[2020-12-14] MEDS: PANTOPRAZOLE 40 MG TABLET PO (08:19)
[2020-12-14] MEDS: polyethylene glycoL 3350 17 GM POWD.PACK PO (08:20)
[2020-12-14] MEDS: TOLNAFTATE 1% POWDER 45 GM BTL 1 APPLIC TOPICAL ×2 (08:38→21:25)
[2020-12-14 09:11] LABS: Glucose Point of Care 202 mg/dl (65-105)
[2020-12-14] MEDS: INSULIN ASPART (*BKC) 100 UNITS/ML SUB-Q ×3 (09:24→18:17)
--- NOTE | 2020-12-14 09:33 | PM.CNPUL ---
Assessment and Plan Assessment and plan (1) SUSAN (obstructive sleep apnea): Code(s): G47.33 - Obstructive sleep apnea (adult) (pediatric) Status: Acute Assessment and Plan: Patient is morbidly obese with a BMI of 52.9 in tells me she was diagnosed with sleep apnea approximately 10 years ago with a sleep study in prescribed CPAP. Patient states she can only wear the CPAP for a little bit because it was too invasive. If she does have obstructive sleep apnea and has been noncompliant for 10 years I would expect to see some evidence of end-organ involvement including right heart dysfunction and or pulmonary hypertension which she does not have. I will order TSh and free T4 for the morning Currently patient has no daytime hypercarbia with a room air blood gas of 7.44/40/86 so she does not have alveolar hypoventilation syndrome. hypercarbia also does not explain her altered mental status. Currently her saturations on room air are 97% so hypoxemia is not a cause for her altered mental status. Patient may have obstructive sleep apnea but she will need an outpatient sleep study to make this diagnosis. The patient will not qualify for home CPAP or BiPAP until this study is done as an outpatient. Until she has this outpatient sleep study the goal will be to provide her adequate oxygenation at night. The 1st step in this process is to determine if she will qualify for oxygen at night and we will need to perform a overnight oximetry on room air to document desaturations less than or equal to 88% for greater than 5 minutes. I had ordered this test yesterday but unfortunately she was empirically placed on auto Pap. I will discontinue the auto PAP and she should not wear auto Pap until we have a firm diagnosis in place along with optimal pressure settings to treat her disease. Sub optimal pressure settings can exacerbate certain conditions like treatment related central apnea. if she does have obstructive sleep apnea she is not certain she will be able to tolerate a CPAP mask as she could not tolerate a CPAP mass 10 years ago and she states that the auto PAP last night was very invasive and she could not sleep with it on. The hope would be that the biofuels production technician could try multiple mass and find one that would be suitable for her. Agree with aggressively diuresing patient has tolerated by her cardiac and renal systems per the hospitalist and cardiology team. Will follow with you. History of Present Illness History of Present Illness Consult date: 12/14/20 Requesting physician: Corrine Phelps NP Reason for consult: obstructive sleep apnea Chief complaint: CHF Exacerbation Narrative: This is a new Pulmonary consult for obstructive sleep apnea 65-year-old woman with a history of morbid obesity, right AKA, congestive heart failure, Parkinson's disease, COPD, obstructive sleep apnea who is admitted to the hospital on 12/11 with altered mental status. Patient tells me she is a never tobacco user and has no history of known COPD. CT scan of the chest on 12/02/2020 showed mild congestive heart failure but no evidence of emphysema. I have no PFTs. Patient also tells me that she had a sleep study approximately 10 years ago and was diagnosed with obstructive sleep apnea. Patient states that she wore CPAP mask for a little bit and was unable to quantify this but she was unable to tolerate the mask because it was so invasive. She had an echocardiogram on 11/14/2020 that showed a left ventricular systolic function of 50-55%, mild mitral and aortic valve insufficiency, normal right ventricular size and normal right atrial size. there was trace tricuspid valve regurgitation and there was no measured pulmonary arterial systolic pressure. patient was admitted with fluid overload and has been diuresed and is now breathing a little better than when she presented. 12/14 She denies fever, chills, cough, change in her clear to green phleg
[2020-12-14] MEDS: POTASSIUM CHLORIDE 20 MEQ PACKET (FOR LIQUID) 40 MEQ PO (09:45)
--- NOTE | 2020-12-14 12:58 | PM.PNCARD ---
Progress Note: A&P Assessment and Plan (1) Acute on chronic diastolic heart failure: Code(s): I50.33 - Acute on chronic diastolic (congestive) heart failure Status: Acute Assessment and Plan: Better compensated. Will stop her IV furosemide and start her on furosemide 40 mg p.o. daily (2) Tkvou-hn-euepvna kidney injury: Code(s): N17.9 - Acute kidney failure, unspecified; N18.9 - Chronic kidney disease, unspecified Status: Acute Assessment and Plan: Better today (3) Hypertension: Code(s): I10 - Essential (primary) hypertension Status: Chronic Assessment and Plan: Reasonably controlled (4) Chest pain: Qualifiers: Chest pain type: unspecified Qualified Code(s): R07.9 - Chest pain, unspecified Code(s): R07.9 - Chest pain, unspecified Status: Acute Assessment and Plan: This is musculoskeletal in etiology. Chest pain has improved (5) Hypokalemia: Code(s): E87.6 - Hypokalemia Status: Acute Assessment and Plan: Potassium has been replaced (6) SUSAN (obstructive sleep apnea): Code(s): G47.33 - Obstructive sleep apnea (adult) (pediatric) Status: Acute Assessment and Plan: Appreciate pulmonology input Subjective Date/time seen: 12/14/20 12:58 Interval history: Pt is a 65-year-old female here for CHF and possible UTI. She was able to wake up and answer my questions, but was really tired today, found it difficult to stay awake long. She has untreated sleep apnea for over 20 years. Ordered daily Neuro checks. Ordered BIPAP due to her SUSAN, and morning ABG for follow up. Consider ABG if her lethargy persists. PT/ OT ordered today to eval and treat. 12/14/2020: She feels less short of breath. Her chest pain has improved. She feels better and more awake today. Review of Systems Review of Systems: All systems reviewed & are unremarkable except as noted in HPI and below Constitutional: Constitutional: Denies fatigue, Denies headache(s) and Reports weakness Eyes: Eyes: Denies blurry vision ENT: Reports Normal hearing present, Denies headache(s) and Denies neck pain Cardiovascular: Cardiovascular: Reports chest pain, Reports leg edema and Reports dyspnea Respiratory: Respiratory: Reports dyspnea Gastrointestinal: Gastrointestinal: Denies abdominal pain Genitourinary: Genitourinary: Denies flank pain Musculoskeletal: Musculoskeletal: Denies back pain and Denies neck pain Integumentary/Breasts: Skin/Breast: Denies dry skin Neurologic: Reports Normal hearing present, Reports confusion, Denies headache(s) and Reports weakness Psychiatric: Psychiatric: Denies anxiety and Reports confusion Endocrine: Endocrine: Denies fatigue Hematologic/Lymphatic: Hematologic/Lymphatic: Denies easy bleeding Allergic/Immunologic: Allergic/Immunologic: Denies GI upset with certain foods Exam Narrative: Awake and less drowsy today. Appears stated age Const: General: comfortable, no acute distress and confusion Orientation/consciousness: confusion HENMT: General nose exam: Normal nares present Eyes: Sclera: sclerae normal Neck: Neck: not supple and no JVD Chest: Other: No reproducible chest wall pain to palpation Resp: Effort & Inspection: normal respiratory effort Auscultation: diminished lung sounds Cardio: Rate: regular rate Rhythm: regular rhythm GI: Inspection: non-distended Skin: General skin exam: normal color and no rashes or lesions noted Neuro: General: confusion Cranial nerves: Yes Normal hearing present Cognition (Neuro): normal cognition Speech: normal speech Extrem: General: normal to inspection and edema Other: Right AKA Psych: Affect: normal affect Objective Data Vital Signs Vital Signs: Vital Signs - 24 hr 12/13/20 14:00 12/13/20 16:00 12/13/20 20:00 Temperature 36.7 C Pulse Rate 58 L 65 77 Respiratory Rate 14 Blood Pressure 136/92 H Pulse Oximet
[2020-12-14 13:11] LABS: Glucose Point of Care 294 mg/dl (65-105)
--- NOTE | 2020-12-14 14:36 | PM.IMPN ---
Progress Note: A&P Assessment and Plan (1) Acute respiratory failure with hypoxia: Code(s): J96.01 - Acute respiratory failure with hypoxia Status: Acute Assessment and Plan: Resolved -likely due to edema and less likely pneumonia -chest x-ray 12/13/20 improved -patient has been afebrile has improved with Lasix therapy -PE seems less likely as the patient is not tachycardic and is on Xarelto and is improving on current therapy (2) Acute on chronic diastolic heart failure: Code(s): I50.33 - Acute on chronic diastolic (congestive) heart failure Status: Acute Assessment and Plan: Patient was transitioned off full Lasix 40 mg b.i.d. IV today to Lasix 40 mg orally -according to her output, she has diuresed well throughout her stay. Will discontinue Martel -she also has untreated sleep apnea which needs to be addressed outpatient. She has not worn a CPAP in 20 years. Nocturnal oxygen study ordered for tonight -last echo 10/2020 reviewed -BNP improving. She has no chest pain or signs and symptoms of ACS (3) Infiltrate of lung present on chest x-ray: Code(s): R91.8 - Other nonspecific abnormal finding of lung field Status: Acute Assessment and Plan: More in line with pulmonary edema with elevated BNP and clinical history -no antibiotics indicated at this time (4) Altered mental status: Code(s): R41.82 - Altered mental status, unspecified Status: Acute Assessment and Plan: Patient was doing well and was alert and oriented for me. Apparently an improvement since yesterday -resolved (5) UTI (urinary tract infection): Qualifiers: Hematuria presence: without hematuria Urinary tract infection type: site unspecified Qualified Code(s): N39.0 - Urinary tract infection, site not specified Code(s): N39.0 - Urinary tract infection, site not specified Status: Acute Assessment and Plan: Initial urine culture negative so antibiotics were stopped. Another urine culture was sent, will hold off on treatment until that comes back as I suspect it will be negative as well. Patient has been afebrile (6) COPD (chronic obstructive pulmonary disease): Qualifiers: COPD type: unspecified COPD Qualified Code(s): J44.9 - Chronic obstructive pulmonary disease, unspecified Code(s): J44.9 - Chronic obstructive pulmonary disease, unspecified Status: Acute Assessment and Plan: Chronic, no evidence of acute exacerbation (7) Morbid obesity with BMI of 50.0-59.9, adult: Code(s): E66.01 - Morbid (severe) obesity due to excess calories; Z68.43 - Body mass index [BMI] 50.0-59.9, adult Status: Acute Assessment and Plan: Lifestyle and diet modifications (8) SUSAN (obstructive sleep apnea): Code(s): G47.33 - Obstructive sleep apnea (adult) (pediatric) Status: Acute Assessment and Plan: Intolerance to CPAP -recommend following up outpatient for reassessment -pulmonary consult in place, plan for nocturnal oxygen study tonight (9) Chronic kidney disease: Code(s): N18.9 - Chronic kidney disease, unspecified Status: Acute Assessment and Plan: Creatinine 2.3 which is elevated from her baseline but consistent with her values for the last month -consider nephrology consult if it worsens. They last saw her on December 08 and suggested it might be ATN. -renal scan showed symmetric kidney function with delayed uptake in clearance consistent with decreased kidney function -likely due to diabetes and hypertension (10) Uncontrolled hypertension: Code(s): I10 - Essential (primary) hypertension Status: Acute Assessment and Plan: Last glucose 152/73 -continue home carvedilol (increased dose), nifedipine, spironolactone and now Lasix -will continue p.r.n. hydralazine (11) Diabetes: Code(s): E11.9 - Type 2 diabe
[2020-12-14] MEDS: RIVAROXABAN 15 MG TABLET PO (16:37)
[2020-12-14] MEDS: LOVASTATIN 10 MG TABLET PO (17:06)
[2020-12-14 17:43] LABS: Glucose Point of Care 291 mg/dl (65-105)
[2020-12-14] MEDS: INSULIN GLARGINE (*BKC) 100 UNITS/ML 10 UNITS SUB-Q (21:24)
[2020-12-14] MEDS: ZOLPIDEM TARTRATE (*CRX) 5 MG TABLET 10 MG PO (21:25)
[2020-12-14] MEDS: carvediloL 6.25 MG TABLET PO (21:25)
[2020-12-14] MEDS: AMITRIPTYLINE HCL 25 MG TABLET PO (21:25)
[2020-12-14 21:33] LABS: Glucose Point of Care 271 mg/dl (65-105)
[2020-12-15] VITALS (11 sets, daily range): BP systolic 143–154; BP diastolic 58–93; PULSE 54–68; RESP 18–20; TEMP 36.6–36.8; O2SAT 90–98
[2020-12-15 06:23] LABS: Hematocrit 27.1 % (37.0-47.0); Hemoglobin 8.7 g/dL (12.0-15.0); Mean Corpuscular HGB Conc 32.1 g/dl (32-36); Mean Corpuscular Hemoglobin 28.7 pg (26-34); Mean Corpuscular Volume 89.4 fl (80-100); Mean Platelet Volume 11.7 fl (7.4-10.4); Platelet Count Result 245 k/mm3 (150-375); Red Blood Count 3.03 M/mm3 (4.2-5.4); Red Cell Distribution Width 13.6 % (11.5-14.5); White Blood Count 9.7 K/mm3 (4.5-10.0)
[2020-12-15 06:48] LABS: Alanine Aminotransferase 7 U/L (4-35); Albumin Level 2.8 g/dL (3.5-5.1); Alkaline Phosphatase 186 U/L (38-126); Anion Gap 7 mmol/L (8-16); Aspartate Amino Transferase 25 U/L (14-36); Bilirubin,Total 0.4 mg/dL (0.2-1.3); Blood Urea Nitrogen 30 mg/dL (7-17); CRP 8.7 mg/dL (<1.0); Calcium 8.8 mg/dL (8.4-10.2); Carbon Dioxide 30 mmol/L (22-30); Chloride 95 mmol/L (98-107); Estimated CRCL calculation 38 ml/min; Estimated Glomerular Filt Rate 24; Glucose 249 mg/dL (65-110); Magnesium 1.6 mg/dL (1.6-2.3); Potassium 3.2 mmol/L (3.4-5.0); Sodium 132 mmol/L (137-145)
[2020-12-15 07:38] LABS: Free T4 Free Thyroxine 1.13 ng/mL (0.78-2.19)
[2020-12-15] MEDS: ASPIRIN 81 MG CHEWABLE TABLET PO (08:14)
[2020-12-15] MEDS: CARBIDOPA/LEVODOPA 25/100 MG TABLET 1 TABLET PO ×3 (08:14→17:07)
[2020-12-15] MEDS: busPIRone HCL 10 MG TABLET PO ×3 (08:15→17:05)
[2020-12-15] MEDS: ARIPiprazole 5 MG TABLET 15 MG PO (08:15)
[2020-12-15] MEDS: carvediloL 6.25 MG TABLET PO ×2 (08:16→21:01)
[2020-12-15] MEDS: ERGOCALCIFEROL 50,000 UNIT CAPSULE 50000 UNITS PO (08:16)
[2020-12-15] MEDS: MULTIVITAMINS THERAPEUTIC TAB (*BKC) 1 TABLET PO (08:17)
[2020-12-15] MEDS: MAGNESIUM OXIDE 400 MG TABLET PO ×2 (08:17→17:07)
[2020-12-15] MEDS: FUROSEMIDE 40 MG TABLET PO (08:17)
[2020-12-15] MEDS: LORATADINE 10 MG TABLET PO (08:17)
[2020-12-15] MEDS: ESCITALOPRAM OXALATE 10 MG TABLET 20 MG PO (08:17)
[2020-12-15] MEDS: NIFEdipine 30 MG TAB.ER.24 PO (08:18)
[2020-12-15] MEDS: PANTOPRAZOLE 40 MG TABLET PO (08:18)
[2020-12-15] MEDS: OXcarbazepine 300 MG TABLET 600 MG PO ×2 (08:18→17:05)
[2020-12-15] MEDS: guaiFENesin 12 HR 600 MG TABCR 1200 MG PO ×2 (08:19→21:00)
[2020-12-15] MEDS: SPIRONOLACTONE 25 MG TABLET PO (08:19)
[2020-12-15] MEDS: FLUTICASONE PROPIONATE 0.05% NA SPR 16 GM BTL (*BKC) 1 SPRAY NASAL (08:19)
[2020-12-15] MEDS: TOLNAFTATE 1% POWDER 45 GM BTL 1 APPLIC TOPICAL ×3 (08:24→21:08)
--- NOTE | 2020-12-15 08:29 | PM.PNPUL ---
Progress Note: A&P Assessment and Plan (1) SUSAN (obstructive sleep apnea): Code(s): G47.33 - Obstructive sleep apnea (adult) (pediatric) Status: Acute Assessment and Plan: Patient is morbidly obese with a BMI of 52.9 in tells me she was diagnosed with sleep apnea approximately 10 years ago with a sleep study in prescribed CPAP. Patient states she can only wear the CPAP for a little bit because it was too invasive. If she does have obstructive sleep apnea and has been noncompliant for 10 years I would expect to see some evidence of end-organ involvement including right heart dysfunction and or pulmonary hypertension which she does not have. I will order TSh and free T4 for the morning Currently patient has no daytime hypercarbia with a room air blood gas of 7.44/40/86 so she does not have alveolar hypoventilation syndrome. hypercarbia also does not explain her altered mental status. Currently her saturations on room air are 97% so hypoxemia is not a cause for her altered mental status. Patient may have obstructive sleep apnea but she will need an outpatient sleep study to make this diagnosis. The patient will not qualify for home CPAP or BiPAP until this study is done as an outpatient. Until she has this outpatient sleep study the goal will be to provide her adequate oxygenation at night. The 1st step in this process is to determine if she will qualify for oxygen at night and we will need to perform a overnight oximetry on room air to document desaturations less than or equal to 88% for greater than 5 minutes. I had ordered this test yesterday but unfortunately she was empirically placed on auto Pap. I will discontinue the auto PAP and she should not wear auto Pap until we have a firm diagnosis in place along with optimal pressure settings to treat her disease. Sub optimal pressure settings can exacerbate certain conditions like treatment related central apnea. if she does have obstructive sleep apnea she is not certain she will be able to tolerate a CPAP mask as she could not tolerate a CPAP mass 10 years ago and she states that the auto PAP last night was very invasive and she could not sleep with it on. The hope would be that the senior pharmacy technician could try multiple mass and find one that would be suitable for her. Agree with aggressively diuresing patient has tolerated by her cardiac and renal systems per the hospitalist and cardiology team. 12/15 Patient had an overnight oximetry demonstrating time with saturation less than or equal to 88% was 47 minutes or 12% of the monitored time. Patient should sleep with 2 L nasal cannula on. If patient remains in the hospital overnight I will repeat an overnight oximetry on 2 L nasal cannula. I talked to patient and she is willing to follow up with us in [facility] for an outpatient sleep study and and attempt to wear CPAP in the future should she have obstructive sleep apnea. Patient can be discharged from a pulmonary perspective on 2 L when she sleeps to follow up with Pulmonary in 3 weeks. Subjective Date/time seen: 12/15/20 08:29 Interval history: Narrative: This is a new Pulmonary consult for obstructive sleep apnea 65-year-old woman with a history of morbid obesity, asthma, right AKA, congestive heart failure, Parkinson's disease, COPD, obstructive sleep apnea who is admitted to the hospital on 12/11 with altered mental status. Patient tells me she is a never tobacco user and has no history of known COPD. CT scan of the chest on 12/02/2020 showed mild congestive heart failure but no evidence of emphysema. I have no PFTs. Patient also tells me that she had a sleep study approximately 10 years ago and was diagnosed with obstructive sleep apnea. Patient states that she wore CPAP mask for a little bit and was unable to quantify this but she was unable to tolerate the mask because it was so invasive. She had an echoc
[2020-12-15 08:50] LABS: Glucose Point of Care 204 mg/dl (65-105)
[2020-12-15] MEDS: POTASSIUM CHLORIDE 20 MEQ PACKET (FOR LIQUID) 40 MEQ PO (09:10)
[2020-12-15] MEDS: SENNOSIDES 8.6 MG TABLET 17.2 MG PO (09:10)
[2020-12-15] MEDS: polyethylene glycoL 3350 17 GM POWD.PACK PO (09:11)
[2020-12-15] MEDS: INSULIN ASPART (*BKC) 100 UNITS/ML SUB-Q ×3 (09:12→18:38)
--- NOTE | 2020-12-15 11:03 | PM.PNCARD ---
Progress Note: A&P Assessment and Plan (1) Acute on chronic diastolic heart failure: Code(s): I50.33 - Acute on chronic diastolic (congestive) heart failure Status: Acute Assessment and Plan: Better compensated. Continue furosemide 40mg p.o. daily. (2) Priuo-wk-iflznbt kidney injury: Code(s): N17.9 - Acute kidney failure, unspecified; N18.9 - Chronic kidney disease, unspecified Status: Acute Assessment and Plan: Stable. (3) Hypertension: Code(s): I10 - Essential (primary) hypertension Status: Chronic Assessment and Plan: Reasonably controlled (4) Chest pain: Qualifiers: Chest pain type: unspecified Qualified Code(s): R07.9 - Chest pain, unspecified Code(s): R07.9 - Chest pain, unspecified Status: Acute Assessment and Plan: This is musculoskeletal in etiology. Chest pain has improved (5) Hypokalemia: Code(s): E87.6 - Hypokalemia Status: Acute Assessment and Plan: Potassium being repleted. K+ today 3.2 Will give KCL 40 mEq p.o (6) SUSAN (obstructive sleep apnea): Code(s): G47.33 - Obstructive sleep apnea (adult) (pediatric) Status: Acute Assessment and Plan: Appreciate pulmonology input Subjective Date/time seen: 12/15/20 11:03 Interval history: Pt is a 65-year-old female here for CHF and possible UTI. She was able to wake up and answer my questions, but was really tired today, found it difficult to stay awake long. She has untreated sleep apnea for over 20 years. Ordered daily Neuro checks. Ordered BIPAP due to her SUSAN, and morning ABG for follow up. Consider ABG if her lethargy persists. PT/ OT ordered today to eval and treat. 12/14/2020: She feels less short of breath. Her chest pain has improved. She feels better and more awake today. Date of service 12/15/2020: States she is feeling better today. Breathing is improved - no shortness of breath. She is eager to go home. Review of Systems Review of Systems: All systems reviewed & are unremarkable except as noted in HPI and below Constitutional: Constitutional: Denies fatigue, Denies headache(s) and Reports weakness Eyes: Eyes: Denies blurry vision ENT: Reports Normal hearing present, Denies headache(s) and Denies neck pain Cardiovascular: Cardiovascular: Reports chest pain, Reports leg edema and Reports dyspnea Respiratory: Respiratory: Reports dyspnea Gastrointestinal: Gastrointestinal: Denies abdominal pain Genitourinary: Genitourinary: Denies flank pain Musculoskeletal: Musculoskeletal: Denies back pain and Denies neck pain Integumentary/Breasts: Skin/Breast: Denies dry skin Neurologic: Reports Normal hearing present, Reports confusion, Denies headache(s) and Reports weakness Psychiatric: Psychiatric: Denies anxiety and Reports confusion Endocrine: Endocrine: Denies fatigue Hematologic/Lymphatic: Hematologic/Lymphatic: Denies easy bleeding Allergic/Immunologic: Allergic/Immunologic: Denies GI upset with certain foods Exam Narrative: Alert and oriented. Pleasant, cooperative Const: General: comfortable, no acute distress and confusion Orientation/consciousness: confusion HENMT: General nose exam: Normal nares present Eyes: Sclera: sclerae normal Neck: Neck: not supple and no JVD Resp: Effort & Inspection: normal respiratory effort Auscultation: diminished lung sounds Cardio: Rate: regular rate Rhythm: regular rhythm GI: Inspection: non-distended Skin: General skin exam: normal color and no rashes or lesions noted Neuro: General: confusion Cranial nerves: Yes Normal hearing present Cognition (Neuro): normal cognition Speech: normal speech Extrem: General: normal to inspection and edema Other: Right AKA Psych: Affect: normal affect Objective Data Vital Signs Vital Signs: Vital Signs - 24 hr 12/14/20 12:00 12/14/20 14:00 12/14/20 16:00 Temperature 36.7 C Pulse Ra
[2020-12-15 12:05] LABS: Glucose Point of Care 276 mg/dl (65-105)
[2020-12-15] MEDS: LOVASTATIN 10 MG TABLET PO (17:05)
[2020-12-15] MEDS: RIVAROXABAN 20 MG TABLET PO (17:06)
[2020-12-15 17:58] LABS: Glucose Point of Care 273 mg/dl (65-105)
[2020-12-15] MEDS: AMITRIPTYLINE HCL 25 MG TABLET PO (21:05)
[2020-12-15] MEDS: INSULIN GLARGINE (*BKC) 100 UNITS/ML 10 UNITS SUB-Q (21:10)
[2020-12-15] MEDS: ZOLPIDEM TARTRATE (*CRX) 5 MG TABLET 10 MG PO (21:10)
[2020-12-15 21:22] LABS: Glucose Point of Care 297 mg/dl (65-105)
--- NOTE | 2020-12-20 10:50 | PC.NURSE ---
Blood cx are negative.
--- NOTE | 2020-12-22 07:38 | PM.DS ---
DS: Admitting Diagnosis Admitting Diagnosis respiratory failure DS: Discharge Diagnosis Discharge Diagnosis (1) Acute respiratory failure with hypoxia: Code(s): J96.01 - Acute respiratory failure with hypoxia Status: Acute Assessment and Plan: Resolved -likely due to edema and less likely pneumonia -chest x-ray 12/13/20 improved -patient has been afebrile has improved with Lasix therapy -PE seems less likely as the patient is not tachycardic and is on Xarelto and is improved with above therapy (2) Acute on chronic diastolic heart failure: Code(s): I50.33 - Acute on chronic diastolic (congestive) heart failure Status: Acute Assessment and Plan: Patient transition to oral Lasix and was discharged on this -spoke with [place] [facility] was going to follow BMP in 1 week due to the addition of Lasix -Martel catheter discontinued at discharge after patient refused to have it discontinued throughout her stay -she also has untreated sleep apnea which needs to be addressed outpatient. She has not worn a CPAP in 20 years. -last echo 10/2020 reviewed -BNP improving. She has no chest pain or signs and symptoms of ACS (3) Infiltrate of lung present on chest x-ray: Code(s): R91.8 - Other nonspecific abnormal finding of lung field Status: Acute Assessment and Plan: More in line with pulmonary edema with elevated BNP and clinical history -no antibiotics indicated (4) Altered mental status: Code(s): R41.82 - Altered mental status, unspecified Status: Acute Assessment and Plan: Patient was doing well and was alert and oriented for me (5) UTI (urinary tract infection): Qualifiers: Hematuria presence: without hematuria Urinary tract infection type: site unspecified Qualified Code(s): N39.0 - Urinary tract infection, site not specified Code(s): N39.0 - Urinary tract infection, site not specified Status: Acute Assessment and Plan: Urine culture x2 negative (6) COPD (chronic obstructive pulmonary disease): Qualifiers: COPD type: unspecified COPD Qualified Code(s): J44.9 - Chronic obstructive pulmonary disease, unspecified Code(s): J44.9 - Chronic obstructive pulmonary disease, unspecified Status: Acute Assessment and Plan: Chronic, no evidence of acute exacerbation (7) Morbid obesity with BMI of 50.0-59.9, adult: Code(s): E66.01 - Morbid (severe) obesity due to excess calories; Z68.43 - Body mass index [BMI] 50.0-59.9, adult Status: Acute Assessment and Plan: Lifestyle and diet modifications (8) SUSAN (obstructive sleep apnea): Code(s): G47.33 - Obstructive sleep apnea (adult) (pediatric) Status: Acute Assessment and Plan: Intolerance to CPAP -patient requires oxygen with sleep. She also needs an outpatient official sleep study (9) Chronic kidney disease: Code(s): N18.9 - Chronic kidney disease, unspecified Status: Acute Assessment and Plan: Creatinine 2.1 which is elevated from her baseline but consistent with her values for the last month -renal scan showed symmetric kidney function with delayed uptake in clearance consistent with decreased kidney function during last stay and Nephrology saw her than. Her renal function is better since her last stay. -likely due to diabetes and hypertension (10) Uncontrolled hypertension: Code(s): I10 - Essential (primary) hypertension Status: Acute Assessment and Plan: Last glucose 152/58 -continue home carvedilol (increased dose), nifedipine, spironolactone and now Lasix (11) Diabetes: Code(s): E11.9 - Type 2 diabetes mellitus without complications Status: Chronic Assessment and Plan: Last glucose 297 Last A1c 6.2 -continue sliding scale insulin, discharged on Lantus (12) Hyponatremia:
== END 2020-12-16 | DRG 291 ==
LOC: ANHED 15:43 → ANH3MEDSUR 22:47
PROVIDERS: Internal Medicine Pulmonary Disease; Nurse Practitioner; Physician Assistant; Admitting Provider Internal Medicine Nephrology; Emergency Provider Emergency Medicine; PCP Family Medicine; Visit Provider Internal Medicine
DX: I13.0 Hypertensive heart and chronic kidney disease with heart failure and stage 1 through stage 4 chronic kidney disease, or unspecified chronic kidney disease (principal); J96.01 Acute respiratory failure with hypoxia; I50.33 Acute on chronic diastolic (congestive) heart failure; I48.20 Chronic atrial fibrillation, unspecified; N17.9 Acute kidney failure, unspecified; Z68.43 Body mass index [BMI] 50.0-59.9, adult; E87.1 Hypo-osmolality and hyponatremia; E11.22 Type 2 diabetes mellitus with diabetic chronic kidney disease; N18.9 Chronic kidney disease, unspecified; G47.33 Obstructive sleep apnea (adult) (pediatric); J44.9 Chronic obstructive pulmonary disease, unspecified; D64.9 Anemia, unspecified; F41.9 Anxiety disorder, unspecified; M19.90 Unspecified osteoarthritis, unspecified site; F32.9 Major depressive disorder, single episode, unspecified; K21.9 Gastro-esophageal reflux disease without esophagitis; M79.7 Fibromyalgia; E78.5 Hyperlipidemia, unspecified; M81.0 Age-related osteoporosis without current pathological fracture; E87.5 Hyperkalemia; R07.89 Other chest pain; G20 Parkinson's disease; E11.42 Type 2 diabetes mellitus with diabetic polyneuropathy; R91.8 Other nonspecific abnormal finding of lung field; L40.9 Psoriasis, unspecified; G25.81 Restless legs syndrome; R00.1 Bradycardia, unspecified; L30.9 Dermatitis, unspecified; I73.9 Peripheral vascular disease, unspecified; E66.01 Morbid (severe) obesity due to excess calories; Z96.651 Presence of right artificial knee joint; Z90.49 Acquired absence of other specified parts of digestive tract; Z86.718 Personal history of other venous thrombosis and embolism; Z86.73 Personal history of transient ischemic attack (TIA), and cerebral infarction without residual deficits; Z86.711 Personal history of pulmonary embolism
CPT/HCPCS: 36415; 36600; 70450; 71045; 80048; 80076; 81001; 82805; 82948; 83735; 83880; 84439; 84443; 85025; 85027; 86140; 87040; 87086; 87088; 93005; 94640; 94660; 94762; 96374; 97162; 97165; 99285; A9270; J0360; J0692; J1815; J1940